=== PATIENT | male | born 1960 | race American Indian/Alaskan Native ===

== ENCOUNTER 2018-09-11 01:12 | Inpatient (IN) | payer MEDICARE, OTHER ==
[2018-09-11] MEDS ORDERED: Albuterol-Ipratrop 3 mg / 0.5 (3 ml) UD IH STA (02:31)
--- NOTE | 2018-09-11 02:41 | ED PDOC ---
Arrival/HPI - General Chief Complaint: Lower Extremity Problem/Injury Time Seen by Provider: 09/11/18 02:18 Historian: Patient - Critical Care Critical Care Minutes: 30 minutes, 45 minutes - History of Present Illness Narrative History of Present Illness (Text): 09/11/18 02:38 58 year old male, whose medical history includes morbid obesity and leg cellulitis, and denies any other past medical history, presents to the emergency department with shortness of breath. Patient also informs of dry skin changes to his right lower leg. Patient informs he has not been to a PMD in quite some time. Patient denies any chest pain, fever, chills, nausea, diarrhea, or any other complaints. Time/Duration: Prior to Arrival Symptom Onset: Gradual Symptom Course: Unchanged Activities at Onset: Light Context: Home Past Medical History - Provider Review Nursing Documentation Reviewed: Yes - Cardiac Hx Cardiac Disorders: Yes Hx Hypertension: Yes - Pulmonary Hx Respiratory Disorders: No - Neurological Hx Neurological Disorder: No - HEENT Hx HEENT Disorder: No - Renal Hx Renal Disorder: No - Endocrine/Metabolic Hx Endocrine Disorders: No - Hematological/Oncological Hx Blood Transfusions: Yes Hx Blood Transfusion Reaction: No - Integumentary Hx Dermatological Disorder: No Other/Comment: BILATERAL LYMPEDEMA WITH 2 LARGE OPENING ONE IS TO RIGHT LOWER LATERAL SIDE OF RIGHT LEG AND 2ND TO BACKSIDE OF THIGH.DRAINING COPIOUS SEROUSANGUINEOUS DRAINAGE, - Musculoskeletal/Rheumatological Hx Musculoskeletal Disorders: Yes - Gastrointestinal Hx Gastrointestinal Disorders: No - Genitourinary/Gynecological Hx Genitourinary Disorders: No - Psychiatric Hx Psychophysiologic Disorder: No Hx Substance Use: No - Surgical History Hx Orthopedic Surgery: Yes (right ankle) - Anesthesia Hx Anesthesia Reactions: No Hx Malignant Hyperthermia: No Family/Social History - Physician Review Nursing Documentation Reviewed: Yes Family/Social History: No Known Family HX Smoking Status: Never Smoked Hx Alcohol Use: No Hx Substance Use: No Allergies/Home Meds Allergies/Adverse Reactions: Allergies No Known Allergies Allergy (Verified 10/23/15 19:49) Review of Systems - Physician Review All systems were reviewed & negative as marked: Yes - Review of Systems Constitutional: absent: Fevers, Night Sweats Respiratory: SOB Cardiovascular: absent: Chest Pain Gastrointestinal: absent: Diarrhea, Nausea, Vomiting Physical Exam Vital Signs Reviewed: Yes Vital Signs Temp Pulse Resp BP Pulse Ox 09/11/18 01:48 97.5 F L 114 H 18 144/78 92 L Temperature: Afebrile Blood Pressure: Normal Pulse: Tachycardic Respiratory Rate: Normal Appearance: Positive for: Well-Appearing, Non-Toxic, Comfortable Pain Distress: None Mental Status: Positive for: Alert and Oriented X 3 - Systems Exam Head: Present: Atraumatic, Normocephalic Pupils: Present: PERRL Extroacular Muscles: Present: EOMI Conjunctiva: Present: Normal Mouth: Present: Moist Mucous Membranes Neck: Present: Normal Range of Motion Respiratory/Chest: Present: Clear to Auscultation, Good Air Exchange, Rhonchi (Scattered). No: Respiratory Distress, Accessory Muscle Use Cardiovascular: Present: Normal S1, S2, Irregular Rhythm. No: Murmurs Abdomen: Present: Normal Bowel Sounds. No: Tenderness, Distention, Peritoneal Signs Back: Present: Normal Inspection Upper Extremity: Present: Normal Inspection. No: Cyanosis, Edema Lower Extremity: Present: Neurovascularly Intact. No: Normal Inspection (Lymphedema bilaterally, with chronic venous stasis changes; dry skin), Shima's Sign Neurological: Present: GCS=15, CN II-XII Intact, Speech Normal, Motor Func Grossly Intact, Normal Sensory Function Skin: Present: Warm, Dry, Normal Color. No: Rashes Psychiatric: Present: Alert, Oriented x 3, Normal Insight, Normal Concentration Medical Decision Making ED Course and Treatment: 09/11/18 02:49 Impression: 58 year old male presents with shortness of breath, skin changes to legs Plan: -- EKG -- CMP, BNP, Cardiac iso -- CBC, Platelets -- Chest X-ray -- Duoneb -- US Lower EXT -- Reassess and disposition Prior Visits: Notes and results from previous visits were reviewed Progress Notes: 09/11/18 05:08 US reviewed, shows: Negative DVT, but limited study. 09/11/18 05:15 EKG Reviewed by me, shows: A-fib @ 110bpm Inferior and anterior infarct 09/11/18 05:15 Chest X-ray Reviewed by me, shows: CHF 09/11/18 05:38 Case discussed with outside medical sales representative and Dr Berger, who accept admission.Patient will need to go to the ICU.Case was discussed with who accepted to his service and agrees with ICU/CCU admission. - RAD Interpretation Radiology Orders: 09/11/18 02:29 CHEST PORTABLE [RAD] Stat DUPLEX LOWER EXTRM VEIN BILAT [US] Stat - Medication Orders Current Medication Orders: Albuterol/Ipratropium (Duoneb 3 Mg/0.5 Mg (3 Ml) Ud) 3 ml IH ONCE STA Stop: 09/11/18 02:32 - Scribe Statement The provider has reviewed the documentation as recorded by the Alejandrinaibpetra Soliman Provider Scribe Attestation: All medical record entries made by the Scribe were at my direction and personally dictated by me. I have reviewed the chart and agree that the record accurately reflects my personal performance of the history, physical exam, medical decision making, and the department course for this patient. I have also personally directed, reviewed, and agree with the discharge instructions and disposition. Disposition/Present on Arrival - Present on Arrival Any Indicators Present on Arrival: No History of DVT/PE: No History of Uncontrolled Diabetes: No Urinary Catheter: No History of Decub. Ulcer: No History Surgical Site Infection Following: None - Disposition Have Diagnosis and Disposition been Completed?: Yes Diagnosis: CHF (congestive heart failure), Anemia, Lymphedema, Atrial fibrillation Disposition: HOSPITALIZED Disposition Time: 05:42 Patient Problems: Current Active Problems Problem Status Onset Anemia Acute Atrial fibrillation Acute CHF (congestive heart failure) Acute Lymphedema Acute Condition: GUARDED
[2018-09-11] MEDS: diltiaZEM IVPB 100mg in NS 100 ML IV PRN ×2 (03:25→22:26)
[2018-09-11 03:33] LABS: HEMOGLOBIN 8.4 g/dL (14.0-18.0); MEAN CELL VOLUME 72.7 fl (80.0-105.0); MEAN CORPUSCULAR HEMOGLOBIN 19.1 pg (25.0-35.0); MEAN CORPUSCULAR HGB CONC 26.3 g/dl (31.0-37.0); MEAN PLATELET VOLUME 9.8 fl (7.0-11.0); RBC 4.4 10^6/uL (3.5-6.1); RED CELL DISTRIBUTION WIDTH 20.2 % (11.5-14.5); WHITE BLOOD COUNT 9.2 10^3/uL (4.5-11.0)
[2018-09-11 03:37] LABS: INR 1.67; PROTHROMBIN TIME 18.5 SECONDS (9.4-12.5)
[2018-09-11 03:39] LABS: ALB/GLOB RATIO 0.8 (1.1-1.8); ALBUMIN 3.7 g/dL (3.0-4.8); ALT/SGPT 18 U/L (7-56); AST/SGOT 62 U/L (17-59); BLOOD UREA NITROGEN 30 mg/dL (7-21); CALCIUM 8.1 mg/dL (8.4-10.5); GFR NON-AFRICAN AMERICAN > 60
[2018-09-11 03:51] LABS: B-TYPE NATRIURETIC PEPTIDE 2910 pg/mL (0-450); TROPONIN I 0.02 ng/mL
[2018-09-11 05:55] LABS: ARTERIAL BLOOD GAS HCO3 30.3 mmol/L (21-28); ARTERIAL BLOOD GAS HEMOGLOBIN 8.4 g/dL (11.7-17.4); ARTERIAL BLOOD GAS O2 CAPACITY 11.9 mL/dl (16-24); ARTERIAL BLOOD GAS O2 CONTENT 11.8 ML/dl (15-23); ARTERIAL BLOOD GAS O2 SAT 99.4 % (95-98); ARTERIAL BLOOD GAS PCO2 83 mm/Hg (35-45); ARTERIAL BLOOD GAS PH 7.17 (7.35-7.45); ARTERIAL BLOOD GAS TCO2 32.8 mmol.L (22-28)
[2018-09-11] MEDS ORDERED: Enoxaparin 120 mg Syringe SC SCH (06:30)
--- NOTE | 2018-09-11 06:37 | CP.PCM.HP ---
Past Patient History - Past Social History Smoking Status: Never Smoked - CARDIAC Hx Cardiac Disorders: Yes Hx Hypertension: Yes - PULMONARY Hx Respiratory Disorders: No - NEUROLOGICAL Hx Neurological Disorder: No - HEENT Hx HEENT Problems: No - RENAL Hx Chronic Kidney Disease: No - ENDOCRINE/METABOLIC Hx Endocrine Disorders: No - HEMATOLOGICAL/ONCOLOGICAL Hx Blood Transfusions: Yes Hx Blood Transfusion Reaction: No - INTEGUMENTARY Hx Dermatological Problems: No Other/Comment: BILATERAL LYMPEDEMA WITH 2 LARGE OPENING ONE IS TO RIGHT LOWER LATERAL SIDE OF RIGHT LEG AND 2ND TO BACKSIDE OF THIGH.DRAINING COPIOUS SEROUSANGUINEOUS DRAINAGE, - MUSCULOSKELETAL/RHEUMATOLOGICAL Hx Musculoskeletal Disorders: Yes - GASTROINTESTINAL Hx Gastrointestinal Disorders: No - GENITOURINARY/GYNECOLOGICAL Hx Genitourinary Disorders: No - PSYCHIATRIC Hx Psychophysiologic Disorder: No Hx Substance Use: No - SURGICAL HISTORY Hx Orthopedic Surgery: Yes (right ankle) - ANESTHESIA Hx Anesthesia Reactions: No Hx Malignant Hyperthermia: No Meds Allergies/Adverse Reactions: Allergies Allergy/AdvReac Type Severity Reaction Status Date / Time No Known Allergies Allergy Verified 10/23/15 19:49 Results - Vital Signs Recent Vital Signs: Last Vital Signs Temp 98.9 F 09/11/18 06:20 Pulse 89 09/11/18 06:20 Resp 27 H 09/11/18 06:20 BP 156/73 H 09/11/18 06:20 Pulse Ox 100 09/11/18 06:20 - Labs Result Diagrams: 09/11/18 03:10 09/11/18 03:10 Labs: Laboratory Results - last 24 hr 09/11/18 09/11/18 09/11/18 03:10 03:10 03:10 WBC 9.2 RBC 4.40 Hgb 8.4 L Hct 32.0 L MCV 72.7 L MCH 19.1 L MCHC 26.3 L RDW 20.2 H Plt Count 308 MPV 9.8 PT 18.5 H INR 1.67 APTT 30.0 pCO2 pO2 HCO3 ABG pH ABG Total CO2 ABG O2 Saturation ABG O2 Content ABG Base Excess ABG Hemoglobin ABG Carboxyhemoglobin POC ABG HHb (Measured) ABG Methemoglobin ABG O2 Capacity Hgb O2 Saturation FiO2 Blood Gas Comments Crit Value Called To Crit Value Called By Blood Gas Notified Time Sodium 134 Potassium 4.8 Chloride 96 L Carbon Dioxide 32 Anion Gap 10 BUN 30 H Creatinine 1.0 Est GFR ( Amer) > 60 Est GFR (Non-Af Amer) > 60 Random Glucose 117 H Calcium 8.1 L Total Bilirubin 0.9 AST 62 H ALT 18 Alkaline Phosphatase 40 Lactate Dehydrogenase 598 Total Creatine Kinase 91 Troponin I 0.02 D NT-Pro-B Natriuret Pep 2910 H Total Protein 8.1 Albumin 3.7 Globulin 4.5 Albumin/Globulin Ratio 0.8 L 09/11/18 05:35 WBC RBC Hgb Hct MCV MCH MCHC RDW Plt Count MPV PT INR APTT pCO2 83 H* pO2 162.0 H HCO3 30.3 H ABG pH 7.17 L* ABG Total CO2 32.8 H ABG O2 Saturation 99.4 H ABG O2 Content 11.8 L ABG Base Excess 0.9 ABG Hemoglobin 8.4 L ABG Carboxyhemoglobin 2.5 H POC ABG HHb (Measured) 0.6 ABG Methemoglobin 0.4 ABG O2 Capacity 11.9 L Hgb O2 Saturation 96.4 FiO2 100.0 Blood Gas Comments Ms enrique mac(manufacturing advisor) will bring abg results to ed Crit Value Called To [facility] brito rn ed Crit Value Called By [facility] Blood Gas Notified Time 554 Sodium Potassium Chloride Carbon Dioxide Anion Gap BUN Creatinine Est GFR ( Amer) Est GFR (Non-Af Amer) Random Glucose Calcium Total Bilirubin AST ALT Alkaline Phosphatase Lactate Dehydrogenase Total Creatine Kinase Troponin I NT-Pro-B Natriuret Pep Total Protein Albumin Globulin Albumin/Globulin Ratio
[2018-09-11] MEDS ORDERED: Vancomycin 1gm in NS 250ml 1 GM/250 ML BAG IVPB SCH (06:45)
[2018-09-11] MEDS ORDERED: MEROPENEM 500 MG in NS 500 MG/50 ML BAG IVPB SCH (07:00)
--- NOTE | 2018-09-11 07:07 | CP.PCM.CON ---
<Guru Lamas - Last Filed: 09/11/18 07:08> History of Present Illness - History of Present Illness History of Present Illness: Consult Note for ICU, Dr. Celine Lamas, DO PGY-1 This is a 58 y o male with PMHx morbid obesity, leg cellulitis, and chronic lymphedema, who presents to the ED c/o shortness of breath worsening for the past 7 days. Reason for ICU consult was for worsening respiratory distress, possible new-onset arrhythmia. Pt denies any inciting factors prior to onset of symptoms but notes that he has been becoming more short of breath with exertion at home and more recently at rest. Of note pt reports recent travel to [place] via airplane at the end of August. Denies hx sick contacts or recent URI. Reports last time he had dyspnea like this he was admitted to [facility] in [place], but denies being treated with BiPap or ever being intubated in the past. Denies fever, chills, chest pain, n/v/d/c, abd pain, urinary complaints, or other symptoms. PMhx: morbid obesity, leg cellulitis, and chronic lymphedema PSurgHx: surgery for R ankle fracture in 2006, I+D of RLE for cellulitis in 2016 Allergies: NKDA Home meds: none Fam hx: noncontributory Soc hx: denies smoking, EtOH or illicit drug use PMD: none Review of Systems - Constitutional Constitutional: Fatigue. absent: Chills, Fever, Headache, Night Sweats, Sleep Apnea - Cardiovascular Cardiovascular: Dyspnea, Dyspnea on Exertion, Leg Edema. absent: Chest Pain, Palpitations - Respiratory Respiratory: Dyspnea, Dyspnea on Exertion. absent: Cough, Wheezing, Chest Congestion, Excessive Mucous Production - Gastrointestinal Gastrointestinal: absent: Abdominal Pain, Constipation, Diarrhea, Nausea, Vomiting - Genitourinary Genitourinary: absent: Dysuria, Urinary Frequency, Urinary Urgency - Neurological Neurological: absent: Dizziness, Numbness, Headaches, Tingling Past Patient History - Past Social History Smoking Status: Never Smoked - CARDIAC Hx Cardiac Disorders: Yes Hx Hypertension: Yes - PULMONARY Hx Respiratory Disorders: No - NEUROLOGICAL Hx Neurological Disorder: No - HEENT Hx HEENT Problems: No - RENAL Hx Chronic Kidney Disease: No - ENDOCRINE/METABOLIC Hx Endocrine Disorders: No - HEMATOLOGICAL/ONCOLOGICAL Hx Blood Transfusions: Yes Hx Blood Transfusion Reaction: No - INTEGUMENTARY Hx Dermatological Problems: No Other/Comment: BILATERAL LYMPEDEMA WITH 2 LARGE OPENING ONE IS TO RIGHT LOWER LATERAL SIDE OF RIGHT LEG AND 2ND TO BACKSIDE OF THIGH.DRAINING COPIOUS SEROUSANGUINEOUS DRAINAGE, - MUSCULOSKELETAL/RHEUMATOLOGICAL Hx Musculoskeletal Disorders: Yes - GASTROINTESTINAL Hx Gastrointestinal Disorders: No - GENITOURINARY/GYNECOLOGICAL Hx Genitourinary Disorders: No - PSYCHIATRIC Hx Psychophysiologic Disorder: No Hx Substance Use: No - SURGICAL HISTORY Hx Orthopedic Surgery: Yes (right ankle) - ANESTHESIA Hx Anesthesia Reactions: No Hx Malignant Hyperthermia: No Meds Allergies/Adverse Reactions: Allergies Allergy/AdvReac Type Severity Reaction Status Date / Time No Known Allergies Allergy Verified 10/23/15 19:49 - Medications Medications: Current Medications Acetaminophen (Tylenol 325mg Tab) 650 mg PO Q6 PRN PRN Reason: TEMP>=99.5F Acetaminophen (Tylenol 650 Mg Supp) 650 mg RC Q6H PRN PRN Reason: TEMP>=99.5F Atorvastatin Calcium (Lipitor) 40 mg PO DIN [facility] Docusate Sodium (Colace) 100 mg PO TID [facility] Enoxaparin Sodium (Lovenox) 240 mg SC Q12H [facility]; Protocol Furosemide (Lasix) 40 mg IVP Q8H [facility] diltiaZEM IVPB 100mg in NS (Cardizem 100mg In Ns) 100 mls @ 5 mls/hr IV .Q20H PRN; Protocol PRN Reason: TITRATE PER MD ORDER Last Admin: 09/11/18 03:25 Dose: 5 mls/hr Vancomycin HCl (Vancomycin 1gm) 1 gm in 250 mls @ 167 mls/hr IVPB Q12H [facility]; P rotocol Meropenem/Sodium Chloride (Merrem Iv 500 Mg/Ns 50 Ml) 500 mg in 50 mls @ 100 mls/hr IVPB Q8 [facility]; Protocol Stop: 09/11/18 14:29 Ondansetron HCl (Zofran Inj) 4 mg IVP Q4H PRN PRN Reason: Nausea/Vomiting Pantoprazole Sodium (Protonix Ec Tab) 40 mg PO 0600 [facility] Physical Exam - Constitutional Appears: Non-toxic, No Acute Distress - Head Exam Head Exam: ATRAUMATIC, NORMOCEPHALIC - Eye Exam Eye Exam: EOMI, Normal appearance, PERRL - ENT Exam ENT Exam: Mucous Membranes Moist - Respiratory Exam Respiratory Exam: Wheezes, Respiratory Distress. absent: Rales, Rhonchi - Cardiovascular Exam Cardiovascular Exam: Tachycardia, Irregular Rhythm, +S1, +S2. absent: Gallop, Rubs, Systolic Murmur - GI/Abdominal Exam GI & Abdominal Exam: Normal Bowel Sounds, Soft. absent: Distended, Guarding, O rganomegaly, Rebound, Rigid, Tenderness - Extremities Exam Extremities exam: Positive for: joint swelling, normal capillary refill, pedal pulses present Additional comments: Marked lymphedema noted in extremities b/l, - Skin Additional comments: Ulcer noted on R lower lateral side of R leg and 2nd location to backside of thigh, draining copious serosanguinous drainage Results - Vital Signs Recent Vital Signs: Last Vital Signs Temp 98.9 F 09/11/18 06:20 Pulse 89 09/11/18 06:20 Resp 27 H 09/11/18 06:20 BP 156/73 H 09/11/18 06:20 Pulse Ox 100 09/11/18 06:20 - Labs Result Diagrams: 09/11/18 03:10 09/11/18 03:10 Labs: Laboratory Results - last 24 hr 09/11/18 09/11/18 09/11/18 03:10 03:10 03:10 WBC 9.2 RBC 4.40 Hgb 8.4 L Hct 32.0 L MCV 72.7 L MCH 19.1 L MCHC 26.3 L RDW 20.2 H Plt Count 308 MPV 9.8 PT 18.5 H INR 1.67 APTT 30.0 pCO2 pO2 HCO3 ABG pH ABG Total CO2 ABG O2 Saturation ABG O2 Content ABG Base Excess ABG Hemoglobin ABG Carboxyhemoglobin POC ABG HHb (Measured) ABG Methemoglobin ABG O2 Capacity Hgb O2 Saturation FiO2 Blood Gas Comments Crit Value Called To Crit Value Called By Blood Gas Notified Time Sodium 134 Potassium 4.8 Chloride 96 L Carbon Dioxide 32 Anion Gap 10 BUN 30 H Creatinine 1.0 Est GFR ( Amer) > 60 Est GFR (Non-Af Amer) > 60 Random Glucose 117 H Calcium 8.1 L Total Bilirubin 0.9 AST 62 H ALT 18 Alkaline Phosphatase 40 Lactate Dehydrogenase 598 Total Creatine Kinase 91 Troponin I 0.02 D NT-Pro-B Natriuret Pep 2910 H Total Protein 8.1 Albumin 3.7 Globulin 4.5 Albumin/Globulin Ratio 0.8 L 09/11/18 05:35 WBC RBC Hgb Hct MCV MCH MCHC RDW Plt Count MPV PT INR APTT pCO2 83 H* pO2 162.0 H HCO3 30.3 H ABG pH 7.17 L* ABG Total CO2 32.8 H ABG O2 Saturation 99.4 H ABG O2 Content 11.8 L ABG Base Excess 0.9 ABG Hemoglobin 8.4 L ABG Carboxyhemoglobin 2.5 H POC ABG HHb (Measured) 0.6 ABG Methemoglobin 0.4 ABG O2 Capacity 11.9 L Hgb O2 Saturation 96.4 FiO2 100.0 Blood Gas Comments Ms enrique mac(front desk attendant) will bring abg results to ed Crit Value Called To Stanford brito rn ed Crit Value Called By Dereck Blood Gas Notified Time 554 Sodium Potassium Chloride Carbon Dioxide Anion Gap BUN Creatinine Est GFR ( Amer) Est GFR (Non-Af Amer) Random Glucose Calcium Total Bilirubin AST ALT Alkaline Phosphatase Lactate Dehydrogenase Total Creatine Kinase Troponin I NT-Pro-B Natriuret Pep Total Protein Albumin Globulin Albumin/Globulin Ratio Assessment & Plan - Assessment and Plan (Free Text) Assessment: This is a 58 y o male with PMHx morbid obesity, leg cellulitis, and chronic lymphedema, who presents to the ED c/o shortness of breath worsening for the past 7 days. Reason for ICU consult was for worsening respiratory distress, possible new-onset arrhythmia. Plan: Neuro: AAOx3 currently. No changes in mental status. Cont to monitor. CV: BP 156/73, HR 89, irregular rhythm noted on monitor. Per RN pt was in HR up to 150s on presentation to ED. Was given Cardizem with improvement in rate control. Currently on Cardizem drip. R/o atrial fibrillation. Cardiology consulted, recs appreciated BNP elevated at 2910 on admission. R/o CHF exacerbation. Lasix 40 IVP q8h. Maintain MAP>65. Hemodynamically stable currently Cont to monitor. Pulm: Chronic resp acidosis compensated with metabolic acidosis, f/u repeat ABG R/o PE as etiology based on pt history, obesity hypoventilation syndrome. V/Q scan ordered due to pt being unable to fit into CT scan machine for CT angio chest. Duplex U/s LE b/l prelim read neg for DVT. On BiPap at rate of 18/6. Maintain O2 sat>90% Continue with HOB elevation> 35 degrees, aspiration precautions. Continue with protected lung ventilation strategies GI: NPO. Continue with Protonix. /Renal BUN/Cr 30/1.0. Replace lytes as needed, maintain euvolemia. Continue to monitor. ID: Afebrile, no leukocytosis. Treat for cellulitis Vanco/Merrem ID consulted, recs appreciated Blood, wound cxs pending Endo: A1c pending Random glucose 117 on admission. Heme: Hgb 8.4/32. Plts 308. Stable. Cont to monitor. Psych: Normal mood. DVT ppx - Lovenox bid GI ppx - Protonix bid Pt seen, examined with, and plan discussed with Dr. Berger, attending physicia kirstin Lamas DO PGY-1, Final Armature Tester Pager #[phone] <Ana Berger - Last Filed: 09/11/18 21:25> Meds - Medications Medications: Current Medications Acetaminophen (Tylenol 325mg Tab) 650 mg PO Q6 PRN PRN Reason: TEMP>=99.5F Acetaminophen (Tylenol 650 Mg Supp) 650 mg RC Q6H PRN PRN Reason: TEMP>=99.5F Albuterol/Ipratropium (Duoneb 3 Mg/0.5 Mg (3 Ml) Ud) 3 ml IH Q4H [facility] Atorvastatin Calcium (Lipitor) 40 mg PO DIN [facility] Last Admin: 09/11/18 17:46 Dose: Not Given Docusate Sodium (Colace) 100 mg PO TID [facility] Last Admin: 09/11/18 17:46 Dose: Not Given Furosemide (Lasix) 40 mg IVP Q8H [facility] Last Admin: 09/11/18 14:32 Dose: 40 mg diltiaZEM IVPB 100mg in NS (Cardizem 100mg In Ns) 100 mls @ 5 mls/hr IV .Q20H PRN; Protocol PRN Reason: TITRATE PER MD ORDER Last Admin: 09/11/18 03:25 Dose: 5 mls/hr Linezolid (Zyvox 600mg/300ml D5w) 600 mg in 300 mls @ 200 mls/hr IVPB Q12 [facility]; Protocol Stop: 09/18/18 22:01 Doxycycline Hyclate 100 mg/ (Sodium Chloride) 100 mls @ 100 mls/hr IVPB Q12 [facility]; Protocol Last Admin: 09/11/18 14:30 Dose: 100 mls/hr Heparin Sodium/Sodium Chloride (Heparin 65090 Units/250ml 1/2 Normal Saline) 25,000 units in 250 mls @ 20.02 mls/hr IV .[id number] PRN; Protocol PRN Reason: ADJUST RATE PER PROTOCOL Last Admin: 09/11/18 14:33 Dose: 8.25 units/kg/hr, 20.02 mls/hr Methylprednisolone (Solu-Medrol) 20 mg IVP Q8H [facility] Last Admin: 09/11/18 14:32 Dose: 20 mg Ondansetron HCl (Zofran Inj) 4 mg IVP Q4H PRN PRN Reason: Nausea/Vomiting Pantoprazole Sodium (Protonix Ec Tab) 40 mg PO 0600 [facility] Results - Vital Signs Recent Vital Signs: Last Vital Signs Temp 97.9 F 09/11/18 16:00 Pulse 79 09/11/18 21:18 Resp 24 09/11/18 19:00 BP 131/60 09/11/18 19:00 Pulse Ox 92 L 09/11/18 19:00 - Labs Result Diagrams: 09/11/18 17:30 09/11/18 03:10 Labs: Laboratory Results - last 24 hr 09/11/18 09/11/18 09/11/18 03:10 03:10 03:10 WBC 9.2 RBC 4.40 Hgb 8.4 L Hct 32.0 L MCV 72.7 L MCH 19.1 L MCHC 26.3 L RDW 20.2 H Plt Count 308 MPV 9.8 PT 18.5 H INR 1.67 APTT 30.0 pCO2 pO2 HCO3 ABG pH ABG Total CO2 ABG O2 Saturation ABG O2 Content ABG Base Excess ABG Hemoglobin ABG Carboxyhemoglobin POC ABG HHb (Measured) ABG Methemoglobin ABG O2 Capacity ABG Potassium Hgb O2 Saturation Glucose Lactate FiO2 Inspiratory BiPAP Blood Gas Comments Crit Value Called To Crit Value Called By Blood Gas Notified Time Sodium 134 Potassium 4.8 Chloride 96 L Carbon Dioxide 32 Anion Gap 10 BUN 30 H Creatinine 1.0 Est GFR ( Amer) > 60 Est GFR (Non-Af Amer) > 60 Random Glucose 117 H Hemoglobin A1c Lactic Acid Calcium 8.1 L Iron TIBC % Saturation Ferritin Total Bilirubin 0.9 AST 62 H ALT 18 Alkaline Phosphatase 40 Lactate Dehydrogenase 598 Total Creatine Kinase 91 Troponin I 0.02 D NT-Pro-B Natriuret Pep 2910 H Total Protein 8.1 Albumin 3.7 Globulin 4.5 Albumin/Globulin Ratio 0.8 L Triglycerides Cholesterol LDL Cholesterol Direct HDL Cholesterol Vitamin B12 25-OH Vitamin D Total Folate Free T4 Thyroxine (T4) TSH 3rd Generation Arterial Blood Potassium Blood Type Antibody Screen Crossmatch BBK History Checked 09/11/18 09/11/18 09/11/18 05:35 06:00 06:00 WBC RBC Hgb Hct MCV MCH MCHC RDW Plt Count MPV PT INR APTT pCO2 83 H* pO2 162.0 H HCO3 30.3 H ABG pH 7.17 L* ABG Total CO2 32.8 H ABG O2 Saturation 99.4 H ABG O2 Content 11.8 L ABG Base Excess 0.9 ABG Hemoglobin 8.4 L ABG Carboxyhemoglobin 2.5 H POC ABG HHb (Measured) 0.6 ABG Methemoglobin 0.4 ABG O2 Capacity 11.9 L ABG Potassium Hgb O2 Saturation 96.4 Glucose Lactate FiO2 100.0 Inspiratory BiPAP Blood Gas Comments Ms enrique mac(front desk attendant) will bring abg results to ed Crit Value Called To Stanford brito rn ed Crit Value Called By [facility] Blood Gas Notified Time 554 Sodium Potassium Chloride Carbon Dioxide Anion Gap BUN Creatinine Est GFR ( Amer) Est GFR (Non-Af Amer) Random Glucose Hemoglobin A1c Lactic Acid Calcium Iron TIBC % Saturation Ferritin 20.2 Total Bilirubin AST ALT Alkaline Phosphatase Lactate Dehydrogenase Total Creatine Kinase 84 Troponin I 0.02 NT-Pro-B Natriuret Pep Total Protein Albumin Globulin Albumin/Globulin Ratio Triglycerides 103 Cholesterol 103 L LDL Cholesterol Direct 67 HDL Cholesterol 12 L Vitamin B12 797 25-OH Vitamin D Total Folate 7.7 Free T4 Thyroxine (T4) TSH 3rd Generation Arterial Blood Potassium Blood Type A POSITIVE Antibody Screen Negative Crossmatch See Detail BBK History Checked Patient has bt 02/05/19 02/05/19 02/05/19 06:00 06:45 10:10 WBC RBC Hgb Hct MCV MCH MCHC RDW Plt Count MPV PT INR APTT pCO2 pO2 HCO3 ABG pH ABG Total CO2 ABG O2 Saturation ABG O2 Content ABG Base Excess ABG Hemoglobin ABG Carboxyhemoglobin POC ABG HHb (Measured) ABG Methemoglobin ABG O2 Capacity ABG Potassium Hgb O2 Saturation Glucose Lactate FiO2 Inspiratory BiPAP Blood Gas Comments Crit Value Called To Crit Value Called By Blood Gas Notified Time Sodium Potassium Chloride Carbon Dioxide Anion Gap BUN Creatinine Est GFR ( Amer) Est GFR (Non-Af Amer) Random Glucose Hemoglobin A1c 6.2 Lactic Acid 0.8 Calcium Iron 27 L TIBC 322 % Saturation 8 L Ferritin Total Bilirubin AST ALT Alkaline Phosphatase Lactate Dehydrogenase Total Creatine Kinase Troponin I NT-Pro-B Natriuret Pep Total Protein Albumin Globulin Albumin/Globulin Ratio Triglycerides Cholesterol LDL Cholesterol Direct HDL Cholesterol Vitamin B12 25-OH Vitamin D Total Folate Free T4 Thyroxine (T4) TSH 3rd Generation Arterial Blood Potassium Blood Type Antibody Screen Crossmatch BBK History Checked 09/11/18 09/11/18 09/11/18 10:10 10:10 10:10 WBC RBC Hgb Hct MCV MCH MCHC RDW Plt Count MPV PT INR APTT pCO2 pO2 HCO3 ABG pH ABG Total CO2 ABG O2 Saturation ABG O2 Content ABG Base Excess ABG Hemoglobin ABG Carboxyhemoglobin POC ABG HHb (Measured) ABG Methemoglobin ABG O2 Capacity ABG Potassium Hgb O2 Saturation Glucose Lactate FiO2 Inspiratory BiPAP Blood Gas Comments Crit Value Called To Crit Value Called By Blood Gas Notified Time Sodium Potassium Chloride Carbon Dioxide Anion Gap BUN Creatinine Est GFR ( Amer) Est GFR (Non-Af Amer) Random Glucose Hemoglobin A1c Lactic Acid Calcium Iron TIBC % Saturation Ferritin Total Bilirubin AST ALT Alkaline Phosphatase Lactate Dehydrogenase Total Creatine Kinase 75 Troponin I 0.02 NT-Pro-B Natriuret Pep Total Protein Albumin Globulin Albumin/Globulin Ratio Triglycerides Cholesterol LDL Cholesterol Direct HDL Cholesterol Vitamin B12 25-OH Vitamin D Total < 12.8 L Folate Free T4 1.08 Thyroxine (T4) 3.9 L TSH 3rd Generation 2.60 Arterial Blood Potassium Blood Type Antibody Screen Crossmatch BBK History Checked 09/11/18 09/11/18 09/11/18 11:25 15:10 17:30 WBC RBC Hgb Hct MCV MCH MCHC RDW Plt Count MPV PT INR APTT pCO2 95 H* 76 H* pO2 213.0 H 107.0 H HCO3 34.7 H 32.6 H ABG pH 7.17 L* 7.24 L ABG Total CO2 37.6 H 34.9 H ABG O2 Saturation 99.0 H 98.5 H ABG O2 Content 12.0 L ABG Base Excess 4.7 H 2.8 ABG Hemoglobin 8.5 L ABG Carboxyhemoglobin 2.0 H POC ABG HHb (Measured) 1.0 ABG Methemoglobin 0.6 ABG O2 Capacity 12.1 L ABG Potassium 4.2 Hgb O2 Saturation 96.3 Glucose 90 Lactate 0.6 L FiO2 90.0 40.0 Inspiratory BiPAP 22 Blood Gas Comments Crit Value Called To dannie Ontiveros Dr., m. Crit Value Called By iman Rousseau louis Blood Gas Notified Time 1138 1314 Sodium 137.0 Potassium Chloride 103.0 Carbon Dioxide Anion Gap BUN Creatinine Est GFR ( Amer) Est GFR (Non-Af Amer) Random Glucose Hemoglobin A1c Lactic Acid Calcium Iron TIBC % Saturation Ferritin Total Bilirubin AST ALT Alkaline Phosphatase Lactate Dehydrogenase Total Creatine Kinase 67 Troponin I 0.02 NT-Pro-B Natriuret Pep Total Protein Albumin Globulin Albumin/Globulin Ratio Triglycerides Cholesterol LDL Cholesterol Direct HDL Cholesterol Vitamin B12 25-OH Vitamin D Total Folate Free T4 Thyroxine (T4) TSH 3rd Generation Arterial Blood Potassium 4.2 Blood Type Antibody Screen Crossmatch BBK History Checked 09/11/18 09/11/18 17:30 20:20 WBC 11.0 RBC 4.56 Hgb 8.9 L Hct 34.5 L MCV 75.7 L D MCH 19.5 L MCHC 25.8 L RDW 20.2 H Plt Count 241 MPV 9.1 PT INR APTT 55.1 H pCO2 pO2 HCO3 ABG pH ABG Total CO2 ABG O2 Saturation ABG O2 Content ABG Base Excess ABG Hemoglobin ABG Carboxyhemoglobin POC ABG HHb (Measured) ABG Methemoglobin ABG O2 Capacity ABG Potassium Hgb O2 Saturation Glucose Lactate FiO2 Inspiratory BiPAP Blood Gas Comments Crit Value Called To Crit Value Called By Blood Gas Notified Time Sodium Potassium Chloride Carbon Dioxide Anion Gap BUN Creatinine Est GFR ( Amer) Est GFR (Non-Af Amer) Random Glucose Hemoglobin A1c Lactic Acid Calcium Iron TIBC % Saturation Ferritin Total Bilirubin AST ALT Alkaline Phosphatase Lactate Dehydrogenase Total Creatine Kinase Troponin I NT-Pro-B Natriuret Pep Total Protein Albumin Globulin Albumin/Globulin Ratio Triglycerides Cholesterol LDL Cholesterol Direct HDL Cholesterol Vitamin B12 25-OH Vitamin D Total Folate Free T4 Thyroxine (T4) TSH 3rd Generation Arterial Blood Potassium Blood Type Antibody Screen Crossmatch BBK History Checked Attending/Attestation - Attestation I have personally seen and examined this patient.: Yes I have fully participated in the care of the patient.: Yes I have reviewed all pertinent clinical information: Yes
[2018-09-11 07:29] LABS: TROPONIN I 0.02 ng/mL
--- NOTE | 2018-09-11 08:36 | RAD ---
Date of service: 09/11/2018 HISTORY: fever COMPARISON: 10/23/2015 FINDINGS: LUNGS: No active pulmonary disease. PLEURA: No significant pleural effusion identified, no pneumothorax apparent. CARDIOVASCULAR: No aortic atherosclerotic calcification present. Normal cardiac size. No pulmonary vascular congestion. OSSEOUS STRUCTURES: No significant abnormalities. VISUALIZED UPPER ABDOMEN: Normal. OTHER FINDINGS: None. IMPRESSION: No active disease.
[2018-09-11] MEDS ORDERED: Enoxaparin 40 mg Syringe SC SCH (10:00)
[2018-09-11 11:01] LABS: TOTAL IRON BINDING CAPACITY 322 ug/dL (261-462)
[2018-09-11 11:02] LABS: % IRON SATURATION 8 % (20-55); IRON 27 ug/dL (45-180)
[2018-09-11 11:05] LABS: TROPONIN I 0.02 ng/mL
[2018-09-11 11:08] LABS: FREE T4 1.08 ng/dL (0.78-2.19); T4 3.9 ug/dL (5.5-11.0)
[2018-09-11 11:39] LABS: ARTERIAL BLOOD GAS HCO3 34.7 mmol/L (21-28); ARTERIAL BLOOD GAS HEMOGLOBIN 8.5 g/dL (11.7-17.4); ARTERIAL BLOOD GAS O2 CAPACITY 12.1 mL/dl (16-24); ARTERIAL BLOOD GAS PCO2 95 mm/Hg (35-45); ARTERIAL BLOOD GAS PH 7.17 (7.35-7.45); ARTERIAL BLOOD GAS TCO2 37.6 mmol.L (22-28)
--- NOTE | 2018-09-11 12:16 | CARD ---
APPROVED REPORT Date of service: 09/11/2018 EKG Measurement Heart [id number] <Conclusion> Atrial fibrillation with rapid ventricular response with premature ventricular or aberrantly conducted complexes Possible Inferior infarct, age undetermined Poor R wave progression in Precordial leads Abnormal ECG
[2018-09-11] MEDS ORDERED: Heparin25000 units/250ml 1/2NS 25,000 UNITS/250 ML BAG IV PRN (12:52)
[2018-09-11 13:01] LABS: FERRITIN 20.2 ng/mL
[2018-09-11 13:31] LABS: FOLATE 7.7 ng/mL
--- NOTE | 2018-09-11 14:18 | CP.PCM.HP ---
History of Present Illness - History of Present Illness History of Present Illness: Patient is a 58 y o male with PMHx morbid obesity, leg cellulitis, and chronic lymphedema, who presented to the ED with complaints of shortness of breath worsening for the past 7 days. History was provided by patient's significant other who states patient was recently back from a trip to [place]. Patient landed in [place] then took the train to [place]. Overnight patient patient was noted to be in respiratory distress and was therefore transferred to the ICU where he was found to have a new onset arrtyhthmia. Patient denies history of sick contacts or recent URI, fever, chills, chest pain, n/v/d/c, abd pain, urinary complaints, or other symptoms. PMhx: morbid obesity, leg cellulitis, and chronic lymphedema PSurgHx: surgery for R ankle fracture in 2005, I+D of RLE for cellulitis in 2016 Allergies: NKDA Home meds: none Fam hx: noncontributory Soc hx: denies smoking, EtOH or illicit drug use Review of Systems - Constitutional Constitutional: Fatigue. absent: Chills, Fever, Headache, Night Sweats, Sleep Apnea - Cardiovascular Cardiovascular: Dyspnea, Dyspnea on Exertion, Leg Edema. absent: Chest Pain, Palpitations - Respiratory Respiratory: Dyspnea, Dyspnea on Exertion. absent: Cough, Wheezing, Chest Congestion, Excessive Mucous Production - Gastrointestinal Gastrointestinal: absent: Abdominal Pain, Constipation, Diarrhea, Nausea, Vomiting - Genitourinary Genitourinary: absent: Dysuria, Urinary Frequency, Urinary Urgency - Neurological Neurological: absent: Dizziness, Numbness, Headaches, Tingling Physical Exam - Constitutional Appears: Non-toxic, No Acute Distress - Head Exam Head Exam: ATRAUMATIC, NORMOCEPHALIC - Eye Exam Eye Exam: EOMI, Normal appearance, PERRL - ENT Exam ENT Exam: Mucous Membranes Moist - Respiratory Exam Respiratory Exam: Wheezes, Respiratory Distress. absent: Rales, Rhonchi - Cardiovascular Exam Cardiovascular Exam: Tachycardia, Irregular Rhythm, +S1, +S2. absent: Gallop, Rubs, Systolic Murmur - GI/Abdominal Exam GI & Abdominal Exam: Normal Bowel Sounds, Soft. absent: Distended, Guarding, Organomegaly, Rebound, Rigid, Tenderness - Extremities Exam Extremities exam: Positive for: joint swelling, normal capillary refill, pedal pulses present Additional comments: Marked lymphedema noted in bilateral lower extremities - Skin Additional comments: Ulcer noted on R lower lateral side of R leg and 2nd location to backside of thigh, draining copious serosanguinous drainage Present on Admission - Present on Admission Any Indicators Present on Admission: No Past Patient History - Past Social History Smoking Status: Never Smoked - CARDIAC Hx Cardiac Disorders: Yes Hx Hypertension: Yes - PULMONARY Hx Respiratory Disorders: No - NEUROLOGICAL Hx Neurological Disorder: No - HEENT Hx HEENT Problems: No - RENAL Hx Chronic Kidney Disease: No - ENDOCRINE/METABOLIC Hx Endocrine Disorders: No - HEMATOLOGICAL/ONCOLOGICAL Hx Blood Transfusions: Yes Hx Blood Transfusion Reaction: No - INTEGUMENTARY Hx Dermatological Problems: No Other/Comment: BILATERAL LYMPEDEMA WITH 2 LARGE OPENING ONE IS TO RIGHT LOWER LATERAL SIDE OF RIGHT LEG AND 2ND TO BACKSIDE OF THIGH.DRAINING COPIOUS SEROUSANGUINEOUS DRAINAGE, - MUSCULOSKELETAL/RHEUMATOLOGICAL Hx Musculoskeletal Disorders: Yes - GASTROINTESTINAL Hx Gastrointestinal Disorders: No - GENITOURINARY/GYNECOLOGICAL Hx Genitourinary Disorders: No - PSYCHIATRIC Hx Psychophysiologic Disorder: No Hx Substance Use: No - SURGICAL HISTORY Hx Orthopedic Surgery: Yes (right ankle) - ANESTHESIA Hx Anesthesia Reactions: No Hx Malignant Hyperthermia: No Meds Allergies/Adverse Reactions: Allergies Allergy/AdvReac Type Severity Reaction Status Date / Time No Known Allergies Allergy Verified 10/23/15 19:49 Results - Vital Signs Recent Vital Signs: Last Vital Signs Temp 98.1 F 09/11/18 11:33 Pulse 79 09/11/18 11:53 Resp 23 09/11/18 11:33 BP 136/76 09/11/18 11:33 Pulse Ox 99 09/11/18 10:00 - Labs Result Diagrams: 09/12/18 06:00 09/12/18 06:00 Labs: Laboratory Results - last 24 hr 09/11/18 09/11/18 09/11/18 03:10 03:10 03:10 WBC 9.2 RBC 4.40 Hgb 8.4 L Hct 32.0 L MCV 72.7 L MCH 19.1 L MCHC 26.3 L RDW 20.2 H Plt Count 308 MPV 9.8 PT 18.5 H INR 1.67 APTT 30.0 pCO2 pO2 HCO3 ABG pH ABG Total CO2 ABG O2 Saturation ABG O2 Content ABG Base Excess ABG Hemoglobin ABG Carboxyhemoglobin POC ABG HHb (Measured) ABG Methemoglobin ABG O2 Capacity Hgb O2 Saturation FiO2 Blood Gas Comments Crit Value Called To Crit Value Called By Blood Gas Notified Time Sodium 134 Potassium 4.8 Chloride 96 L Carbon Dioxide 32 Anion Gap 10 BUN 30 H Creatinine 1.0 Est GFR ( Amer) > 60 Est GFR (Non-Af Amer) > 60 Random Glucose 117 H Hemoglobin A1c Lactic Acid Calcium 8.1 L Iron TIBC % Saturation Ferritin Total Bilirubin 0.9 AST 62 H ALT 18 Alkaline Phosphatase 40 Lactate Dehydrogenase 598 Total Creatine Kinase 91 Troponin I 0.02 D NT-Pro-B Natriuret Pep 2910 H Total Protein 8.1 Albumin 3.7 Globulin 4.5 Albumin/Globulin Ratio 0.8 L Triglycerides Cholesterol LDL Cholesterol Direct HDL Cholesterol Vitamin B12 Folate Free T4 Thyroxine (T4) TSH 3rd Generation Blood Type Antibody Screen Crossmatch BBK History Checked 09/11/18 09/11/18 09/11/18 05:35 06:00 06:00 WBC RBC Hgb Hct MCV MCH MCHC RDW Plt Count MPV PT INR APTT pCO2 83 H* pO2 162.0 H HCO3 30.3 H ABG pH 7.17 L* ABG Total CO2 32.8 H ABG O2 Saturation 99.4 H ABG O2 Content 11.8 L ABG Base Excess 0.9 ABG Hemoglobin 8.4 L ABG Carboxyhemoglobin 2.5 H POC ABG HHb (Measured) 0.6 ABG Methemoglobin 0.4 ABG O2 Capacity 11.9 L Hgb O2 Saturation 96.4 FiO2 100.0 Blood Gas Comments Ms enrique mac(senior dot net developer) will bring abg results to ed Crit Value Called To Stanford brito rn ed Crit Value Called By Jsm Blood Gas Notified Time 554 Sodium Potassium Chloride Carbon Dioxide Anion Gap BUN Creatinine Est GFR ( Amer) Est GFR (Non-Af Amer) Random Glucose Hemoglobin A1c Lactic Acid Calcium Iron TIBC % Saturation Ferritin 20.2 Total Bilirubin AST ALT Alkaline Phosphatase Lactate Dehydrogenase Total Creatine Kinase 84 Troponin I 0.02 NT-Pro-B Natriuret Pep Total Protein Albumin Globulin Albumin/Globulin Ratio Triglycerides 103 Cholesterol 103 L LDL Cholesterol Direct 67 HDL Cholesterol 12 L Vitamin B12 797 Folate 7.7 Free T4 Thyroxine (T4) TSH 3rd Generation Blood Type A POSITIVE Antibody Screen Negative Crossmatch See Detail BBK History Checked Patient has bt 09/11/18 09/11/18 09/11/18 06:00 06:45 10:10 WBC RBC Hgb Hct MCV MCH MCHC RDW Plt Count MPV PT INR APTT pCO2 pO2 HCO3 ABG pH ABG Total CO2 ABG O2 Saturation ABG O2 Content ABG Base Excess ABG Hemoglobin ABG Carboxyhemoglobin POC ABG HHb (Measured) ABG Methemoglobin ABG O2 Capacity Hgb O2 Saturation FiO2 Blood Gas Comments Crit Value Called To Crit Value Called By Blood Gas Notified Time Sodium Potassium Chloride Carbon Dioxide Anion Gap BUN Creatinine Est GFR ( Amer) Est GFR (Non-Af Amer) Random Glucose Hemoglobin A1c 6.2 Lactic Acid 0.8 Calcium Iron 27 L TIBC 322 % Saturation 8 L Ferritin Total Bilirubin AST ALT Alkaline Phosphatase Lactate Dehydrogenase Total Creatine Kinase Troponin I NT-Pro-B Natriuret Pep Total Protein Albumin Globulin Albumin/Globulin Ratio Triglycerides Cholesterol LDL Cholesterol Direct HDL Cholesterol Vitamin B12 Folate Free T4 Thyroxine (T4) TSH 3rd Generation Blood Type Antibody Screen Crossmatch BBK History Checked 09/11/18 09/11/18 09/11/18 10:10 10:10 11:25 WBC RBC Hgb Hct MCV MCH MCHC RDW Plt Count MPV PT INR APTT pCO2 95 H* pO2 213.0 H HCO3 34.7 H ABG pH 7.17 L* ABG Total CO2 37.6 H ABG O2 Saturation 99.0 H ABG O2 Content 12.0 L ABG Base Excess 4.7 H ABG Hemoglobin 8.5 L ABG Carboxyhemoglobin 2.0 H POC ABG HHb (Measured) 1.0 ABG Methemoglobin 0.6 ABG O2 Capacity 12.1 L Hgb O2 Saturation 96.3 FiO2 90.0 Blood Gas Comments Crit Value Called To dannie Ontiveros Crit Value Called By iman Rousseau Blood Gas Notified Time 1138 Sodium Potassium Chloride Carbon Dioxide Anion Gap BUN Creatinine Est GFR ( Amer) Est GFR (Non-Af Amer) Random Glucose Hemoglobin A1c Lactic Acid Calcium Iron TIBC % Saturation Ferritin Total Bilirubin AST ALT Alkaline Phosphatase Lactate Dehydrogenase Total Creatine Kinase 75 Troponin I 0.02 NT-Pro-B Natriuret Pep Total Protein Albumin Globulin Albumin/Globulin Ratio Triglycerides Cholesterol LDL Cholesterol Direct HDL Cholesterol Vitamin B12 Folate Free T4 1.08 Thyroxine (T4) 3.9 L TSH 3rd Generation 2.60 Blood Type Antibody Screen Crossmatch BBK History Checked Assessment & Plan - Assessment and Plan (Free Text) Assessment: This is a 58 y o male with PMHx morbid obesity, leg cellulitis, and chronic lym phedema, who presents to the ED c/o shortness of breath worsening for the past 7 days. Reason for ICU consult was for worsening respiratory distress, possible new-onset arrhythmia. Plan: Neuro: AAOx3 currently. No changes in mental status. Cont to monitor. CV: BP 156/73, HR 89, irregular rhythm noted on monitor. Per RN pt was in HR up to 150s on presentation to ED. Was given Cardizem with improvement in rate control. Currently on Cardizem drip. R/o atrial fibrillation. Cardiology consulted, recs appreciated BNP elevated at 2910 on admission. R/o CHF exacerbation. Lasix 40 IVP q8h. Maintain MAP>65. Hemodynamically stable currently Cont to monitor. Pulm: Chronic resp acidosis compensated with metabolic acidosis, f/u repeat ABG R/o PE as etiology based on pt history, obesity hypoventilation syndrome. V/Q scan ordered due to pt being unable to fit into CT scan machine for CT angio chest. Duplex U/s LE b/l prelim read neg for DVT. On BiPap at rate of 18/6. Maintain O2 sat>90% Continue with HOB elevation> 35 degrees, aspiration precautions. Continue with protected lung ventilation strategies GI: NPO. Continue with Protonix. /Renal BUN/Cr 30/1.0. Replace electrolytes as needed, maintain euvolemia. Continue to monitor. ID: [id number], no leukocytosis. Treat for cellulitis Vanco/Merrem ID consulted, recs appreciated Blood, wound cxs pending Endo: A1c pending Maintain euglycemia, normothermia Heme: Hgb 8.4/32. Plts 308. Stable. Cont to monitor. Psych: Normal mood. DVT ppx - Lovenox bid GI ppx - Protonix bid
[2018-09-11] MEDS: MethylPREDNISolone 40 mg Vial IVP SCH ×2 (14:32→21:54)
[2018-09-11] MEDS: Heparin25000 units/250ml 1/2NS 25,000 UNITS/250 ML BAG IV PRN (14:33)
--- NOTE | 2018-09-11 14:51 | CP.PCM.CON ---
<Vincent Taveras - Last Filed: 09/11/18 14:47> History of Present Illness - History of Present Illness History of Present Illness: ID Consult Note 58 year old male with past medical history of chronic lymphedema, cellulitis, and morbid obesity presents to the hospital for worsening shortness of breath x 7 days. Patient is obtunded in ICU, history obtained from prior medical records and fiance at bedside. Patient has had symptoms like this in the past in which he was admitted to [facility]. Medica hx: morbid obesity, leg cellulitis, and chronic lymphedema Surgical Hx: surgery for R ankle fracture in 2005, I+D of RLE for cellulitis in 2016 Allergies: NKDA Medications: Reviewed, as per MAR Family hx: Unknown Social hx: Denies smoking, EtOH or illicit drug use Review of Systems - Review of Systems Systems not reviewed;Unavailable: Respiratory Distress Past Patient History - Past Social History Smoking Status: Never Smoked - CARDIAC Hx Cardiac Disorders: Yes Hx Hypertension: Yes - PULMONARY Hx Respiratory Disorders: No - NEUROLOGICAL Hx Neurological Disorder: No - HEENT Hx HEENT Problems: No - RENAL Hx Chronic Kidney Disease: No - ENDOCRINE/METABOLIC Hx Endocrine Disorders: No - HEMATOLOGICAL/ONCOLOGICAL Hx Blood Transfusions: Yes Hx Blood Transfusion Reaction: No - INTEGUMENTARY Hx Dermatological Problems: No Other/Comment: BILATERAL LYMPEDEMA WITH 2 LARGE OPENING ONE IS TO RIGHT LOWER LATERAL SIDE OF RIGHT LEG AND 2ND TO BACKSIDE OF THIGH.DRAINING COPIOUS SEROUSANGUINEOUS DRAINAGE, - MUSCULOSKELETAL/RHEUMATOLOGICAL Hx Musculoskeletal Disorders: Yes - GASTROINTESTINAL Hx Gastrointestinal Disorders: No - GENITOURINARY/GYNECOLOGICAL Hx Genitourinary Disorders: No - PSYCHIATRIC Hx Psychophysiologic Disorder: No Hx Substance Use: No - SURGICAL HISTORY Hx Orthopedic Surgery: Yes (right ankle) - ANESTHESIA Hx Anesthesia Reactions: No Hx Malignant Hyperthermia: No Meds Allergies/Adverse Reactions: Allergies Allergy/AdvReac Type Severity Reaction Status Date / Time No Known Allergies Allergy Verified 10/23/15 19:49 - Medications Medications: Current Medications Acetaminophen (Tylenol 325mg Tab) 650 mg PO Q6 PRN PRN Reason: TEMP>=99.5F Acetaminophen (Tylenol 650 Mg Supp) 650 mg RC Q6H PRN PRN Reason: TEMP>=99.5F Albuterol/Ipratropium (Duoneb 3 Mg/0.5 Mg (3 Ml) Ud) 3 ml IH Q4H [facility] Atorvastatin Calcium (Lipitor) 40 mg PO DIN [facility] Docusate Sodium (Colace) 100 mg PO TID [facility] Last Admin: 09/11/18 09:11 Dose: Not Given Furosemide (Lasix) 40 mg IVP Q8H [facility] Last Admin: 09/11/18 08:25 Dose: 40 mg diltiaZEM IVPB 100mg in NS (Cardizem 100mg In Ns) 100 mls @ 5 mls/hr IV .Q20H PRN; Protocol PRN Reason: TITRATE PER MD ORDER Last Admin: 09/11/18 03:25 Dose: 5 mls/hr Linezolid (Zyvox 600mg/300ml D5w) 600 mg in 300 mls @ 200 mls/hr IVPB Q12 [facility]; Protocol Stop: 09/18/18 22:01 Doxycycline Hyclate 100 mg/ (Sodium Chloride) 100 mls @ 100 mls/hr IVPB Q12 [facility]; Protocol Heparin Sodium/Sodium Chloride (Heparin 27876 Units/250ml 1/2 Normal Saline) 25,000 units in 250 mls @ 20.02 mls/hr IV .[id number] PRN; Protocol PRN Reason: ADJUST RATE PER PROTOCOL Methylprednisolone (Solu-Medrol) 20 mg IVP Q8H [facility] Ondansetron HCl (Zofran Inj) 4 mg IVP Q4H PRN PRN Reason: Nausea/Vomiting Pantoprazole Sodium (Protonix Ec Tab) 40 mg PO 0600 [facility] Physical Exam - Constitutional Appears: Toxic, In Acute Distress Additional comments: Morbidly obese - Head Exam Head Exam: ATRAUMATIC, NORMAL INSPECTION, NORMOCEPHALIC - ENT Exam ENT Exam: Mucous Membranes Dry - Respiratory Exam Respiratory Exam: Decreased Breath Sounds. absent: Rhonchi Additional comments: On BIPAP - Cardiovascular Exam Cardiovascular Exam: RRR, +S1, +S2 - GI/Abdominal Exam GI & Abdominal Exam: Normal Bowel Sounds, Soft. absent: Tenderness - Extremities Exam Extremities exam: Positive for: pedal edema (+2 b/l edema ) - Neurological Exam Neurological exam: Alert - Psychiatric Exam Psychiatric exam: Normal Affect, Normal Mood - Skin Additional comments: Chronic lymphedema skin changes in b/l lower extremities Results - Vital Signs Recent Vital Signs: Last Vital Signs Temp 98.1 F 09/11/18 12:30 Pulse 84 09/11/18 12:30 Resp 26 H 09/11/18 12:30 BP 136/91 H 09/11/18 12:30 Pulse Ox 99 09/11/18 10:00 - Labs Result Diagrams: 09/11/18 03:10 09/11/18 03:10 Labs: Laboratory Results - last 24 hr 09/11/18 09/11/18 09/11/18 03:10 03:10 03:10 WBC 9.2 RBC 4.40 Hgb 8.4 L Hct 32.0 L MCV 72.7 L MCH 19.1 L MCHC 26.3 L RDW 20.2 H Plt Count 308 MPV 9.8 PT 18.5 H INR 1.67 APTT 30.0 pCO2 pO2 HCO3 ABG pH ABG Total CO2 ABG O2 Saturation ABG O2 Content ABG Base Excess ABG Hemoglobin ABG Carboxyhemoglobin POC ABG HHb (Measured) ABG Methemoglobin ABG O2 Capacity Hgb O2 Saturation FiO2 Blood Gas Comments Crit Value Called To Crit Value Called By Blood Gas Notified Time Sodium 134 Potassium 4.8 Chloride 96 L Carbon Dioxide 32 Anion Gap 10 BUN 30 H Creatinine 1.0 Est GFR ( Amer) > 60 Est GFR (Non-Af Amer) > 60 Random Glucose 117 H Hemoglobin A1c Lactic Acid Calcium 8.1 L Iron TIBC % Saturation Ferritin Total Bilirubin 0.9 AST 62 H ALT 18 Alkaline Phosphatase 40 Lactate Dehydrogenase 598 Total Creatine Kinase 91 Troponin I 0.02 D NT-Pro-B Natriuret Pep 2910 H Total Protein 8.1 Albumin 3.7 Globulin 4.5 Albumin/Globulin Ratio 0.8 L Triglycerides Cholesterol LDL Cholesterol Direct HDL Cholesterol Vitamin B12 Folate Free T4 Thyroxine (T4) TSH 3rd Generation Blood Type Antibody Screen Crossmatch BBK History Checked 09/11/18 09/11/18 09/11/18 05:35 06:00 06:00 WBC RBC Hgb Hct MCV MCH MCHC RDW Plt Count MPV PT INR APTT pCO2 83 H* pO2 162.0 H HCO3 30.3 H ABG pH 7.17 L* ABG Total CO2 32.8 H ABG O2 Saturation 99.4 H ABG O2 Content 11.8 L ABG Base Excess 0.9 ABG Hemoglobin 8.4 L ABG Carboxyhemoglobin 2.5 H POC ABG HHb (Measured) 0.6 ABG Methemoglobin 0.4 ABG O2 Capacity 11.9 L Hgb O2 Saturation 96.4 FiO2 100.0 Blood Gas Comments Ms enrique mac(sales marketing director) will bring abg results to ed Crit Value Called To Stanford brito rn ed Crit Value Called By Jsm Blood Gas Notified Time 554 Sodium Potassium Chloride Carbon Dioxide Anion Gap BUN Creatinine Est GFR ( Amer) Est GFR (Non-Af Amer) Random Glucose Hemoglobin A1c Lactic Acid Calcium Iron TIBC % Saturation Ferritin 20.2 Total Bilirubin AST ALT Alkaline Phosphatase Lactate Dehydrogenase Total Creatine Kinase 84 Troponin I 0.02 NT-Pro-B Natriuret Pep Total Protein Albumin Globulin Albumin/Globulin Ratio Triglycerides 103 Cholesterol 103 L LDL Cholesterol Direct 67 HDL Cholesterol 12 L Vitamin B12 797 Folate 7.7 Free T4 Thyroxine (T4) TSH 3rd Generation Blood Type A POSITIVE Antibody Screen Negative Crossmatch See Detail BBK History Checked Patient has bt 09/11/18 09/11/18 09/11/18 06:00 06:45 10:10 WBC RBC Hgb Hct MCV MCH MCHC RDW Plt Count MPV PT INR APTT pCO2 pO2 HCO3 ABG pH ABG Total CO2 ABG O2 Saturation ABG O2 Content ABG Base Excess ABG Hemoglobin ABG Carboxyhemoglobin POC ABG HHb (Measured) ABG Methemoglobin ABG O2 Capacity Hgb O2 Saturation FiO2 Blood Gas Comments Crit Value Called To Crit Value Called By Blood Gas Notified Time Sodium Potassium Chloride Carbon Dioxide Anion Gap BUN Creatinine Est GFR ( Amer) Est GFR (Non-Af Amer) Random Glucose Hemoglobin A1c 6.2 Lactic Acid 0.8 Calcium Iron 27 L TIBC 322 % Saturation 8 L Ferritin Total Bilirubin AST ALT Alkaline Phosphatase Lactate Dehydrogenase Total Creatine Kinase Troponin I NT-Pro-B Natriuret Pep Total Protein Albumin Globulin Albumin/Globulin Ratio Triglycerides Cholesterol LDL Cholesterol Direct HDL Cholesterol Vitamin B12 Folate Free T4 Thyroxine (T4) TSH 3rd Generation Blood Type Antibody Screen Crossmatch BBK History Checked 09/11/18 09/11/18 09/11/18 10:10 10:10 11:25 WBC RBC Hgb Hct MCV MCH MCHC RDW Plt Count MPV PT INR APTT pCO2 95 H* pO2 213.0 H HCO3 34.7 H ABG pH 7.17 L* ABG Total CO2 37.6 H ABG O2 Saturation 99.0 H ABG O2 Content 12.0 L ABG Base Excess 4.7 H ABG Hemoglobin 8.5 L ABG Carboxyhemoglobin 2.0 H POC ABG HHb (Measured) 1.0 ABG Methemoglobin 0.6 ABG O2 Capacity 12.1 L Hgb O2 Saturation 96.3 FiO2 90.0 Blood Gas Comments Crit Value Called To dannie Ontiveros Crit Value Called By iman Rousseau Blood Gas Notified Time 1138 Sodium Potassium Chloride Carbon Dioxide Anion Gap BUN Creatinine Est GFR ( Amer) Est GFR (Non-Af Amer) Random Glucose Hemoglobin A1c Lactic Acid Calcium Iron TIBC % Saturation Ferritin Total Bilirubin AST ALT Alkaline Phosphatase Lactate Dehydrogenase Total Creatine Kinase 75 Troponin I 0.02 NT-Pro-B Natriuret Pep Total Protein Albumin Globulin Albumin/Globulin Ratio Triglycerides Cholesterol LDL Cholesterol Direct HDL Cholesterol Vitamin B12 Folate Free T4 1.08 Thyroxine (T4) 3.9 L TSH 3rd Generation 2.60 Blood Type Antibody Screen Crossmatch BBK History Checked Assessment & Plan - Assessment and Plan (Free Text) Plan: Questionable cellulitis Questionable CHF vs COPD exacerbation Hx of chronic lympedema Hx of HTN Hx of morbid obesity Hx of lower extremity cellulitis with Actinobacter baumanii Plan Chest x-ray reviewed Will stop Merrem Will change Vancomycin to Zyvox Will add Doxycycline Follow up cultures Continue to monitor closely Darcy, PGY-3 <Braden Mendoza S - Last Filed: 09/11/18 15:26> Meds - Medications Medications: Current Medications Acetaminophen (Tylenol 325mg Tab) 650 mg PO Q6 PRN PRN Reason: TEMP>=99.5F Acetaminophen (Tylenol 650 Mg Supp) 650 mg RC Q6H PRN PRN Reason: TEMP>=99.5F Albuterol/Ipratropium (Duoneb 3 Mg/0.5 Mg (3 Ml) Ud) 3 ml IH Q4H [facility] Atorvastatin Calcium (Lipitor) 40 mg PO DIN [facility] Docusate Sodium (Colace) 100 mg PO TID [facility] Last Admin: 09/11/18 14:29 Dose: Not Given Furosemide (Lasix) 40 mg IVP Q8H [facility] Last Admin: 09/11/18 14:32 Dose: 40 mg diltiaZEM IVPB 100mg in NS (Cardizem 100mg In Ns) 100 mls @ 5 mls/hr IV .Q20H PRN; Protocol PRN Reason: TITRATE PER MD ORDER Last Admin: 09/11/18 03:25 Dose: 5 mls/hr Linezolid (Zyvox 600mg/300ml D5w) 600 mg in 300 mls @ 200 mls/hr IVPB Q12 [facility]; Protocol Stop: 09/18/18 22:01 Doxycycline Hyclate 100 mg/ (Sodium Chloride) 100 mls @ 100 mls/hr IVPB Q12 [facility]; Protocol Last Admin: 09/11/18 14:30 Dose: 100 mls/hr Heparin Sodium/Sodium Chloride (Heparin 78999 Units/250ml 1/2 Normal Saline) 25,000 units in 250 mls @ 20.02 mls/hr IV .[id number] PRN; Protocol PRN Reason: ADJUST RATE PER PROTOCOL Last Admin: 09/11/18 14:33 Dose: 8.25 units/kg/hr, 20.02 mls/hr Methylprednisolone (Solu-Medrol) 20 mg IVP Q8H [facility] Last Admin: 09/11/18 14:32 Dose: 20 mg Ondansetron HCl (Zofran Inj) 4 mg IVP Q4H PRN PRN Reason: Nausea/Vomiting Pantoprazole Sodium (Protonix Ec Tab) 40 mg PO 0600 [facility] Results - Vital Signs Recent Vital Signs: Last Vital Signs Temp 97.5 F L 09/11/18 14:25 Pulse 73 09/11/18 14:25 Resp 28 H 09/11/18 14:25 BP 146/74 09/11/18 14:32 Pulse Ox 99 09/11/18 10:00 - Labs Result Diagrams: 09/11/18 03:10 09/11/18 03:10 Labs: Laboratory Results - last 24 hr 09/11/18 09/11/18 09/11/18 03:10 03:10 03:10 WBC 9.2 RBC 4.40 Hgb 8.4 L Hct 32.0 L MCV 72.7 L MCH 19.1 L MCHC 26.3 L RDW 20.2 H Plt Count 308 MPV 9.8 PT 18.5 H INR 1.67 APTT 30.0 pCO2 pO2 HCO3 ABG pH ABG Total CO2 ABG O2 Saturation ABG O2 Content ABG Base Excess ABG Hemoglobin ABG Carboxyhemoglobin POC ABG HHb (Measured) ABG Methemoglobin ABG O2 Capacity ABG Potassium Hgb O2 Saturation Glucose Lactate FiO2 Inspiratory BiPAP Blood Gas Comments Crit Value Called To Crit Value Called By Blood Gas Notified Time Sodium 134 Potassium 4.8 Chloride 96 L Carbon Dioxide 32 Anion Gap 10 BUN 30 H Creatinine 1.0 Est GFR ( Amer) > 60 Est GFR (Non-Af Amer) > 60 Random Glucose 117 H Hemoglobin A1c Lactic Acid Calcium 8.1 L Iron TIBC % Saturation Ferritin Total Bilirubin 0.9 AST 62 H ALT 18 Alkaline Phosphatase 40 Lactate Dehydrogenase 598 Total Creatine Kinase 91 Troponin I 0.02 D NT-Pro-B Natriuret Pep 2910 H Total Protein 8.1 Albumin 3.7 Globulin 4.5 Albumin/Globulin Ratio 0.8 L Triglycerides Cholesterol LDL Cholesterol Direct HDL Cholesterol Vitamin B12 Folate Free T4 Thyroxine (T4) TSH 3rd Generation Arterial Blood Potassium Blood Type Antibody Screen Crossmatch BBK History Checked 09/11/18 09/11/18 09/11/18 05:35 06:00 06:00 WBC RBC Hgb Hct MCV MCH MCHC RDW Plt Count MPV PT INR APTT pCO2 83 H* pO2 162.0 H HCO3 30.3 H ABG pH 7.17 L* ABG Total CO2 32.8 H ABG O2 Saturation 99.4 H ABG O2 Content 11.8 L ABG Base Excess 0.9 ABG Hemoglobin 8.4 L ABG Carboxyhemoglobin 2.5 H POC ABG HHb (Measured) 0.6 ABG Methemoglobin 0.4 ABG O2 Capacity 11.9 L ABG Potassium Hgb O2 Saturation 96.4 Glucose Lactate FiO2 100.0 Inspiratory BiPAP Blood Gas Comments Ms enrique mac(sales marketing director) will bring abg results to ed Crit Value Called To Stanford brito rn ed Crit Value Called By Dereck Blood Gas Notified Time 554 Sodium Potassium Chloride Carbon Dioxide Anion Gap BUN Creatinine Est GFR ( Amer) Est GFR (Non-Af Amer) Random Glucose Hemoglobin A1c Lactic Acid Calcium Iron TIBC % Saturation Ferritin 20.2 Total Bilirubin AST ALT Alkaline Phosphatase Lactate Dehydrogenase Total Creatine Kinase 84 Troponin I 0.02 NT-Pro-B Natriuret Pep Total Protein Albumin Globulin Albumin/Globulin Ratio Triglycerides 103 Cholesterol 103 L LDL Cholesterol Direct 67 HDL Cholesterol 12 L Vitamin B12 797 Folate 7.7 Free T4 Thyroxine (T4) TSH 3rd Generation Arterial Blood Potassium Blood Type A POSITIVE Antibody Screen Negative Crossmatch See Detail BBK History Checked Patient has bt 09/11/18 09/11/18 09/11/18 06:00 06:45 10:10 WBC RBC Hgb Hct MCV MCH MCHC RDW Plt Count MPV PT INR APTT pCO2 pO2 HCO3 ABG pH ABG Total CO2 ABG O2 Saturation ABG O2 Content ABG Base Excess ABG Hemoglobin ABG Carboxyhemoglobin POC ABG HHb (Measured) ABG Methemoglobin ABG O2 Capacity ABG Potassium Hgb O2 Saturation Glucose Lactate FiO2 Inspiratory BiPAP Blood Gas Comments Crit Value Called To Crit Value Called By Blood Gas Notified Time Sodium Potassium Chloride Carbon Dioxide Anion Gap BUN Creatinine Est GFR ( Amer) Est GFR (Non-Af Amer) Random Glucose Hemoglobin A1c 6.2 Lactic Acid 0.8 Calcium Iron 27 L TIBC 322 % Saturation 8 L Ferritin Total Bilirubin AST ALT Alkaline Phosphatase Lactate Dehydrogenase Total Creatine Kinase Troponin I NT-Pro-B Natriuret Pep Total Protein Albumin Globulin Albumin/Globulin Ratio Triglycerides Cholesterol LDL Cholesterol Direct HDL Cholesterol Vitamin B12 Folate Free T4 Thyroxine (T4) TSH 3rd Generation Arterial Blood Potassium Blood Type Antibody Screen Crossmatch BBK History Checked 09/11/18 09/11/18 09/11/18 10:10 10:10 11:25 WBC RBC Hgb Hct MCV MCH MCHC RDW Plt Count MPV PT INR APTT pCO2 95 H* pO2 213.0 H HCO3 34.7 H ABG pH 7.17 L* ABG Total CO2 37.6 H ABG O2 Saturation 99.0 H ABG O2 Content 12.0 L ABG Base Excess 4.7 H ABG Hemoglobin 8.5 L ABG Carboxyhemoglobin 2.0 H POC ABG HHb (Measured) 1.0 ABG Methemoglobin 0.6 ABG O2 Capacity 12.1 L ABG Potassium Hgb O2 Saturation 96.3 Glucose Lactate FiO2 90.0 Inspiratory BiPAP Blood Gas Comments Crit Value Called To dannie Ontiveros Crit Value Called By iman Rousseau Blood Gas Notified Time 1138 Sodium Potassium Chloride Carbon Dioxide Anion Gap BUN Creatinine Est GFR ( Amer) Est GFR (Non-Af Amer) Random Glucose Hemoglobin A1c Lactic Acid Calcium Iron TIBC % Saturation Ferritin Total Bilirubin AST ALT Alkaline Phosphatase Lactate Dehydrogenase Total Creatine Kinase 75 Troponin I 0.02 NT-Pro-B Natriuret Pep Total Protein Albumin Globulin Albumin/Globulin Ratio Triglycerides Cholesterol LDL Cholesterol Direct HDL Cholesterol Vitamin B12 Folate Free T4 1.08 Thyroxine (T4) 3.9 L TSH 3rd Generation 2.60 Arterial Blood Potassium Blood Type Antibody Screen Crossmatch BBK History Checked 09/11/18 15:10 WBC RBC Hgb Hct MCV MCH MCHC RDW Plt Count MPV PT INR APTT pCO2 76 H* pO2 107.0 H HCO3 32.6 H ABG pH 7.24 L ABG Total CO2 34.9 H ABG O2 Saturation 98.5 H ABG O2 Content ABG Base Excess 2.8 ABG Hemoglobin ABG Carboxyhemoglobin POC ABG HHb (Measured) ABG Methemoglobin ABG O2 Capacity ABG Potassium 4.2 Hgb O2 Saturation Glucose 90 Lactate 0.6 L FiO2 40.0 Inspiratory BiPAP 22 Blood Gas Comments Crit Value Called To orlando Ontiveros Crit Value Called By iman Rousseau Blood Gas Notified Time 1314 Sodium 137.0 Potassium Chloride 103.0 Carbon Dioxide Anion Gap BUN Creatinine Est GFR ( Amer) Est GFR (Non-Af Amer) Random Glucose Hemoglobin A1c Lactic Acid Calcium Iron TIBC % Saturation Ferritin Total Bilirubin AST ALT Alkaline Phosphatase Lactate Dehydrogenase Total Creatine Kinase Troponin I NT-Pro-B Natriuret Pep Total Protein Albumin Globulin Albumin/Globulin Ratio Triglycerides Cholesterol LDL Cholesterol Direct HDL Cholesterol Vitamin B12 Folate Free T4 Thyroxine (T4) TSH 3rd Generation Arterial Blood Potassium 4.2 Blood Type Antibody Screen Crossmatch BBK History Checked Assessment & Plan - Assessment and Plan (Free Text) Plan: Infectious diseases Attending Physician Attestation Patient seen and examined, discussed with medical assisting instructor. I have reviewed the patient's history of present illness, past medical, social, personal and family histories, pertinent physical exam findings, course so far in this hospital admission, pertinent laboratory and imaging results. I agree with the above findings, assessment and plan. In addition, will start Zyvox for patient with possible bilateral leg cellulitis. Doxycycline started by ICU team for COPD exacerbation. Will monitor clinically.
[2018-09-11 15:15] LABS: ARTERIAL BLOOD GAS HCO3 32.6 mmol/L (21-28); ARTERIAL BLOOD GAS O2 SAT 98.5 % (95-98); ARTERIAL BLOOD GAS PCO2 76 mm/Hg (35-45); ARTERIAL BLOOD GAS PH 7.24 (7.35-7.45); ARTERIAL BLOOD GAS TCO2 34.9 mmol.L (22-28)
--- NOTE | 2018-09-11 15:22 | NM ---
Date of service: 09/11/2018 COMPARISON: Not available TECHNIQUE: 39.0 mCi technetium 99-m DTPA aerosol. 6.0 mCI technetium 99-m MAA administered intravenously. FINDINGS: Please note that the examination is limited in that only anterior and posterior images could be obtained due to patient body habitus VENTILATION COMPONENT: No significant ventilation defect. PERFUSION COMPONENT: No perfusion defect. IMPRESSION: Lowprobability ventilation perfusion scan for pulmonary embolism.
--- NOTE | 2018-09-11 15:24 | CP.PCM.CON ---
<Little Barboza - Last Filed: 09/11/18 15:18> History of Present Illness - History of Present Illness History of Present Illness: Podiatry consult note for Dr. Gonzalez 58 y/o male with PMHx morbid obesity, leg cellulitis, and chronic lymphedema, seen and evalauted in the ICU due to right lateral leg wound. Reason for ICU consult was for worsening respiratory distress, possible new-onset arrhythmia. Patient unable to converse at this time due to increased shortness of breath. Denies fever, chills, chest pain, n/v/d/c, abd pain, urinary complaints, or other symptoms. PMhx: morbid obesity, leg cellulitis, and chronic lymphedema PSurgHx: surgery for R ankle fracture in 2005, I+D of RLE for cellulitis in 2016 Allergies: NKDA Home meds: none Fam hx: noncontributory Soc hx: denies smoking, EtOH or illicit drug use PMD: none Review of Systems - Review of Systems All systems: reviewed and no additional remarkable complaints except Review of Systems: As per HPI Past Patient History - Past Social History Smoking Status: Never Smoked - CARDIAC Hx Cardiac Disorders: Yes Hx Hypertension: Yes - PULMONARY Hx Respiratory Disorders: No - NEUROLOGICAL Hx Neurological Disorder: No - HEENT Hx HEENT Problems: No - RENAL Hx Chronic Kidney Disease: No - ENDOCRINE/METABOLIC Hx Endocrine Disorders: No - HEMATOLOGICAL/ONCOLOGICAL Hx Blood Transfusions: Yes Hx Blood Transfusion Reaction: No - INTEGUMENTARY Hx Dermatological Problems: No Other/Comment: BILATERAL LYMPEDEMA WITH 2 LARGE OPENING ONE IS TO RIGHT LOWER LATERAL SIDE OF RIGHT LEG AND 2ND TO BACKSIDE OF THIGH.DRAINING COPIOUS SEROUSANGUINEOUS DRAINAGE, - MUSCULOSKELETAL/RHEUMATOLOGICAL Hx Musculoskeletal Disorders: Yes - GASTROINTESTINAL Hx Gastrointestinal Disorders: No - GENITOURINARY/GYNECOLOGICAL Hx Genitourinary Disorders: No - PSYCHIATRIC Hx Psychophysiologic Disorder: No Hx Substance Use: No - SURGICAL HISTORY Hx Orthopedic Surgery: Yes (right ankle) - ANESTHESIA Hx Anesthesia Reactions: No Hx Malignant Hyperthermia: No Meds Allergies/Adverse Reactions: Allergies Allergy/AdvReac Type Severity Reaction Status Date / Time No Known Allergies Allergy Verified 10/23/15 19:49 - Medications Medications: Current Medications Acetaminophen (Tylenol 325mg Tab) 650 mg PO Q6 PRN PRN Reason: TEMP>=99.5F Acetaminophen (Tylenol 650 Mg Supp) 650 mg RC Q6H PRN PRN Reason: TEMP>=99.5F Albuterol/Ipratropium (Duoneb 3 Mg/0.5 Mg (3 Ml) Ud) 3 ml IH Q4H SIXTO Atorvastatin Calcium (Lipitor) 40 mg PO DIN [facility] Docusate Sodium (Colace) 100 mg PO TID [facility] Last Admin: 09/11/18 14:29 Dose: Not Given Furosemide (Lasix) 40 mg IVP Q8H [facility] Last Admin: 09/11/18 14:32 Dose: 40 mg diltiaZEM IVPB 100mg in NS (Cardizem 100mg In Ns) 100 mls @ 5 mls/hr IV .Q20H PRN; Protocol PRN Reason: TITRATE PER MD ORDER Last Admin: 09/11/18 03:25 Dose: 5 mls/hr Linezolid (Zyvox 600mg/300ml D5w) 600 mg in 300 mls @ 200 mls/hr IVPB Q12 SIXTO; Protocol Stop: 09/18/18 22:01 Doxycycline Hyclate 100 mg/ (Sodium Chloride) 100 mls @ 100 mls/hr IVPB Q12 SIXTO; Protocol Last Admin: 09/11/18 14:30 Dose: 100 mls/hr Heparin Sodium/Sodium Chloride (Heparin 51382 Units/250ml 1/2 Normal Saline) 25,000 units in 250 mls @ 20.02 mls/hr IV .[id number] PRN; Protocol PRN Reason: ADJUST RATE PER PROTOCOL Last Admin: 09/11/18 14:33 Dose: 8.25 units/kg/hr, 20.02 mls/hr Methylprednisolone (Solu-Medrol) 20 mg IVP Q8H [facility] Last Admin: 09/11/18 14:32 Dose: 20 mg Ondansetron HCl (Zofran Inj) 4 mg IVP Q4H PRN PRN Reason: Nausea/Vomiting Pantoprazole Sodium (Protonix Ec Tab) 40 mg PO 0600 [facility] Physical Exam - Constitutional Appears: Well, Non-toxic, In Acute Distress - Head Exam Head Exam: ATRAUMATIC, NORMOCEPHALIC - Extremities Exam Additional comments: Bilateral Lower Extremity Exam VASC: DP and PT non-palpable secondary to significant lymphedema, TG within normal limits DERM RIGHT: superficial wounds noted to the lateral aspect of the right leg and to the posterior thigh, 100% granular base, no probe to bone, no malodor, minimal drainage, no signs of infection noted LEFT: small superficial wound noted to the medial aspect of the left leg, fibro- granular base, no probe to bone, no malodor, minimal drainage, no signs of infection noted, significant lymphedema noted bilaterally, NEURO: unable to assess, patient responding to pain stimuli ORTHO: pain with movement and range of motion, pain on palpation to wounds - Neurological Exam Neurological exam: Alert - Psychiatric Exam Psychiatric exam: Normal Affect, Normal Mood Results - Vital Signs Recent Vital Signs: Last Vital Signs Temp 97.5 F L 09/11/18 14:25 Pulse 73 09/11/18 14:25 Resp 28 H 09/11/18 14:25 BP 146/74 09/11/18 14:32 Pulse Ox 99 09/11/18 10:00 - Labs Result Diagrams: 09/11/18 03:10 09/11/18 03:10 Labs: Laboratory Results - last 24 hr 09/11/18 09/11/18 09/11/18 03:10 03:10 03:10 WBC 9.2 RBC 4.40 Hgb 8.4 L Hct 32.0 L MCV 72.7 L MCH 19.1 L MCHC 26.3 L RDW 20.2 H Plt Count 308 MPV 9.8 PT 18.5 H INR 1.67 APTT 30.0 pCO2 pO2 HCO3 ABG pH ABG Total CO2 ABG O2 Saturation ABG O2 Content ABG Base Excess ABG Hemoglobin ABG Carboxyhemoglobin POC ABG HHb (Measured) ABG Methemoglobin ABG O2 Capacity ABG Potassium Hgb O2 Saturation Glucose Lactate FiO2 Inspiratory BiPAP Blood Gas Comments Crit Value Called To Crit Value Called By Blood Gas Notified Time Sodium 134 Potassium 4.8 Chloride 96 L Carbon Dioxide 32 Anion Gap 10 BUN 30 H Creatinine 1.0 Est GFR ( Amer) > 60 Est GFR (Non-Af Amer) > 60 Random Glucose 117 H Hemoglobin A1c Lactic Acid Calcium 8.1 L Iron TIBC % Saturation Ferritin Total Bilirubin 0.9 AST 62 H ALT 18 Alkaline Phosphatase 40 Lactate Dehydrogenase 598 Total Creatine Kinase 91 Troponin I 0.02 D NT-Pro-B Natriuret Pep 2910 H Total Protein 8.1 Albumin 3.7 Globulin 4.5 Albumin/Globulin Ratio 0.8 L Triglycerides Cholesterol LDL Cholesterol Direct HDL Cholesterol Vitamin B12 Folate Free T4 Thyroxine (T4) TSH 3rd Generation Arterial Blood Potassium Blood Type Antibody Screen Crossmatch BBK History Checked 09/11/18 09/11/18 09/11/18 05:35 06:00 06:00 WBC RBC Hgb Hct MCV MCH MCHC RDW Plt Count MPV PT INR APTT pCO2 83 H* pO2 162.0 H HCO3 30.3 H ABG pH 7.17 L* ABG Total CO2 32.8 H ABG O2 Saturation 99.4 H ABG O2 Content 11.8 L ABG Base Excess 0.9 ABG Hemoglobin 8.4 L ABG Carboxyhemoglobin 2.5 H POC ABG HHb (Measured) 0.6 ABG Methemoglobin 0.4 ABG O2 Capacity 11.9 L ABG Potassium Hgb O2 Saturation 96.4 Glucose Lactate FiO2 100.0 Inspiratory BiPAP Blood Gas Comments Ms enrique mac(applications consultant) will bring abg results to ed Crit Value Called To [place] brito rn ed Crit Value Called By Jsm Blood Gas Notified Time 554 Sodium Potassium Chloride Carbon Dioxide Anion Gap BUN Creatinine Est GFR ( Amer) Est GFR (Non-Af Amer) Random Glucose Hemoglobin A1c Lactic Acid Calcium Iron TIBC % Saturation Ferritin 20.2 Total Bilirubin AST ALT Alkaline Phosphatase Lactate Dehydrogenase Total Creatine Kinase 84 Troponin I 0.02 NT-Pro-B Natriuret Pep Total Protein Albumin Globulin Albumin/Globulin Ratio Triglycerides 103 Cholesterol 103 L LDL Cholesterol Direct 67 HDL Cholesterol 12 L Vitamin B12 797 Folate 7.7 Free T4 Thyroxine (T4) TSH 3rd Generation Arterial Blood Potassium Blood Type A POSITIVE Antibody Screen Negative Crossmatch See Detail BBK History Checked Patient has bt 09/11/18 09/11/18 09/11/18 06:00 06:45 10:10 WBC RBC Hgb Hct MCV MCH MCHC RDW Plt Count MPV PT INR APTT pCO2 pO2 HCO3 ABG pH ABG Total CO2 ABG O2 Saturation ABG O2 Content ABG Base Excess ABG Hemoglobin ABG Carboxyhemoglobin POC ABG HHb (Measured) ABG Methemoglobin ABG O2 Capacity ABG Potassium Hgb O2 Saturation Glucose Lactate FiO2 Inspiratory BiPAP Blood Gas Comments Crit Value Called To Crit Value Called By Blood Gas Notified Time Sodium Potassium Chloride Carbon Dioxide Anion Gap BUN Creatinine Est GFR ( Amer) Est GFR (Non-Af Amer) Random Glucose Hemoglobin A1c 6.2 Lactic Acid 0.8 Calcium Iron 27 L TIBC 322 % Saturation 8 L Ferritin Total Bilirubin AST ALT Alkaline Phosphatase Lactate Dehydrogenase Total Creatine Kinase Troponin I NT-Pro-B Natriuret Pep Total Protein Albumin Globulin Albumin/Globulin Ratio Triglycerides Cholesterol LDL Cholesterol Direct HDL Cholesterol Vitamin B12 Folate Free T4 Thyroxine (T4) TSH 3rd Generation Arterial Blood Potassium Blood Type Antibody Screen Crossmatch BBK History Checked 09/11/18 09/11/18 09/11/18 10:10 10:10 11:25 WBC RBC Hgb Hct MCV MCH MCHC RDW Plt Count MPV PT INR APTT pCO2 95 H* pO2 213.0 H HCO3 34.7 H ABG pH 7.17 L* ABG Total CO2 37.6 H ABG O2 Saturation 99.0 H ABG O2 Content 12.0 L ABG Base Excess 4.7 H ABG Hemoglobin 8.5 L ABG Carboxyhemoglobin 2.0 H POC ABG HHb (Measured) 1.0 ABG Methemoglobin 0.6 ABG O2 Capacity 12.1 L ABG Potassium Hgb O2 Saturation 96.3 Glucose Lactate FiO2 90.0 Inspiratory BiPAP Blood Gas Comments Crit Value Called To dannie Ontiveros Crit Value Called By iman Rousseau Blood Gas Notified Time 1138 Sodium Potassium Chloride Carbon Dioxide Anion Gap BUN Creatinine Est GFR ( Amer) Est GFR (Non-Af Amer) Random Glucose Hemoglobin A1c Lactic Acid Calcium Iron TIBC % Saturation Ferritin Total Bilirubin AST ALT Alkaline Phosphatase Lactate Dehydrogenase Total Creatine Kinase 75 Troponin I 0.02 NT-Pro-B Natriuret Pep Total Protein Albumin Globulin Albumin/Globulin Ratio Triglycerides Cholesterol LDL Cholesterol Direct HDL Cholesterol Vitamin B12 Folate Free T4 1.08 Thyroxine (T4) 3.9 L TSH 3rd Generation 2.60 Arterial Blood Potassium Blood Type Antibody Screen Crossmatch BBK History Checked 09/11/18 15:10 WBC RBC Hgb Hct MCV MCH MCHC RDW Plt Count MPV PT INR APTT pCO2 76 H* pO2 107.0 H HCO3 32.6 H ABG pH 7.24 L ABG Total CO2 34.9 H ABG O2 Saturation 98.5 H ABG O2 Content ABG Base Excess 2.8 ABG Hemoglobin ABG Carboxyhemoglobin POC ABG HHb (Measured) ABG Methemoglobin ABG O2 Capacity ABG Potassium 4.2 Hgb O2 Saturation Glucose 90 Lactate 0.6 L FiO2 40.0 Inspiratory BiPAP 22 Blood Gas Comments Crit Value Called To orlando Ontiveros Crit Value Called By iman Rousseau Blood Gas Notified Time 1314 Sodium 137.0 Potassium Chloride 103.0 Carbon Dioxide Anion Gap BUN Creatinine Est GFR ( Amer) Est GFR (Non-Af Amer) Random Glucose Hemoglobin A1c Lactic Acid Calcium Iron TIBC % Saturation Ferritin Total Bilirubin AST ALT Alkaline Phosphatase Lactate Dehydrogenase Total Creatine Kinase Troponin I NT-Pro-B Natriuret Pep Total Protein Albumin Globulin Albumin/Globulin Ratio Triglycerides Cholesterol LDL Cholesterol Direct HDL Cholesterol Vitamin B12 Folate Free T4 Thyroxine (T4) TSH 3rd Generation Arterial Blood Potassium 4.2 Blood Type Antibody Screen Crossmatch BBK History Checked Assessment & Plan - Assessment and Plan (Free Text) Assessment: 58 y/o male patient seen with superficial wounds to bilateral lower extremity, non-infected Plan: Patient seen and evaluated with Dr. Gonzalez Plan discussed with attending Chart, labs and vitals were reviewed, afebrile, absent leukocytosis Wound cleansed with saline and dressed with maxorb, optifoam, and RACHEL Patient stable from podiatry standpoint, no intervention required Podiatry will continue to follow - Date & Time Date: 09/11/18 Time: 15:27 <Ariel Gonzalez - Last Filed: 09/11/18 16:19> Meds - Medications Medications: Current Medications Acetaminophen (Tylenol 325mg Tab) 650 mg PO Q6 PRN PRN Reason: TEMP>=99.5F Acetaminophen (Tylenol 650 Mg Supp) 650 mg RC Q6H PRN PRN Reason: TEMP>=99.5F Albuterol/Ipratropium (Duoneb 3 Mg/0.5 Mg (3 Ml) Ud) 3 ml IH Q4H [facility] Atorvastatin Calcium (Lipitor) 40 mg PO DIN [facility] Docusate Sodium (Colace) 100 mg PO TID [facility] Last Admin: 09/11/18 14:29 Dose: Not Given Furosemide (Lasix) 40 mg IVP Q8H [facility] Last Admin: 09/11/18 14:32 Dose: 40 mg diltiaZEM IVPB 100mg in NS (Cardizem 100mg In Ns) 100 mls @ 5 mls/hr IV .Q20H PRN; Protocol PRN Reason: TITRATE PER MD ORDER Last Admin: 09/11/18 03:25 Dose: 5 mls/hr Linezolid (Zyvox 600mg/300ml D5w) 600 mg in 300 mls @ 200 mls/hr IVPB Q12 SIXTO; Protocol Stop: 09/18/18 22:01 Doxycycline Hyclate 100 mg/ (Sodium Chloride) 100 mls @ 100 mls/hr IVPB Q12 S[facility]TO; Protocol Last Admin: 09/11/18 14:30 Dose: 100 mls/hr Heparin Sodium/Sodium Chloride (Heparin 01470 Units/250ml 1/2 Normal Saline) 25,000 units in 250 mls @ 20.02 mls/hr IV .[id number] PRN; Protocol PRN Reason: ADJUST RATE PER PROTOCOL Last Admin: 09/11/18 14:33 Dose: 8.25 units/kg/hr, 20.02 mls/hr Methylprednisolone (Solu-Medrol) 20 mg IVP Q8H [facility] Last Admin: 09/11/18 14:32 Dose: 20 mg Ondansetron HCl (Zofran Inj) 4 mg IVP Q4H PRN PRN Reason: Nausea/Vomiting Pantoprazole Sodium (Protonix Ec Tab) 40 mg PO 0600 [facility] Results - Vital Signs Recent Vital Signs: Last Vital Signs Temp 97.9 F 09/11/18 16:00 Pulse 73 09/11/18 14:25 Resp 28 H 09/11/18 14:25 BP 146/74 09/11/18 14:32 Pulse Ox 99 09/11/18 10:00 - Labs Result Diagrams: 09/11/18 03:10 09/11/18 03:10 Labs: Laboratory Results - last 24 hr 09/11/18 09/11/18 09/11/18 03:10 03:10 03:10 WBC 9.2 RBC 4.40 Hgb 8.4 L Hct 32.0 L MCV 72.7 L MCH 19.1 L MCHC 26.3 L RDW 20.2 H Plt Count 308 MPV 9.8 PT 18.5 H INR 1.67 APTT 30.0 pCO2 pO2 HCO3 ABG pH ABG Total CO2 ABG O2 Saturation ABG O2 Content ABG Base Excess ABG Hemoglobin ABG Carboxyhemoglobin POC ABG HHb (Measured) ABG Methemoglobin ABG O2 Capacity ABG Potassium Hgb O2 Saturation Glucose Lactate FiO2 Inspiratory BiPAP Blood Gas Comments Crit Value Called To Crit Value Called By Blood Gas Notified Time Sodium 134 Potassium 4.8 Chloride 96 L Carbon Dioxide 32 Anion Gap 10 BUN 30 H Creatinine 1.0 Est GFR ( Amer) > 60 Est GFR (Non-Af Amer) > 60 Random Glucose 117 H Hemoglobin A1c Lactic Acid Calcium 8.1 L Iron TIBC % Saturation Ferritin Total Bilirubin 0.9 AST 62 H ALT 18 Alkaline Phosphatase 40 Lactate Dehydrogenase 598 Total Creatine Kinase 91 Troponin I 0.02 D NT-Pro-B Natriuret Pep 2910 H Total Protein 8.1 Albumin 3.7 Globulin 4.5 Albumin/Globulin Ratio 0.8 L Triglycerides Cholesterol LDL Cholesterol Direct HDL Cholesterol Vitamin B12 Folate Free T4 Thyroxine (T4) TSH 3rd Generation Arterial Blood Potassium Blood Type Antibody Screen Crossmatch BBK History Checked 09/11/18 09/11/18 09/11/18 05:35 06:00 06:00 WBC RBC Hgb Hct MCV MCH MCHC RDW Plt Count MPV PT INR APTT pCO2 83 H* pO2 162.0 H HCO3 30.3 H ABG pH 7.17 L* ABG Total CO2 32.8 H ABG O2 Saturation 99.4 H ABG O2 Content 11.8 L ABG Base Excess 0.9 ABG Hemoglobin 8.4 L ABG Carboxyhemoglobin 2.5 H POC ABG HHb (Measured) 0.6 ABG Methemoglobin 0.4 ABG O2 Capacity 11.9 L ABG Potassium Hgb O2 Saturation 96.4 Glucose Lactate FiO2 100.0 Inspiratory BiPAP Blood Gas Comments Ms enrique mac(applications consultant) will bring abg results to ed Crit Value Called To [place] brito rn ed Crit Value Called By Jsm Blood Gas Notified Time 554 Sodium Potassium Chloride Carbon Dioxide Anion Gap BUN Creatinine Est GFR ( Amer) Est GFR (Non-Af Amer) Random Glucose Hemoglobin A1c Lactic Acid Calcium Iron TIBC % Saturation Ferritin 20.2 Total Bilirubin AST ALT Alkaline Phosphatase Lactate Dehydrogenase Total Creatine Kinase 84 Troponin I 0.02 NT-Pro-B Natriuret Pep Total Protein Albumin Globulin Albumin/Globulin Ratio Triglycerides 103 Cholesterol 103 L LDL Cholesterol Direct 67 HDL Cholesterol 12 L Vitamin B12 797 Folate 7.7 Free T4 Thyroxine (T4) TSH 3rd Generation Arterial Blood Potassium Blood Type A POSITIVE Antibody Screen Negative Crossmatch See Detail BBK History Checked Patient has bt 09/11/18 09/11/18 09/11/18 06:00 06:45 10:10 WBC RBC Hgb Hct MCV MCH MCHC RDW Plt Count MPV PT INR APTT pCO2 pO2 HCO3 ABG pH ABG Total CO2 ABG O2 Saturation ABG O2 Content ABG Base Excess ABG Hemoglobin ABG Carboxyhemoglobin POC ABG HHb (Measured) ABG Methemoglobin ABG O2 Capacity ABG Potassium Hgb O2 Saturation Glucose Lactate FiO2 Inspiratory BiPAP Blood Gas Comments Crit Value Called To Crit Value Called By Blood Gas Notified Time Sodium Potassium Chloride Carbon Dioxide Anion Gap BUN Creatinine Est GFR ( Amer) Est GFR (Non-Af Amer) Random Glucose Hemoglobin A1c 6.2 Lactic Acid 0.8 Calcium Iron 27 L TIBC 322 % Saturation 8 L Ferritin Total Bilirubin AST ALT Alkaline Phosphatase Lactate Dehydrogenase Total Creatine Kinase Troponin I NT-Pro-B Natriuret Pep Total Protein Albumin Globulin Albumin/Globulin Ratio Triglycerides Cholesterol LDL Cholesterol Direct HDL Cholesterol Vitamin B12 Folate Free T4 Thyroxine (T4) TSH 3rd Generation Arterial Blood Potassium Blood Type Antibody Screen Crossmatch BBK History Checked 09/11/18 09/11/18 09/11/18 10:10 10:10 11:25 WBC RBC Hgb Hct MCV MCH MCHC RDW Plt Count MPV PT INR APTT pCO2 95 H* pO2 213.0 H HCO3 34.7 H ABG pH 7.17 L* ABG Total CO2 37.6 H ABG O2 Saturation 99.0 H ABG O2 Content 12.0 L ABG Base Excess 4.7 H ABG Hemoglobin 8.5 L ABG Carboxyhemoglobin 2.0 H POC ABG HHb (Measured) 1.0 ABG Methemoglobin 0.6 ABG O2 Capacity 12.1 L ABG Potassium Hgb O2 Saturation 96.3 Glucose Lactate FiO2 90.0 Inspiratory BiPAP Blood Gas Comments Crit Value Called To dannie Ontiveros Crit Value Called By iman Rousseau Blood Gas Notified Time 1138 Sodium Potassium Chloride Carbon Dioxide Anion Gap BUN Creatinine Est GFR ( Amer) Est GFR (Non-Af Amer) Random Glucose Hemoglobin A1c Lactic Acid Calcium Iron TIBC % Saturation Ferritin Total Bilirubin AST ALT Alkaline Phosphatase Lactate Dehydrogenase Total Creatine Kinase 75 Troponin I 0.02 NT-Pro-B Natriuret Pep Total Protein Albumin Globulin Albumin/Globulin Ratio Triglycerides Cholesterol LDL Cholesterol Direct HDL Cholesterol Vitamin B12 Folate Free T4 1.08 Thyroxine (T4) 3.9 L TSH 3rd Generation 2.60 Arterial Blood Potassium Blood Type Antibody Screen Crossmatch BBK History Checked 09/11/18 15:10 WBC RBC Hgb Hct MCV MCH MCHC RDW Plt Count MPV PT INR APTT pCO2 76 H* pO2 107.0 H HCO3 32.6 H ABG pH 7.24 L ABG Total CO2 34.9 H ABG O2 Saturation 98.5 H ABG O2 Content ABG Base Excess 2.8 ABG Hemoglobin ABG Carboxyhemoglobin POC ABG HHb (Measured) ABG Methemoglobin ABG O2 Capacity ABG Potassium 4.2 Hgb O2 Saturation Glucose 90 Lactate 0.6 L FiO2 40.0 Inspiratory BiPAP 22 Blood Gas Comments Crit Value Called To orlando Ontiveros Crit Value Called By iman Rousseau Blood Gas Notified Time 1314 Sodium 137.0 Potassium Chloride 103.0 Carbon Dioxide Anion Gap BUN Creatinine Est GFR ( Amer) Est GFR (Non-Af Amer) Random Glucose Hemoglobin A1c Lactic Acid Calcium Iron TIBC % Saturation Ferritin Total Bilirubin AST ALT Alkaline Phosphatase Lactate Dehydrogenase Total Creatine Kinase Troponin I NT-Pro-B Natriuret Pep Total Protein Albumin Globulin Albumin/Globulin Ratio Triglycerides Cholesterol LDL Cholesterol Direct HDL Cholesterol Vitamin B12 Folate Free T4 Thyroxine (T4) TSH 3rd Generation Arterial Blood Potassium 4.2 Blood Type Antibody Screen Crossmatch BBK History Checked Attending/Attestation - Attestation I have personally seen and examined this patient.: Yes I have fully participated in the care of the patient.: Yes I have reviewed all pertinent clinical information: Yes
[2018-09-11 16:35] VITALS: BMI 72.5
[2018-09-11 17:42] LABS: HEMOGLOBIN 8.9 g/dL (14.0-18.0); MEAN CELL VOLUME 75.7 fl (80.0-105.0); MEAN CORPUSCULAR HEMOGLOBIN 19.5 pg (25.0-35.0); MEAN CORPUSCULAR HGB CONC 25.8 g/dl (31.0-37.0); MEAN PLATELET VOLUME 9.1 fl (7.0-11.0); RBC 4.56 10^6/uL (3.5-6.1); RED CELL DISTRIBUTION WIDTH 20.2 % (11.5-14.5)
--- NOTE | 2018-09-11 18:05 | HP ---
DATE OF EXAM: 09/11/2018 HISTORY OF PRESENT ILLNESS: The patient is a 58-year-old male who has been under my care since 2016, came to the emergency room with bilateral increasing leg swelling. The patient states that he has not seen any doctor since his last discharge from the rehab in 2016. The patient is mostly homebound and bedridden according to the patient's significant other. The patient was brought to the emergency room as a walk-in patient. The patient presented with increasing leg swelling and shortness of breath. CODE STATUS: Full code. LIVING WILL ADVANCE DIRECTIVE: None. ALLERGIES: NONE. Height is 6 feet. BMI is 72. Weight is 535 pounds. HOME MEDICATIONS: Are incorrect, these are the medications from the discharge of 2016. The patient is not taking any medications. OCCUPATIONAL HISTORY: Disabled. SOCIAL HISTORY: Negative for smoking, alcohol, or drug use. Negative for communicable transmissible disease. PAST MEDICAL, SURGICAL, SOCIAL HISTORY: The patient has a history of right lower extremity MRSA, corynebacterium, acinetobacter baumannii cellulitis, right leg, right calf abscess and ulceration, history of bilateral lower extremity lymphedema, history of super massive obesity, history of incision and drainage of the right leg abscess, history of hypertension, history of anemia with packed red blood cell transfusion, history of hypoxemia, history of hypovitaminosis D, history of possible alpha thalassemia, history of iron-deficiency anemia, history of hypogonadism with decreased testosterone level and morbid obesity, history of hypertensive heart disease, history of mild aortic regurgitation, history of dilated left ventricle, history of concentric left ventricular hypertrophy, history of left ventricular ejection fraction 69%, history of systemic inflammatory response syndrome, history of hypoalbuminemia, history of gait dysfunction, history of super morbid obesity, history of noncompliance, history of right ankle fracture, history of lymphedema, history of right ankle surgery, history of cardiomegaly, history of sepsis with right leg cellulitis, history of methicillin-resistant Staphylococcus aureus, corynebacterium, acinetobacter baumannii, bilateral lower extremity cellulitis and abscess, history of severe gait dysfunction. The patient was seen in the emergency room, then in the ICU. PHYSICAL EXAMINATION: GENERAL: The patient is seen lying in the bed. The patient is massively obese. VITAL SIGNS: T-max is 98.9. Telemetry initially shows an AFib with rapid ventricular response of 114 down to 99 down to 89. Blood pressure 144/78, 153/73, 153/79; respirations 18, 28, 36, 27; O2 sat on 100% nonrebreather 92-98%. The patient is seen lying in the bed. The patient is presently on CPAP. HEENT AND NECK: Head: Normocephalic, atraumatic. HEENT examination shows pinkish pale conjunctivae. Dry oral mucosa. No neck rigidity. CHEST: Symmetrical. LUNGS: Show decreased breath sounds at the bases. Positive creps, crackles, rhonchi noted upper lung field. CARDIOVASCULAR: Shows S1, S2 with irregular rhythm. Positive systolic murmur left sternal border, right second intercostal space, left second intercostal space. ABDOMEN: Morbidly obese. Unable to appreciate any hepatosplenomegaly . GENITALIA: Could not be examined, EXTREMITIES: Lower extremity shows chronic and severe lymphedema with chronic skin changes and overgrown toenails and poor foot hygiene. MUSCULOSKELETAL: Shows a body mass index of 72.6. Weight is greater than 535 pounds. Gait examination not tested. PSYCHIATRIC: Not applicable. DIAGNOSTICS: Show hemoglobin/hematocrit 8.4 and 32. PT/PTT 18.5 and 30.0. ABG shows a pH of 7.17, pCO2 of 83 pO2 of 162, bicarb 31, saturation of 99.1. Sodium 134, potassium 4.8, chloride 96, CO2 32, anion gap 10, BUN 30, creatinine 1.0, GFR greater than 60, glucose 117, lactic acid 0.8, calcium 8.1. AST 62, troponin 0.02. BNP 2910. Cholesterol 103, triglycerides 103, LDL 67, HDL 12. The patient had a chest x-ray done, which shows cardiomegaly. Venous Doppler of the lower extremities was done in the emergency room, which was limited study, but negative for DVT. The patient was seen in the emergency room by the ER physician. EKG shows new onset atrial fibrillation, heart rate in low 100s and 110 beats per minute. IMPRESSION AND PLAN 1. New-onset atrial fibrillation with rapid to well-controlled ventricular response. 2. Possible acute systolic congestive heart failure. 3. Massive lymphedema of the lower extremity. 4. Anemia. 5. Hypertension. 6. Tachypnea. 7. Hypoxemia. 8. Microcytic anemia. 9. Respiratory acidosis with hypercarbia and CO2 narcosis. 10. Prerenal kidney injury. 11. Hyperglycemia. 12. Cardiomegaly. 13. Anemia. 14. Neurosis. 15. Chronic venous stasis ulceration of the bilateral lower extremity. 16. Hypertension. 17. Gait dysfunction. 18. Super morbid obesity with gait dysfunction and possible functional quadriplegia. PLAN: At this time, the patient is admitted to Intensive Care Unit. The patient's B12, iron studies, hemoglobin A1c, lipid panel have been ordered. Iron studies, thyroid panel, vitamin D, serial cardiac enzymes, serial labs ordered. Erythropoietin, vitamin D 25-hydroxy. Repeat ABG ordered. Current consultation, Infectious Disease, Cardiology and Podiatry. The patient will be ordered 1 unit of PRBC today. The patient is presently on Cardizem drip 5 mg an hour, Colace 100 three times a day, Lasix was given 100 mg in the ER. The patient is on Lasix 40 IV every 8 hours, Lipitor 40 mg daily, Lovenox 240 mg subcutaneously every 12 hours. The patient is started on meropenem 500 mg IV every 8 hours, Protonix 40 mg daily for GI prophylaxis, Tylenol p.r.n., p.o. suppository. The patient is also ordered vancomycin 1 g IV every 12 hours, Zofran 4 IV every 4 hours. VQ scan has been ordered. The patient has been ordered BiPAP, 18/6 FIO2 90%, rate of 15 by the medical ICU resident. The patient has been ordered echo with Doppler. The patient has been ordered out of the bed at 30 degrees. At present, the patient was seen and examined in the ICU with the patient's significant other at bedside. The patient has been explained about the details of his medical condition, need for further diagnostic therapeutic intervention, need for further treatment, need for evaluation by other consultants, and need for further diagnostic therapeutic intervention. All details discussed and explained to the patient and the patient's significant other, and all questions concerned answered The patient's overall prognosis is guarded to poor. Time spent in the critical care management including review of the data, examining the patient, discussion with the family and entire management is more than 1 hour 55 minutes. Dictated and electronically signed, not read. Markel Michel MD [facility] # [id number]
[2018-09-11 18:08] LABS: TROPONIN I 0.02 ng/mL
--- NOTE | 2018-09-11 18:51 | CON ---
DATE: 09/11/2018 HISTORY OF PRESENT ILLNESS: The patient is 58-year-old gentleman with history of morbid obesity, OHS with chronic CO2 retention, who presented to [facility] ER last night with shortness of breath. He reports that his symptoms started a few days earlier and was getting progressively worse. There were no alleviating or aggravating factors. Not associated with chest pain. He also reports that he had new skin changes in his right lower leg, but he denies fever, chills, sweats, nausea, vomiting, diarrhea, or constipation.. He reports that these episodes of shortness of breath started shortly after his lone air travel as well.. Upon evaluation at [facility] ER, he was found to have new-onset atrial fibrillation as well as significant respiratory acidosis. The patient denies sick contacts or recent URI. PAST MEDICAL HISTORY: Morbid obesity, leg cellulitis, chronic lymphedema. PAST SURGICAL HISTORY: The patient had surgery for right ankle fracture in 2005, I and D of right lower extremity cellulitis in 2016. ALLERGIES: NKDA. HOME MEDICATIONS: None. SOCIAL HISTORY: No alcohol or illicit drug abuse. No tobacco smoking. REVIEW OF SYSTEM: Review of 12-organ system other than mentioned in history of present illness is negative. PHYSICAL EXAMINATION: VITAL SIGNS: Blood pressure 136/76, temperature 98.1, heart rate 79, oxygen saturation 99% on 40% FIO2. ENT: Head and neck atraumatic. Very obese. LUNGS: Few wheezes bilaterally. HEART: Irregular rate and rhythm. S1, S2 distant. ABDOMEN: Soft, nontender, nondistended. MUSCULOSKELETAL: Very obese. NEUROLOGIC: The patient moves all extremities spontaneously. SKIN: Moist. PSYCHIATRIC: The patient lethargic, however, responding to commands. LABORATORY DATA: WBC 9.2, hemoglobin 8.4, platelet count 308. Sodium 134, potassium 4.8, chloride 96, carbon dioxide 32, BUN 30, creatinine 1, glucose 117. ProBNP 2910. AST 62, ALT 18, total bilirubin 0.9. CPK 74. Troponin 0.02. INR 1.67. ABG 7.17/83/162 on 100% FIO2. However, ABG 6 hours later showed 7.17/95/213 on 40% FIO2. Chest x-ray appears to show bilateral vascular congestion. However, it may be overlapping adipose tissue. The official read; no active pulmonary disease. EKG showed atrial fibrillation. VQ scan was ordered by nighttime team and the patient is currently at VQ scan. CURRENT MEDICATION: DuoNeb every 4 hours, Lipitor, Cardizem drip, Colace, doxycycline, Lasix 40 mg IV every 8 hours, heparin drip, Solu-Medrol 20 mg IV every 8 hours, Zofran p.r.n., Protonix, linezolid. ASSESSMENT AND PLAN: This is a 58-year-old gentleman with hypercapnic respiratory failure, most likely due to combination of factors including OHS with some component of chronic obstructive pulmonary disease. Besides reduced FRC due to severe obesity increases airway resistance adding to pathogenesis of chronic hypercapnic respiratory failure. The patient does have history of significant diastolic dysfunction and it is likely that it also plays some role in worsening of the patient's ventilatory status, via increased airway's edema and thus bronchial resistance . We will order follow up echo to better qualitate/quantitate LV diastolic function. We will proceed with antibiotics, steroid taper, bronchodilators. Acute cellulitis is a possibility and ID service is following the patient as well. The patient is on linezolid and doxycycline to cover for potential soft tissue as well as lung source of infection. We will continue to target euvolemia, euglycemia, normothermia and saturation more than 90%. We will continue with maintaining mean arterial pressure more than 65 avoiding hyperchloremia and nephrotoxins but not at expense of treating underlying disease. We will maintain blood glucose within 140-180 range according to NICE-SUGAR trial. We will get blood culture, urine culture, procalcitonin. We will have low threshold for intubation. BiPAP was increased from 18 to 22.. If subsequent ABG will not improve, we will proceed with endotracheal intubation. I spoke with anesthesiology service for the backup as the patient is morbidly obese. We will start the patient on therapeutic anticoagulation to prevent stroke in the setting of atrial fibrillation as well. Cardiology consult, echocardiogram. Addendum: repeated ABG showed improved ventilation with ph 7.24 (from 7.17) and pc02 down to 70s from 90s. Will continue with BPAP, serial ABGs, low threshold for intubation (in which case anesthesia service should be present at bedside)-->that was signed out to nighttime hospitalist. ccm time 40 min Luis Pineda MD [facility] # [id number] PARTHA
--- NOTE | 2018-09-11 19:34 | CARD ---
APPROVED REPORT Date of service: 09/11/2018 EXAM: Two-dimensional and M-mode echocardiogram with Doppler and color Doppler. INDICATION Congestive Heart Failure 2D DIMENSIONS Left Atrium (2D)4.8 (1.6-4.0cm)IVSd1.7 (0.7-1.1cm) LVDd5.4 (3.9-5.9cm)PWd1.6 (0.7-1.1cm) LVDs3.8 (2.5-4.0cm)FS (%) 29.8 % LVEF (%)56.5 (>50%) M-Mode DIMENSIONS Aortic Root4.60 (2.2-3.7cm)Aortic Cusp Exc.2.70 (1.5-2.0cm) Aortic Valve AoV Peak Qmdtvbbs264.0cm/sAoV VTI37.6cmAO Peak GR.13mmHg LVOT Peak Bsqthpvj861.0cm/sLVOT VTI25.80cmAO Mean GR.8mmHg AI P 1/2 Loyr162gt Mitral Valve MV E Rmwumwlo542.0cm/sMV A Ufajycqs21.3cm/sE/A ratio1.2 TDI Lateral E' Peak V14.60cm/sMedial E' Peak V10.80cm/sE/Lateral E'8.2 E/Medial E'11.0 Pulmonary Valve PV Peak Nxrftnqn54.2cm/sPV Peak Grad.2mmHg Tricuspid Valve TR Peak Cbtncsfk844eh/sRAP DVSEJPMU99jkNtUV Peak Gr.26mmHg QHRP50ufMa LEFT VENTRICLE The left ventricle is normal size. There is moderate concentric left ventricular hypertrophy. The left ventricular function is normal. The left ventricular ejection fraction is within the normal range. There is normal LV segmental wall motion. No left ventricle thrombus noted on this study. RIGHT VENTRICLE The right ventricle is normal size. There is normal right ventricular wall thickness. Systolic function is borderline reduced. ATRIA The left atrium is moderately dilated. The right atrium is mildly dilated. AORTIC VALVE The aortic valve is mildly thickened. There is moderate to severe aortic regurgitation. There is no aortic valvular stenosis. MITRAL VALVE The mitral valve is normal in structure. Mitral regurgitation is mild. There is no mitral valve stenosis. TRICUSPID VALVE There is mild tricuspid regurgitation. There is mild pulmonary hypertension. PULMONIC VALVE There is mild pulmonic valvular regurgitation. GREAT VESSELS The aortic root is moderately enlarged. The IVC is normal in size and collapses >50% with inspiration. <Conclusion> There is moderate concentric left ventricular hypertrophy. The left ventricular function is normal. The left ventricular ejection fraction is within the normal range. There is normal LV segmental wall motion. There is moderate to severe aortic regurgitation. Mitral regurgitation is mild. There is mild tricuspid regurgitation. There is mild pulmonary hypertension. The aortic root is moderately enlarged. The left atrium is moderately dilated.
--- NOTE | 2018-09-11 20:52 | US ---
HISTORY: Leg pain and swelling. Evaluate for DVT PHYSICIAN(S): Jean Claude Brownlee MD. TECHNIQUE: Duplex sonography and color-flow Doppler with graded compression were used to evaluate the deep venous systems of both lower extremities. FINDINGS: The exam is extremely limited by body habitus. The lower femoral veins, popliteal veins, and tibial veins are not adequately seen. IMPRESSION: No sonographic evidence for deep venous thrombosis in the visualized segments of both lower extremities. Extremely limited study
[2018-09-11] MEDS: Albuterol-Ipratrop 3 mg / 0.5 (3 ml) UD IH SCH (21:00)
[2018-09-11] MEDS: Linezolid 600 mg in D5W 300 ml 600 MG/300 ML BAG IVPB SCH (21:53)
[2018-09-11 23:30] LABS: ARTERIAL BLOOD GAS HCO3 31.9 mmol/L (21-28); ARTERIAL BLOOD GAS HEMOGLOBIN 8.9 g/dL (11.7-17.4); ARTERIAL BLOOD GAS O2 CAPACITY 12.4 mL/dl (16-24); ARTERIAL BLOOD GAS O2 CONTENT 12.1 ML/dl (15-23); ARTERIAL BLOOD GAS O2 SAT 97.9 % (95-98); ARTERIAL BLOOD GAS PCO2 78 mm/Hg (35-45); ARTERIAL BLOOD GAS PH 7.22 (7.35-7.45); ARTERIAL BLOOD GAS TCO2 34.3 mmol.L (22-28)
[2018-09-12 03:34] LABS: ARTERIAL BLOOD GAS HCO3 36.1 mmol/L (21-28); ARTERIAL BLOOD GAS HEMOGLOBIN 8.8 g/dL (11.7-17.4); ARTERIAL BLOOD GAS O2 CONTENT 12.9 ML/dl (15-23); ARTERIAL BLOOD GAS O2 SAT 99.1 % (95-98); ARTERIAL BLOOD GAS PCO2 99 mm/Hg (35-45); ARTERIAL BLOOD GAS PH 7.17 (7.35-7.45); ARTERIAL BLOOD GAS TCO2 39.1 mmol.L (22-28)
[2018-09-12] MEDS: Heparin25000 units/250ml 1/2NS 25,000 UNITS/250 ML BAG IV PRN ×2 (03:55→15:57)
[2018-09-12] MEDS: Pantoprazole 40 mg EC Tab PO SCH (05:28)
[2018-09-12] MEDS: MethylPREDNISolone 40 mg Vial IVP SCH ×3 (05:29→21:38)
[2018-09-12 06:54] LABS: ALB/GLOB RATIO 0.8 (1.1-1.8); ALBUMIN 3.4 g/dL (3.0-4.8); ALT/SGPT 21 U/L (7-56); AST/SGOT 57 U/L (17-59); BILIRUBIN,DIRECT 0.7 mg/dL (0.0-0.4); BLOOD UREA NITROGEN 26 mg/dL (7-21); CALCIUM 7.8 mg/dL (8.4-10.5); GFR NON-AFRICAN AMERICAN > 60
[2018-09-12 07:23] LABS: BASO # 0.01 K/mm3 (0.0-2.0); BASO % 0.1 % (0.0-3.0); EOS % 0.1 % (1.5-5.0); HEMOGLOBIN 8.5 g/dL (14.0-18.0); LYMPH # 0.7 (1.2-3.4); LYMPH % 7.8 % (22.0-35.0); MEAN CELL VOLUME 76.4 fl (80.0-105.0); MEAN CORPUSCULAR HEMOGLOBIN 19.6 pg (25.0-35.0); MEAN CORPUSCULAR HGB CONC 25.7 g/dl (31.0-37.0); MEAN PLATELET VOLUME 9.7 fl (7.0-11.0); MONO # 0.2 (0.1-0.6); MONO % 2.5 % (1.0-6.0); RBC 4.33 10^6/uL (3.5-6.1); RED CELL DISTRIBUTION WIDTH 20.1 % (11.5-14.5); WHITE BLOOD COUNT 8.7 10^3/uL (4.5-11.0)
[2018-09-12] MEDS: Albuterol-Ipratrop 3 mg / 0.5 (3 ml) UD IH SCH ×3 (08:23→19:40)
--- NOTE | 2018-09-12 08:32 | CON ---
DATE OF CONSULTATION: 09/12/2018 HISTORY: The patient is a 58-year-old male who presents with dyspnea. The patient is morbidly obese and presents with chronic pedal edema. His history is poor and unable to give a coherent history. However, he denies chest pain. He denies previous cardiac history. He was found to be in atrial fibrillation. Echocardiogram reveals good LV function with mild pulmonary hypertension. Review of systems is noncontributory. PHYSICAL EXAMINATION: GENERAL: The patient is morbidly obese, in no acute distress. VITAL SIGNS: Blood pressure is 112/55, heart rate is in the 70s, atrial fibrillation. NECK: Negative JVD. LUNGS: Decreased breath sounds. HEART: S1, S2. EXTREMITIES: Marked edema in the lower extremities. DIAGNOSTIC DATA: EKG shows atrial fibrillation with nonspecific ST-T changes. LABORATORY DATA: BUN and creatinine are unremarkable. Troponins are negative x1. ProBNP is 2910. The hemoglobin is 8.5. IMPRESSION: 1. Morbid obesity. 2. Chronic pedal edema. 3. Mild pulmonary hypertension. 4. Dyspnea. 5. Anemia. 6. New-onset atrial fibrillation. PLAN: Given these findings, I agree with IV Lasix at this time. His heart rate is well controlled. Will need to consider long-term anticoagulation once the source of his anemia is discovered. Need to rule out any bleed. Jean Claude Lacy MD
[2018-09-12 08:47] LABS: ARTERIAL BLOOD GAS HCO3 34.8 mmol/L (21-28); ARTERIAL BLOOD GAS HEMOGLOBIN 8.6 g/dL (11.7-17.4); ARTERIAL BLOOD GAS O2 CONTENT 11.8 ML/dl (15-23); ARTERIAL BLOOD GAS O2 SAT 98.5 % (95-98); ARTERIAL BLOOD GAS PCO2 85 mm/Hg (35-45); ARTERIAL BLOOD GAS PH 7.22 (7.35-7.45); ARTERIAL BLOOD GAS TCO2 37.4 mmol.L (22-28)
--- NOTE | 2018-09-12 08:52 | CP.PCM.PN ---
<Little Barboza - Last Filed: 09/12/18 08:49> Subjective - Date & Time of Evaluation Date of Evaluation: 09/12/18 Time of Evaluation: 08:49 - Subjective Subjective: Podiatry consult note for Dr. Gonzalez 58 y/o male seen and evaluated in the ICU due to right lateral leg wound. Patient unable to converse at this time due to increased shortness of breath. As per nursing, no overnight events Objective - Vital Signs/Intake and Output Vital Signs (last 24 hours): Temp Pulse Resp BP Pulse Ox 98 F 88 30 H 118/59 L 98 09/12/18 04:00 09/12/18 08:00 09/12/18 08:00 09/12/18 07:30 09/12/18 08:00 Intake and Output: 09/12/18 09/12/18 06:59 18:59 Intake Total 950 Output Total 1100 Balance -150 - Medications Medications: Current Medications Acetaminophen (Tylenol 325mg Tab) 650 mg PO Q6 PRN PRN Reason: TEMP>=99.5F Last Admin: 09/12/18 02:33 Dose: 650 mg Acetaminophen (Tylenol 650 Mg Supp) 650 mg RC Q6H PRN PRN Reason: TEMP>=99.5F Albuterol/Ipratropium (Duoneb 3 Mg/0.5 Mg (3 Ml) Ud) 3 ml IH Q4H [facility] Last Admin: 09/12/18 08:23 Dose: 3 ml Atorvastatin Calcium (Lipitor) 40 mg PO DIN [facility] Last Admin: 09/11/18 17:46 Dose: Not Given Docusate Sodium (Colace) 100 mg PO TID [facility] Last Admin: 09/11/18 17:46 Dose: Not Given Furosemide (Lasix) 40 mg IVP Q8H [facility] Last Admin: 09/12/18 05:29 Dose: 40 mg diltiaZEM IVPB 100mg in NS (Cardizem 100mg In Ns) 100 mls @ 5 mls/hr IV .Q20H PRN; Protocol PRN Reason: TITRATE PER MD ORDER Last Admin: 09/11/18 22:26 Dose: 5 mg/hr, 5 mls/hr Linezolid (Zyvox 600mg/300ml D5w) 600 mg in 300 mls @ 200 mls/hr IVPB Q12 [facility]; Protocol Stop: 09/18/18 22:01 Last Admin: 09/11/18 21:53 Dose: 200 mls/hr Doxycycline Hyclate 100 mg/ (Sodium Chloride) 100 mls @ 100 mls/hr IVPB Q12 [facility]IXTO; Protocol Last Admin: 09/11/18 21:54 Dose: 100 mls/hr Heparin Sodium/Sodium Chloride (Heparin 85772 Units/250ml 1/2 Normal Saline) 25,000 units in 250 mls @ 20.02 mls/hr IV .[id number] PRN; Protocol PRN Reason: ADJUST RATE PER PROTOCOL Last Admin: 09/12/18 03:55 Dose: 8.25 units/kg/hr, 20.02 mls/hr Methylprednisolone (Solu-Medrol) 20 mg IVP Q8H [facility] Last Admin: 09/12/18 05:29 Dose: 20 mg Ondansetron HCl (Zofran Inj) 4 mg IVP Q4H PRN PRN Reason: Nausea/Vomiting Pantoprazole Sodium (Protonix Ec Tab) 40 mg PO 0600 [facility] Last Admin: 09/12/18 05:28 Dose: 40 mg - Labs Labs: 09/12/18 06:00 09/12/18 06:00 PT 18.5 SECONDS (9.4-12.5) H 09/11/18 03:10 INR 1.67 09/11/18 03:10 APTT 76.8 Seconds (26.9-38.3) H 09/12/18 02:40 - Constitutional Appears: Well, Non-toxic, In Acute Distress - Head Exam Head Exam: ATRAUMATIC, NORMOCEPHALIC - Extremities Exam Additional comments: Bilateral Lower Extremity Exam VASC: DP and PT non-palpable secondary to significant lymphedema, TG within normal limits DERM RIGHT: superficial wounds noted to the lateral aspect of the right leg and to the posterior thigh, 100% granular base, no probe to bone, no malodor, minimal drainage, no signs of infection noted LEFT: small superficial wound noted to the medial aspect of the left leg, fibro- granular base, no probe to bone, no malodor, minimal drainage, no signs of infection noted, significant lymphedema noted bilaterally, NEURO: unable to assess, patient responding to pain stimuli ORTHO: pain with movement and range of motion, pain on palpation to wounds - Neurological Exam Neurological Exam: Alert, Awake - Psychiatric Exam Psychiatric exam: Normal Affect, Normal Mood Assessment and Plan - Assessment and Plan (Free Text) Assessment: 58 y/o male patient seen with superficial wounds to bilateral lower extremity, non-infected Plan: Patient seen and evaluated with Dr. Gonzalez Plan discussed with attending Chart, labs and vitals were reviewed, afebrile, absent leukocytosis Wound cleansed with saline and dressed with maxorb, optifoam, and RACHEL Ordered bactroban for wounds Patient stable from podiatry standpoint, no intervention required Podiatry will continue to follow <Ariel Gonzalez - Last Filed: 09/12/18 09:51> Objective - Vital Signs/Intake and Output Vital Signs (last 24 hours): Temp Pulse Resp BP Pulse Ox 98 F 88 30 H 118/59 L 98 09/12/18 04:00 09/12/18 08:00 09/12/18 08:00 09/12/18 07:30 09/12/18 08:00 Intake and Output: 09/12/18 09/12/18 06:59 18:59 Intake Total 950 Output Total 1100 Balance -150 - Medications Medications: Current Medications Acetaminophen (Tylenol 325mg Tab) 650 mg PO Q6 PRN PRN Reason: TEMP>=99.5F Last Admin: 09/12/18 02:33 Dose: 650 mg Acetaminophen (Tylenol 650 Mg Supp) 650 mg RC Q6H PRN PRN Reason: TEMP>=99.5F Albuterol/Ipratropium (Duoneb 3 Mg/0.5 Mg (3 Ml) Ud) 3 ml IH Q4H [facility] Last Admin: 09/12/18 08:23 Dose: 3 ml Atorvastatin Calcium (Lipitor) 40 mg PO DIN [facility] Last Admin: 09/11/18 17:46 Dose: Not Given Docusate Sodium (Colace) 100 mg PO TID [facility] Last Admin: 09/11/18 17:46 Dose: Not Given Furosemide (Lasix) 40 mg IVP Q8H [facility] Last Admin: 09/12/18 05:29 Dose: 40 mg diltiaZEM IVPB 100mg in NS (Cardizem 100mg In Ns) 100 mls @ 5 mls/hr IV .Q20H PRN; Protocol PRN Reason: TITRATE PER MD ORDER Last Admin: 09/11/18 22:26 Dose: 5 mg/hr, 5 mls/hr Linezolid (Zyvox 600mg/300ml D5w) 600 mg in 300 mls @ 200 mls/hr IVPB Q12 SIXTO; Protocol Stop: 09/18/18 22:01 Last Admin: 09/11/18 21:53 Dose: 200 mls/hr Doxycycline Hyclate 100 mg/ (Sodium Chloride) 100 mls @ 100 mls/hr IVPB Q12 SIXTO; Protocol Last Admin: 09/11/18 21:54 Dose: 100 mls/hr Heparin Sodium/Sodium Chloride (Heparin 63190 Units/250ml 1/2 Normal Saline) 25 ,000 units in 250 mls @ 20.02 mls/hr IV .[id number] PRN; Protocol PRN Reason: ADJUST RATE PER PROTOCOL Last Admin: 09/12/18 03:55 Dose: 8.25 units/kg/hr, 20.02 mls/hr Methylprednisolone (Solu-Medrol) 20 mg IVP Q8H [facility] Last Admin: 09/12/18 05:29 Dose: 20 mg Mupirocin (Bactroban Ointment) 0 gm TOP BID [facility] Ondansetron HCl (Zofran Inj) 4 mg IVP Q4H PRN PRN Reason: Nausea/Vomiting Pantoprazole Sodium (Protonix Ec Tab) 40 mg PO 0600 [facility] Last Admin: 09/12/18 05:28 Dose: 40 mg - Labs Labs: 09/12/18 06:00 09/12/18 06:00 PT 18.5 SECONDS (9.4-12.5) H 09/11/18 03:10 INR 1.67 09/11/18 03:10 APTT 76.8 Seconds (26.9-38.3) H 09/12/18 02:40 Attending/Attestation - Attestation I have personally seen and examined this patient.: Yes I have fully participated in the care of the patient.: Yes I have reviewed all pertinent clinical information, including history, physical exam and plan: Yes
--- NOTE | 2018-09-12 09:11 | CON ---
DATE OF CONSULTATION: 09/12/2018 REQUESTING PHYSICIAN: Markel Michel MD REASON FOR CONSULTATION: I have been asked to see this morbidly obese 58-year-old male with a BMI of 72.6 with a history of hypoventilation syndrome with chronic CO2 retention, chronic lymphedema of the legs with associated cellulitis, chronic anemia, who comes to the hospital with increasing shortness of breath. He denied any chest pain, cough, fevers or chills. He has a history of MRSA infection of his right leg. In the emergency room, he was found to have new-onset atrial fibrillation and significant CO2 retention with associated respiratory acidosis. He denies any rectal bleeding, melena, nausea, vomiting. PAST MEDICAL HISTORY: Notable for morbid obesity, chronic CO2 retention, chronic lymphedema of the legs and cellulitis. PAST SURGICAL HISTORY: Notable for I and D of the right leg cellulitis and right ankle fracture. FAMILY HISTORY: Noncontributory. SOCIAL HISTORY: Denies cigarette smoking or alcohol use. REVIEW OF SYSTEMS: A 14-point review of systems is notable for increasing shortness of breath. PHYSICAL EXAMINATION: GENERAL: Morbidly obese male weighing over 500 pounds, BMI is 72.6, in no distress. He has a BiPAP mask on. VITAL SIGNS: He is afebrile. Blood pressure 118/59, heart rate of 88. HEENT: Reveal sclerae to be white. Conjunctivae pale. NECK: Supple. CHEST: Distant breath sounds. HEART: Regular rate and rhythm. ABDOMEN: Obese, soft, nontender. EXTREMITIES: Chronic stasis changes with lymphedema of the legs. His right lower leg is covered with a dressing. LABORATORY DATA: White blood cell count 8.7, hemoglobin 8.5. Chemistries reveal BUN 26, creatinine 0.9, bicarb of 35, potassium 5.1. IMPRESSION: A 58-year-old male, morbidly obese, with CO2 retention, admitted with shortness of breath with new-onset atrial fibrillation with anemia. This is a chronic anemia. The patient's hemoglobin back in 2016 was 9.5. His current hemoglobin is close to his baseline. There is no evidence of any overt GI bleeding. I suspect again that this anemia is secondary to chronic disease. RECOMMENDATIONS: 1. Continue PPI. 2. Start anticoagulation as needed for atrial fibrillation. 3. No plans for endoscopy at this time given high cardiopulmonary risk given his morbid obesity and CO2 retention. Shashi Bridges MD
[2018-09-12] MEDS: Linezolid 600 mg in D5W 300 ml 600 MG/300 ML BAG IVPB SCH (09:52)
[2018-09-12] MEDS ORDERED: Mupirocin 2% Ointment 15 GM TUBE TOP SCH (10:00)
--- NOTE | 2018-09-12 11:45 | CP.CCUPN ---
<Nam Palacios - Last Filed: 09/12/18 11:49> CCU Subjective - Physician Review Subjective (Free Text): 09/12/18 11:42 Nam Palacios PGY1 Critical Care Progress Note Patient seen and examined at bedside this morning. Patient was agitated last night and removed bipap for approximately 2 hours. ABG this morning showed worsening acidosis and BIPAP was resumed. Patient denies CP, SOB, nausea, vomiting, abdominal pain and urinary complaints. CCU Objective - Vital Signs / Intake & Output Vital Signs (Last 4 hours): Vital Signs Pulse Resp Pulse Ox 09/12/18 08:25 88 09/12/18 08:00 88 30 H 98 Intake and Output (Last 8hrs): Intake & Output 09/11/18 09/12/18 09/12/18 22:59 06:59 14:59 Intake Total 540 950 Output Total 650 1100 Balance -110 -150 Intake: IV 540 950 antibiotics 400 700 cardizem 60 heparin 80 Output: Urine 650 1100 Urine, Voided 650 1100 Other: # Voids Urine, Voided 1 # Bowel Movements 0 - Physical Exam Head: Positive for: Atraumatic, Normocephalic Pupils: Positive for: PERRL Extroacular Muscles: Positive for: EOMI Conjunctiva: Positive for: Normal Mouth: Positive for: Moist Mucous Membranes Neck: Positive for: Normal Range of Motion Respiratory/Chest: Positive for: Clear to Auscultation, Good Air Exchange. Negative for: Respiratory Distress, Accessory Muscle Use Cardiovascular: Positive for: Normal S1, S2, Irregular Rhythm. Negative for: Murmurs Abdomen: Positive for: Normal Bowel Sounds, Other (globular ). Negative for: Tenderness, Distention, Peritoneal Signs Back: Positive for: Normal Inspection Upper Extremity: Positive for: Normal Inspection. Negative for: Cyanosis, Edema Lower Extremity: Positive for: Neurovascularly Intact. Negative for: Normal Inspection (Lymphedema bilaterally, with chronic venous stasis changes; dry skin), Shima's Sign Neurological: Positive for: GCS=15, CN II-XII Intact, Speech Normal, Motor Func Grossly Intact, Normal Sensory Function Skin: Positive for: Warm, Dry, Normal Color. Negative for: Rashes Psychiatric: Positive for: Alert, Oriented x 3, Normal Insight, Normal Concentration - Medications Active Medications: Active Medications Generic Name Dose Route Start Last Admin Trade Name Freq PRN Reason Stop Dose Admin Acetaminophen 650 mg 09/11/18 06:19 09/12/18 02:33 Tylenol 325mg Tab PO 650 mg Q6 PRN Administration TEMP>=99.5F Acetaminophen 650 mg 09/11/18 06:19 Tylenol 650 Mg Supp RC Q6H PRN TEMP>=99.5F Albuterol/Ipratropium 3 ml 09/12/18 11:31 Duoneb 3 Mg/0.5 Mg (3 Ml) Ud IH [id number] SIXTO Atorvastatin Calcium 40 mg 09/11/18 17:00 09/11/18 17:46 Lipitor PO Not Given DIN SIXTO Docusate Sodium 100 mg 09/11/18 10:00 09/12/18 09:51 Colace PO 100 mg TID SIXTO Administration Furosemide 40 mg 09/11/18 06:30 09/12/18 05:29 Lasix IVP 40 mg Q8H SIXTO Administration diltiaZEM IVPB 100mg in NS 100 mls @ 5 mls/hr 09/11/18 02:55 09/11/18 22:26 Cardizem 100mg In Ns IV 5 mg/hr .Q20H PRN 5 mls/hr TITRATE PER MD ORDER Administration Protocol 5 MG/HR Linezolid 600 mg in 300 mls @ 200 mls/hr 09/11/18 22:00 09/12/18 09:52 Zyvox 600mg/300ml D5w IVPB 09/18/18 22:01 200 mls/hr Q12 SIXTO Administration Protocol Doxycycline Hyclate 100 mg/ 100 mls @ 100 mls/hr 09/11/18 13:00 09/12/18 09:52 Sodium Chloride IVPB 100 mls/hr Q12 SIXTO Administration Protocol Heparin Sodium/Sodium Chloride 25,000 units in 250 mls @ 20.02 mls/hr 09/11/18 13:13 09/12/18 03:55 Heparin 61026 Units/250ml 1/2 Normal Saline IV 8.25 units/kg/hr .[id number] PRN 20.02 mls/hr ADJUST RATE PER PROTOCOL Administration Protocol 8.25 UNITS/KG/HR Methylprednisolone 20 mg 09/11/18 13:00 09/12/18 05:29 Solu-Medrol IVP 20 mg Q8H SIXTO Administration Mupirocin 0 gm 09/12/18 10:00 Bactroban Ointment TOP BID SIXTO Ondansetron HCl 4 mg 09/11/18 06:19 Zofran Inj IVP Q4H PRN Nausea/Vomiting Pantoprazole Sodium 40 mg 09/12/18 06:00 09/12/18 05:28 Protonix Ec Tab PO 40 mg 0600 SIXTO Administration - Patient Studies Lab Studies: Lab Studies 09/12/18 09/12/18 09/12/18 Range/Units 08:30 06:00 06:00 WBC 8.7 D (4.5-11.0) 10^3/uL RBC 4.33 (3.5-6.1) 10^6/uL Hgb 8.5 L (14.0-18.0) g/dL Hct 33.1 L (42.0-52.0) % MCV 76.4 L (80.0-105.0) fl MCH 19.6 L (25.0-35.0) pg MCHC 25.7 L (31.0-37.0) g/dl RDW 20.1 H (11.5-14.5) % Plt Count 241 (120.0-450.0) 10^3/uL MPV 9.7 (7.0-11.0) fl Neut % (Auto) 89.5 H (50.0-68.0) % Lymph % (Auto) 7.8 L (22.0-35.0) % [place] % (Auto) 2.5 (1.0-6.0) % Eos % (Auto) 0.1 L (1.5-5.0) % Baso % (Auto) 0.1 (0.0-3.0) % Lymph # (Auto) 0.7 L (1.2-3.4) [place] # (Auto) 0.2 (0.1-0.6) Eos # (Auto) 0.0 (0.0-0.7) Baso # (Auto) 0.01 (0.0-2.0) K/mm3 Absolute Neuts (auto) 7.77 H (1.4-6.5) APTT (26.9-38.3) Seconds pCO2 85 H* (35-45) mm/Hg pO2 118.0 H (80-100) mm/Hg HCO3 34.8 H (21-28) mmol/L ABG pH 7.22 L (7.35-7.45) ABG Total CO2 37.4 H (22-28) mmol.L ABG O2 Saturation 98.5 H (95-98) % ABG O2 Content 11.8 L (15-23) ML/dl ABG Base Excess 5.6 H (-2.0-3.0) mmol/L ABG Hemoglobin 8.6 L (11.7-17.4) g/dL ABG Carboxyhemoglobin 2.0 H (0.5-1.5) % POC ABG HHb (Measured) 1.5 (0-5) % ABG Methemoglobin 1.1 (0.0-3.0) % ABG O2 Capacity 12.0 L (16-24) mL/dl ABG Potassium (3.6-5.2) mmol/L Hgb O2 Saturation 95.4 (95.0-98.0) % Sodium 138 (132-148) mmol/L Chloride 97 L (98-107) mmol/L Glucose (75-110) mg/dl Lactate (0.7-2.1) mmol/L FiO2 50.0 % Inspiratory BiPAP Crit Value Called To j.dr Koffi Crit Value Called By iman Rousseau Blood Gas Notified Time 843 Potassium 5.1 H (3.6-5.0) mmol/L Carbon Dioxide 35 H (21-33) mmol/L Anion Gap 11 (10-20) BUN 26 H (7-21) mg/dL Creatinine 0.9 (0.8-1.5) mg/dl Est GFR ( Amer) > 60 Est GFR (Non-Af Amer) > 60 Random Glucose 110 (70-110) mg/dL Hemoglobin A1c (4.2-6.5) % Calcium 7.8 L (8.4-10.5) mg/dL Phosphorus 5.8 H (2.5-4.5) mg/dL Magnesium 1.8 (1.7-2.2) mg/dL Ferritin ng/mL Total Bilirubin 1.0 (0.2-1.3) mg/dL Direct Bilirubin 0.7 H (0.0-0.4) mg/dL AST 57 (17-59) U/L ALT 21 (7-56) U/L Alkaline Phosphatase 35 L (38-126) U/L Total Creatine Kinase (35-230) U/L Troponin I ng/mL Total Protein 7.7 (5.8-8.3) g/dL Albumin 3.4 (3.0-4.8) g/dL Globulin 4.3 gm/dL Albumin/Globulin Ratio 0.8 L (1.1-1.8) Vitamin B12 (239-931) pg/mL 25-OH Vitamin D Total (30.0-100.0) NG/ML Folate ng/mL Arterial Blood Potassium (3.6-5.2) mmol/L Crossmatch 09/12/18 09/12/18 09/11/18 Range/Units 03:18 02:40 23:00 WBC (4.5-11.0) 10^3/uL RBC (3.5-6.1) 10^6/uL Hgb (14.0-18.0) g/dL Hct (42.0-52.0) % MCV (80.0-105.0) fl MCH (25.0-35.0) pg MCHC (31.0-37.0) g/dl RDW (11.5-14.5) % Plt Count (120.0-450.0) 10^3/uL MPV (7.0-11.0) fl Neut % (Auto) (50.0-68.0) % Lymph % (Auto) (22.0-35.0) % [place] % (Auto) (1.0-6.0) % Eos % (Auto) (1.5-5.0) % Baso % (Auto) (0.0-3.0) % Lymph # (Auto) (1.2-3.4) [place] # (Auto) (0.1-0.6) Eos # (Auto) (0.0-0.7) Baso # (Auto) (0.0-2.0) K/mm3 Absolute Neuts (auto) (1.4-6.5) APTT 76.8 H (26.9-38.3) Seconds pCO2 99 H* 78 H* (35-45) mm/Hg pO2 339.0 H 105.0 H (80-100) mm/Hg HCO3 36.1 H 31.9 H (21-28) mmol/L ABG pH 7.17 L* 7.22 L (7.35-7.45) ABG Total CO2 39.1 H 34.3 H (22-28) mmol.L ABG O2 Saturation 99.1 H 97.9 (95-98) % ABG O2 Content 12.9 L 12.1 L (15-23) ML/dl ABG Base Excess 5.8 H 3.0 (-2.0-3.0) mmol/L ABG Hemoglobin 8.8 L 8.9 L (11.7-17.4) g/dL ABG Carboxyhemoglobin 1.9 H 2.0 H (0.5-1.5) % POC ABG HHb (Measured) 0.9 2.0 (0-5) % ABG Methemoglobin 0.4 0.7 (0.0-3.0) % ABG O2 Capacity 13.0 L 12.4 L (16-24) mL/dl ABG Potassium (3.6-5.2) mmol/L Hgb O2 Saturation 96.8 95.4 (95.0-98.0) % Sodium (132-148) mmol/L Chloride (98-107) mmol/L Glucose (75-110) mg/dl Lactate (0.7-2.1) mmol/L FiO2 100.0 100.0 % Inspiratory BiPAP Crit Value Called To gayle nichole Dr. Crit Value Called By Stepan marcos [address] Blood Gas Notified Time 335 2330 Potassium (3.6-5.0) mmol/L Carbon Dioxide (21-33) mmol/L Anion Gap (10-20) BUN (7-21) mg/dL Creatinine (0.8-1.5) mg/dl Est GFR ( Amer) Est GFR (Non-Af Amer) Random Glucose (70-110) mg/dL Hemoglobin A1c (4.2-6.5) % Calcium (8.4-10.5) mg/dL Phosphorus (2.5-4.5) mg/dL Magnesium (1.7-2.2) mg/dL Ferritin ng/mL Total Bilirubin (0.2-1.3) mg/dL Direct Bilirubin (0.0-0.4) mg/dL AST (17-59) U/L ALT (7-56) U/L Alkaline Phosphatase (38-126) U/L Total Creatine Kinase (35-230) U/L Troponin I ng/mL Total Protein (5.8-8.3) g/dL Albumin (3.0-4.8) g/dL Globulin gm/dL Albumin/Globulin Ratio (1.1-1.8) Vitamin B12 (239-931) pg/mL 25-OH Vitamin D Total (30.0-100.0) NG/ML Folate ng/mL Arterial Blood Potassium (3.6-5.2) mmol/L Crossmatch 09/11/18 09/11/18 09/11/18 Range/Units 20:20 17:30 17:30 WBC 11.0 (4.5-11.0) 10^3/uL RBC 4.56 (3.5-6.1) 10^6/uL Hgb 8.9 L (14.0-18.0) g/dL Hct 34.5 L (42.0-52.0) % MCV 75.7 L D (80.0-105.0) fl MCH 19.5 L (25.0-35.0) pg MCHC 25.8 L (31.0-37.0) g/dl RDW 20.2 H (11.5-14.5) % Plt Count 241 (120.0-450.0) 10^3/uL MPV 9.1 (7.0-11.0) fl Neut % (Auto) (50.0-68.0) % Lymph % (Auto) (22.0-35.0) % [place] % (Auto) (1.0-6.0) % Eos % (Auto) (1.5-5.0) % Baso % (Auto) (0.0-3.0) % Lymph # (Auto) (1.2-3.4) [place] # (Auto) (0.1-0.6) Eos # (Auto) (0.0-0.7) Baso # (Auto) (0.0-2.0) K/mm3 Absolute Neuts (auto) (1.4-6.5) APTT 55.1 H (26.9-38.3) Seconds pCO2 (35-45) mm/Hg pO2 (80-100) mm/Hg HCO3 (21-28) mmol/L ABG pH (7.35-7.45) ABG Total CO2 (22-28) mmol.L ABG O2 Saturation (95-98) % ABG O2 Content (15-23) ML/dl ABG Base Excess (-2.0-3.0) mmol/L ABG Hemoglobin (11.7-17.4) g/dL ABG Carboxyhemoglobin (0.5-1.5) % POC ABG HHb (Measured) (0-5) % ABG Methemoglobin (0.0-3.0) % ABG O2 Capacity (16-24) mL/dl ABG Potassium (3.6-5.2) mmol/L Hgb O2 Saturation (95.0-98.0) % Sodium (132-148) mmol/L Chloride (98-107) mmol/L Glucose (75-110) mg/dl Lactate (0.7-2.1) mmol/L FiO2 % Inspiratory BiPAP Crit Value Called To Crit Value Called By Blood Gas Notified Time Potassium (3.6-5.0) mmol/L Carbon Dioxide (21-33) mmol/L Anion Gap (10-20) BUN (7-21) mg/dL Creatinine (0.8-1.5) mg/dl Est GFR ( Amer) Est GFR (Non-Af Amer) Random Glucose (70-110) mg/dL Hemoglobin A1c (4.2-6.5) % Calcium (8.4-10.5) mg/dL Phosphorus (2.5-4.5) mg/dL Magnesium (1.7-2.2) mg/dL Ferritin ng/mL Total Bilirubin (0.2-1.3) mg/dL Direct Bilirubin (0.0-0.4) mg/dL AST (17-59) U/L ALT (7-56) U/L Alkaline Phosphatase (38-126) U/L Total Creatine Kinase 67 (35-230) U/L Troponin I 0.02 ng/mL Total Protein (5.8-8.3) g/dL Albumin (3.0-4.8) g/dL Globulin gm/dL Albumin/Globulin Ratio (1.1-1.8) Vitamin B12 (239-931) pg/mL 25-OH Vitamin D Total (30.0-100.0) NG/ML Folate ng/mL Arterial Blood Potassium (3.6-5.2) mmol/L Crossmatch 09/11/18 09/11/18 09/11/18 Range/Units 15:10 11:00 10:10 WBC (4.5-11.0) 10^3/uL RBC (3.5-6.1) 10^6/uL Hgb (14.0-18.0) g/dL Hct (42.0-52.0) % MCV (80.0-105.0) fl MCH (25.0-35.0) pg MCHC (31.0-37.0) g/dl RDW (11.5-14.5) % Plt Count (120.0-450.0) 10^3/uL MPV (7.0-11.0) fl Neut % (Auto) (50.0-68.0) % Lymph % (Auto) (22.0-35.0) % [place] % (Auto) (1.0-6.0) % Eos % (Auto) (1.5-5.0) % Baso % (Auto) (0.0-3.0) % Lymph # (Auto) (1.2-3.4) [place] # (Auto) (0.1-0.6) Eos # (Auto) (0.0-0.7) Baso # (Auto) (0.0-2.0) K/mm3 Absolute Neuts (auto) (1.4-6.5) APTT (26.9-38.3) Seconds pCO2 76 H* (35-45) mm/Hg pO2 107.0 H (80-100) mm/Hg HCO3 32.6 H (21-28) mmol/L ABG pH 7.24 L (7.35-7.45) ABG Total CO2 34.9 H (22-28) mmol.L ABG O2 Saturation 98.5 H (95-98) % ABG O2 Content (15-23) ML/dl ABG Base Excess 2.8 (-2.0-3.0) mmol/L ABG Hemoglobin (11.7-17.4) g/dL ABG Carboxyhemoglobin (0.5-1.5) % POC ABG HHb (Measured) (0-5) % ABG Methemoglobin (0.0-3.0) % ABG O2 Capacity (16-24) mL/dl ABG Potassium 4.2 (3.6-5.2) mmol/L Hgb O2 Saturation (95.0-98.0) % Sodium 137.0 (132-148) mmol/L Chloride 103.0 (98-107) mmol/L Glucose 90 (75-110) mg/dl Lactate 0.6 L (0.7-2.1) mmol/L FiO2 40.0 % Inspiratory BiPAP 22 Crit Value Called To orlando Ontiveros Crit Value Called By iman Rousseau Blood Gas Notified Time 1314 Potassium (3.6-5.0) mmol/L Carbon Dioxide (21-33) mmol/L Anion Gap (10-20) BUN (7-21) mg/dL Creatinine (0.8-1.5) mg/dl Est GFR ( Amer) Est GFR (Non-Af Amer) Random Glucose (70-110) mg/dL Hemoglobin A1c (4.2-6.5) % Calcium (8.4-10.5) mg/dL Phosphorus (2.5-4.5) mg/dL Magnesium (1.7-2.2) mg/dL Ferritin ng/mL Total Bilirubin (0.2-1.3) mg/dL Direct Bilirubin (0.0-0.4) mg/dL AST (17-59) U/L ALT (7-56) U/L Alkaline Phosphatase (38-126) U/L Total Creatine Kinase (35-230) U/L Troponin I ng/mL Total Protein (5.8-8.3) g/dL Albumin (3.0-4.8) g/dL Globulin gm/dL Albumin/Globulin Ratio (1.1-1.8) Vitamin B12 (239-931) pg/mL 25-OH Vitamin D Total 5 L < 12.8 L (30.0-100.0) NG/ML Folate ng/mL Arterial Blood Potassium 4.2 (3.6-5.2) mmol/L Crossmatch 09/11/18 09/11/18 09/11/18 Range/Units 06:00 06:00 06:00 WBC (4.5-11.0) 10^3/uL RBC (3.5-6.1) 10^6/uL Hgb (14.0-18.0) g/dL Hct (42.0-52.0) % MCV (80.0-105.0) fl MCH (25.0-35.0) pg MCHC (31.0-37.0) g/dl RDW (11.5-14.5) % Plt Count (120.0-450.0) 10^3/uL MPV (7.0-11.0) fl Neut % (Auto) (50.0-68.0) % Lymph % (Auto) (22.0-35.0) % [place] % (Auto) (1.0-6.0) % Eos % (Auto) (1.5-5.0) % Baso % (Auto) (0.0-3.0) % Lymph # (Auto) (1.2-3.4) [place] # (Auto) (0.1-0.6) Eos # (Auto) (0.0-0.7) Baso # (Auto) (0.0-2.0) K/mm3 Absolute Neuts (auto) (1.4-6.5) APTT (26.9-38.3) Seconds pCO2 (35-45) mm/Hg pO2 (80-100) mm/Hg HCO3 (21-28) mmol/L ABG pH (7.35-7.45) ABG Total CO2 (22-28) mmol.L ABG O2 Saturation (95-98) % ABG O2 Content (15-23) ML/dl ABG Base Excess (-2.0-3.0) mmol/L ABG Hemoglobin (11.7-17.4) g/dL ABG Carboxyhemoglobin (0.5-1.5) % POC ABG HHb (Measured) (0-5) % ABG Methemoglobin (0.0-3.0) % ABG O2 Capacity (16-24) mL/dl ABG Potassium (3.6-5.2) mmol/L Hgb O2 Saturation (95.0-98.0) % Sodium (132-148) mmol/L Chloride (98-107) mmol/L Glucose (75-110) mg/dl Lactate (0.7-2.1) mmol/L FiO2 % Inspiratory BiPAP Crit Value Called To Crit Value Called By Blood Gas Notified Time Potassium (3.6-5.0) mmol/L Carbon Dioxide (21-33) mmol/L Anion Gap (10-20) BUN (7-21) mg/dL Creatinine (0.8-1.5) mg/dl Est GFR ( Amer) Est GFR (Non-Af Amer) Random Glucose (70-110) mg/dL Hemoglobin A1c 6.2 (4.2-6.5) % Calcium (8.4-10.5) mg/dL Phosphorus (2.5-4.5) mg/dL Magnesium (1.7-2.2) mg/dL Ferritin 20.2 ng/mL Total Bilirubin (0.2-1.3) mg/dL Direct Bilirubin (0.0-0.4) mg/dL AST (17-59) U/L ALT (7-56) U/L Alkaline Phosphatase (38-126) U/L Total Creatine Kinase (35-230) U/L Troponin I ng/mL Total Protein (5.8-8.3) g/dL Albumin (3.0-4.8) g/dL Globulin gm/dL Albumin/Globulin Ratio (1.1-1.8) Vitamin B12 797 (239-931) pg/mL 25-OH Vitamin D Total (30.0-100.0) NG/ML Folate 7.7 ng/mL Arterial Blood Potassium (3.6-5.2) mmol/L Crossmatch See Detail Laboratory Results - last 24 hr 09/11/18 09/11/18 09/11/18 06:00 06:00 06:00 WBC RBC Hgb Hct MCV MCH MCHC RDW Plt Count MPV Neut % (Auto) Lymph % (Auto) [place] % (Auto) Eos % (Auto) Baso % (Auto) Lymph # (Auto) [place] # (Auto) Eos # (Auto) Baso # (Auto) Absolute Neuts (auto) APTT pCO2 pO2 HCO3 ABG pH ABG Total CO2 ABG O2 Saturation ABG O2 Content ABG Base Excess ABG Hemoglobin ABG Carboxyhemoglobin POC ABG HHb (Measured) ABG Methemoglobin ABG O2 Capacity ABG Potassium Hgb O2 Saturation Sodium Chloride Glucose Lactate FiO2 Inspiratory BiPAP Crit Value Called To Crit Value Called By Blood Gas Notified Time Potassium Carbon Dioxide Anion Gap BUN Creatinine Est GFR ( Amer) Est GFR (Non-Af Amer) Random Glucose Hemoglobin A1c 6.2 Calcium Phosphorus Magnesium Ferritin 20.2 Total Bilirubin Direct Bilirubin AST ALT Alkaline Phosphatase Total Creatine Kinase Troponin I Total Protein Albumin Globulin Albumin/Globulin Ratio Vitamin B12 797 25-OH Vitamin D Total Folate 7.7 Arterial Blood Potassium Crossmatch See Detail 09/11/18 09/11/18 09/11/18 10:10 11:00 15:10 WBC RBC Hgb Hct MCV MCH MCHC RDW Plt Count MPV Neut % (Auto) Lymph % (Auto) [place] % (Auto) Eos % (Auto) Baso % (Auto) Lymph # (Auto) [place] # (Auto) Eos # (Auto) Baso # (Auto) Absolute Neuts (auto) APTT pCO2 76 H* pO2 107.0 H HCO3 32.6 H ABG pH 7.24 L ABG Total CO2 34.9 H ABG O2 Saturation 98.5 H ABG O2 Content ABG Base Excess 2.8 ABG Hemoglobin ABG Carboxyhemoglobin POC ABG HHb (Measured) ABG Methemoglobin ABG O2 Capacity ABG Potassium 4.2 Hgb O2 Saturation Sodium 137.0 Chloride 103.0 Glucose 90 Lactate 0.6 L FiO2 40.0 Inspiratory BiPAP 22 Crit Value Called To orlando Ontiveros Crit Value Called By iman Rousseau Blood Gas Notified Time 1314 Potassium Carbon Dioxide Anion Gap BUN Creatinine Est GFR ( Amer) Est GFR (Non-Af Amer) Random Glucose Hemoglobin A1c Calcium Phosphorus Magnesium Ferritin Total Bilirubin Direct Bilirubin AST ALT Alkaline Phosphatase Total Creatine Kinase Troponin I Total Protein Albumin Globulin Albumin/Globulin Ratio Vitamin B12 25-OH Vitamin D Total < 12.8 L 5 L Folate Arterial Blood Potassium 4.2 Crossmatch 09/11/18 09/11/18 09/11/18 17:30 17:30 20:20 WBC 11.0 RBC 4.56 Hgb 8.9 L Hct 34.5 L MCV 75.7 L D MCH 19.5 L MCHC 25.8 L RDW 20.2 H Plt Count 241 MPV 9.1 Neut % (Auto) Lymph % (Auto) [place] % (Auto) Eos % (Auto) Baso % (Auto) Lymph # (Auto) [place] # (Auto) Eos # (Auto) Baso # (Auto) Absolute Neuts (auto) APTT 55.1 H pCO2 pO2 HCO3 ABG pH ABG Total CO2 ABG O2 Saturation ABG O2 Content ABG Base Excess ABG Hemoglobin ABG Carboxyhemoglobin POC ABG HHb (Measured) ABG Methemoglobin ABG O2 Capacity ABG Potassium Hgb O2 Saturation Sodium Chloride Glucose Lactate FiO2 Inspiratory BiPAP Crit Value Called To Crit Value Called By Blood Gas Notified Time Potassium Carbon Dioxide Anion Gap BUN Creatinine Est GFR ( Amer) Est GFR (Non-Af Amer) Random Glucose Hemoglobin A1c Calcium Phosphorus Magnesium Ferritin Total Bilirubin Direct Bilirubin AST ALT Alkaline Phosphatase Total Creatine Kinase 67 Troponin I 0.02 Total Protein Albumin Globulin Albumin/Globulin Ratio Vitamin B12 25-OH Vitamin D Total Folate Arterial Blood Potassium Crossmatch 09/11/18 09/12/18 09/12/18 23:00 02:40 03:18 WBC RBC Hgb Hct MCV MCH MCHC RDW Plt Count MPV Neut % (Auto) Lymph % (Auto) [place] % (Auto) Eos % (Auto) Baso % (Auto) Lymph # (Auto) [place] # (Auto) Eos # (Auto) Baso # (Auto) Absolute Neuts (auto) APTT 76.8 H pCO2 78 H* 99 H* pO2 105.0 H 339.0 H HCO3 31.9 H 36.1 H ABG pH 7.22 L 7.17 L* ABG Total CO2 34.3 H 39.1 H ABG O2 Saturation 97.9 99.1 H ABG O2 Content 12.1 L 12.9 L ABG Base Excess 3.0 5.8 H ABG Hemoglobin 8.9 L 8.8 L ABG Carboxyhemoglobin 2.0 H 1.9 H POC ABG HHb (Measured) 2.0 0.9 ABG Methemoglobin 0.7 0.4 ABG O2 Capacity 12.4 L 13.0 L ABG Potassium Hgb O2 Saturation 95.4 96.8 Sodium Chloride Glucose Lactate FiO2 100.0 100.0 Inspiratory BiPAP Crit Value Called To gayle Feliz dr. Crit Value Called By Solo marcos Blood Gas Notified Time 2330 335 Potassium Carbon Dioxide Anion Gap BUN Creatinine Est GFR ( Amer) Est GFR (Non-Af Amer) Random Glucose Hemoglobin A1c Calcium Phosphorus Magnesium Ferritin Total Bilirubin Direct Bilirubin AST ALT Alkaline Phosphatase Total Creatine Kinase Troponin I Total Protein Albumin Globulin Albumin/Globulin Ratio Vitamin B12 25-OH Vitamin D Total Folate Arterial Blood Potassium Crossmatch 09/12/18 09/12/18 09/12/18 06:00 06:00 08:30 WBC 8.7 D RBC 4.33 Hgb 8.5 L Hct 33.1 L MCV 76.4 L MCH 19.6 L MCHC 25.7 L RDW 20.1 H Plt Count 241 MPV 9.7 Neut % (Auto) 89.5 H Lymph % (Auto) 7.8 L [place] % (Auto) 2.5 Eos % (Auto) 0.1 L Baso % (Auto) 0.1 Lymph # (Auto) 0.7 L [place] # (Auto) 0.2 Eos # (Auto) 0.0 Baso # (Auto) 0.01 Absolute Neuts (auto) 7.77 H APTT pCO2 85 H* pO2 118.0 H HCO3 34.8 H ABG pH 7.22 L ABG Total CO2 37.4 H ABG O2 Saturation 98.5 H ABG O2 Content 11.8 L ABG Base Excess 5.6 H ABG Hemoglobin 8.6 L ABG Carboxyhemoglobin 2.0 H POC ABG HHb (Measured) 1.5 ABG Methemoglobin 1.1 ABG O2 Capacity 12.0 L ABG Potassium Hgb O2 Saturation 95.4 Sodium 138 Chloride 97 L Glucose Lactate FiO2 50.0 Inspiratory BiPAP Crit Value Called To j.dr Koffi Crit Value Called By iman Rousseau Blood Gas Notified Time 843 Potassium 5.1 H Carbon Dioxide 35 H Anion Gap 11 BUN 26 H Creatinine 0.9 Est GFR ( Amer) > 60 Est GFR (Non-Af Amer) > 60 Random Glucose 110 Hemoglobin A1c Calcium 7.8 L Phosphorus 5.8 H Magnesium 1.8 Ferritin Total Bilirubin 1.0 Direct Bilirubin 0.7 H AST 57 ALT 21 Alkaline Phosphatase 35 L Total Creatine Kinase Troponin I Total Protein 7.7 Albumin 3.4 Globulin 4.3 Albumin/Globulin Ratio 0.8 L Vitamin B12 25-OH Vitamin D Total Folate Arterial Blood Potassium Crossmatch Radiology Impressions: Radiology Impressions Extremity Ultrasound 09/11/18 02:29 IMPRESSION: No sonographic evidence for deep venous thrombosis in the visualized segments of both lower extremities. Extremely limited study Lung Scan Nuclear Medicine 09/11/18 15:00 IMPRESSION: Lowprobability ventilation perfusion scan for pulmonary embolism. Critical Care Progress Note - Nutrition Nutrition: Nutrition Category Date Time Status NPO Diet [DIET] Diets 09/11/18 Breakfast Ordered Assessment/Plan - Assessment and Plan (Free Text) Assessment: This is a 58 year old male with PMH of morbid obesity, B/L chronic leg lymphedema and obesity hypoventilation syndrome presenting to the ICU for hypercapnic respiratory failure 2/2 ELIAN vs COPD currently on BIPAP. Plan: Hypercapnic respiratory failure 2/2 ELIAN vs COPD -currently on BIPAP IPAP/EPAP with FiO2 of 30%, will titrate down as to lerated -ABG this morning pH/CO2/O2/bicarb ///339/35 -solumedrol 20mg q8 IVP -low threshold for intubation -AOx3, protecting airway -anesthesiology following patient -V/Q scan shows low probability for PE -LE dopplers shows no DVT -CXR 09/11/18 shows no active disease New onset Afib - rate controlled -currently on cardizem drip at 5mcg/hr -currently on heparin drip -echo 09/11/18 shows EF 56%, moderate to severe AR, left atrium dilated, RVS 36 -Cardiology on consult, Dr. Lacy B/L Chronic leg lymphedema -concern for leg cellulitis -currently on doxyxycline, zyvox -WBC is downtrending, afebrile -blood culture pending -lasix 40mg IV q8 -ID on consult, Dr. Fuchs Microcytic anemia -Hg is 8.5 from 8.9. s/p 1 unit PRBC -desirae monitor -GI on consult, no intervention at this time -Heme on consult, Dr. Truong PPX with protonix and heparin drip Patient seen and case discussed with attending, Dr. Grimm <Bladimir Grimm - Last Filed: 09/12/18 12:18> CCU Objective - Vital Signs / Intake & Output Vital Signs (Last 4 hours): Vital Signs Pulse 09/12/18 08:25 88 Intake and Output (Last 8hrs): Intake & Output 09/11/18 09/12/18 09/12/18 22:59 06:59 14:59 Intake Total 540 950 Output Total 650 1100 Balance -110 -150 Intake: IV 540 950 antibiotics 400 700 cardizem 60 heparin 80 Output: Urine 650 1100 Urine, Voided 650 1100 Other: # Voids Urine, Voided 1 # Bowel Movements 0 - Medications Active Medications: Active Medications Generic Name Dose Route Start Last Admin Trade Name Freq PRN Reason Stop Dose Admin Acetaminophen 650 mg 09/11/18 06:19 09/12/18 02:33 Tylenol 325mg Tab PO 650 mg Q6 PRN Administration TEMP>=99.5F Acetaminophen 650 mg 09/11/18 06:19 Tylenol 650 Mg Supp RC Q6H PRN TEMP>=99.5F Albuterol/Ipratropium 3 ml 09/12/18 11:31 Duoneb 3 Mg/0.5 Mg (3 Ml) Ud IH [id number] SIXTO Atorvastatin Calcium 40 mg 09/11/18 17:00 09/11/18 17:46 Lipitor PO Not Given DIN SIXTO Docusate Sodium 100 mg 09/11/18 10:00 09/12/18 09:51 Colace PO 100 mg TID SIXTO Administration Furosemide 40 mg 09/11/18 06:30 09/12/18 05:29 Lasix IVP 40 mg Q8H SIXTO Administration diltiaZEM IVPB 100mg in NS 100 mls @ 5 mls/hr 09/11/18 02:55 09/11/18 22:26 Cardizem 100mg In Ns IV 5 mg/hr .Q20H PRN 5 mls/hr TITRATE PER MD ORDER Administration Protocol 5 MG/HR Linezolid 600 mg in 300 mls @ 200 mls/hr 09/11/18 22:00 09/12/18 09:52 Zyvox 600mg/300ml D5w IVPB 09/18/18 22:01 200 mls/hr Q12 SIXTO Administration Protocol Doxycycline Hyclate 100 mg/ 100 mls @ 100 mls/hr 09/11/18 13:00 09/12/18 09:52 Sodium Chloride IVPB 100 mls/hr Q12 SIXTO Administration Protocol Heparin Sodium/Sodium Chloride 25,000 units in 250 mls @ 20.02 mls/hr 09/11/18 13:13 09/12/18 03:55 Heparin 71086 Units/250ml 1/2 Normal Saline IV 8.25 units/kg/hr .[id number] PRN 20.02 mls/hr ADJUST RATE PER PROTOCOL Administration Protocol 8.25 UNITS/KG/HR Methylprednisolone 20 mg 09/11/18 13:00 09/12/18 05:29 Solu-Medrol IVP 20 mg Q8H SIXTO Administration Mupirocin 0 gm 09/12/18 10:00 Bactroban Ointment TOP BID SIXTO Ondansetron HCl 4 mg 09/11/18 06:19 Zofran Inj IVP Q4H PRN Nausea/Vomiting Pantoprazole Sodium 40 mg 09/12/18 06:00 09/12/18 05:28 Protonix Ec Tab PO 40 mg 0600 SIXTO Administration - Patient Studies Lab Studies: Microbiology Studies 09/11/18 11:10 MRSA Culture (Admit) - Final Naris MRSA NOT DETECTED Lab Studies 09/12/18 09/12/18 09/12/18 Range/Units 08:30 06:00 06:00 WBC 8.7 D (4.5-11.0) 10^3/uL RBC 4.33 (3.5-6.1) 10^6/uL Hgb 8.5 L (14.0-18.0) g/dL Hct 33.1 L (42.0-52.0) % MCV 76.4 L (80.0-105.0) fl MCH 19.6 L (25.0-35.0) pg MCHC 25.7 L (31.0-37.0) g/dl RDW 20.1 H (11.5-14.5) % Plt Count 241 (120.0-450.0) 10^3/uL MPV 9.7 (7.0-11.0) fl Neut % (Auto) 89.5 H (50.0-68.0) % Lymph % (Auto) 7.8 L (22.0-35.0) % [place] % (Auto) 2.5 (1.0-6.0) % Eos % (Auto) 0.1 L (1.5-5.0) % Baso % (Auto) 0.1 (0.0-3.0) % Lymph # (Auto) 0.7 L (1.2-3.4) [place] # (Auto) 0.2 (0.1-0.6) Eos # (Auto) 0.0 (0.0-0.7) Baso # (Auto) 0.01 (0.0-2.0) K/mm3 Absolute Neuts (auto) 7.77 H (1.4-6.5) APTT (26.9-38.3) Seconds pCO2 85 H* (35-45) mm/Hg pO2 118.0 H (80-100) mm/Hg HCO3 34.8 H (21-28) mmol/L ABG pH 7.22 L (7.35-7.45) ABG Total CO2 37.4 H (22-28) mmol.L ABG O2 Saturation 98.5 H (95-98) % ABG O2 Content 11.8 L (15-23) ML/dl ABG Base Excess 5.6 H (-2.0-3.0) mmol/L ABG Hemoglobin 8.6 L (11.7-17.4) g/dL ABG Carboxyhemoglobin 2.0 H (0.5-1.5) % POC ABG HHb (Measured) 1.5 (0-5) % ABG Methemoglobin 1.1 (0.0-3.0) % ABG O2 Capacity 12.0 L (16-24) mL/dl ABG Potassium (3.6-5.2) mmol/L Hgb O2 Saturation 95.4 (95.0-98.0) % Sodium 138 (132-148) mmol/L Chloride 97 L (98-107) mmol/L Glucose (75-110) mg/dl Lactate (0.7-2.1) mmol/L FiO2 50.0 % Inspiratory BiPAP Crit Value Called To j.dr Koffi Crit Value Called By iman Rousseau Blood Gas Notified Time 843 Potassium 5.1 H (3.6-5.0) mmol/L Carbon Dioxide 35 H (21-33) mmol/L Anion Gap 11 (10-20) BUN 26 H (7-21) mg/dL Creatinine 0.9 (0.8-1.5) mg/dl Est GFR ( Amer) > 60 Est GFR (Non-Af Amer) > 60 Random Glucose 110 (70-110) mg/dL Hemoglobin A1c (4.2-6.5) % Calcium 7.8 L (8.4-10.5) mg/dL Phosphorus 5.8 H (2.5-4.5) mg/dL Magnesium 1.8 (1.7-2.2) mg/dL Ferritin ng/mL Total Bilirubin 1.0 (0.2-1.3) mg/dL Direct Bilirubin 0.7 H (0.0-0.4) mg/dL AST 57 (17-59) U/L ALT 21 (7-56) U/L Alkaline Phosphatase 35 L (38-126) U/L Total Creatine Kinase (35-230) U/L Troponin I ng/mL Total Protein 7.7 (5.8-8.3) g/dL Albumin 3.4 (3.0-4.8) g/dL Globulin 4.3 gm/dL Albumin/Globulin Ratio 0.8 L (1.1-1.8) Vitamin B12 (239-931) pg/mL 25-OH Vitamin D Total (30.0-100.0) NG/ML Folate ng/mL Arterial Blood Potassium (3.6-5.2) mmol/L Crossmatch 09/12/18 09/12/18 09/11/18 Range/Units 03:18 02:40 23:00 WBC (4.5-11.0) 10^3/uL RBC (3.5-6.1) 10^6/uL Hgb (14.0-18.0) g/dL Hct (42.0-52.0) % MCV (80.0-105.0) fl MCH (25.0-35.0) pg MCHC (31.0-37.0) g/dl RDW (11.5-14.5) % Plt Count (120.0-450.0) 10^3/uL MPV (7.0-11.0) fl Neut % (Auto) (50.0-68.0) % Lymph % (Auto) (22.0-35.0) % [place] % (Auto) (1.0-6.0) % Eos % (Auto) (1.5-5.0) % Baso % (Auto) (0.0-3.0) % Lymph # (Auto) (1.2-3.4) [place] # (Auto) (0.1-0.6) Eos # (Auto) (0.0-0.7) Baso # (Auto) (0.0-2.0) K/mm3 Absolute Neuts (auto) (1.4-6.5) APTT 76.8 H (26.9-38.3) Seconds pCO2 99 H* 78 H* (35-45) mm/Hg pO2 339.0 H 105.0 H (80-100) mm/Hg HCO3 36.1 H 31.9 H (21-28) mmol/L ABG pH 7.17 L* 7.22 L (7.35-7.45) ABG Total CO2 39.1 H 34.3 H (22-28) mmol.L ABG O2 Saturation 99.1 H 97.9 (95-98) % ABG O2 Content 12.9 L 12.1 L (15-23) ML/dl ABG Base Excess 5.8 H 3.0 (-2.0-3.0) mmol/L ABG Hemoglobin 8.8 L 8.9 L (11.7-17.4) g/dL ABG Carboxyhemoglobin 1.9 H 2.0 H (0.5-1.5) % POC ABG HHb (Measured) 0.9 2.0 (0-5) % ABG Methemoglobin 0.4 0.7 (0.0-3.0) % ABG O2 Capacity 13.0 L 12.4 L (16-24) mL/dl ABG Potassium (3.6-5.2) mmol/L Hgb O2 Saturation 96.8 95.4 (95.0-98.0) % Sodium (132-148) mmol/L Chloride (98-107) mmol/L Glucose (75-110) mg/dl Lactate (0.7-2.1) mmol/L FiO2 100.0 100.0 % Inspiratory BiPAP Crit Value Called To gayle nichole Dr. Crit Value Called By Stepan marcos Th0mas marcos Blood Gas Notified Time 335 2330 Potassium (3.6-5.0) mmol/L Carbon Dioxide (21-33) mmol/L Anion Gap (10-20) BUN (7-21) mg/dL Creatinine (0.8-1.5) mg/dl Est GFR ( Amer) Est GFR (Non-Af Amer) Random Glucose (70-110) mg/dL Hemoglobin A1c (4.2-6.5) % Calcium (8.4-10.5) mg/dL Phosphorus (2.5-4.5) mg/dL Magnesium (1.7-2.2) mg/dL Ferritin ng/mL Total Bilirubin (0.2-1.3) mg/dL Direct Bilirubin (0.0-0.4) mg/dL AST (17-59) U/L ALT (7-56) U/L Alkaline Phosphatase (38-126) U/L Total Creatine Kinase (35-230) U/L Troponin I ng/mL Total Protein (5.8-8.3) g/dL Albumin (3.0-4.8) g/dL Globulin gm/dL Albumin/Globulin Ratio (1.1-1.8) Vitamin B12 (239-931) pg/mL 25-OH Vitamin D Total (30.0-100.0) NG/ML Folate ng/mL Arterial Blood Potassium (3.6-5.2) mmol/L Crossmatch 09/11/18 09/11/18 09/11/18 Range/Units 20:20 17:30 17:30 WBC 11.0 (4.5-11.0) 10^3/uL RBC 4.56 (3.5-6.1) 10^6/uL Hgb 8.9 L (14.0-18.0) g/dL Hct 34.5 L (42.0-52.0) % MCV 75.7 L D (80.0-105.0) fl MCH 19.5 L (25.0-35.0) pg MCHC 25.8 L (31.0-37.0) g/dl RDW 20.2 H (11.5-14.5) % Plt Count 241 (120.0-450.0) 10^3/uL MPV 9.1 (7.0-11.0) fl Neut % (Auto) (50.0-68.0) % Lymph % (Auto) (22.0-35.0) % [place] % (Auto) (1.0-6.0) % Eos % (Auto) (1.5-5.0) % Baso % (Auto) (0.0-3.0) % Lymph # (Auto) (1.2-3.4) [place] # (Auto) (0.1-0.6) Eos # (Auto) (0.0-0.7) Baso # (Auto) (0.0-2.0) K/mm3 Absolute Neuts (auto) (1.4-6.5) APTT 55.1 H (26.9-38.3) Seconds pCO2 (35-45) mm/Hg pO2 (80-100) mm/Hg HCO3 (21-28) mmol/L ABG pH (7.35-7.45) ABG Total CO2 (22-28) mmol.L ABG O2 Saturation (95-98) % ABG O2 Content (15-23) ML/dl ABG Base Excess (-2.0-3.0) mmol/L ABG Hemoglobin (11.7-17.4) g/dL ABG Carboxyhemoglobin (0.5-1.5) % POC ABG HHb (Measured) (0-5) % ABG Methemoglobin (0.0-3.0) % ABG O2 Capacity (16-24) mL/dl ABG Potassium (3.6-5.2) mmol/L Hgb O2 Saturation (95.0-98.0) % Sodium (132-148) mmol/L Chloride (98-107) mmol/L Glucose (75-110) mg/dl Lactate (0.7-2.1) mmol/L FiO2 % Inspiratory BiPAP Crit Value Called To Crit Value Called By Blood Gas Notified Time Potassium (3.6-5.0) mmol/L Carbon Dioxide (21-33) mmol/L Anion Gap (10-20) BUN (7-21) mg/dL Creatinine (0.8-1.5) mg/dl Est GFR ( Amer) Est GFR (Non-Af Amer) Random Glucose (70-110) mg/dL Hemoglobin A1c (4.2-6.5) % Calcium (8.4-10.5) mg/dL Phosphorus (2.5-4.5) mg/dL Magnesium (1.7-2.2) mg/dL Ferritin ng/mL Total Bilirubin (0.2-1.3) mg/dL Direct Bilirubin (0.0-0.4) mg/dL AST (17-59) U/L ALT (7-56) U/L Alkaline Phosphatase (38-126) U/L Total Creatine Kinase 67 (35-230) U/L Troponin I 0.02 ng/mL Total Protein (5.8-8.3) g/dL Albumin (3.0-4.8) g/dL Globulin gm/dL Albumin/Globulin Ratio (1.1-1.8) Vitamin B12 (239-931) pg/mL 25-OH Vitamin D Total (30.0-100.0) NG/ML Folate ng/mL Arterial Blood Potassium (3.6-5.2) mmol/L Crossmatch 09/11/18 09/11/18 09/11/18 Range/Units 15:10 11:00 10:10 WBC (4.5-11.0) 10^3/uL RBC (3.5-6.1) 10^6/uL Hgb (14.0-18.0) g/dL Hct (42.0-52.0) % MCV (80.0-105.0) fl MCH (25.0-35.0) pg MCHC (31.0-37.0) g/dl RDW (11.5-14.5) % Plt Count (120.0-450.0) 10^3/uL MPV (7.0-11.0) fl Neut % (Auto) (50.0-68.0) % Lymph % (Auto) (22.0-35.0) % [place] % (Auto) (1.0-6.0) % Eos % (Auto) (1.5-5.0) % Baso % (Auto) (0.0-3.0) % Lymph # (Auto) (1.2-3.4) [place] # (Auto) (0.1-0.6) Eos # (Auto) (0.0-0.7) Baso # (Auto) (0.0-2.0) K/mm3 Absolute Neuts (auto) (1.4-6.5) APTT (26.9-38.3) Seconds pCO2 76 H* (35-45) mm/Hg pO2 107.0 H (80-100) mm/Hg HCO3 32.6 H (21-28) mmol/L ABG pH 7.24 L (7.35-7.45) ABG Total CO2 34.9 H (22-28) mmol.L ABG O2 Saturation 98.5 H (95-98) % ABG O2 Content (15-23) ML/dl ABG Base Excess 2.8 (-2.0-3.0) mmol/L ABG Hemoglobin (11.7-17.4) g/dL ABG Carboxyhemoglobin (0.5-1.5) % POC ABG HHb (Measured) (0-5) % ABG Methemoglobin (0.0-3.0) % ABG O2 Capacity (16-24) mL/dl ABG Potassium 4.2 (3.6-5.2) mmol/L Hgb O2 Saturation (95.0-98.0) % Sodium 137.0 (132-148) mmol/L Chloride 103.0 (98-107) mmol/L Glucose 90 (75-110) mg/dl Lactate 0.6 L (0.7-2.1) mmol/L FiO2 40.0 % Inspiratory BiPAP 22 Crit Value Called To orlando Ontiveros Crit Value Called By iman Rousseau Blood Gas Notified Time 1314 Potassium (3.6-5.0) mmol/L Carbon Dioxide (21-33) mmol/L Anion Gap (10-20) BUN (7-21) mg/dL Creatinine (0.8-1.5) mg/dl Est GFR ( Amer) Est GFR (Non-Af Amer) Random Glucose (70-110) mg/dL Hemoglobin A1c (4.2-6.5) % Calcium (8.4-10.5) mg/dL Phosphorus (2.5-4.5) mg/dL Magnesium (1.7-2.2) mg/dL Ferritin ng/mL Total Bilirubin (0.2-1.3) mg/dL Direct Bilirubin (0.0-0.4) mg/dL AST (17-59) U/L ALT (7-56) U/L Alkaline Phosphatase (38-126) U/L Total Creatine Kinase (35-230) U/L Troponin I ng/mL Total Protein (5.8-8.3) g/dL Albumin (3.0-4.8) g/dL Globulin gm/dL Albumin/Globulin Ratio (1.1-1.8) Vitamin B12 (239-931) pg/mL 25-OH Vitamin D Total 5 L < 12.8 L (30.0-100.0) NG/ML Folate ng/mL Arterial Blood Potassium 4.2 (3.6-5.2) mmol/L Crossmatch 09/11/18 09/11/18 09/11/18 Range/Units 06:00 06:00 06:00 WBC (4.5-11.0) 10^3/uL RBC (3.5-6.1) 10^6/uL Hgb (14.0-18.0) g/dL Hct (42.0-52.0) % MCV (80.0-105.0) fl MCH (25.0-35.0) pg MCHC (31.0-37.0) g/dl RDW (11.5-14.5) % Plt Count (120.0-450.0) 10^3/uL MPV (7.0-11.0) fl Neut % (Auto) (50.0-68.0) % Lymph % (Auto) (22.0-35.0) % [place] % (Auto) (1.0-6.0) % Eos % (Auto) (1.5-5.0) % Baso % (Auto) (0.0-3.0) % Lymph # (Auto) (1.2-3.4) [place] # (Auto) (0.1-0.6) Eos # (Auto) (0.0-0.7) Baso # (Auto) (0.0-2.0) K/mm3 Absolute Neuts (auto) (1.4-6.5) APTT (26.9-38.3) Seconds pCO2 (35-45) mm/Hg pO2 (80-100) mm/Hg HCO3 (21-28) mmol/L ABG pH (7.35-7.45) ABG Total CO2 (22-28) mmol.L ABG O2 Saturation (95-98) % ABG O2 Content (15-23) ML/dl ABG Base Excess (-2.0-3.0) mmol/L ABG Hemoglobin (11.7-17.4) g/dL ABG Carboxyhemoglobin (0.5-1.5) % POC ABG HHb (Measured) (0-5) % ABG Methemoglobin (0.0-3.0) % ABG O2 Capacity (16-24) mL/dl ABG Potassium (3.6-5.2) mmol/L Hgb O2 Saturation (95.0-98.0) % Sodium (132-148) mmol/L Chloride (98-107) mmol/L Glucose (75-110) mg/dl Lactate (0.7-2.1) mmol/L FiO2 % Inspiratory BiPAP Crit Value Called To Crit Value Called By Blood Gas Notified Time Potassium (3.6-5.0) mmol/L Carbon Dioxide (21-33) mmol/L Anion Gap (10-20) BUN (7-21) mg/dL Creatinine (0.8-1.5) mg/dl Est GFR ( Amer) Est GFR (Non-Af Amer) Random Glucose (70-110) mg/dL Hemoglobin A1c 6.2 (4.2-6.5) % Calcium (8.4-10.5) mg/dL Phosphorus (2.5-4.5) mg/dL Magnesium (1.7-2.2) mg/dL Ferritin 20.2 ng/mL Total Bilirubin (0.2-1.3) mg/dL Direct Bilirubin (0.0-0.4) mg/dL AST (17-59) U/L ALT (7-56) U/L Alkaline Phosphatase (38-126) U/L Total Creatine Kinase (35-230) U/L Troponin I ng/mL Total Protein (5.8-8.3) g/dL Albumin (3.0-4.8) g/dL Globulin gm/dL Albumin/Globulin Ratio (1.1-1.8) Vitamin B12 797 (239-931) pg/mL 25-OH Vitamin D Total (30.0-100.0) NG/ML Folate 7.7 ng/mL Arterial Blood Potassium (3.6-5.2) mmol/L Crossmatch See Detail Laboratory Results - last 24 hr 09/11/18 09/11/18 09/11/18 06:00 06:00 06:00 WBC RBC Hgb Hct MCV MCH MCHC RDW Plt Count MPV Neut % (Auto) Lymph % (Auto) [place] % (Auto) Eos % (Auto) Baso % (Auto) Lymph # (Auto) [place] # (Auto) Eos # (Auto) Baso # (Auto) Absolute Neuts (auto) APTT pCO2 pO2 HCO3 ABG pH ABG Total CO2 ABG O2 Saturation ABG O2 Content ABG Base Excess ABG Hemoglobin ABG Carboxyhemoglobin POC ABG HHb (Measured) ABG Methemoglobin ABG O2 Capacity ABG Potassium Hgb O2 Saturation Sodium Chloride Glucose Lactate FiO2 Inspiratory BiPAP Crit Value Called To Crit Value Called By Blood Gas Notified Time Potassium Carbon Dioxide Anion Gap BUN Creatinine Est GFR ( Amer) Est GFR (Non-Af Amer) Random Glucose Hemoglobin A1c 6.2 Calcium Phosphorus Magnesium Ferritin 20.2 Total Bilirubin Direct Bilirubin AST ALT Alkaline Phosphatase Total Creatine Kinase Troponin I Total Protein Albumin Globulin Albumin/Globulin Ratio Vitamin B12 797 25-OH Vitamin D Total Folate 7.7 Arterial Blood Potassium Crossmatch See Detail 09/11/18 09/11/18 09/11/18 10:10 11:00 15:10 WBC RBC Hgb Hct MCV MCH MCHC RDW Plt Count MPV Neut % (Auto) Lymph % (Auto) [place] % (Auto) Eos % (Auto) Baso % (Auto) Lymph # (Auto) [place] # (Auto) Eos # (Auto) Baso # (Auto) Absolute Neuts (auto) APTT pCO2 76 H* pO2 107.0 H HCO3 32.6 H ABG pH 7.24 L ABG Total CO2 34.9 H ABG O2 Saturation 98.5 H ABG O2 Content ABG Base Excess 2.8 ABG Hemoglobin ABG Carboxyhemoglobin POC ABG HHb (Measured) ABG Methemoglobin ABG O2 Capacity ABG Potassium 4.2 Hgb O2 Saturation Sodium 137.0 Chloride 103.0 Glucose 90 Lactate 0.6 L FiO2 40.0 Inspiratory BiPAP 22 Crit Value Called To dannie Ontiveros. Crit Value Called By iman Rousseau Blood Gas Notified Time 1314 Potassium Carbon Dioxide Anion Gap BUN Creatinine Est GFR ( Amer) Est GFR (Non-Af Amer) Random Glucose Hemoglobin A1c Calcium Phosphorus Magnesium Ferritin Total Bilirubin Direct Bilirubin AST ALT Alkaline Phosphatase Total Creatine Kinase Troponin I Total Protein Albumin Globulin Albumin/Globulin Ratio Vitamin B12 25-OH Vitamin D Total < 12.8 L 5 L Folate Arterial Blood Potassium 4.2 Crossmatch 09/11/18 09/11/18 09/11/18 17:30 17:30 20:20 WBC 11.0 RBC 4.56 Hgb 8.9 L Hct 34.5 L MCV 75.7 L D MCH 19.5 L MCHC 25.8 L RDW 20.2 H Plt Count 241 MPV 9.1 Neut % (Auto) Lymph % (Auto) [place] % (Auto) Eos % (Auto) Baso % (Auto) Lymph # (Auto) [place] # (Auto) Eos # (Auto) Baso # (Auto) Absolute Neuts (auto) APTT 55.1 H pCO2 pO2 HCO3 ABG pH ABG Total CO2 ABG O2 Saturation ABG O2 Content ABG Base Excess ABG Hemoglobin ABG Carboxyhemoglobin POC ABG HHb (Measured) ABG Methemoglobin ABG O2 Capacity ABG Potassium Hgb O2 Saturation Sodium Chloride Glucose Lactate FiO2 Inspiratory BiPAP Crit Value Called To Crit Value Called By Blood Gas Notified Time Potassium Carbon Dioxide Anion Gap BUN Creatinine Est GFR ( Amer) Est GFR (Non-Af Amer) Random Glucose Hemoglobin A1c Calcium Phosphorus Magnesium Ferritin Total Bilirubin Direct Bilirubin AST ALT Alkaline Phosphatase Total Creatine Kinase 67 Troponin I 0.02 Total Protein Albumin Globulin Albumin/Globulin Ratio Vitamin B12 25-OH Vitamin D Total Folate Arterial Blood Potassium Crossmatch 09/11/18 09/12/18 09/12/18 23:00 02:40 03:18 WBC RBC Hgb Hct MCV MCH MCHC RDW Plt Count MPV Neut % (Auto) Lymph % (Auto) [place] % (Auto) Eos % (Auto) Baso % (Auto) Lymph # (Auto) [place] # (Auto) Eos # (Auto) Baso # (Auto) Absolute Neuts (auto) APTT 76.8 H pCO2 78 H* 99 H* pO2 105.0 H 339.0 H HCO3 31.9 H 36.1 H ABG pH 7.22 L 7.17 L* ABG Total CO2 34.3 H 39.1 H ABG O2 Saturation 97.9 99.1 H ABG O2 Content 12.1 L 12.9 L ABG Base Excess 3.0 5.8 H ABG Hemoglobin 8.9 L 8.8 L ABG Carboxyhemoglobin 2.0 H 1.9 H POC ABG HHb (Measured) 2.0 0.9 ABG Methemoglobin 0.7 0.4 ABG O2 Capacity 12.4 L 13.0 L ABG Potassium Hgb O2 Saturation 95.4 96.8 Sodium Chloride Glucose Lactate FiO2 100.0 100.0 Inspiratory BiPAP Crit Value Called To gayle Feliz dr. Crit Value Called By Solo marcos Blood Gas Notified Time [id number] Potassium Carbon Dioxide Anion Gap BUN Creatinine Est GFR ( Amer) Est GFR (Non-Af Amer) Random Glucose Hemoglobin A1c Calcium Phosphorus Magnesium Ferritin Total Bilirubin Direct Bilirubin AST ALT Alkaline Phosphatase Total Creatine Kinase Troponin I Total Protein Albumin Globulin Albumin/Globulin Ratio Vitamin B12 25-OH Vitamin D Total Folate Arterial Blood Potassium Crossmatch 09/12/18 09/12/18 09/12/18 06:00 06:00 08:30 WBC 8.7 D RBC 4.33 Hgb 8.5 L Hct 33.1 L MCV 76.4 L MCH 19.6 L MCHC 25.7 L RDW 20.1 H Plt Count 241 MPV 9.7 Neut % (Auto) 89.5 H Lymph % (Auto) 7.8 L [place] % (Auto) 2.5 Eos % (Auto) 0.1 L Baso % (Auto) 0.1 Lymph # (Auto) 0.7 L [place] # (Auto) 0.2 Eos # (Auto) 0.0 Baso # (Auto) 0.01 Absolute Neuts (auto) 7.77 H APTT pCO2 85 H* pO2 118.0 H HCO3 34.8 H ABG pH 7.22 L ABG Total CO2 37.4 H ABG O2 Saturation 98.5 H ABG O2 Content 11.8 L ABG Base Excess 5.6 H ABG Hemoglobin 8.6 L ABG Carboxyhemoglobin 2.0 H POC ABG HHb (Measured) 1.5 ABG Methemoglobin 1.1 ABG O2 Capacity 12.0 L ABG Potassium Hgb O2 Saturation 95.4 Sodium 138 Chloride 97 L Glucose Lactate FiO2 50.0 Inspiratory BiPAP Crit Value Called To j.dr Koffi Crit Value Called By iman Rousseau Blood Gas Notified Time 843 Potassium 5.1 H Carbon Dioxide 35 H Anion Gap 11 BUN 26 H Creatinine 0.9 Est GFR ( Amer) > 60 Est GFR (Non-Af Amer) > 60 Random Glucose 110 Hemoglobin A1c Calcium 7.8 L Phosphorus 5.8 H Magnesium 1.8 Ferritin Total Bilirubin 1.0 Direct Bilirubin 0.7 H AST 57 ALT 21 Alkaline Phosphatase 35 L Total Creatine Kinase Troponin I Total Protein 7.7 Albumin 3.4 Globulin 4.3 Albumin/Globulin Ratio 0.8 L Vitamin B12 25-OH Vitamin D Total Folate Arterial Blood Potassium Crossmatch Radiology Impressions: Radiology Impressions Extremity Ultrasound 09/11/18 02:29 IMPRESSION: No sonographic evidence for deep venous thrombosis in the visualized segments of both lower extremities. Extremely limited study Lung Scan Nuclear Medicine 09/11/18 15:00 IMPRESSION: Lowprobability ventilation perfusion scan for pulmonary embolism. Critical Care Progress Note - Nutrition Nutrition: Nutrition Category Date Time Status Liquid Diet [DIET] Diets 09/12/18 Lunch Ordered Attending/Attestation - Attestation I have personally seen and examined this patient.: Yes I have fully participated in the care of the patient.: Yes I have reviewed all pertinent clinical information: Yes Notes (Text): 09/12/18 12:14 The patient was seen and examined at the bedside. Patient care was discussed with resident Medical records, lab studies were reviewed and management issues were discussed and formulated. Agree with above treatment plans as outlined in 's note with addition of the following: Acute Respiratory Insufficiency \ Hypoxemia \ Hypercapnea \ ELIAN - OHS \ Afib with RVR \ Cellulitis \ CHF \ ro COPD -hemodynamic monitoring to maintain MAP>65 -cardizem drip for rate control as per cardiology team -o2 supplementation and Bipap PRN and HS to maintain Spo2 88-92 Pao2>60 -deescalate to NC this morning; tolerating well -monitor airway closely; pt awake and alert in AM, able to protect airway -nebs PRN -consider pulmonary eval as pt will need sleep study and pulmonary f\u outpt once improves -continue Abx as per ID team and f\u cultures -f\u Bun\Cr and U\o; continue diuresis with lasix; monitor and replace e-lites -PO diet and aspiration precautions -ISS and BGM monitoring -anticoagulation with heparin; monitor PTT and for bleeding -DVT \ PUD prophylaxis CCM time 34min
--- NOTE | 2018-09-12 13:13 | PN ---
DATE: 09/12/2018 SUBJECTIVE: The patient is still in ICU, bed 7. The patient is seen lying in the bed. The patient is requiring CPAP for respiratory support. Overnight nurse's notes were reviewed. PHYSICAL EXAMINATION: VITAL SIGNS: Overnight the last 12 hours vital signs, T-max 97.9. Telemetry shows atrial fibrillation, heart rate 78, 84; blood pressure 112/55; respirations 27-31; O2 sat 91%. HEENT: Head, normocephalic, atraumatic. Examination shows pinkish pale conjunctivae. Anicteric sclerae. NECK: Short and supple. CHEST: Examination is morbidly obese. Decreased breath sounds bilaterally. Occasional rhonchi upper lung field, anteriorly noted. CARDIOVASCULAR: S1, S2, irregular rhythm. Questionable systolic murmur left sternal border, right second intercostal space, left second intercostal space. Positive systolic murmur, left second intercostal space, right second intercostal space, left sternal border. ABDOMEN: Super morbidly obese. Unable to palpate any hepatosplenomegaly. GENITALIA: Male. RECTAL: Examination is deferred. EXTREMITIES: Lower extremity shows positive lymphedema of the lower extremity with chronic area of chronic venous stasis of the lower extremity lymphedema. MUSCULOSKELETAL: Examination shows an elevated body mass index of greater than 70. Body weight is more than 500 pounds. NEUROLOGIC: The patient is alert, awake, responsive. Gait examination could not be tested. LABORATORY DATA: On 09/12/2018, WBC 8.7, hemoglobin/hematocrit 8.5/33.1, platelet 241. ABG; pH of 7.17, pCO2 of 99, pO2 of 339, bicarb 36, saturation 99%. Sodium 138, potassium 5.1, chloride 97, CO2 of 35, BUN 26, creatinine 0.9, glucose 110, calcium 7.8, phosphorus 5.8, magnesium 1.8. DIAGNOSTIC DATA: Echocardiogram shows ejection fraction 55%; left atrial enlargement; moderate aortic regurgitation; mild tricuspid, pulmonic and mitral regurgitation; and dilated aortic root. IMPRESSION: 1. New-onset atrial fibrillation with transient rapid ventricular response. 2. Severe respiratory acidosis with hypercarbia. 3. Mild metabolic alkalosis. 4. Possible [id number] hypercarbic-hypercapnic respiratory failure. 5. Mild hyperkalemia. 6. Hyperphosphatemia. 7. Left atrial enlargement. 8. Moderate aortic regurgitation. 9. Mild mitral, pulmonic, tricuspid regurgitation. 10. Dilated aortic root. 11. Anemia. 12. Status post packed red blood cell transfusion. 13. Refractory anemia. 14. Possible iron-deficiency anemia. 15. Hypoxemia. 16. Tachypnea. 17. Super morbid obesity. 18. Bilateral lower extremity lymphedema and bilateral lower extremity venous stasis ulceration versus chronic bilateral lower extremity venous stasis dermatitis. 19. Severe gait dysfunction and deconditioning and bedridden status and functional quadriplegia. 20. Possible systolic congestive heart failure and with elevated pro b-type natriuretic peptide. PLAN: At this time, the patient has been started on IV heparin, the patient has been started on IV Cardizem drip. The patient has been ordered PRBC transfusion to keep hemoglobin around 10. The patient is on BiPAP support.. The patient has been ordered Kayexalate 30 g p.o. one dose ordered. Current consultation Cardiology, Podiatry, Infectious Disease and gastroenterology and hematology evaluation has been requested. At present, the patient will be continued on the medications as per the MAR of today. Once the patient is subjectively, objectively stabilized with improved pulmonary and cardiac status, the patient will be considered to be transferred out of the ICU after clearance by Cardiology and other subspecialty. Time spent 35 minutes. Prognosis guarded. Condition critical. Markel Michel MD
--- NOTE | 2018-09-12 13:44 | CP.PCM.PN ---
<Vincent Taveras - Last Filed: 09/12/18 13:40> Subjective - Date & Time of Evaluation Date of Evaluation: 09/12/18 Time of Evaluation: 07:00 - Subjective Subjective: ID Progress Note Patient seen and examined. Patient more alert today. No fevers overnight. Objective - Vital Signs/Intake and Output Vital Signs (last 24 hours): Temp Pulse Resp BP Pulse Ox 98 F 88 30 H 118/59 L 98 09/12/18 04:00 09/12/18 08:25 09/12/18 08:00 09/12/18 07:30 09/12/18 08:00 Intake and Output: 09/12/18 09/12/18 06:59 18:59 Intake Total 950 Output Total 1100 Balance -150 - Medications Medications: Current Medications Acetaminophen (Tylenol 325mg Tab) 650 mg PO Q6 PRN PRN Reason: TEMP>=99.5F Last Admin: 09/12/18 02:33 Dose: 650 mg Acetaminophen (Tylenol 650 Mg Supp) 650 mg RC Q6H PRN PRN Reason: TEMP>=99.5F Albuterol/Ipratropium (Duoneb 3 Mg/0.5 Mg (3 Ml) Ud) 3 ml IH [id number] [facility] Atorvastatin Calcium (Lipitor) 40 mg PO DIN [facility] Last Admin: 09/11/18 17:46 Dose: Not Given Docusate Sodium (Colace) 100 mg PO TID [facility] Last Admin: 09/12/18 09:51 Dose: 100 mg Furosemide (Lasix) 40 mg IVP Q8H [facility] Last Admin: 09/12/18 05:29 Dose: 40 mg diltiaZEM IVPB 100mg in NS (Cardizem 100mg In Ns) 100 mls @ 5 mls/hr IV .Q20H PRN; Protocol PRN Reason: TITRATE PER MD ORDER Last Admin: 09/11/18 22:26 Dose: 5 mg/hr, 5 mls/hr Linezolid (Zyvox 600mg/300ml D5w) 600 mg in 300 mls @ 200 mls/hr IVPB Q12 SIXTO; Protocol Stop: 09/18/18 22:01 Last Admin: 09/12/18 09:52 Dose: 200 mls/hr Doxycycline Hyclate 100 mg/ (Sodium Chloride) 100 mls @ 100 mls/hr IVPB Q12 S CH; Protocol Last Admin: 09/12/18 09:52 Dose: 100 mls/hr Heparin Sodium/Sodium Chloride (Heparin 93258 Units/250ml 1/2 Normal Saline) 25,000 units in 250 mls @ 20.02 mls/hr IV .[id number] PRN; Protocol PRN Reason: ADJUST RATE PER PROTOCOL Last Admin: 09/12/18 03:55 Dose: 8.25 units/kg/hr, 20.02 mls/hr Methylprednisolone (Solu-Medrol) 20 mg IVP Q8H [facility] Last Admin: 09/12/18 05:29 Dose: 20 mg Mupirocin (Bactroban Ointment) 0 gm TOP BID [facility] Ondansetron HCl (Zofran Inj) 4 mg IVP Q4H PRN PRN Reason: Nausea/Vomiting Pantoprazole Sodium (Protonix Ec Tab) 40 mg PO 0600 [facility] Last Admin: 09/12/18 05:28 Dose: 40 mg - Labs Labs: 09/12/18 06:00 09/12/18 06:00 PT 18.5 SECONDS (9.4-12.5) H 09/11/18 03:10 INR 1.67 09/11/18 03:10 APTT 76.8 Seconds (26.9-38.3) H 09/12/18 02:40 - Constitutional Appears: Toxic, Unkempt - Head Exam Head Exam: ATRAUMATIC, NORMAL INSPECTION, NORMOCEPHALIC - Respiratory Exam Respiratory Exam: Decreased Breath Sounds Additional comments: BIPAP - Cardiovascular Exam Cardiovascular Exam: RRR, +S1, +S2 - GI/Abdominal Exam GI & Abdominal Exam: Soft, Normal Bowel Sounds. absent: Tenderness - Extremities Exam Additional comments: Chronic lymphadema skin changes in both legs. B/l leg swelling +2 swelling - Neurological Exam Neurological Exam: Alert, Oriented x3 - Psychiatric Exam Psychiatric exam: Normal Affect, Normal Mood - Skin Skin Exam: Dry, Intact, Warm Assessment and Plan - Assessment and Plan (Free Text) Plan: CHF vs COPD exacerbation Hx of chronic lympedema Hx of HTN Hx of morbid obesity Hx of lower extremity cellulitis with Actinobacter baumanii Plan No indication of lower leg cellulitis, will stop Zyvox Continue Doxycycline for potential bronchitis/pneumonia V/Q scan low probability for PE Continue to monitor closely Darcy, PGY-3 <Braden Mendoza S - Last Filed: 09/12/18 15:16> Objective - Vital Signs/Intake and Output Vital Signs (last 24 hours): Temp Pulse Resp BP Pulse Ox 98 F 88 30 H 103/85 98 09/12/18 04:00 09/12/18 08:25 09/12/18 08:00 09/12/18 14:28 09/12/18 08:00 Intake and Output: 09/12/18 09/12/18 06:59 18:59 Intake Total 950 Output Total 1100 Balance -150 - Medications Medications: Current Medications Acetaminophen (Tylenol 325mg Tab) 650 mg PO Q6 PRN PRN Reason: TEMP>=99.5F Last Admin: 09/12/18 02:33 Dose: 650 mg Acetaminophen (Tylenol 650 Mg Supp) 650 mg RC Q6H PRN PRN Reason: TEMP>=99.5F Albuterol/Ipratropium (Duoneb 3 Mg/0.5 Mg (3 Ml) Ud) 3 ml IH [id number] [facility] Last Admin: 09/12/18 15:07 Dose: 3 ml Atorvastatin Calcium (Lipitor) 40 mg PO DIN [facility] Last Admin: 09/11/18 17:46 Dose: Not Given Docusate Sodium (Colace) 100 mg PO TID [facility] Last Admin: 09/12/18 14:30 Dose: 100 mg Furosemide (Lasix) 40 mg IVP Q8H [facility] Last Admin: 09/12/18 14:28 Dose: 40 mg diltiaZEM IVPB 100mg in NS (Cardizem 100mg In Ns) 100 mls @ 5 mls/hr IV .Q20H PRN; Protocol PRN Reason: TITRATE PER MD ORDER Last Admin: 09/11/18 22:26 Dose: 5 mg/hr, 5 mls/hr Doxycycline Hyclate 100 mg/ (Sodium Chloride) 100 mls @ 100 mls/hr IVPB Q12 SIXTO; Protocol Last Admin: 09/12/18 09:52 Dose: 100 mls/hr Heparin Sodium/Sodium Chloride (Heparin 81337 Units/250ml 1/2 Normal Saline) 25,000 units in 250 mls @ 20.02 mls/hr IV .[id number] PRN; Protocol PRN Reason: ADJUST RATE PER PROTOCOL Last Admin: 09/12/18 03:55 Dose: 8.25 units/kg/hr, 20.02 mls/hr Methylprednisolone (Solu-Medrol) 20 mg IVP Q8H [facility] Last Admin: 09/12/18 14:28 Dose: 20 mg Mupirocin (Bactroban Ointment) 0 gm TOP BID [facility] Ondansetron HCl (Zofran Inj) 4 mg IVP Q4H PRN PRN Reason: Nausea/Vomiting Pantoprazole Sodium (Protonix Ec Tab) 40 mg PO 0600 [facility] Last Admin: 09/12/18 05:28 Dose: 40 mg - Labs Labs: 09/12/18 06:00 09/12/18 06:00 PT 18.5 SECONDS (9.4-12.5) H 09/11/18 03:10 INR 1.67 09/11/18 03:10 APTT 76.8 Seconds (26.9-38.3) H 09/12/18 02:40 Assessment and Plan - Assessment and Plan (Free Text) Plan: Infectious diseases Attending Physician Attestation Patient seen and examined, discussed with medical equipment repair technician. I have reviewed the patient's history of present illness, past medical, social, personal and family histories, pertinent physical exam findings, course so far in this hospital admission, pertinent laboratory and imaging results. I agree with the above findings, assessment and plan. In addition, patient with leg wounds without obvious evidence of infection - will d/c Zyvox and observe and follow up further recommendations of Podiatry. Continue PO Doxycycline for acute bronchitis.
--- NOTE | 2018-09-12 16:30 | CP.PCM.PCO ---
Physician Communication Note - Physician Communication Note Physician Communication Note: pt.morbid obese,w.ELIAN admit w.chf,afib.on card drip, desated 88%, on bipap
[2018-09-13] MEDS: Albuterol-Ipratrop 3 mg / 0.5 (3 ml) UD IH SCH ×6 (00:32→20:39)
[2018-09-13 05:24] LABS: ARTERIAL BLOOD GAS HCO3 36.7 mmol/L (21-28); ARTERIAL BLOOD GAS HEMOGLOBIN 8.1 g/dL (11.7-17.4); ARTERIAL BLOOD GAS O2 CAPACITY 11.1 mL/dl (16-24); ARTERIAL BLOOD GAS O2 CONTENT 10.7 ML/dl (15-23); ARTERIAL BLOOD GAS O2 SAT 96.4 % (95-98); ARTERIAL BLOOD GAS PCO2 68 mm/Hg (35-45); ARTERIAL BLOOD GAS PH 7.34 (7.35-7.45); ARTERIAL BLOOD GAS TCO2 38.8 mmol.L (22-28)
[2018-09-13] MEDS: MethylPREDNISolone 40 mg Vial IVP SCH ×3 (06:41→21:35)
[2018-09-13] MEDS: Pantoprazole 40 mg EC Tab PO SCH (06:41)
[2018-09-13] MEDS: Heparin25000 units/250ml 1/2NS 25,000 UNITS/250 ML BAG IV PRN ×3 (06:54→21:23)
[2018-09-13 06:55] LABS: HEMOGLOBIN 8.3 g/dL (14.0-18.0); LYMPH # 0.6 (1.2-3.4); LYMPH % 9.4 % (22.0-35.0); MEAN CELL VOLUME 75.3 fl (80.0-105.0); MEAN CORPUSCULAR HEMOGLOBIN 19.2 pg (25.0-35.0); MEAN CORPUSCULAR HGB CONC 25.5 g/dl (31.0-37.0); MEAN PLATELET VOLUME 9.3 fl (7.0-11.0); MONO # 0.2 (0.1-0.6); MONO % 2.9 % (1.0-6.0); RBC 4.33 10^6/uL (3.5-6.1); RED CELL DISTRIBUTION WIDTH 20.5 % (11.5-14.5); WHITE BLOOD COUNT 6.5 10^3/uL (4.5-11.0)
[2018-09-13 07:10] LABS: ALB/GLOB RATIO 0.8 (1.1-1.8); ALBUMIN 3.4 g/dL (3.0-4.8); ALT/SGPT 12 U/L (7-56); AST/SGOT 48 U/L (17-59); BILIRUBIN,DIRECT 0.3 mg/dL (0.0-0.4); BLOOD UREA NITROGEN 27 mg/dL (7-21); CALCIUM 8.2 mg/dL (8.4-10.5); GFR NON-AFRICAN AMERICAN > 60
[2018-09-13] MEDS ORDERED: Ergocalciferol 50,000 Intl Units Cap PO SCH (08:15)
--- NOTE | 2018-09-13 08:25 | CP.CCUPN ---
<SuzanneNam - Last Filed: 09/13/18 10:10> CCU Subjective - Physician Review Subjective (Free Text): Nam Palacios PGY1 Critical Care Progress Note Patient seen and examined at bedside this morning. No acute events overnight. Patient states he slept more comfortably during the night compared to previous nights. Used bipap for a total of two hours overnight. ABG improved this morning. Patient offers no complaints at this time and denies CP, SOB, nausea, vomiting, headaches and abdominal pain. CCU Objective - Vital Signs / Intake & Output Vital Signs (Last 4 hours): Vital Signs Resp BP Pulse Ox 09/13/18 07:15 18 92 L 09/13/18 06:40 122/67 Intake and Output (Last 8hrs): Intake & Output 09/12/18 09/13/18 09/13/18 22:59 06:59 14:59 Intake Total 1290 250 Output Total 2000 Balance -710 250 Intake: IV 790 250 antibiotics 250 cardizem 50 heparin 240 Oral 500 Output: Urine 2000 Urethral (Doshi) 1500 Urine, Voided 500 Other: # Voids Urine, Voided 2 - Physical Exam Head: Positive for: Atraumatic, Normocephalic Pupils: Positive for: PERRL Extroacular Muscles: Positive for: EOMI Conjunctiva: Positive for: Normal Mouth: Positive for: Moist Mucous Membranes Neck: Positive for: Normal Range of Motion Respiratory/Chest: Positive for: Clear to Auscultation, Good Air Exchange. Negative for: Respiratory Distress, Accessory Muscle Use Cardiovascular: Positive for: Normal S1, S2, Irregular Rhythm. Negative for: Murmurs Abdomen: Positive for: Normal Bowel Sounds. Negative for: Tenderness, Distention, Peritoneal Signs Back: Positive for: Normal Inspection Upper Extremity: Positive for: Normal Inspection. Negative for: Cyanosis, Edema Lower Extremity: Positive for: Neurovascularly Intact. Negative for: Normal Inspection (Lymphedema bilaterally, with chronic venous stasis changes; dry skin), Shima's Sign Neurological: Positive for: GCS=15, CN II-XII Intact, Speech Normal, Motor Func Grossly Intact, Normal Sensory Function Skin: Positive for: Warm, Dry, Normal Color. Negative for: Rashes Psychiatric: Positive for: Alert, Oriented x 3, Normal Insight, Normal Concen tration - Medications Active Medications: Active Medications Generic Name Dose Route Start Last Admin Trade Name Freq PRN Reason Stop Dose Admin Acetaminophen 650 mg 09/11/18 06:19 09/12/18 02:33 Tylenol 325mg Tab PO 650 mg Q6 PRN Administration TEMP>=99.5F Acetaminophen 650 mg 09/11/18 06:19 Tylenol 650 Mg Supp RC Q6H PRN TEMP>=99.5F Albuterol/Ipratropium 3 ml 09/12/18 11:31 09/13/18 07:11 Duoneb 3 Mg/0.5 Mg (3 Ml) Ud IH 3 ml [id number] YARELI Administration Atorvastatin Calcium 40 mg 09/11/18 17:00 09/12/18 17:37 Lipitor PO 40 mg DIN YARELI Administration Docusate Sodium 100 mg 09/11/18 10:00 09/12/18 19:50 Colace PO Not Given TID YARELI Furosemide 40 mg 09/11/18 06:30 09/13/18 06:40 Lasix IVP 40 mg Q8H YARELI Administration Doxycycline Hyclate 100 mg/ 100 mls @ 100 mls/hr 09/11/18 13:00 09/12/18 21:37 Sodium Chloride IVPB 100 mls/hr Q12 YARELI Administration Protocol Heparin Sodium/Sodium Chloride 25,000 units in 250 mls @ 20.02 mls/hr 09/11/18 13:13 09/13/18 06:54 Heparin 55889 Units/250ml 1/2 Normal Saline IV 8.25 units/kg/hr .[id number] PRN 20.02 mls/hr ADJUST RATE PER PROTOCOL Administration Protocol 8.25 UNITS/KG/HR Methylprednisolone 20 mg 09/11/18 13:00 09/13/18 06:41 Solu-Medrol IVP 20 mg Q8H YARELI Administration Metoprolol Tartrate 25 mg 09/12/18 18:00 09/12/18 17:40 Lopressor PO 25 mg BID [facility] Administration Mupirocin 0 gm 09/12/18 10:00 Bactroban Ointment TOP BID [facility] Ondansetron HCl 4 mg 09/11/18 06:19 Zofran Inj IVP Q4H PRN Nausea/Vomiting Pantoprazole Sodium 40 mg 09/12/18 06:00 09/13/18 06:41 Protonix Ec Tab PO 40 mg 0600 YARELI Administration - Patient Studies Lab Studies: Microbiology Studies 09/11/18 11:10 MRSA Culture (Admit) - Final Naris MRSA NOT DETECTED Lab Studies 09/13/18 09/13/18 09/13/18 Range/Units 06:10 06:10 06:10 WBC 6.5 D (4.5-11.0) 10^3/uL RBC 4.33 (3.5-6.1) 10^6/uL Hgb 8.3 L (14.0-18.0) g/dL Hct 32.6 L (42.0-52.0) % MCV 75.3 L (80.0-105.0) fl MCH 19.2 L (25.0-35.0) pg MCHC 25.5 L (31.0-37.0) g/dl RDW 20.5 H (11.5-14.5) % Plt Count 236 (120.0-450.0) 10^3/uL MPV 9.3 (7.0-11.0) fl Neut % (Auto) 87.7 H (50.0-68.0) % Lymph % (Auto) 9.4 L (22.0-35.0) % Mchenry % (Auto) 2.9 (1.0-6.0) % Eos % (Auto) 0.0 L (1.5-5.0) % Baso % (Auto) 0.0 (0.0-3.0) % Lymph # (Auto) 0.6 L (1.2-3.4) Mchenry # (Auto) 0.2 (0.1-0.6) Eos # (Auto) 0.0 (0.0-0.7) Baso # (Auto) 0.00 (0.0-2.0) K/mm3 Absolute Neuts (auto) 5.72 (1.4-6.5) APTT 41.0 H (26.9-38.3) Seconds pCO2 (35-45) mm/Hg pO2 (80-100) mm/Hg HCO3 (21-28) mmol/L ABG pH (7.35-7.45) ABG Total CO2 (22-28) mmol.L ABG O2 Saturation (95-98) % ABG O2 Content (15-23) ML/dl ABG Base Excess (-2.0-3.0) mmol/L ABG Hemoglobin (11.7-17.4) g/dL ABG Carboxyhemoglobin (0.5-1.5) % POC ABG HHb (Measured) (0-5) % ABG Methemoglobin (0.0-3.0) % ABG O2 Capacity (16-24) mL/dl Hgb O2 Saturation (95.0-98.0) % FiO2 % Crit Value Called To Crit Value Called By Blood Gas Notified Time Sodium 139 (132-148) mmol/L Potassium 4.9 (3.6-5.0) mmol/L Chloride 98 (98-107) mmol/L Carbon Dioxide 37 H (21-33) mmol/L Anion Gap 8 L (10-20) BUN 27 H (7-21) mg/dL Creatinine 1.0 (0.8-1.5) mg/dl Est GFR ( Amer) > 60 Est GFR (Non-Af Amer) > 60 Random Glucose 133 H (70-110) mg/dL Calcium 8.2 L (8.4-10.5) mg/dL Phosphorus 3.6 (2.5-4.5) mg/dL Magnesium 1.9 (1.7-2.2) mg/dL Erythropoietin (2.6-18.5) mIU/mL Total Bilirubin 0.7 (0.2-1.3) mg/dL Direct Bilirubin 0.3 (0.0-0.4) mg/dL AST 48 (17-59) U/L ALT 12 (7-56) U/L Alkaline Phosphatase 35 L (38-126) U/L Total Protein 7.6 (5.8-8.3) g/dL Albumin 3.4 (3.0-4.8) g/dL Globulin 4.1 gm/dL Albumin/Globulin Ratio 0.8 L (1.1-1.8) 09/13/18 09/12/18 09/11/18 Range/Units 05:00 08:30 10:10 WBC (4.5-11.0) 10^3/uL RBC (3.5-6.1) 10^6/uL Hgb (14.0-18.0) g/dL Hct (42.0-52.0) % MCV (80.0-105.0) fl MCH (25.0-35.0) pg MCHC (31.0-37.0) g/dl RDW (11.5-14.5) % Plt Count (120.0-450.0) 10^3/uL MPV (7.0-11.0) fl Neut % (Auto) (50.0-68.0) % Lymph % (Auto) (22.0-35.0) % Mchenry % (Auto) (1.0-6.0) % Eos % (Auto) (1.5-5.0) % Baso % (Auto) (0.0-3.0) % Lymph # (Auto) (1.2-3.4) Mchenry # (Auto) (0.1-0.6) Eos # (Auto) (0.0-0.7) Baso # (Auto) (0.0-2.0) K/mm3 Absolute Neuts (auto) (1.4-6.5) APTT (26.9-38.3) Seconds pCO2 68 H 85 H* (35-45) mm/Hg pO2 72.0 L 118.0 H (80-100) mm/Hg HCO3 36.7 H 34.8 H (21-28) mmol/L ABG pH 7.34 L 7.22 L (7.35-7.45) ABG Total CO2 38.8 H 37.4 H (22-28) mmol.L ABG O2 Saturation 96.4 98.5 H (95-98) % ABG O2 Content 10.7 L 11.8 L (15-23) ML/dl ABG Base Excess 9.5 H 5.6 H (-2.0-3.0) mmol/L ABG Hemoglobin 8.1 L 8.6 L (11.7-17.4) g/dL ABG Carboxyhemoglobin 2.3 H 2.0 H (0.5-1.5) % POC ABG HHb (Measured) 3.5 1.5 (0-5) % ABG Methemoglobin 1.1 1.1 (0.0-3.0) % ABG O2 Capacity 11.1 L 12.0 L (16-24) mL/dl Hgb O2 Saturation 93.1 L 95.4 (95.0-98.0) % FiO2 36.0 50.0 % Crit Value Called To j.dr Rajeev Crit Value Called By iman Mosqueda Blood Gas Notified Time 524 [id number] Sodium (132-148) mmol/L Potassium (3.6-5.0) mmol/L Chloride (98-107) mmol/L Carbon Dioxide (21-33) mmol/L Anion Gap (10-20) BUN (7-21) mg/dL Creatinine (0.8-1.5) mg/dl Est GFR ( Amer) Est GFR (Non-Af Amer) Random Glucose (70-110) mg/dL Calcium (8.4-10.5) mg/dL Phosphorus (2.5-4.5) mg/dL Magnesium (1.7-2.2) mg/dL Erythropoietin 303.6 H (2.6-18.5) mIU/mL Total Bilirubin (0.2-1.3) mg/dL Direct Bilirubin (0.0-0.4) mg/dL AST (17-59) U/L ALT (7-56) U/L Alkaline Phosphatase (38-126) U/L Total Protein (5.8-8.3) g/dL Albumin (3.0-4.8) g/dL Globulin gm/dL Albumin/Globulin Ratio (1.1-1.8) Laboratory Results - last 24 hr 09/11/18 09/12/18 09/13/18 10:10 08:30 05:00 WBC RBC Hgb Hct MCV MCH MCHC RDW Plt Count MPV Neut % (Auto) Lymph % (Auto) Mchenry % (Auto) Eos % (Auto) Baso % (Auto) Lymph # (Auto) Mchenry # (Auto) Eos # (Auto) Baso # (Auto) Absolute Neuts (auto) APTT pCO2 85 H* 68 H pO2 118.0 H 72.0 L HCO3 34.8 H 36.7 H ABG pH 7.22 L 7.34 L ABG Total CO2 37.4 H 38.8 H ABG O2 Saturation 98.5 H 96.4 ABG O2 Content 11.8 L 10.7 L ABG Base Excess 5.6 H 9.5 H ABG Hemoglobin 8.6 L 8.1 L ABG Carboxyhemoglobin 2.0 H 2.3 H POC ABG HHb (Measured) 1.5 3.5 ABG Methemoglobin 1.1 1.1 ABG O2 Capacity 12.0 L 11.1 L Hgb O2 Saturation 95.4 93.1 L FiO2 50.0 36.0 Crit Value Called To j.dr Dr jordana Rain Crit Value Called By iman Rousseau Blood Gas Notified Time 843 524 Sodium Potassium Chloride Carbon Dioxide Anion Gap BUN Creatinine Est GFR ( Amer) Est GFR (Non-Af Amer) Random Glucose Calcium Phosphorus Magnesium Erythropoietin 303.6 H Total Bilirubin Direct Bilirubin AST ALT Alkaline Phosphatase Total Protein Albumin Globulin Albumin/Globulin Ratio 09/13/18 09/13/18 09/13/18 06:10 06:10 06:10 WBC 6.5 D RBC 4.33 Hgb 8.3 L Hct 32.6 L MCV 75.3 L MCH 19.2 L MCHC 25.5 L RDW 20.5 H Plt Count 236 MPV 9.3 Neut % (Auto) 87.7 H Lymph % (Auto) 9.4 L Mchenry % (Auto) 2.9 Eos % (Auto) 0.0 L Baso % (Auto) 0.0 Lymph # (Auto) 0.6 L Mchenry # (Auto) 0.2 Eos # (Auto) 0.0 Baso # (Auto) 0.00 Absolute Neuts (auto) 5.72 APTT 41.0 H pCO2 pO2 HCO3 ABG pH ABG Total CO2 ABG O2 Saturation ABG O2 Content ABG Base Excess ABG Hemoglobin ABG Carboxyhemoglobin POC ABG HHb (Measured) ABG Methemoglobin ABG O2 Capacity Hgb O2 Saturation FiO2 Crit Value Called To Crit Value Called By Blood Gas Notified Time Sodium 139 Potassium 4.9 Chloride 98 Carbon Dioxide 37 H Anion Gap 8 L BUN 27 H Creatinine 1.0 Est GFR ( Amer) > 60 Est GFR (Non-Af Amer) > 60 Random Glucose 133 H Calcium 8.2 L Phosphorus 3.6 Magnesium 1.9 Erythropoietin Total Bilirubin 0.7 Direct Bilirubin 0.3 AST 48 ALT 12 Alkaline Phosphatase 35 L Total Protein 7.6 Albumin 3.4 Globulin 4.1 Albumin/Globulin Ratio 0.8 L Critical Care Progress Note - Nutrition Nutrition: Nutrition Category Date Time Status Heart Healthy Diet [DIET] Diets 09/12/18 Dinner Active Assessment/Plan - Assessment and Plan (Free Text) Assessment: This is a 58 year old male with PMH of morbid obesity, B/L chronic leg lymphedema and obesity hypoventilation syndrome presenting to the ICU for hypercapnic respiratory failure 2/2 ELIAN vs COPD. ABG improved this morning. Currently on NC 4L. Plan: Hypercapnic respiratory failure 2/2 ELIAN vs COPD -currently on 4L NC with oxygen saturation of 90%. Goal of O2 sat 88-92% -ABG this morning pH/CO2/O2/bicarb 7.34/68/72/37 -solumedrol 20mg q8 IVP -duonebs q4 yareli -low threshold for intubation -AOx3, protecting airway -anesthesiology following patient -V/Q scan shows low probability for PE -LE dopplers shows no DVT -CXR 09/11/18 shows no active disease New onset Afib - rate controlled -continue lopressor 25mg BID -currently on heparin drip -echo 09/11/18 shows EF 56%, moderate to severe AR, left atrium dilated, RVS 36 -Cardiology on consult, Dr. Lacy B/L Chronic leg lymphedema -concern for leg cellulitis -currently on doxyxycline for bronchitis, zyvox stopped -WBC is WNL, afebrile -lasix 40mg IV q8 -ID on consult, Dr. Fuchs Microcytic anemia -Hg is 8.3 from 8.5 -desirae monitor -GI on consult, no intervention at this time -Heme on consult, Dr. Truong PPX with protonix and heparin drip Patient seen and case discussed with attending, Dr. Grimm <Bladimir Grimm - Last Filed: 09/13/18 10:14> CCU Objective - Vital Signs / Intake & Output Vital Signs (Last 4 hours): Vital Signs Pulse Resp BP Pulse Ox 09/13/18 09:51 102 H 151/77 H 09/13/18 08:01 90 148/81 91 L 09/13/18 08:00 88 81 L 09/13/18 07:15 18 92 L 09/13/18 07:00 88 154/67 H 84 L 09/13/18 06:40 122/67 Intake and Output (Last 8hrs): Intake & Output 09/12/18 09/13/18 09/13/18 22:59 06:59 14:59 Intake Total 1290 790 260 Output Total 1999 1500 Balance -710 -710 260 Intake: IV 790 790 260 antibiotics 250 250 cardizem 50 50 heparin 240 240 Oral 500 Output: Urine 2000 1500 Urethral (Doshi) 1500 1500 Urine, Voided 500 Other: # Voids Urine, Voided 2 # Bowel Movements 0 - Medications Active Medications: Active Medications Generic Name Dose Route Start Last Admin Trade Name Freq PRN Reason Stop Dose Admin Acetaminophen 650 mg 09/11/18 06:19 09/12/18 02:33 Tylenol 325mg Tab PO 650 mg Q6 PRN Administration TEMP>=99.5F Acetaminophen 650 mg 09/11/18 06:19 Tylenol 650 Mg Supp RC Q6H PRN TEMP>=99.5F Albuterol/Ipratropium 3 ml 09/12/18 11:31 09/13/18 07:11 Duoneb 3 Mg/0.5 Mg (3 Ml) Ud IH 3 ml [id number] YARELI Administration Atorvastatin Calcium 40 mg 09/11/18 17:00 09/12/18 17:37 Lipitor PO 40 mg DIN YARELI Administration Docusate Sodium 100 mg 09/11/18 10:00 09/13/18 09:50 Colace PO 100 mg TID YARELI Administration Ergocalciferol 1 cap 09/13/18 08:15 09/13/18 09:51 Drisdol 50,000 Intl Units Cap PO 1 cap Q7D YARELI Administration Furosemide 40 mg 09/11/18 06:30 09/13/18 06:40 Lasix IVP 40 mg Q8H YARELI Administration Doxycycline Hyclate 100 mg/ 100 mls @ 100 mls/hr 09/11/18 13:00 09/13/18 09:52 Sodium Chloride IVPB 100 mls/hr Q12 YARELI Administration Protocol Heparin Sodium/Sodium Chloride 25,000 units in 250 mls @ 20.02 mls/hr 09/11/18 13:13 09/13/18 09:46 Heparin 43349 Units/250ml 1/2 Normal Saline IV 10.25 units/kg/hr .[id number] PRN 24.874 mls/hr ADJUST RATE PER PROTOCOL Titration Protocol 8.25 UNITS/KG/HR Iron Sucrose 200 mg/ Sodium 110 mls @ 110 mls/hr 09/13/18 10:00 Chloride IVPB 09/17/18 10:59 DAILY YARELI Methylprednisolone 20 mg 09/11/18 13:00 09/13/18 06:41 Solu-Medrol IVP 20 mg Q8H YARELI Administration Metoprolol Tartrate 25 mg 09/12/18 18:00 09/13/18 09:51 Lopressor PO 25 mg BID YARELI Administration Mupirocin 0 gm 09/12/18 10:00 Bactroban Ointment TOP BID YARELI Ondansetron HCl 4 mg 09/11/18 06:19 Zofran Inj IVP Q4H PRN Nausea/Vomiting Pantoprazole Sodium 40 mg 09/12/18 06:00 09/13/18 06:41 Protonix Ec Tab PO 40 mg 0600 YARELI Administration - Patient Studies Lab Studies: Microbiology Studies 09/11/18 11:10 MRSA Culture (Admit) - Final Naris MRSA NOT DETECTED Lab Studies 09/13/18 09/13/18 09/13/18 Range/Units 06:10 06:10 06:10 WBC 6.5 D (4.5-11.0) 10^3/uL RBC 4.33 (3.5-6.1) 10^6/uL Hgb 8.3 L (14.0-18.0) g/dL Hct 32.6 L (42.0-52.0) % MCV 75.3 L (80.0-105.0) fl MCH 19.2 L (25.0-35.0) pg MCHC 25.5 L (31.0-37.0) g/dl RDW 20.5 H (11.5-14.5) % Plt Count 236 (120.0-450.0) 10^3/uL MPV 9.3 (7.0-11.0) fl Neut % (Auto) 87.7 H (50.0-68.0) % Lymph % (Auto) 9.4 L (22.0-35.0) % Mchenry % (Auto) 2.9 (1.0-6.0) % Eos % (Auto) 0.0 L (1.5-5.0) % Baso % (Auto) 0.0 (0.0-3.0) % Lymph # (Auto) 0.6 L (1.2-3.4) Mchenry # (Auto) 0.2 (0.1-0.6) Eos # (Auto) 0.0 (0.0-0.7) Baso # (Auto) 0.00 (0.0-2.0) K/mm3 Absolute Neuts (auto) 5.72 (1.4-6.5) APTT 41.0 H (26.9-38.3) Seconds pCO2 (35-45) mm/Hg pO2 (80-100) mm/Hg HCO3 (21-28) mmol/L ABG pH (7.35-7.45) ABG Total CO2 (22-28) mmol.L ABG O2 Saturation (95-98) % ABG O2 Content (15-23) ML/dl ABG Base Excess (-2.0-3.0) mmol/L ABG Hemoglobin (11.7-17.4) g/dL ABG Carboxyhemoglobin (0.5-1.5) % POC ABG HHb (Measured) (0-5) % ABG Methemoglobin (0.0-3.0) % ABG O2 Capacity (16-24) mL/dl Hgb O2 Saturation (95.0-98.0) % FiO2 % Crit Value Called To Crit Value Called By Blood Gas Notified Time Sodium 139 (132-148) mmol/L Potassium 4.9 (3.6-5.0) mmol/L Chloride 98 (98-107) mmol/L Carbon Dioxide 37 H (21-33) mmol/L Anion Gap 8 L (10-20) BUN 27 H (7-21) mg/dL Creatinine 1.0 (0.8-1.5) mg/dl Est GFR ( Amer) > 60 Est GFR (Non-Af Amer) > 60 Random Glucose 133 H (70-110) mg/dL Calcium 8.2 L (8.4-10.5) mg/dL Phosphorus 3.6 (2.5-4.5) mg/dL Magnesium 1.9 (1.7-2.2) mg/dL Erythropoietin (2.6-18.5) mIU/mL Total Bilirubin 0.7 (0.2-1.3) mg/dL Direct Bilirubin 0.3 (0.0-0.4) mg/dL AST 48 (17-59) U/L ALT 12 (7-56) U/L Alkaline Phosphatase 35 L (38-126) U/L Total Protein 7.6 (5.8-8.3) g/dL Albumin 3.4 (3.0-4.8) g/dL Globulin 4.1 gm/dL Albumin/Globulin Ratio 0.8 L (1.1-1.8) 09/13/18 09/11/18 Range/Units 05:00 10:10 WBC (4.5-11.0) 10^3/uL RBC (3.5-6.1) 10^6/uL Hgb (14.0-18.0) g/dL Hct (42.0-52.0) % MCV (80.0-105.0) fl MCH (25.0-35.0) pg MCHC (31.0-37.0) g/dl RDW (11.5-14.5) % Plt Count (120.0-450.0) 10^3/uL MPV (7.0-11.0) fl Neut % (Auto) (50.0-68.0) % Lymph % (Auto) (22.0-35.0) % Mchenry % (Auto) (1.0-6.0) % Eos % (Auto) (1.5-5.0) % Baso % (Auto) (0.0-3.0) % Lymph # (Auto) (1.2-3.4) Mchenry # (Auto) (0.1-0.6) Eos # (Auto) (0.0-0.7) Baso # (Auto) (0.0-2.0) K/mm3 Absolute Neuts (auto) (1.4-6.5) APTT (26.9-38.3) Seconds pCO2 68 H (35-45) mm/Hg pO2 72.0 L (80-100) mm/Hg HCO3 36.7 H (21-28) mmol/L ABG pH 7.34 L (7.35-7.45) ABG Total CO2 38.8 H (22-28) mmol.L ABG O2 Saturation 96.4 (95-98) % ABG O2 Content 10.7 L (15-23) ML/dl ABG Base Excess 9.5 H (-2.0-3.0) mmol/L ABG Hemoglobin 8.1 L (11.7-17.4) g/dL ABG Carboxyhemoglobin 2.3 H (0.5-1.5) % POC ABG HHb (Measured) 3.5 (0-5) % ABG Methemoglobin 1.1 (0.0-3.0) % ABG O2 Capacity 11.1 L (16-24) mL/dl Hgb O2 Saturation 93.1 L (95.0-98.0) % FiO2 36.0 % Crit Value Called To Dr jordana baxter Crit Value Called By Gene marcos Blood Gas Notified Time 524 Sodium (132-148) mmol/L Potassium (3.6-5.0) mmol/L Chloride (98-107) mmol/L Carbon Dioxide (21-33) mmol/L Anion Gap (10-20) BUN (7-21) mg/dL Creatinine (0.8-1.5) mg/dl Est GFR ( Amer) Est GFR (Non-Af Amer) Random Glucose (70-110) mg/dL Calcium (8.4-10.5) mg/dL Phosphorus (2.5-4.5) mg/dL Magnesium (1.7-2.2) mg/dL Erythropoietin 303.6 H (2.6-18.5) mIU/mL Total Bilirubin (0.2-1.3) mg/dL Direct Bilirubin (0.0-0.4) mg/dL AST (17-59) U/L ALT (7-56) U/L Alkaline Phosphatase (38-126) U/L Total Protein (5.8-8.3) g/dL Albumin (3.0-4.8) g/dL Globulin gm/dL Albumin/Globulin Ratio (1.1-1.8) Laboratory Results - last 24 hr 09/11/18 09/13/18 09/13/18 10:10 05:00 06:10 WBC 6.5 D RBC 4.33 Hgb 8.3 L Hct 32.6 L MCV 75.3 L MCH 19.2 L MCHC 25.5 L RDW 20.5 H Plt Count 236 MPV 9.3 Neut % (Auto) 87.7 H Lymph % (Auto) 9.4 L Mchenry % (Auto) 2.9 Eos % (Auto) 0.0 L Baso % (Auto) 0.0 Lymph # (Auto) 0.6 L Mchenry # (Auto) 0.2 Eos # (Auto) 0.0 Baso # (Auto) 0.00 Absolute Neuts (auto) 5.72 APTT pCO2 68 H pO2 72.0 L HCO3 36.7 H ABG pH 7.34 L ABG Total CO2 38.8 H ABG O2 Saturation 96.4 ABG O2 Content 10.7 L ABG Base Excess 9.5 H ABG Hemoglobin 8.1 L ABG Carboxyhemoglobin 2.3 H POC ABG HHb (Measured) 3.5 ABG Methemoglobin 1.1 ABG O2 Capacity 11.1 L Hgb O2 Saturation 93.1 L FiO2 36.0 Crit Value Called To Dr jordana baxter Crit Value Called By Gene marcos Blood Gas Notified Time 524 Sodium Potassium Chloride Carbon Dioxide Anion Gap BUN Creatinine Est GFR ( Amer) Est GFR (Non-Af Amer) Random Glucose Calcium Phosphorus Magnesium Erythropoietin 303.6 H Total Bilirubin Direct Bilirubin AST ALT Alkaline Phosphatase Total Protein Albumin Globulin Albumin/Globulin Ratio 09/13/18 09/13/18 06:10 06:10 WBC RBC Hgb Hct MCV MCH MCHC RDW Plt Count MPV Neut % (Auto) Lymph % (Auto) Mchenry % (Auto) Eos % (Auto) Baso % (Auto) Lymph # (Auto) Mchenry # (Auto) Eos # (Auto) Baso # (Auto) Absolute Neuts (auto) APTT 41.0 H pCO2 pO2 HCO3 ABG pH ABG Total CO2 ABG O2 Saturation ABG O2 Content ABG Base Excess ABG Hemoglobin ABG Carboxyhemoglobin POC ABG HHb (Measured) ABG Methemoglobin ABG O2 Capacity Hgb O2 Saturation FiO2 Crit Value Called To Crit Value Called By Blood Gas Notified Time Sodium 139 Potassium 4.9 Chloride 98 Carbon Dioxide 37 H Anion Gap 8 L BUN 27 H Creatinine 1.0 Est GFR ( Amer) > 60 Est GFR (Non-Af Amer) > 60 Random Glucose 133 H Calcium 8.2 L Phosphorus 3.6 Magnesium 1.9 Erythropoietin Total Bilirubin 0.7 Direct Bilirubin 0.3 AST 48 ALT 12 Alkaline Phosphatase 35 L Total Protein 7.6 Albumin 3.4 Globulin 4.1 Albumin/Globulin Ratio 0.8 L Critical Care Progress Note - Nutrition Nutrition: Nutrition Category Date Time Status Heart Healthy Diet [DIET] Diets 09/12/18 Dinner Active Attending/Attestation - Attestation I have personally seen and examined this patient.: Yes I have fully participated in the care of the patient.: Yes I have reviewed all pertinent clinical information: Yes Notes (Text): 09/13/18 10:12 The patient was seen and examined at the bedside. Patient care was discussed with resident Medical records, lab studies were reviewed and management issues were discussed and formulated. Agree with above treatment plans as outlined in 's note with addition of the following: Acute Respiratory Insufficiency \ Hypercapnea \ ELIAN - OHS \ Afib with RVR \ Cellulitis \ CHF \ ro COPD -hemodynamic monitoring to maintain MAP>65 -metoprolol for rate control as per cardiology team -o2 supplementation and Bipap HS to maintain Spo2 88-92 Pao2>60 -on NC this morning; tolerating well -nebs PRN -ABG improved and near compensated respiratory acidosis noted -consider pulmonary eval as pt will need sleep study and pulmonary f\u outpt once improves -continue Abx as per ID team and f\u cultures -f\u Bun\Cr and U\o; continue diuresis with lasix; monitor and replace e-lites -PO diet and aspiration precautions -ISS and BGM monitoring -anticoagulation with heparin; monitor PTT and for bleeding -PT\OT eval -DVT \ PUD prophylaxis CCM time 31min
--- NOTE | 2018-09-13 08:32 | CP.PCM.PN ---
<Kayla Barbozabrenda - Last Filed: 09/13/18 08:29> Subjective - Date & Time of Evaluation Date of Evaluation: 09/13/18 Time of Evaluation: 08:29 - Subjective Subjective: Podiatry consult note for Dr. Gonzalez 58 y/o male seen and evaluated in the ICU for bilateral leg wounds. Patient alert, awake, and in much better spirits today. As per nursing, no acute overnight events. Patient reports he was scheduled for an appointment with the wound care center [facility] Dr. Pride for the wounds. Objective - Vital Signs/Intake and Output Vital Signs (last 24 hours): Temp Pulse Resp BP Pulse Ox 98.8 F 90 18 148/81 91 L 09/13/18 04:00 09/13/18 08:01 09/13/18 07:15 09/13/18 08:01 09/13/18 08:01 Intake and Output: 09/13/18 09/13/18 06:59 18:59 Intake Total 790 250 Output Total 1500 Balance -710 250 - Medications Medications: Current Medications Acetaminophen (Tylenol 325mg Tab) 650 mg PO Q6 PRN PRN Reason: TEMP>=99.5F Last Admin: 09/12/18 02:33 Dose: 650 mg Acetaminophen (Tylenol 650 Mg Supp) 650 mg RC Q6H PRN PRN Reason: TEMP>=99.5F Albuterol/Ipratropium (Duoneb 3 Mg/0.5 Mg (3 Ml) Ud) 3 ml IH [id number] [facility] Last Admin: 09/13/18 07:11 Dose: 3 ml Atorvastatin Calcium (Lipitor) 40 mg PO DIN [facility] Last Admin: 09/12/18 17:37 Dose: 40 mg Docusate Sodium (Colace) 100 mg PO TID [facility] Last Admin: 09/12/18 19:50 Dose: Not Given Ergocalciferol (Drisdol 50,000 Intl Units Cap) 1 cap PO Q7D [facility] Furosemide (Lasix) 40 mg IVP Q8H [facility] Last Admin: 09/13/18 06:40 Dose: 40 mg Doxycycline Hyclate 100 mg/ (Sodium Chloride) 100 mls @ 100 mls/hr IVPB Q12 [facility] ; Protocol Last Admin: 09/12/18 21:37 Dose: 100 mls/hr Heparin Sodium/Sodium Chloride (Heparin 93688 Units/250ml 1/2 Normal Saline) 25,000 units in 250 mls @ 20.02 mls/hr IV .[id number] PRN; Protocol PRN Reason: ADJUST RATE PER PROTOCOL Last Admin: 09/13/18 08:16 Dose: 8.25 units/kg/hr, 20.02 mls/hr Methylprednisolone (Solu-Medrol) 20 mg IVP Q8H [facility] Last Admin: 09/13/18 06:41 Dose: 20 mg Metoprolol Tartrate (Lopressor) 25 mg PO BID [facility] Last Admin: 09/12/18 17:40 Dose: 25 mg Mupirocin (Bactroban Ointment) 0 gm TOP BID [facility] Ondansetron HCl (Zofran Inj) 4 mg IVP Q4H PRN PRN Reason: Nausea/Vomiting Pantoprazole Sodium (Protonix Ec Tab) 40 mg PO 0600 [facility] Last Admin: 09/13/18 06:41 Dose: 40 mg - Labs Labs: 09/13/18 06:10 09/13/18 06:10 PT 18.5 SECONDS (9.4-12.5) H 09/11/18 03:10 INR 1.67 09/11/18 03:10 APTT 41.0 Seconds (26.9-38.3) H 09/13/18 06:10 - Constitutional Appears: Well, Non-toxic, No Acute Distress - Head Exam Head Exam: ATRAUMATIC, NORMOCEPHALIC - Extremities Exam Additional comments: Bilateral Lower Extremity Exam VASC: DP and PT non-palpable secondary to significant lymphedema, TG within normal limits DERM RIGHT: superficial wounds noted to the lateral aspect of the right leg and to the posterior thigh, 100% granular base, no probe to bone, no malodor, minimal drainage, no signs of infection noted LEFT: small superficial wound noted to the medial aspect of the left leg, fibro- granular base, no probe to bone, no malodor, minimal drainage, no signs of infection noted, significant lymphedema noted bilaterally, NEURO: unable to assess, patient responding to pain stimuli ORTHO: pain with movement and range of motion, pain on palpation to wounds - Neurological Exam Neurological Exam: Alert, Awake, Oriented x3 - Psychiatric Exam Psychiatric exam: Normal Affect, Normal Mood Assessment and Plan - Assessment and Plan (Free Text) Assessment: 58 y/o male patient seen with superficial wounds to bilateral lower extremity, non-infected Plan: Patient seen and evaluated with Dr. Gonzalez Plan discussed with attending Chart, labs and vitals were reviewed, afebrile, absent leukocytosis Wound cleansed with saline and dressed with bactroban, maxorb, optifoam, and RACHEL Patient stable from podiatry standpoint, no intervention required Podiatry will continue to follow <Ariel Gonzalez - Last Filed: 09/14/18 14:40> Objective - Vital Signs/Intake and Output Vital Signs (last 24 hours): Temp Pulse Resp BP Pulse Ox 97 F L 90 20 157/72 H 94 L 09/14/18 08:00 09/14/18 10:00 09/14/18 08:00 09/14/18 09:42 09/14/18 08:00 Intake and Output: 09/14/18 09/14/18 06:59 18:59 Intake Total 240 250 Balance 240 250 - Medications Medications: Current Medications Acetaminophen (Tylenol 325mg Tab) 650 mg PO Q6 PRN PRN Reason: TEMP>=99.5F Last Admin: 09/12/18 02:33 Dose: 650 mg Acetaminophen (Tylenol 650 Mg Supp) 650 mg RC Q6H PRN PRN Reason: TEMP>=99.5F Albuterol/Ipratropium (Duoneb 3 Mg/0.5 Mg (3 Ml) Ud) 3 ml IH [id number] [facility] Last Admin: 09/14/18 13:16 Dose: 3 ml Atorvastatin Calcium (Lipitor) 40 mg PO DIN [facility] Last Admin: 09/13/18 17:09 Dose: 40 mg Docusate Sodium (Colace) 100 mg PO TID [facility] Last Admin: 09/14/18 14:39 Dose: Not Given Ergocalciferol (Drisdol 50,000 Intl Units Cap) 1 cap PO Q7D [facility] Last Admin: 09/13/18 09:51 Dose: 1 cap Furosemide (Lasix) 40 mg IVP Q8H [facility] Last Admin: 09/14/18 05:31 Dose: 40 mg Doxycycline Hyclate 100 mg/ (Sodium Chloride) 100 mls @ 100 mls/hr IVPB Q12 [facility]; Protocol Last Admin: 09/14/18 11:00 Dose: 100 mls/hr Heparin Sodium/Sodium Chloride (Heparin 68591 Units/250ml 1/2 Normal Saline) 25,000 units in 250 mls @ 20.02 mls/hr IV .[id number] PRN; Protocol PRN Reason: ADJUST RATE PER PROTOCOL Last Admin: 09/14/18 14:05 Dose: 7.25 units/kg/hr, 17.594 mls/hr Iron Sucrose 200 mg/ Sodium (Chloride) 110 mls @ 110 mls/hr IVPB DAILY [facility] Stop: 09/17/18 10:59 Last Admin: 09/14/18 11:00 Dose: 110 mls/hr Methylprednisolone (Solu-Medrol) 20 mg IVP Q8H [facility] Last Admin: 09/14/18 05:30 Dose: 20 mg Metoprolol Tartrate (Lopressor) 25 mg PO BID [facility] Last Admin: 09/14/18 09:42 Dose: 25 mg Mupirocin (Bactroban Ointment) 0 gm TOP DAILY [facility] Last Admin: 09/14/18 09:41 Dose: 1 applic Ondansetron HCl (Zofran Inj) 4 mg IVP Q4H PRN PRN Reason: Nausea/Vomiting Pantoprazole Sodium (Protonix Ec Tab) 40 mg PO 0600 [facility] Last Admin: 09/14/18 05:31 Dose: 40 mg Silver Sulfadiazine (Silvadene 1% 25 Gm) 0 gm TP BID [facility] Last Admin: 09/14/18 09:41 Dose: 25 gm - Labs Labs: 09/14/18 05:50 09/14/18 05:50 PT 18.5 SECONDS (9.4-12.5) H 09/11/18 03:10 INR 1.67 09/11/18 03:10 APTT 63.5 Seconds (26.9-38.3) H 09/14/18 12:15 Attending/Attestation - Attestation I have personally seen and examined this patient.: Yes I have fully participated in the care of the patient.: Yes I have reviewed all pertinent clinical information, including history, physical exam and plan: Yes
--- NOTE | 2018-09-13 09:16 | PN ---
DATE: 09/13/2018 SUBJECTIVE: The patient is seen lying in the bed in ICU, bed 7. The patient is presently reading the newspaper and watching video on his phone. The patient is completely alert, awake, responsive. The patient does not appear to be in respiratory distress according to the patient. The patient is feeling significantly better since the day of admission. Overnight nurse's notes were reviewed. OBJECTIVE: Vital signs: T-max 98.7. Telemetry shows a heart rate atrial fibrillation in 90s and 88. Telemetry shows atrial fibrillation. Blood pressure 122/67 and 111/84. Respiration 18, O2 sat is 92%, 93%, 94%, 95%. Intake and output, output was 2000 yesterday. HEENT: Head examination normocephalic, atraumatic. HEENT examination shows pinkish pale conjunctivae. Anicteric sclerae. No oropharyngeal lesion. GENERAL: Morbidly obese male lying in the bed, comfortable and in no distress. CARDIOVASCULAR: Shows S1, S2, irregular rhythm. Positive systolic murmur in left sternal border, right second intercostal space, left second intercostal space. ABDOMEN: Super morbidly obese. GENITALIA: Male. RECTAL: Examination is deferred. EXTREMITIES: Shows chronic lymphedema. Positive New wrap of the lower legs. MUSCULOSKELETAL: Shows a body mass index of 73 and a body weight of 535 pounds. NEUROLOGIC: The patient is alert, awake, responsive. Oriented to person, place and time. DIAGNOSTICS: From 09/13/2018, WBC 6.5, hemoglobin/hematocrit 8.3/32.6, platelet 236, granulocyte 88% segs. PTT is 41. ABG done today on 36% FIO2, pH of 7.34, which has improved from the pH since admission of 7.17. On today's ABG, pH is 7.34, pCO2 is down to 68 from 95, pO2 is 72, bicarb 37, saturation of 96%. Sodium is 139, potassium 4.9, chloride 98, CO2 of 37, anion gap 8, BUN 27, creatinine 1.0, GFR greater than 60, glucose 133, calcium 8.2, phosphorus 3.6, magnesium 1.9. LFTs are normal. IMPRESSION AND PLAN: 1. New onset atrial fibrillation. 2. Acute versus [id number] hypercarbic hypercapnic respiratory failure with severe respiratory acidosis. 3. Atrial fibrillation. 4. History of hypertension. 5. Severe lymphedema of the bilateral lower extremity. 6 Super morbid obesity with elevated body mass index of 73. 7. Microcytic anemia with granulocytosis. 8. Severe respiratory acidosis with hypercapnic respiratory failure. 9. Hyperkalemia. 10. Prerenal kidney injury. 11. Hypovitaminosis vitamin D. 12. Iron deficiency anemia. 13. Probably acute systolic congestive heart failure with elevated ProBNP. 14. Hyperphosphatemia. 15. Status post packed red blood cells transfusion x1. 16. Questionable sleep apnea. 17. Hypoxemia. 18. Severe gait dysfunction and deconditioning and functional quadriplegia with chronic bedridden status. 19. Concentric left ventricular hypertrophy. 20. Reduced right ventricular systolic function, moderately. 21. Moderately dilated left atrium. 22. Czpgxycx-[id number] aortic regurgitation and mildly thickened aortic valve. 23. Mild mitral regurgitation. 24. Mild pulmonary hypertension with right ventricular systolic pressure of 36 mmHg. 25. Chronic bilateral lymphedema of the lower extremity. 26. Gait dysfunction. 27. Deconditioning. 28. Acute versus acute on chronic hypercapnic respiratory failure. 29. Probable severe obstructive sleep apnea. 30. Bilateral lower extremity noninfected superficial wounds. 31. Hyperlipidemia. PLAN: At this time, the patient has been updated about his condition, diagnosis, overall guarded to poor prognosis, need for further diagnostic therapeutic intervention, need for packed red blood cell transfusion has been discussed with the patient at length. I have also spoken to the patient's next of kin yesterday and updated about the patient's condition, overall guarded prognosis. I have advised the patient's next of kin to have the patient's family visit him, including his former and his children, which the patient's next of kin is going to contact and inform them. At present, the patient and the patient's next of kin has been updated about the patient's overall guarded to poor prognosis and all the diagnostic details and diagnosis and recommendation by all the physician involved in the care has been explained to the patient and the patient's next of kin. At present, the patient will be followed up. The patient will be continued on repeat labs. Consultation with Gastroenterology, Hematology/Oncology, Infectious Disease, Cardiology, Podiatry. MEDICATIONS: Current medications are Colace 100 three times a day, doxycycline 100 every 12 hours, Drisdol 50,000 weekly, DuoNeb nebulizer every 4 hours, heparin drip, Lasix 40 IV every 8 hours, Lipitor 40 mg daily, Lopressor 25 twice a day, Protonix 40 daily, Solu-Medrol decreased to 20 IV every 8 hours, Tylenol 650 mg every 6 hours, Zofran 4 mg IV every 4 hours p.r.n. BIPAP, the patient is on BIPAP 18/6, 90% FIO2, rate of 15. Heart healthy diet, ELIUD stockings, SCDs. The patient has been ordered transfusion of one more unit of PRBC today. Cardiology recommends long-term anticoagulation. GI does not recommend any GI workup, awaiting further recommendation from Hematology/Oncology, Infectious Disease, Podiatry. Dictated and electronically signed, not read. Markel Michel MD
--- NOTE | 2018-09-13 09:29 | CP.PCM.PN ---
<Vincent Taveras - Last Filed: 09/13/18 12:29> Subjective - Date & Time of Evaluation Date of Evaluation: 09/13/18 Time of Evaluation: 07:00 - Subjective Subjective: ID Progress Note Patient seen and examined. Patient alert with minimal respiratory distress. No fevers. Objective - Vital Signs/Intake and Output Vital Signs (last 24 hours): Temp Pulse Resp BP Pulse Ox 98.8 F 90 18 148/81 91 L 09/13/18 04:00 09/13/18 08:01 09/13/18 07:15 09/13/18 08:01 09/13/18 08:01 Intake and Output: 09/13/18 09/13/18 06:59 18:59 Intake Total 790 250 Output Total 1500 Balance -710 250 - Medications Medications: Current Medications Acetaminophen (Tylenol 325mg Tab) 650 mg PO Q6 PRN PRN Reason: TEMP>=99.5F Last Admin: 09/12/18 02:33 Dose: 650 mg Acetaminophen (Tylenol 650 Mg Supp) 650 mg RC Q6H PRN PRN Reason: TEMP>=99.5F Albuterol/Ipratropium (Duoneb 3 Mg/0.5 Mg (3 Ml) Ud) 3 ml IH [id number] [facility] Last Admin: 09/13/18 07:11 Dose: 3 ml Atorvastatin Calcium (Lipitor) 40 mg PO DIN [facility] Last Admin: 09/12/18 17:37 Dose: 40 mg Docusate Sodium (Colace) 100 mg PO TID [facility] Last Admin: 09/12/18 19:50 Dose: Not Given Ergocalciferol (Drisdol 50,000 Intl Units Cap) 1 cap PO Q7D [facility] Furosemide (Lasix) 40 mg IVP Q8H [facility] Last Admin: 09/13/18 06:40 Dose: 40 mg Doxycycline Hyclate 100 mg/ (Sodium Chloride) 100 mls @ 100 mls/hr IVPB Q12 [facility]; Protocol Last Admin: 09/12/18 21:37 Dose: 100 mls/hr Heparin Sodium/Sodium Chloride (Heparin 44030 Units/250ml 1/2 Normal Saline) 25,000 units in 250 mls @ 20.02 mls/hr IV .[id number] PRN; Protocol PRN Reason: ADJUST RATE PER PROTOCOL Last Admin: 09/13/18 08:16 Dose: 8.25 units/kg/hr, 20.02 mls/hr Iron Sucrose 200 mg/ Sodium (Chloride) 110 mls @ 110 mls/hr IVPB DAILY [facility] Stop: 09/17/18 10:59 Methylprednisolone (Solu-Medrol) 20 mg IVP Q8H [facility] Last Admin: 09/13/18 06:41 Dose: 20 mg Metoprolol Tartrate (Lopressor) 25 mg PO BID [facility] Last Admin: 09/12/18 17:40 Dose: 25 mg Mupirocin (Bactroban Ointment) 0 gm TOP BID [facility] Ondansetron HCl (Zofran Inj) 4 mg IVP Q4H PRN PRN Reason: Nausea/Vomiting Pantoprazole Sodium (Protonix Ec Tab) 40 mg PO 0600 [facility] Last Admin: 09/13/18 06:41 Dose: 40 mg - Labs Labs: 09/13/18 06:10 09/13/18 06:10 PT 18.5 SECONDS (9.4-12.5) H 09/11/18 03:10 INR 1.67 09/11/18 03:10 APTT 41.0 Seconds (26.9-38.3) H 09/13/18 06:10 - Constitutional Appears: Non-toxic, No Acute Distress - Head Exam Head Exam: ATRAUMATIC, NORMAL INSPECTION, NORMOCEPHALIC - ENT Exam ENT Exam: Mucous Membranes Moist - Respiratory Exam Respiratory Exam: Decreased Breath Sounds, NORMAL BREATHING PATTERN. absent: Rales, Rhonchi, Wheezes - Cardiovascular Exam Cardiovascular Exam: RRR, +S1, +S2 - GI/Abdominal Exam GI & Abdominal Exam: Soft, Normal Bowel Sounds. absent: Tenderness - Extremities Exam Additional comments: Bandaged b/l lower legs +1 edema - Neurological Exam Neurological Exam: Alert, Awake, Oriented x3 - Psychiatric Exam Psychiatric exam: Normal Affect, Normal Mood - Skin Skin Exam: Intact, Normal Color, Warm Assessment and Plan - Assessment and Plan (Free Text) Plan: Acute Bronchitis New onset A-fib Hx of chronic lympedema Hx of HTN Hx of morbid obesity Hx of lower extremity cellulitis with Actinobacter baumanii Plan No cellulitis of lower extremities Continue Doxycycline for bronchitis Blood cultures negative Continue to monitor closely Darcy, PGY-3 <Braden Mendoza S - Last Filed: 09/13/18 17:49> Objective - Vital Signs/Intake and Output Vital Signs (last 24 hours): Temp Pulse Resp BP Pulse Ox 98.8 F 93 H 24 157/94 H 94 L 09/13/18 04:00 09/13/18 17:09 09/13/18 13:35 09/13/18 17:09 09/13/18 13:35 Intake and Output: 09/13/18 09/13/18 06:59 18:59 Intake Total 790 260 Output Total 1500 Balance -710 260 - Medications Medications: Current Medications Acetaminophen (Tylenol 325mg Tab) 650 mg PO Q6 PRN PRN Reason: TEMP>=99.5F Last Admin: 09/12/18 02:33 Dose: 650 mg Acetaminophen (Tylenol 650 Mg Supp) 650 mg RC Q6H PRN PRN Reason: TEMP>=99.5F Albuterol/Ipratropium (Duoneb 3 Mg/0.5 Mg (3 Ml) Ud) 3 ml IH [id number] [facility] Last Admin: 09/13/18 13:32 Dose: 3 ml Atorvastatin Calcium (Lipitor) 40 mg PO DIN [facility] Last Admin: 09/13/18 17:09 Dose: 40 mg Docusate Sodium (Colace) 100 mg PO TID [facility] Last Admin: 09/13/18 17:08 Dose: Not Given Ergocalciferol (Drisdol 50,000 Intl Units Cap) 1 cap PO Q7D [facility] Last Admin: 09/13/18 09:51 Dose: 1 cap Furosemide (Lasix) 40 mg IVP Q8H [facility] Last Admin: 09/13/18 13:54 Dose: 40 mg Doxycycline Hyclate 100 mg/ (Sodium Chloride) 100 mls @ 100 mls/hr IVPB Q12 [facility]; Protocol Last Admin: 09/13/18 09:52 Dose: 100 mls/hr Heparin Sodium/Sodium Chloride (Heparin 24036 Units/250ml 1/2 Normal Saline) 25,000 units in 250 mls @ 20.02 mls/hr IV .[id number] PRN; Protocol PRN Reason: ADJUST RATE PER PROTOCOL Last Titration: 09/13/18 09:46 Dose: 10.25 units/kg/hr, 24.874 mls/hr Iron Sucrose 200 mg/ Sodium (Chloride) 110 mls @ 110 mls/hr IVPB DAILY [facility] Stop: 09/17/18 10:59 Last Admin: 09/13/18 13:59 Dose: 110 mls/hr Methylprednisolone (Solu-Medrol) 20 mg IVP Q8H [facility] Last Admin: 09/13/18 14:00 Dose: 20 mg Metoprolol Tartrate (Lopressor) 25 mg PO BID [facility] Last Admin: 09/13/18 17:09 Dose: 25 mg Mupirocin (Bactroban Ointment) 0 gm TOP BID [facility] Ondansetron HCl (Zofran Inj) 4 mg IVP Q4H PRN PRN Reason: Nausea/Vomiting Pantoprazole Sodium (Protonix Ec Tab) 40 mg PO 0600 [facility] Last Admin: 09/13/18 06:41 Dose: 40 mg Silver Sulfadiazine (Silvadene 1% 25 Gm) 0 gm TP BID [facility] Last Admin: 09/13/18 17:12 Dose: 25 gm - Labs Labs: 09/13/18 06:10 09/13/18 06:10 PT 18.5 SECONDS (9.4-12.5) H 09/11/18 03:10 INR 1.67 09/11/18 03:10 APTT 41.0 Seconds (26.9-38.3) H 09/13/18 06:10 Assessment and Plan - Assessment and Plan (Free Text) Plan: Infectious diseases Attending Physician Attestation Patient seen and examined, discussed with medical associate. I have reviewed the patient's history of present illness, past medical, social, personal and family histories, pertinent physical exam findings, course so far in this hospital admission, pertinent laboratory and imaging results. I agree with the above findings, assessment and plan. In addition, patient with leg wounds without obvious evidence of infection - continue to observe and follow up further mika mmendations of Podiatry. Continue PO Doxycycline for acute bronchitis.
--- NOTE | 2018-09-13 12:33 | CP.PCM.CON ---
History of Present Illness - History of Present Illness History of Present Illness: 58 year old male patient with Hx morbid obesity, leg cellulitis, and chronic lymphedema, who was admitted for persistnet shorntess of breath COPD exacerbation. He was found to have new onset atrial fibrillation and was admitted to the ICU. Hematology consulted for micricytic anemia. At this time patient denies any blood in the stool, urine, hemoptysis, nose bleeds, bruising. He states he has never had a colonoscopy or an endoscopy. He was told in the past that he was anemic but was never worked up further. Patient denies any family history of blood disorders or malignancy. He has no fevers, chills, night sweats, appetite changes or weight loss. At this time he is being moved from the ICU to a regular floor. PMhx: morbid obesity, leg cellulitis, and chronic lymphedema PSurgHx: surgery for R ankle fracture in 2005, I+D of RLE for cellulitis in 2016 Allergies: NKDA Home meds: none Fam hx: noncontributory Soc hx: denies smoking, EtOH or illicit drug use Review of Systems - Review of Systems All systems: reviewed and no additional remarkable complaints except - Constitutional Constitutional: Sleep Apnea. absent: Chills, Fatigue, Fever, Frequent Falls, Headache - EENT Eyes: absent: Blind Spots, Diplopia, Irritation, Sees Flashes Nose/Mouth/Throat: absent: Epistaxis, Nasal Congestion, Nasal Discharge, Sinus Pain, Sore Throat - Cardiovascular Cardiovascular: Dyspnea, Irregular Heart Rhythm. absent: Chest Pain, Chest Pain at Rest - Respiratory Respiratory: Dyspnea on Exertion. absent: Cough, Dyspnea, Hemoptysis, Wheezing - Gastrointestinal Gastrointestinal: absent: Abdominal Pain, Bloating, Change in Bowel Habits, Change in Stool Character, Early Satiety, Excessive Flatus - Genitourinary Genitourinary: absent: Change in Urinary Stream, Difficulty Urinating, Pyuria, Nocturia, Urinary Incontinence, Voiding Freq/Small Amts - Musculoskeletal Musculoskeletal: Back Pain, Muscle Weakness - Integumentary Integumentary: Wounds - Neurological Neurological: As Per HPI. absent: Abnormal Gait - Endocrine Endocrine: As Per HPI Past Patient History - Past Social History Smoking Status: Never Smoked - CARDIAC Hx Cardiac Disorders: Yes Hx Hypertension: Yes - PULMONARY Hx Respiratory Disorders: No - NEUROLOGICAL Hx Neurological Disorder: No - HEENT Hx HEENT Problems: No - RENAL Hx Chronic Kidney Disease: No - ENDOCRINE/METABOLIC Hx Endocrine Disorders: No - HEMATOLOGICAL/ONCOLOGICAL Hx Blood Transfusions: Yes Hx Blood Transfusion Reaction: No - INTEGUMENTARY Hx Dermatological Problems: No Other/Comment: BILATERAL LYMPEDEMA WITH 2 LARGE OPENING ONE IS TO RIGHT LOWER LATERAL SIDE OF RIGHT LEG AND 2ND TO BACKSIDE OF THIGH.DRAINING COPIOUS SEROUSANGUINEOUS DRAINAGE, - MUSCULOSKELETAL/RHEUMATOLOGICAL Hx Musculoskeletal Disorders: Yes - GASTROINTESTINAL Hx Gastrointestinal Disorders: No - GENITOURINARY/GYNECOLOGICAL Hx Genitourinary Disorders: No - PSYCHIATRIC Hx Psychophysiologic Disorder: No Hx Substance Use: No - SURGICAL HISTORY Hx Orthopedic Surgery: Yes (right ankle) - ANESTHESIA Hx Anesthesia Reactions: No Hx Malignant Hyperthermia: No Meds Allergies/Adverse Reactions: Allergies Allergy/AdvReac Type Severity Reaction Status Date / Time No Known Allergies Allergy Verified 10/23/15 19:49 - Medications Medications: Current Medications Acetaminophen (Tylenol 325mg Tab) 650 mg PO Q6 PRN PRN Reason: TEMP>=99.5F Last Admin: 09/12/18 02:33 Dose: 650 mg Acetaminophen (Tylenol 650 Mg Supp) 650 mg RC Q6H PRN PRN Reason: TEMP>=99.5F Albuterol/Ipratropium (Duoneb 3 Mg/0.5 Mg (3 Ml) Ud) 3 ml IH [id number] Last Admin: 09/13/18 07:11 Dose: 3 ml Atorvastatin Calcium (Lipitor) 40 mg PO DIN [facility] Last Admin: 09/12/18 17:37 Dose: 40 mg Docusate Sodium (Colace) 100 mg PO TID [facility] Last Admin: 09/13/18 09:50 Dose: 100 mg Ergocalciferol (Drisdol 50,000 Intl Units Cap) 1 cap PO Q7D [facility] Last Admin: 09/13/18 09:51 Dose: 1 cap Furosemide (Lasix) 40 mg IVP Q8H [facility] Last Admin: 09/13/18 06:40 Dose: 40 mg Doxycycline Hyclate 100 mg/ (Sodium Chloride) 100 mls @ 100 mls/hr IVPB Q12 [facility]; Protocol Last Admin: 09/13/18 09:52 Dose: 100 mls/hr Heparin Sodium/Sodium Chloride (Heparin 17606 Units/250ml 1/2 Normal Saline) 25,000 units in 250 mls @ 20.02 mls/hr IV .[id number] PRN; Protocol PRN Reason: ADJUST RATE PER PROTOCOL Last Titration: 09/13/18 09:46 Dose: 10.25 units/kg/hr, 24.874 mls/hr Iron Sucrose 200 mg/ Sodium (Chloride) 110 mls @ 110 mls/hr IVPB DAILY [facility] Stop: 09/17/18 10:59 Methylprednisolone (Solu-Medrol) 20 mg IVP Q8H [facility] Last Admin: 09/13/18 06:41 Dose: 20 mg Metoprolol Tartrate (Lopressor) 25 mg PO BID [facility] Last Admin: 09/13/18 09:51 Dose: 25 mg Mupirocin (Bactroban Ointment) 0 gm TOP BID [facility] Ondansetron HCl (Zofran Inj) 4 mg IVP Q4H PRN PRN Reason: Nausea/Vomiting Pantoprazole Sodium (Protonix Ec Tab) 40 mg PO 0600 [facility] Last Admin: 09/13/18 06:41 Dose: 40 mg Silver Sulfadiazine (Silvadene 1% 25 Gm) 0 gm TP BID [facility] Physical Exam - Constitutional Appears: Well, No Acute Distress - Head Exam Head Exam: ATRAUMATIC, NORMAL INSPECTION, NORMOCEPHALIC - Eye Exam Eye Exam: EOMI, Normal appearance, PERRL Pupil Exam: NORMAL ACCOMODATION - ENT Exam ENT Exam: Mucous Membranes Moist, Normal Exam - Neck Exam Neck exam: Positive for: Full Rom, Normal Inspection. Negative for: Lymphadenopathy - Respiratory Exam Respiratory Exam: Clear to Auscultation Bilateral, NORMAL BREATHING PATTERN - Cardiovascular Exam Cardiovascular Exam: +S1, +S2 - GI/Abdominal Exam GI & Abdominal Exam: Normal Bowel Sounds, Soft - Rectal Exam Rectal Exam: Deferred - Neurological Exam Neurological exam: Alert, CN II-XII Intact, Oriented x3 - Psychiatric Exam Psychiatric exam: Normal Affect - Additional Findings Additional findings: patient has bilateral leg wounds which are wrapped in RACHEL bandage. Results - Vital Signs Recent Vital Signs: Last Vital Signs Temp 98.8 F 09/13/18 04:00 Pulse 102 H 09/13/18 09:51 Resp 18 09/13/18 07:15 BP 151/77 H 09/13/18 09:51 Pulse Ox 91 L 09/13/18 08:01 - Labs Result Diagrams: 09/13/18 06:10 09/13/18 06:10 Labs: Laboratory Results - last 24 hr 09/11/18 09/13/18 09/13/18 10:10 05:00 06:10 WBC 6.5 D RBC 4.33 Hgb 8.3 L Hct 32.6 L MCV 75.3 L MCH 19.2 L MCHC 25.5 L RDW 20.5 H Plt Count 236 MPV 9.3 Neut % (Auto) 87.7 H Lymph % (Auto) 9.4 L [place] % (Auto) 2.9 Eos % (Auto) 0.0 L Baso % (Auto) 0.0 Lymph # (Auto) 0.6 L [place] # (Auto) 0.2 Eos # (Auto) 0.0 Baso # (Auto) 0.00 Absolute Neuts (auto) 5.72 APTT pCO2 68 H pO2 72.0 L HCO3 36.7 H ABG pH 7.34 L ABG Total CO2 38.8 H ABG O2 Saturation 96.4 ABG O2 Content 10.7 L ABG Base Excess 9.5 H ABG Hemoglobin 8.1 L ABG Carboxyhemoglobin 2.3 H POC ABG HHb (Measured) 3.5 ABG Methemoglobin 1.1 ABG O2 Capacity 11.1 L Hgb O2 Saturation 93.1 L FiO2 36.0 Crit Value Called To Dr jordana baxter Crit Value Called By Gene marcos Blood Gas Notified Time 524 Sodium Potassium Chloride Carbon Dioxide Anion Gap BUN Creatinine Est GFR ( Amer) Est GFR (Non-Af Amer) Random Glucose Calcium Phosphorus Magnesium Erythropoietin 303.6 H Total Bilirubin Direct Bilirubin AST ALT Alkaline Phosphatase Total Protein Albumin Globulin Albumin/Globulin Ratio 09/13/18 09/13/18 06:10 06:10 WBC RBC Hgb Hct MCV MCH MCHC RDW Plt Count MPV Neut % (Auto) Lymph % (Auto) [place] % (Auto) Eos % (Auto) Baso % (Auto) Lymph # (Auto) [place] # (Auto) Eos # (Auto) Baso # (Auto) Absolute Neuts (auto) APTT 41.0 H pCO2 pO2 HCO3 ABG pH ABG Total CO2 ABG O2 Saturation ABG O2 Content ABG Base Excess ABG Hemoglobin ABG Carboxyhemoglobin POC ABG HHb (Measured) ABG Methemoglobin ABG O2 Capacity Hgb O2 Saturation FiO2 Crit Value Called To Crit Value Called By Blood Gas Notified Time Sodium 139 Potassium 4.9 Chloride 98 Carbon Dioxide 37 H Anion Gap 8 L BUN 27 H Creatinine 1.0 Est GFR ( Amer) > 60 Est GFR (Non-Af Amer) > 60 Random Glucose 133 H Calcium 8.2 L Phosphorus 3.6 Magnesium 1.9 Erythropoietin Total Bilirubin 0.7 Direct Bilirubin 0.3 AST 48 ALT 12 Alkaline Phosphatase 35 L Total Protein 7.6 Albumin 3.4 Globulin 4.1 Albumin/Globulin Ratio 0.8 L Assessment & Plan - Assessment and Plan (Free Text) Assessment: 58 year old male patient with history of chronic leg ulcers and morbid obesity admitted for shortness of breath into the ICU noted to have hypochromic microcytic anemia. The etiology of his anemia at this time is unclear but likely related to his acute on chronic blood loss most likely via gastrointestinal tract. Plan Iron, B12, Folate, Retic, Ferritin, TIBC Will give 2 doses of venofer in the next three days GI evaluation, will need to have upper and lower endoscopic evaluation in order to rule out source of blood loss UA Would transfuse if Hb drops below 8 Will continue to follow Thank you for allowing me to partake in your patient care. Sincerely, Sidney Huerta
[2018-09-13] MEDS: Silver Sulfadiazine 1% Cream (25 gm) TP SCH ×2 (13:52→17:12)
[2018-09-13 14:43] LABS: IRON 19 ug/dL (45-180)
--- NOTE | 2018-09-13 14:47 | CP.PCM.CON ---
History of Present Illness - History of Present Illness History of Present Illness: Resident Consult Note for Surgery: Dr. Pride Patient is a 58 year old male with past medical history of morbid obesity, leg cellulitis, chronic lymphedema who presented with shortness of breath and was admitted to ICU for hypercapnic respiratory failure. Surgery was consulted for evaluation of recurrent thigh wound. Pain is described as sharp in nature, rated severity +5/10. Patient was scheduled to follow up at wound care clinic today, however due to the severity of pain in addition to shortness of breath came to the ED. Denies fevers, chills, chest pain, abdominal pain. PMH: morbid obesity, leg cellulitis, chronic lymphedema PSH: right ankle surgery, I&D of RLE SHx: denies alcohol, tobacco, illicit drug use Allergies: NKDA FHx: denies PMD: none Review of Systems - Review of Systems All systems: reviewed and no additional remarkable complaints except (as stated in HPI) Past Patient History - Past Social History Smoking Status: Never Smoked - CARDIAC Hx Cardiac Disorders: Yes Hx Hypertension: Yes - PULMONARY Hx Respiratory Disorders: No - NEUROLOGICAL Hx Neurological Disorder: No - HEENT Hx HEENT Problems: No - RENAL Hx Chronic Kidney Disease: No - ENDOCRINE/METABOLIC Hx Endocrine Disorders: No - HEMATOLOGICAL/ONCOLOGICAL Hx Blood Transfusions: Yes Hx Blood Transfusion Reaction: No - INTEGUMENTARY Hx Dermatological Problems: No Other/Comment: BILATERAL LYMPEDEMA WITH 2 LARGE OPENING ONE IS TO RIGHT LOWER LATERAL SIDE OF RIGHT LEG AND 2ND TO BACKSIDE OF THIGH.DRAINING COPIOUS SEROUSANGUINEOUS DRAINAGE, - MUSCULOSKELETAL/RHEUMATOLOGICAL Hx Musculoskeletal Disorders: Yes - GASTROINTESTINAL Hx Gastrointestinal Disorders: No - GENITOURINARY/GYNECOLOGICAL Hx Genitourinary Disorders: No - PSYCHIATRIC Hx Psychophysiologic Disorder: No Hx Substance Use: No - SURGICAL HISTORY Hx Orthopedic Surgery: Yes (right ankle) - ANESTHESIA Hx Anesthesia Reactions: No Hx Malignant Hyperthermia: No Meds Allergies/Adverse Reactions: Allergies Allergy/AdvReac Type Severity Reaction Status Date / Time No Known Allergies Allergy Verified 10/23/15 19:49 - Medications Medications: Current Medications Acetaminophen (Tylenol 325mg Tab) 650 mg PO Q6 PRN PRN Reason: TEMP>=99.5F Last Admin: 09/12/18 02:33 Dose: 650 mg Acetaminophen (Tylenol 650 Mg Supp) 650 mg RC Q6H PRN PRN Reason: TEMP>=99.5F Albuterol/Ipratropium (Duoneb 3 Mg/0.5 Mg (3 Ml) Ud) 3 ml IH [id number] [facility] Last Admin: 09/13/18 13:32 Dose: 3 ml Atorvastatin Calcium (Lipitor) 40 mg PO DIN [facility] Last Admin: 09/12/18 17:37 Dose: 40 mg Docusate Sodium (Colace) 100 mg PO TID [facility] Last Admin: 09/13/18 09:50 Dose: 100 mg Ergocalciferol (Drisdol 50,000 Intl Units Cap) 1 cap PO Q7D [facility] Last Admin: 09/13/18 09:51 Dose: 1 cap Furosemide (Lasix) 40 mg IVP Q8H [facility] Last Admin: 09/13/18 13:54 Dose: 40 mg Doxycycline Hyclate 100 mg/ (Sodium Chloride) 100 mls @ 100 mls/hr IVPB Q12 [facility]; Protocol Last Admin: 09/13/18 09:52 Dose: 100 mls/hr Heparin Sodium/Sodium Chloride (Heparin 40428 Units/250ml 1/2 Normal Saline) 25,000 units in 250 mls @ 20.02 mls/hr IV .[id number] PRN; Protocol PRN Reason: ADJUST RATE PER PROTOCOL Last Titration: 09/13/18 09:46 Dose: 10.25 units/kg/hr, 24.874 mls/hr Iron Sucrose 200 mg/ Sodium (Chloride) 110 mls @ 110 mls/hr IVPB DAILY [facility] Stop: 09/17/18 10:59 Last Admin: 09/13/18 13:59 Dose: 110 mls/hr Methylprednisolone (Solu-Medrol) 20 mg IVP Q8H [facility] Last Admin: 09/13/18 06:41 Dose: 20 mg Metoprolol Tartrate (Lopressor) 25 mg PO BID [facility] Last Admin: 09/13/18 09:51 Dose: 25 mg Mupirocin (Bactroban Ointment) 0 gm TOP BID [facility] Ondansetron HCl (Zofran Inj) 4 mg IVP Q4H PRN PRN Reason: Nausea/Vomiting Pantoprazole Sodium (Protonix Ec Tab) 40 mg PO 0600 [facility] Last Admin: 09/13/18 06:41 Dose: 40 mg Silver Sulfadiazine (Silvadene 1% 25 Gm) 0 gm TP BID [facility] Last Admin: 09/13/18 13:52 Dose: 25 gm Physical Exam - Constitutional Appears: Non-toxic, No Acute Distress - Head Exam Head Exam: ATRAUMATIC, NORMOCEPHALIC - Eye Exam Eye Exam: EOMI, Normal appearance, PERRL - ENT Exam ENT Exam: Mucous Membranes Moist - Respiratory Exam Respiratory Exam: Clear to Auscultation Bilateral, NORMAL BREATHING PATTERN. absent: Accessory Muscle Use, Respiratory Distress - Cardiovascular Exam Cardiovascular Exam: Tachycardia, Irregular Rhythm, +S1, +S2 - GI/Abdominal Exam GI & Abdominal Exam: Soft. absent: Rebound, Rigid, Tenderness - Extremities Exam Additional comments: lymphedema with chronic venous stasis changes wound on left and right thigh with no drainage - Neurological Exam Neurological exam: Alert, CN II-XII Intact, Oriented x3 - Skin Skin Exam: Dry, Warm Results - Vital Signs Recent Vital Signs: Last Vital Signs Temp 98.8 F 09/13/18 04:00 Pulse 102 H 09/13/18 09:51 Resp 24 09/13/18 13:35 BP 135/60 09/13/18 13:54 Pulse Ox 94 L 09/13/18 13:35 - Labs Result Diagrams: 09/13/18 06:10 09/13/18 06:10 Labs: Laboratory Results - last 24 hr 09/13/18 09/13/18 09/13/18 05:00 06:10 06:10 WBC 6.5 D RBC 4.33 Hgb 8.3 L Hct 32.6 L MCV 75.3 L MCH 19.2 L MCHC 25.5 L RDW 20.5 H Plt Count 236 MPV 9.3 Neut % (Auto) 87.7 H Lymph % (Auto) 9.4 L [place] % (Auto) 2.9 Eos % (Auto) 0.0 L Baso % (Auto) 0.0 Lymph # (Auto) 0.6 L [place] # (Auto) 0.2 Eos # (Auto) 0.0 Baso # (Auto) 0.00 Absolute Neuts (auto) 5.72 APTT pCO2 68 H pO2 72.0 L HCO3 36.7 H ABG pH 7.34 L ABG Total CO2 38.8 H ABG O2 Saturation 96.4 ABG O2 Content 10.7 L ABG Base Excess 9.5 H ABG Hemoglobin 8.1 L ABG Carboxyhemoglobin 2.3 H POC ABG HHb (Measured) 3.5 ABG Methemoglobin 1.1 ABG O2 Capacity 11.1 L Hgb O2 Saturation 93.1 L FiO2 36.0 Crit Value Called To Dr jordana baxter Crit Value Called By Gene marcos Blood Gas Notified Time 524 Sodium 139 Potassium 4.9 Chloride 98 Carbon Dioxide 37 H Anion Gap 8 L BUN 27 H Creatinine 1.0 Est GFR ( Amer) > 60 Est GFR (Non-Af Amer) > 60 Random Glucose 133 H Calcium 8.2 L Phosphorus 3.6 Magnesium 1.9 Total Bilirubin 0.7 Direct Bilirubin 0.3 AST 48 ALT 12 Alkaline Phosphatase 35 L Total Protein 7.6 Albumin 3.4 Globulin 4.1 Albumin/Globulin Ratio 0.8 L 09/13/18 06:10 WBC RBC Hgb Hct MCV MCH MCHC RDW Plt Count MPV Neut % (Auto) Lymph % (Auto) [place] % (Auto) Eos % (Auto) Baso % (Auto) Lymph # (Auto) [place] # (Auto) Eos # (Auto) Baso # (Auto) Absolute Neuts (auto) APTT 41.0 H pCO2 pO2 HCO3 ABG pH ABG Total CO2 ABG O2 Saturation ABG O2 Content ABG Base Excess ABG Hemoglobin ABG Carboxyhemoglobin POC ABG HHb (Measured) ABG Methemoglobin ABG O2 Capacity Hgb O2 Saturation FiO2 Crit Value Called To Crit Value Called By Blood Gas Notified Time Sodium Potassium Chloride Carbon Dioxide Anion Gap BUN Creatinine Est GFR ( Amer) Est GFR (Non-Af Amer) Random Glucose Calcium Phosphorus Magnesium Total Bilirubin Direct Bilirubin AST ALT Alkaline Phosphatase Total Protein Albumin Globulin Albumin/Globulin Ratio Assessment & Plan - Assessment and Plan (Free Text) Assessment: 58 year old male with past medical history of morbid obesity, leg cellulitis, and chronic lymphedema, who presents to the ED with shortness of breath, now admitted to ICU for management of hypercapnic respiratory failure, also found to have bilateral lower extremity wounds. Plan: - no surgical intervention indicated at this time - silvadene topical BID, optifoam - air mattress - Tylenol for pain - PT - further management per ICU team - further recommendations per Dr. Bigg Rodriguez PGY-1 - Date & Time Date: 09/13/18 Time: 11:30
[2018-09-13 14:52] LABS: % IRON SATURATION 6 % (20-55); TOTAL IRON BINDING CAPACITY 296 ug/dL (261-462)
--- NOTE | 2018-09-13 17:28 | PN ---
DATE: 09/13/[address] Jean Claude Lacy. SUBJECTIVE: The patient denies any chest pain. His breathing is comfortable on nasal O2. He is experiencing productive cough. PHYSICAL EXAMINATION VITAL SIGNS: Blood pressure 151/77, heart rate 102, and respirations 18. The patient is afebrile. HEENT: Pale conjunctivae. CHEST: Absent breath sounds over the bases. HEART: S1 and S2, regular. ABDOMEN: Soft. EXTREMITIES: 2+ pitting edema. LABORATORY DATA: Today's hemoglobin and hematocrit 8.3 and 32.6, white count and platelet count are within normal limits. SMA-7: Sodium 139, potassium 4.9, chloride 98, CO2 of 37, glucose 133, BUN 27, creatinine 1.0. Today's PTT is 41.0. Admitting EKG revealed atrial fibrillation with rapid ventricular response at least 110 with poor R-wave progression, PVCs versus . Echocardiographic study revealed moderate concentric LVH with normal ejection fraction, moderate to severe aortic insufficiency with moderate dilated aortic root. Venous Doppler lower extremity, no evidence of DVT. Ventilation-perfusion scan, low probability for pulmonary embolism. Chest x-rays revealed cardiomegaly with moderate CHF. ASSESSMENT 1. New onset atrial fibrillation. 2. Moderate to severe aortic insufficiency. 3. Morbid obesity and sleep apnea. 4. Anemia. 5. Mild pulmonary hypertension. PLAN: Continue intravenous heparin and a therapeutic regimen for atrial fibrillation. Continue IV doxycycline 100 mg every 12 hours. Continue iron sucrose infusion. Continue intravenous Lasix at 20 mg , Lipitor 20 mg once a day, Lopressor 25 mg twice a day, Solu-Medrol 20 mg every 8 hours. Following the patient's recovery, cardiac catheterization will be considered with the patient for aortic valve procedure or replacement in a concomitant coronary artery disease. Duane Tsai MD
[2018-09-13 20:34] LABS: FERRITIN 21.9 ng/mL
[2018-09-13 21:04] LABS: FOLATE 6.2 ng/mL
[2018-09-14] MEDS: Albuterol-Ipratrop 3 mg / 0.5 (3 ml) UD IH SCH ×4 (02:42→20:50)
[2018-09-14] MEDS: MethylPREDNISolone 40 mg Vial IVP SCH ×3 (05:30→21:45)
[2018-09-14] MEDS: Pantoprazole 40 mg EC Tab PO SCH (05:31)
[2018-09-14 07:17] LABS: HEMOGLOBIN 8.9 g/dL (14.0-18.0); LYMPH % 14.7 % (22.0-35.0); MEAN CELL VOLUME 75.5 fl (80.0-105.0); MEAN CORPUSCULAR HEMOGLOBIN 19.3 pg (25.0-35.0); MEAN CORPUSCULAR HGB CONC 25.5 g/dl (31.0-37.0); MEAN PLATELET VOLUME 9.4 fl (7.0-11.0); MONO # 0.6 (0.1-0.6); MONO % 8.7 % (1.0-6.0); RBC 4.62 10^6/uL (3.5-6.1); RED CELL DISTRIBUTION WIDTH 20.5 % (11.5-14.5); WHITE BLOOD COUNT 6.7 10^3/uL (4.5-11.0)
[2018-09-14 07:34] LABS: ALB/GLOB RATIO 0.8 (1.1-1.8); ALBUMIN 3.6 g/dL (3.0-4.8); ALT/SGPT 10 U/L (7-56); AST/SGOT 39 U/L (17-59); BILIRUBIN,DIRECT 0.3 mg/dL (0.0-0.4); BLOOD UREA NITROGEN 24 mg/dL (7-21); CALCIUM 8.3 mg/dL (8.4-10.5); GFR NON-AFRICAN AMERICAN > 60
[2018-09-14] MEDS: Mupirocin 2% Ointment 15 GM TUBE TOP SCH (09:41)
[2018-09-14] MEDS: Silver Sulfadiazine 1% Cream (25 gm) TP SCH ×2 (09:41→18:03)
--- NOTE | 2018-09-14 11:06 | CP.PCM.PN ---
<Vincent Taveras - Last Filed: 09/14/18 13:17> Subjective - Date & Time of Evaluation Date of Evaluation: 09/14/18 Time of Evaluation: 07:00 - Subjective Subjective: ID Progress Note Patient seen and examined. Patient admits to improvement in breathing, with minimal cough. No fevers. Objective - Vital Signs/Intake and Output Vital Signs (last 24 hours): Temp Pulse Resp BP Pulse Ox 97 F L 72 20 157/72 H 94 L 09/14/18 08:00 09/14/18 09:42 09/14/18 08:00 09/14/18 09:42 09/14/18 08:00 Intake and Output: 09/14/18 09/14/18 06:59 18:59 Intake Total 240 Balance 240 - Medications Medications: Current Medications Acetaminophen (Tylenol 325mg Tab) 650 mg PO Q6 PRN PRN Reason: TEMP>=99.5F Last Admin: 09/12/18 02:33 Dose: 650 mg Acetaminophen (Tylenol 650 Mg Supp) 650 mg RC Q6H PRN PRN Reason: TEMP>=99.5F Albuterol/Ipratropium (Duoneb 3 Mg/0.5 Mg (3 Ml) Ud) 3 ml IH [id number] [facility] Last Admin: 09/14/18 07:24 Dose: 3 ml Atorvastatin Calcium (Lipitor) 40 mg PO DIN [facility] Last Admin: 09/13/18 17:09 Dose: 40 mg Docusate Sodium (Colace) 100 mg PO TID [facility] Last Admin: 09/14/18 09:41 Dose: 100 mg Ergocalciferol (Drisdol 50,000 Intl Units Cap) 1 cap PO Q7D [facility] Last Admin: 09/13/18 09:51 Dose: 1 cap Furosemide (Lasix) 40 mg IVP Q8H [facility] Last Admin: 09/14/18 05:31 Dose: 40 mg Doxycycline Hyclate 100 mg/ (Sodium Chloride) 100 mls @ 100 mls/hr IVPB Q12 [facility]; Protocol Last Admin: 09/13/18 21:33 Dose: 100 mls/hr Heparin Sodium/Sodium Chloride (Heparin 94453 Units/250ml 1/2 Normal Saline) 25,000 units in 250 mls @ 20.02 mls/hr IV .[id number] PRN; Protocol PRN Reason: ADJUST RATE PER PROTOCOL Last Admin: 09/13/18 21:23 Dose: 7.25 units/kg/hr, 17.594 mls/hr Iron Sucrose 200 mg/ Sodium (Chloride) 110 mls @ 110 mls/hr IVPB DAILY [facility] Stop: 09/17/18 10:59 Last Admin: 09/13/18 13:59 Dose: 110 mls/hr Methylprednisolone (Solu-Medrol) 20 mg IVP Q8H [facility] Last Admin: 09/14/18 05:30 Dose: 20 mg Metoprolol Tartrate (Lopressor) 25 mg PO BID [facility] Last Admin: 09/14/18 09:42 Dose: 25 mg Mupirocin (Bactroban Ointment) 0 gm TOP DAILY [facility] Last Admin: 09/14/18 09:41 Dose: 1 applic Ondansetron HCl (Zofran Inj) 4 mg IVP Q4H PRN PRN Reason: Nausea/Vomiting Pantoprazole Sodium (Protonix Ec Tab) 40 mg PO 0600 [facility] Last Admin: 09/14/18 05:31 Dose: 40 mg Silver Sulfadiazine (Silvadene 1% 25 Gm) 0 gm TP BID [facility] Last Admin: 09/14/18 09:41 Dose: 25 gm - Labs Labs: 09/14/18 05:50 09/14/18 05:50 PT 18.5 SECONDS (9.4-12.5) H 09/11/18 03:10 INR 1.67 09/11/18 03:10 APTT 61.9 Seconds (26.9-38.3) H 09/14/18 05:50 - Constitutional Appears: Non-toxic, No Acute Distress - Head Exam Head Exam: ATRAUMATIC, NORMAL INSPECTION, NORMOCEPHALIC - ENT Exam ENT Exam: Mucous Membranes Dry - Respiratory Exam Respiratory Exam: Decreased Breath Sounds, NORMAL BREATHING PATTERN - Cardiovascular Exam Cardiovascular Exam: RRR, +S1, +S2 - GI/Abdominal Exam GI & Abdominal Exam: Soft, Normal Bowel Sounds. absent: Tenderness - Extremities Exam Additional comments: B/l lower legs bandaged. No erythema. Edema +1 b/l - Neurological Exam Neurological Exam: Alert, Awake, Oriented x3 - Psychiatric Exam Psychiatric exam: Normal Affect, Normal Mood - Skin Skin Exam: Intact, Warm Additional comments: Chronic lymphadema skin changes of lower extremities Assessment and Plan - Assessment and Plan (Free Text) Plan: Acute Bronchitis A-fib Hx of chronic lympedema Hx of HTN Hx of morbid obesity Hx of lower extremity cellulitis with Actinobacter baumanii Plan No evidence of lower extremity infection Continue Doxycycline for acute bronchitis Blood cultures negative Continue to monitor closely Darcy, PGY-3 <Braden Mendoza S - Last Filed: 09/14/18 14:15> Objective - Vital Signs/Intake and Output Vital Signs (last 24 hours): Temp Pulse Resp BP Pulse Ox 97 F L 90 20 157/72 H 94 L 09/14/18 08:00 09/14/18 10:00 09/14/18 08:00 09/14/18 09:42 09/14/18 08:00 Intake and Output: 09/14/18 09/14/18 06:59 18:59 Intake Total 240 250 Balance 240 250 - Medications Medications: Current Medications Acetaminophen (Tylenol 325mg Tab) 650 mg PO Q6 PRN PRN Reason: TEMP>=99.5F Last Admin: 09/12/18 02:33 Dose: 650 mg Acetaminophen (Tylenol 650 Mg Supp) 650 mg RC Q6H PRN PRN Reason: TEMP>=99.5F Albuterol/Ipratropium (Duoneb 3 Mg/0.5 Mg (3 Ml) Ud) 3 ml IH [id number] [facility] Last Admin: 09/14/18 13:16 Dose: 3 ml Atorvastatin Calcium (Lipitor) 40 mg PO DIN [facility] Last Admin: 09/13/18 17:09 Dose: 40 mg Docusate Sodium (Colace) 100 mg PO TID [facility] Last Admin: 09/14/18 09:41 Dose: 100 mg Ergocalciferol (Drisdol 50,000 Intl Units Cap) 1 cap PO Q7D [facility] Last Admin: 09/13/18 09:51 Dose: 1 cap Furosemide (Lasix) 40 mg IVP Q8H [facility] Last Admin: 09/14/18 05:31 Dose: 40 mg Doxycycline Hyclate 100 mg/ (Sodium Chloride) 100 mls @ 100 mls/hr IVPB Q12 [facility]; Protocol Last Admin: 09/14/18 11:00 Dose: 100 mls/hr Heparin Sodium/Sodium Chloride (Heparin 61635 Units/250ml 1/2 Normal Saline) 25,000 units in 250 mls @ 20.02 mls/hr IV .[id number] PRN; Protocol PRN Reason: ADJUST RATE PER PROTOCOL Last Admin: 09/14/18 14:05 Dose: 7.25 units/kg/hr, 17.594 mls/hr Iron Sucrose 200 mg/ Sodium (Chloride) 110 mls @ 110 mls/hr IVPB DAILY [facility] Stop: 09/17/18 10:59 Last Admin: 09/14/18 11:00 Dose: 110 mls/hr Methylprednisolone (Solu-Medrol) 20 mg IVP Q8H [facility] Last Admin: 09/14/18 05:30 Dose: 20 mg Metoprolol Tartrate (Lopressor) 25 mg PO BID [facility] Last Admin: 09/14/18 09:42 Dose: 25 mg Mupirocin (Bactroban Ointment) 0 gm TOP DAILY [facility] Last Admin: 09/14/18 09:41 Dose: 1 applic Ondansetron HCl (Zofran Inj) 4 mg IVP Q4H PRN PRN Reason: Nausea/Vomiting Pantoprazole Sodium (Protonix Ec Tab) 40 mg PO 0600 [facility] Last Admin: 09/14/18 05:31 Dose: 40 mg Silver Sulfadiazine (Silvadene 1% 25 Gm) 0 gm TP BID [facility] Last Admin: 09/14/18 09:41 Dose: 25 gm - Labs Labs: 09/14/18 05:50 09/14/18 05:50 PT 18.5 SECONDS (9.4-12.5) H 09/11/18 03:10 INR 1.67 09/11/18 03:10 APTT 63.5 Seconds (26.9-38.3) H 09/14/18 12:15 Assessment and Plan - Assessment and Plan (Free Text) Plan: Infectious diseases Attending Physician Attestation Patient seen and examined, discussed with medical coordinator pesticide use. I have reviewed the patient's history of present illness, past medical, social, personal and family histories, pertinent physical exam findings, course so far in this hospital admission, pertinent laboratory and imaging results. I agree with the above findings, assessment and plan. In addition, continue PO Doxycycline for acute bronchitis to complete 3-5 days.
--- NOTE | 2018-09-14 12:34 | PN ---
DATE: 09/14/2018 I am seeing the patient for Dr. Michel today. LOCATION: The patient is in the [facility] in [place], in the Intensive Care Unit. The patient is in room 128, bed 7. SUBJECTIVE: THE PATIENT HAS NO KNOWN ALLERGIES, but he was admitted through the emergency room. The patient had presented with some respiratory distress and superficial abrasions of the skin. The patient has past history of hypertension, chronic lung disease. The patient has history of gastritis; also the patient has history of severe anemia in the past. The patient is seen this morning. He is able to converse and he wants to know what his condition is. The patient is advised that the patient is waiting for further acute care and then the patient needs subacute care in a facility. PHYSICAL EXAMINATION: GENERAL: This morning; his weight at this time goes to more than 500 pounds. His height is 6 feet 5 inches. He is a gentleman, who has morbid obesity. The patient has history of severe sleep apnea in addition. VITAL SIGNS: His vital signs as mentioned his pulse is 87, blood pressure 168/80, he has normal respiration, but he does have the BiPAP to help with his breathing. LUNGS: Breath sounds are diminished diffusely. HEART: Normal sinus rhythm. S1 and S2 present. ABDOMEN: Soft. Obesity present. CENTRAL NERVOUS SYSTEM: The patient is conscious, rational, and oriented. No focal deficits are evident. LABORATORY DATA: Blood work, his hemoglobin is 8.9 that represents the iron deficiency anemia and his platelet count 243,000. MEDICATIONS: The patient's medication list consists of mupirocin for the ulcerations. The patient gets Colace. The patient is on doxycycline 100 mg twice a day. The patient is on vitamin D 50,000 units once a week. The patient is on heparin drip for prophylaxis. The patient is on iron treatment that is Venofer. The patient gets Lasix 40 mg every 8 hours. The patient also gets Lipitor 40 mg daily, metoprolol 25 mg b.i.d. The patient gets pantoprazole 40 mg daily, Silvadene cream for skin erosions. The patient is on Solu-Medrol 20 mg IV every 8 hours at this point; the patient was on a high dose. ASSESSMENT AND PLAN: His overall condition is unstable at this time. The patient is improved and the patient is acutely treated. The patient is in the ICU. We will followup. Shira Lake MD MTDSidney
--- NOTE | 2018-09-14 13:37 | CP.PCM.PN ---
<Little Barbzoa - Last Filed: 09/14/18 13:36> Subjective - Date & Time of Evaluation Date of Evaluation: 09/14/18 Time of Evaluation: 13:36 - Subjective Subjective: Podiatry consult note for Dr. Gonzalez 58 y/o male seen and evaluated in the ICU for bilateral leg wounds. Patient alert, awake, and in much better spirits today. As per nursing, no acute overnight events. Objective - Vital Signs/Intake and Output Vital Signs (last 24 hours): Temp Pulse Resp BP Pulse Ox 97 F L 90 20 157/72 H 94 L 09/14/18 08:00 09/14/18 10:00 09/14/18 08:00 09/14/18 09:42 09/14/18 08:00 Intake and Output: 09/14/18 09/14/18 06:59 18:59 Intake Total 240 Balance 240 - Medications Medications: Current Medications Acetaminophen (Tylenol 325mg Tab) 650 mg PO Q6 PRN PRN Reason: TEMP>=99.5F Last Admin: 09/12/18 02:33 Dose: 650 mg Acetaminophen (Tylenol 650 Mg Supp) 650 mg RC Q6H PRN PRN Reason: TEMP>=99.5F Albuterol/Ipratropium (Duoneb 3 Mg/0.5 Mg (3 Ml) Ud) 3 ml IH [id number] [facility] Last Admin: 09/14/18 13:16 Dose: 3 ml Atorvastatin Calcium (Lipitor) 40 mg PO DIN [facility] Last Admin: 09/13/18 17:09 Dose: 40 mg Docusate Sodium (Colace) 100 mg PO TID [facility] Last Admin: 09/14/18 09:41 Dose: 100 mg Ergocalciferol (Drisdol 50,000 Intl Units Cap) 1 cap PO Q7D [facility] Last Admin: 09/13/18 09:51 Dose: 1 cap Furosemide (Lasix) 40 mg IVP Q8H [facility] Last Admin: 09/14/18 05:31 Dose: 40 mg Doxycycline Hyclate 100 mg/ (Sodium Chloride) 100 mls @ 100 mls/hr IVPB Q12 [facility]; Protocol Last Admin: 09/14/18 11:00 Dose: 100 mls/hr Heparin Sodium/Sodium Chloride (Heparin 12376 Units/250ml 1/2 Normal Saline) 25,000 units in 250 mls @ 20.02 mls/hr IV .[id number] PRN; Protocol PRN Reason: ADJUST RATE PER PROTOCOL Last Admin: 09/13/18 21:23 Dose: 7.25 units/kg/hr, 17.594 mls/hr Iron Sucrose 200 mg/ Sodium (Chloride) 110 mls @ 110 mls/hr IVPB DAILY [facility] Stop: 09/17/18 10:59 Last Admin: 09/14/18 11:00 Dose: 110 mls/hr Methylprednisolone (Solu-Medrol) 20 mg IVP Q8H [facility] Last Admin: 09/14/18 05:30 Dose: 20 mg Metoprolol Tartrate (Lopressor) 25 mg PO BID [facility] Last Admin: 09/14/18 09:42 Dose: 25 mg Mupirocin (Bactroban Ointment) 0 gm TOP DAILY [facility] Last Admin: 09/14/18 09:41 Dose: 1 applic Ondansetron HCl (Zofran Inj) 4 mg IVP Q4H PRN PRN Reason: Nausea/Vomiting Pantoprazole Sodium (Protonix Ec Tab) 40 mg PO 0600 [facility] Last Admin: 09/14/18 05:31 Dose: 40 mg Silver Sulfadiazine (Silvadene 1% 25 Gm) 0 gm TP BID [facility] Last Admin: 09/14/18 09:41 Dose: 25 gm - Labs Labs: 09/14/18 05:50 09/14/18 05:50 PT 18.5 SECONDS (9.4-12.5) H 09/11/18 03:10 INR 1.67 09/11/18 03:10 APTT 63.5 Seconds (26.9-38.3) H 09/14/18 12:15 - Constitutional Appears: Well, Non-toxic, No Acute Distress - Head Exam Head Exam: ATRAUMATIC, NORMOCEPHALIC - Extremities Exam Additional comments: Bilateral Lower Extremity Exam VASC: DP and PT non-palpable secondary to significant lymphedema, TG within normal limits DERM RIGHT: superficial wounds noted to the lateral aspect of the right leg and to the posterior thigh, 100% granular base, no probe to bone, no malodor, minimal drainage, no signs of infection noted LEFT: small superficial wound noted to the medial aspect of the left leg, fibro- granular base, no probe to bone, no malodor, minimal drainage, no signs of infection noted, significant lymphedema noted bilaterally, NEURO: unable to assess, patient responding to pain stimuli ORTHO: pain with movement and range of motion, pain on palpation to wounds - Neurological Exam Neurological Exam: Alert, Awake, Oriented x3 - Psychiatric Exam Psychiatric exam: Normal Affect, Normal Mood Assessment and Plan - Assessment and Plan (Free Text) Assessment: 58 y/o male patient seen with superficial wounds to bilateral lower extremity, non-infected Plan: Patient seen and evaluated with Dr. Gonzalez Plan discussed with attending Chart, labs and vitals were reviewed, afebrile, absent leukocytosis Wound cleansed with saline and dressed with bactroban, maxorb, optifoam, and RACHEL Patient stable from podiatry standpoint, no intervention required Podiatry will continue to follow <Ariel Gonzalez - Last Filed: 09/14/18 14:36> Objective - Vital Signs/Intake and Output Vital Signs (last 24 hours): Temp Pulse Resp BP Pulse Ox 97 F L 90 20 157/72 H 94 L 09/14/18 08:00 09/14/18 10:00 09/14/18 08:00 09/14/18 09:42 09/14/18 08:00 Intake and Output: 09/14/18 09/14/18 06:59 18:59 Intake Total 240 250 Balance 240 250 - Medications Medications: Current Medications Acetaminophen (Tylenol 325mg Tab) 650 mg PO Q6 PRN PRN Reason: TEMP>=99.5F Last Admin: 09/12/18 02:33 Dose: 650 mg Acetaminophen (Tylenol 650 Mg Supp) 650 mg RC Q6H PRN PRN Reason: TEMP>=99.5F Albuterol/Ipratropium (Duoneb 3 Mg/0.5 Mg (3 Ml) Ud) 3 ml IH [id number] [facility] Last Admin: 09/14/18 13:16 Dose: 3 ml Atorvastatin Calcium (Lipitor) 40 mg PO DIN [facility] Last Admin: 09/13/18 17:09 Dose: 40 mg Docusate Sodium (Colace) 100 mg PO TID [facility] Last Admin: 09/14/18 09:41 Dose: 100 mg Ergocalciferol (Drisdol 50,000 Intl Units Cap) 1 cap PO Q7D [facility] Last Admin: 09/13/18 09:51 Dose: 1 cap Furosemide (Lasix) 40 mg IVP Q8H [facility] Last Admin: 09/14/18 05:31 Dose: 40 mg Doxycycline Hyclate 100 mg/ (Sodium Chloride) 100 mls @ 100 mls/hr IVPB Q12 [facility]; Protocol Last Admin: 09/14/18 11:00 Dose: 100 mls/hr Heparin Sodium/Sodium Chloride (Heparin 47413 Units/250ml 1/2 Normal Saline) 25,000 units in 250 mls @ 20.02 mls/hr IV .[id number] PRN; Protocol PRN Reason: ADJUST RATE PER PROTOCOL Last Admin: 09/14/18 14:05 Dose: 7.25 units/kg/hr, 17.594 mls/hr Iron Sucrose 200 mg/ Sodium (Chloride) 110 mls @ 110 mls/hr IVPB DAILY [facility] Stop: 09/17/18 10:59 Last Admin: 09/14/18 11:00 Dose: 110 mls/hr Methylprednisolone (Solu-Medrol) 20 mg IVP Q8H [facility] Last Admin: 09/14/18 05:30 Dose: 20 mg Metoprolol Tartrate (Lopressor) 25 mg PO BID [facility] Last Admin: 09/14/18 09:42 Dose: 25 mg Mupirocin (Bactroban Ointment) 0 gm TOP DAILY [facility] Last Admin: 09/14/18 09:41 Dose: 1 applic Ondansetron HCl (Zofran Inj) 4 mg IVP Q4H PRN PRN Reason: Nausea/Vomiting Pantoprazole Sodium (Protonix Ec Tab) 40 mg PO 0600 [facility] Last Admin: 09/14/18 05:31 Dose: 40 mg Silver Sulfadiazine (Silvadene 1% 25 Gm) 0 gm TP BID [facility] Last Admin: 09/14/18 09:41 Dose: 25 gm - Labs Labs: 09/14/18 05:50 09/14/18 05:50 PT 18.5 SECONDS (9.4-12.5) H 09/11/18 03:10 INR 1.67 09/11/18 03:10 APTT 63.5 Seconds (26.9-38.3) H 09/14/18 12:15 Attending/Attestation - Attestation I have personally seen and examined this patient.: Yes I have fully participated in the care of the patient.: Yes I have reviewed all pertinent clinical information, including history, physical exam and plan: Yes
[2018-09-14] MEDS: Heparin25000 units/250ml 1/2NS 25,000 UNITS/250 ML BAG IV PRN (14:05)
--- NOTE | 2018-09-14 15:57 | CP.PCM.PCO ---
Physician Communication Note - Physician Communication Note Physician Communication Note: Card drip stopped,on heparin IV drip,solumed 20 iv q12,wound cx legs pendin
--- NOTE | 2018-09-14 18:06 | PN ---
DATE: 09/14/2018 SUBJECTIVE: The patient is still experiencing productive cough. He is mildly short of breath, but comfortable on nasal O2. PHYSICAL EXAMINATION: VITAL SIGNS: Blood pressure 157/72, heart rate 72, temperature 97 and respirations 20. HEENT: Mild facial edema. CHEST: Absent breath sounds over the bases. HEART: S1 and S2, regular. ABDOMEN: Soft. EXTREMITIES: Significant edema. LABORATORY DATA: Hemoglobin and hematocrit 8.9 and 34.5, white count and platelet count are within normal limits. Today's SMA-7: Sodium 139, potassium 4.8, chloride 94, CO2 of 38, glucose 111, BUN 24, creatinine 1. Today's INR 63.5. ASSESSMENT: 1. New onset atrial fibrillation. 2. Moderate to severe aortic stenosis. 3. Morbid obesity and sleep apnea. 4. Mild pulmonary hypertension. 5. Anemia. RECOMMENDATIONS: Continue intravenous doxycycline 100 mg every 12 hours, albuterol inhaler every 6 hours. Intravenous heparin and therapeutic regimen, Continue Lasix 40 mg intravenously every 8 hours, Lopressor 25 mg twice a day and start Coumadin therapy if there is no contraindication. Duane Tsai MD
[2018-09-14 19:14] LABS: ALBUMIN (PEP) 2.9 g/dL (3.8-4.8); ALPHA-1-GLOBULIN (PEP) 0.4 g/dL (0.2-0.3)
[2018-09-15] MEDS: Albuterol-Ipratrop 3 mg / 0.5 (3 ml) UD IH SCH ×4 (02:00→19:41)
[2018-09-15] MEDS: Heparin25000 units/250ml 1/2NS 25,000 UNITS/250 ML BAG IV PRN ×2 (02:57→18:01)
[2018-09-15] MEDS: MethylPREDNISolone 40 mg Vial IVP SCH ×3 (05:31→21:03)
[2018-09-15] MEDS: Pantoprazole 40 mg EC Tab PO SCH (05:31)
[2018-09-15 06:05] LABS: HEMOGLOBIN 8.7 g/dL (14.0-18.0); LYMPH # 1.2 (1.2-3.4); LYMPH % 16.3 % (22.0-35.0); MEAN CELL VOLUME 74.5 fl (80.0-105.0); MEAN CORPUSCULAR HEMOGLOBIN 19.1 pg (25.0-35.0); MEAN CORPUSCULAR HGB CONC 25.7 g/dl (31.0-37.0); MEAN PLATELET VOLUME 9.3 fl (7.0-11.0); MONO # 0.5 (0.1-0.6); MONO % 6.6 % (1.0-6.0); RBC 4.55 10^6/uL (3.5-6.1); RED CELL DISTRIBUTION WIDTH 20.7 % (11.5-14.5); WHITE BLOOD COUNT 7.3 10^3/uL (4.5-11.0)
[2018-09-15 06:37] LABS: ALB/GLOB RATIO 0.8 (1.1-1.8); ALBUMIN 3.3 g/dL (3.0-4.8); ALT/SGPT 13 U/L (7-56); AST/SGOT 40 U/L (17-59); BILIRUBIN,DIRECT 0.2 mg/dL (0.0-0.4); BLOOD UREA NITROGEN 22 mg/dL (7-21); CALCIUM 8.4 mg/dL (8.4-10.5); GFR NON-AFRICAN AMERICAN > 60
[2018-09-15] MEDS: Silver Sulfadiazine 1% Cream (25 gm) TP SCH ×2 (10:50→18:18)
[2018-09-15] MEDS: Mupirocin 2% Ointment 15 GM TUBE TOP SCH (10:53)
--- NOTE | 2018-09-15 11:32 | CP.PCM.PN ---
<Kayla Barbozabrenda - Last Filed: 09/15/18 11:29> Subjective - Date & Time of Evaluation Date of Evaluation: 09/15/18 Time of Evaluation: 11:29 - Subjective Subjective: Podiatry consult note for Dr. Gonzalez 58 y/o male seen and evaluated in the ICU for bilateral leg wounds. Patient alert, awake, states he is feeling much better. Patient also states the swelling in his legs has decreased. Patient is resting comfortably in bed, and denies any acute overnight events. Objective - Vital Signs/Intake and Output Vital Signs (last 24 hours): Temp Pulse Resp BP Pulse Ox 98 F 91 H 20 145/55 L 96 09/14/18 16:00 09/15/18 10:49 09/14/18 16:00 09/15/18 05:30 09/15/18 06:00 Intake and Output: 09/15/18 09/15/18 06:59 18:59 Intake Total 1060 Output Total 4000 Balance -2940 - Medications Medications: Current Medications Acetaminophen (Tylenol 325mg Tab) 650 mg PO Q6 PRN PRN Reason: TEMP>=99.5F Last Admin: 09/12/18 02:33 Dose: 650 mg Acetaminophen (Tylenol 650 Mg Supp) 650 mg RC Q6H PRN PRN Reason: TEMP>=99.5F Albuterol/Ipratropium (Duoneb 3 Mg/0.5 Mg (3 Ml) Ud) 3 ml IH [id number] [facility] Last Admin: 09/15/18 07:30 Dose: 3 ml Atorvastatin Calcium (Lipitor) 40 mg PO DIN [facility] Last Admin: 09/14/18 18:02 Dose: 40 mg Docusate Sodium (Colace) 100 mg PO TID [facility] Last Admin: 09/15/18 10:51 Dose: 100 mg Doxycycline Hyclate (Doryx) 100 mg PO Q12 [facility]; Protocol Stop: 09/20/18 22:01 Ergocalciferol (Drisdol 50,000 Intl Units Cap) 1 cap PO Q7D [facility] Last Admin: 09/13/18 09:51 Dose: 1 cap Furosemide (Lasix) 40 mg IVP Q8H [facility] Last Admin: 09/15/18 05:30 Dose: 40 mg Heparin Sodium/Sodium Chloride (Heparin 34571 Units/250ml 1/2 Normal Saline) 25,000 units in 250 mls @ 20.02 mls/hr IV .[id number] PRN; Protocol PRN Reason: ADJUST RATE PER PROTOCOL Last Admin: 09/15/18 02:57 Dose: 7.25 units/kg/hr, 17.594 mls/hr Iron Sucrose 200 mg/ Sodium (Chloride) 110 mls @ 110 mls/hr IVPB DAILY [facility] Stop: 09/17/18 10:59 Last Admin: 09/15/18 11:01 Dose: 110 mls/hr Methylprednisolone (Solu-Medrol) 20 mg IVP Q8H [facility] Last Admin: 09/15/18 05:31 Dose: 20 mg Metoprolol Tartrate (Lopressor) 25 mg PO BID [facility] Last Admin: 09/15/18 10:49 Dose: 25 mg Mupirocin (Bactroban Ointment) 0 gm TOP DAILY [facility] Last Admin: 09/15/18 10:53 Dose: 1 applic Ondansetron HCl (Zofran Inj) 4 mg IVP Q4H PRN PRN Reason: Nausea/Vomiting Pantoprazole Sodium (Protonix Ec Tab) 40 mg PO 0600 [facility] Last Admin: 09/15/18 05:31 Dose: 40 mg Silver Sulfadiazine (Silvadene 1% 25 Gm) 0 gm TP BID [facility] Last Admin: 09/15/18 10:50 Dose: 25 gm - Labs Labs: 09/15/18 05:00 09/15/18 05:00 PT 18.5 SECONDS (9.4-12.5) H 09/11/18 03:10 INR 1.67 09/11/18 03:10 APTT 59.6 Seconds (26.9-38.3) H 09/15/18 05:00 - Constitutional Appears: Well, Non-toxic, No Acute Distress - Head Exam Head Exam: ATRAUMATIC, NORMOCEPHALIC - Extremities Exam Additional comments: Bilateral Lower Extremity Exam VASC: DP and PT non-palpable secondary to significant lymphedema, TG within normal limits DERM RIGHT: superficial wounds noted to the lateral aspect of the right leg and to the posterior thigh, 100% granular base, no probe to bone, no malodor, moderate drainage, no signs of infection noted LEFT: small superficial wound noted to the medial aspect of the left leg, 100% granular base, no probe to bone, no malodor, no drainage, no signs of infection noted, significant lymphedema noted bilaterally, however it is improving NEURO: grossly intact now ORTHO: pain with movement and range of motion, minimal pain on palpation to wounds - Neurological Exam Neurological Exam: Alert, Awake, Oriented x3 - Psychiatric Exam Psychiatric exam: Normal Affect, Normal Mood Assessment and Plan - Assessment and Plan (Free Text) Assessment: 58 y/o male patient seen with superficial wounds to bilateral lower extremity, non-infected Plan: Patient seen and evaluated with Dr. Gonzalez Plan discussed with attending Chart, labs and vitals were reviewed, afebrile, absent leukocytosis Wound cleansed with saline and dressed with bactroban, maxorb, optifoam, and RACHEL Patient stable from podiatry standpoint, no intervention required Podiatry will continue to follow <Ariel Gonzalez - Last Filed: 09/17/18 09:28> Objective - Vital Signs/Intake and Output Vital Signs (last 24 hours): Temp Pulse Resp BP Pulse Ox 98.5 F 98 H 22 156/75 H 96 09/17/18 06:00 09/17/18 06:00 09/17/18 06:00 09/17/18 06:00 09/17/18 06:00 Intake and Output: 09/17/18 09/17/18 06:59 18:59 Intake Total 1550 Output Total 8200 Balance -6650 - Medications Medications: Current Medications Acetaminophen (Tylenol 325mg Tab) 650 mg PO Q6 PRN PRN Reason: TEMP>=99.5F Last Admin: 09/12/18 02:33 Dose: 650 mg Acetaminophen (Tylenol 650 Mg Supp) 650 mg RC Q6H PRN PRN Reason: TEMP>=99.5F Albuterol/Ipratropium (Duoneb 3 Mg/0.5 Mg (3 Ml) Ud) 3 ml IH [id number] [facility] Last Admin: 09/17/18 07:48 Dose: 3 ml Atorvastatin Calcium (Lipitor) 40 mg PO DIN [facility] Last Admin: 09/16/18 18:38 Dose: 40 mg Betamethasone/Clotrimazole (Lotrisone) 0 gm TOP BID [facility] Last Admin: 09/16/18 18:39 Dose: 1 mg Docusate Sodium (Colace) 100 mg PO TID [facility] Last Admin: 09/16/18 18:34 Dose: Not Given Doxycycline Hyclate (Doryx) 100 mg PO Q12 [facility]; Protocol Stop: 09/20/18 22:01 Last Admin: 09/16/18 22:17 Dose: 100 mg Ergocalciferol (Drisdol 50,000 Intl Units Cap) 1 cap PO Q7D [facility] Last Admin: 09/13/18 09:51 Dose: 1 cap Furosemide (Lasix) 40 mg IVP Q8H [facility] Last Admin: 09/17/18 05:29 Dose: 40 mg Heparin Sodium/Sodium Chloride (Heparin 89558 Units/250ml 1/2 Normal Saline) 25,000 units in 250 mls @ 20.02 mls/hr IV .[id number] PRN; Protocol PRN Reason: ADJUST RATE PER PROTOCOL Last Admin: 09/17/18 00:24 Dose: 7.25 units/kg/hr, 17.594 mls/hr Iron Sucrose 200 mg/ Sodium (Chloride) 110 mls @ 110 mls/hr IVPB DAILY [facility] Stop: 09/17/18 10:59 Last Admin: 09/16/18 10:43 Dose: 110 mls/hr Methylprednisolone (Solu-Medrol) 20 mg IVP Q8H [facility] Last Admin: 09/17/18 05:09 Dose: 20 mg Metoprolol Tartrate (Lopressor) 25 mg PO BID [facility] Last Admin: 09/16/18 18:37 Dose: 25 mg Mupirocin (Bactroban Ointment) 0 gm TOP DAILY [facility] Last Admin: 09/16/18 10:54 Dose: 1 applic Ondansetron HCl (Zofran Inj) 4 mg IVP Q4H PRN PRN Reason: Nausea/Vomiting Pantoprazole Sodium (Protonix Ec Tab) 40 mg PO 0600 [facility] Last Admin: 09/16/18 06:27 Dose: 40 mg Silver Sulfadiazine (Silvadene 1%) 0 ea TOP BID [facility] Last Admin: 09/16/18 18:39 Dose: 1 gm Warfarin Sodium (Coumadin) 10 mg PO 1800 [facility]; Protocol Last Admin: 09/16/18 18:37 Dose: 10 mg - Labs Labs: 09/17/18 06:10 09/17/18 06:10 PT 17.5 SECONDS (9.4-12.5) H 09/17/18 06:10 INR 1.55 09/17/18 06:10 APTT 57.1 Seconds (26.9-38.3) H 09/17/18 06:10 Attending/Attestation - Attestation I have personally seen and examined this patient.: Yes I have fully participated in the care of the patient.: Yes I have reviewed all pertinent clinical information, including history, physical exam and plan: Yes
--- NOTE | 2018-09-15 12:07 | PN ---
DATE: 09/15/2018 SUBJECTIVE: The patient is in bed in no acute distress, nontoxic. Awake and alert. States he is doing much better overall. PHYSICAL EXAMINATION: VITAL SIGNS: Temperature is 98, blood pressure is 140/50, respiratory rate of 18. HEENT: Unremarkable. NECK: Supple. LUNGS: Have decreased breath sounds. HEART: Normal S1, S2. ABDOMEN: Soft. LABORATORY EXAMINATION: Reveals a white count of 7.3, hemoglobin of 8. Chemistries reveals a BUN of 22, creatinine 0.7. Microbiology is noted and there is MRSA screen is negative. Review of orders reveals the patient to be on doxycycline IV. The patient is also on Solu-Medrol. 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 Currently on IV doxycycline by Dr. Pineda. Maybe able to switch to p.o. We will discontinue the IV doxycycline and use p.o. doxycycline, would complete a short course. Overall prognosis is poor for this patient who has super morbid obesity. Nurse practitioner, communication report is reviewed. Dr. Gonzalez's progress note is reviewed. No evidence of infection as per Dr. Gonzalez's note, description of the legs. We will follow with you. Lukas Fuchs MD
[2018-09-15 18:54] LABS: INR 1.56; PROTHROMBIN TIME 17.3 SECONDS (9.4-12.5)
[2018-09-15] MEDS: Clotrimazole/Betamethasone Cream(15 gm) TOP SCH (19:54)
--- NOTE | 2018-09-15 20:32 | PN ---
DATE: 09/15/2018 SUBJECTIVE: The patient Is experiencing dry cough. He is in atrial fibrillation with controlled heart rate. The patient was evaluated earlier by the surgeon, Dr. Segal and recommended medical management for the patient's current leg edema and the related changes. PHYSICAL EXAMINATION: VITAL SIGNS: Blood pressure 145/55, heart rate 88, temperature 98, respiration 20. HEENT: Facial edema. CHEST: Absent breath sounds over the bases. HEART: S1 and S2, regular and distant. ABDOMEN: Soft. EXTREMITIES: 2-3+ edema. LABORATORY DATA: Today's hemoglobin and hematocrit 8.7 and 32.9, white count and platelet count are within normal limits. Today's SMA-7; sodium 138, potassium 4.2, chloride 92, CO2 of 42, glucose 120, BUN 22 and creatinine 0.7. ASSESSMENT: 1. New-onset atrial fibrillation. 2. 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 3. Morbid obesity and sleep apnea. 4. Anemia. 5. Mild pulmonary hypertension. RECOMMENDATIONS: Continue current doxycycline 100 mg p.o. twice a day, albuterol inhaler, intravenous heparin and therapeutic regimen, intravenous iron sucrose, Lasix 40 mg intravenously every 8 hours, Lopressor 25 mg twice a day, Protonix 40 mg p.o. once a day, Solu-Medrol at 20 mg intravenously every 8 hours. I would administer Coumadin 3 mg orally today. Follow up INR. Duane Tsai MD
--- NOTE | 2018-09-15 21:27 | PN ---
DATE: 09/15/2018 SUBJECTIVE: The patient is seen still in ICU. The patient is seen lying in the bed 7. The patient is reading newspaper. The patient appears to be comfortable, does not appear to be any distress. The patient states that his breathing is much better since the day he arrived. The patient is awake, responsive, alert. PHYSICAL EXAMINATION GENERAL: The patient is seen lying in the bed. VITAL SIGNS: Telemetry shows atrial fibrillation, heart rate in low 100s. T max is 98.7 in the last 24 hours. Telemetry atrial fibrillation. Blood pressure in the last 24 hours, systolic blood pressure in 150, 160s, and 180s. This morning, blood pressure 145/ 55, diastolic blood pressure 80s and 90s. Respirations 20, averaging around high 20s to low 30s. O2 sat has been averaging around low 90s and under 95%. INTAKE AND OUTPUT: On 09/14/2018, intake was 1480, output 3000. On 09/15/2018, Intake 1060, output 4000. HEENT: Head is normocephalic, atraumatic. HEENT examination shows pinkish pale conjunctivae. Anicteric sclerae. No oropharyngeal lesion. NECK: No neck rigidity. Neck is short and supple. CHEST: Symmetrical. CARDIOPULMONARY: S1, S2, irregular rhythm. Positive systolic murmur at left sternal border, right second intercostal space, left second intercostal space. LUNGS: Shows decreased breath sound at the bases. ABDOMEN: Obese. No palpable hepatosplenomegaly. GENITALIA: Male. RECTAL: Deferred. EXTREMITIES: Bilateral lower extremity massive lymphedema noted. MUSCULOSKELETAL: Shows a body mass index of 72.6, daily weight 535. NEUROLOGIC: Cranial nerves II-XII limited. Neuro examination is limited. Gait examination is not tested. The patient is bedridden and lying in the bed. DIAGNOSTICS: On 09/15/2018, WBC 7.3, hemoglobin and hematocrit 8.7, 33.9, platelet 243. Granulocytes 77% segs. PTT 59.6. Sodium 138, potassium 4.3, chloride 92, CO2 42, BUN 22, creatinine 0.7, GFR greater than 60, glucose 120, calcium 8.4, phosphorus 3.8, magnesium 1.7. LFTs are normal. MRSA cultures negative. Blood transfused 1 unit. IMPRESSION: 1. New-onset atrial fibrillation. 2. Super morbid obesity with a body weight of 535 pounds and BMI of 72. 3. Massive lymphedema of the lower extremity. 4. Severe gait dysfunction and morbid obesity. 5. Bilateral lower extremity noninfected superficial wound. 6. Moderate to severe aortic stenosis. 7. Possible sleep apnea. 8. Hypertension. 9. Microcytic anemia. 10. Severe respiratory acidosis and hypercarbia and possible CO2 narcosis. 11. Mild metabolic alkalosis. 12. Mild prerenal kidney injury. 13. Iron-deficiency microcytic anemia. 14. Hypoalbuminemia. 15. Hypovitaminosis D. 16. Possible congestive heart failure with elevated proBNP. 17. Chronic inflammatory reaction. 18. Status post packed red blood cell transfusion x1. 19. Left ventricular ejection fraction of 56%. 20. Concentric left ventricular hypertrophy. 21. Moderately dilated left atrium. 22. Derufhar-dd-hmulss aortic regurgitation. 23. Mild mitral regurgitation. 24. Mild tricuspid regurgitation. 25. Mild pulmonic regurgitation. 26. Ljbvjgrp-lq-ytbksp aortic regurgitation, not aortic stenosis. 27. Moderately dilated aortic root. 28. Moderately dilated left atrium. 29. Gait dysfunction. 30. Bilateral lower extremity chronic lymphedema. 31. Bilateral lower extremity superficial wound and venous stasis dermatitis and ulceration. PLAN: At this time, the patient has been awaiting telemetry bed. The patient has been ordered serial labs. The patient has been ordered continuation of aggressive medical management, diuretic continuation, repeat labs ordered on a regular basis on a daily basis. CURRENT CONSULTATION: Gastroenterology Surgery, Hematology/Oncology, Infectious Disease, Cardiology, Podiatry. CURRENT MEDICATIONS: Bactroban cream, Colace 100 three times a day. The patient is started on Coumadin 10 mg daily by Cardiology, doxycycline 100 mg p.o. every 12, Drisdol 50,000 weekly, DuoNeb nebulizer treatment, heparin drip is to be continued till with Coumadin bridging, Venofer 200 mg daily x5 doses, Lasix 40 mg IV every 8, Lipitor 40 mg daily, Lopressor 25 mg twice a day, Lotrisone cream, Protonix 40 daily for GI prophylaxis, Silvadene cream to the affected area, Solu-Medrol 20 mg IV every 8, Tylenol p.o. suppository every 6 p.r.n. and Zofran 4 mg IV every 4 p.r.n. The patient is awaiting for a telemetry bed. The patient's further management will be dependent upon the patient's clinical condition, hemodynamic status and as per the patient response to therapeutic intervention, as per the patient's diagnostic test results and as per recommendation by all the physician involved in the care of the patient. Overall prognosis is guarded. The patient is seen by older adult social work specialist. The patient will be referred to physical therapist. Overall prognosis guarded to poor. The patient has been updated about his condition, diagnosis, test results and all recommendation by all the physician involved in the care of the patient in layman's language. All questions concerned answered. Dictated and electronically signed, not read. Markel Michel MD
[2018-09-16] MEDS: Albuterol-Ipratrop 3 mg / 0.5 (3 ml) UD IH SCH ×4 (02:00→20:20)
[2018-09-16 05:47] LABS: EOS % 0.1 % (1.5-5.0); HEMOGLOBIN 9.5 g/dL (14.0-18.0); LYMPH # 1.7 (1.2-3.4); LYMPH % 18.1 % (22.0-35.0); MEAN CELL VOLUME 74.8 fl (80.0-105.0); MEAN CORPUSCULAR HEMOGLOBIN 19.6 pg (25.0-35.0); MEAN CORPUSCULAR HGB CONC 26.2 g/dl (31.0-37.0); MEAN PLATELET VOLUME 9.3 fl (7.0-11.0); MONO # 0.6 (0.1-0.6); MONO % 6.5 % (1.0-6.0); RBC 4.85 10^6/uL (3.5-6.1); RED CELL DISTRIBUTION WIDTH 20.7 % (11.5-14.5); WHITE BLOOD COUNT 9.5 10^3/uL (4.5-11.0)
[2018-09-16 06:06] LABS: ALB/GLOB RATIO 0.8 (1.1-1.8); ALBUMIN 3.4 g/dL (3.0-4.8); ALT/SGPT 16 U/L (7-56); AST/SGOT 38 U/L (17-59); BILIRUBIN,DIRECT 0.3 mg/dL (0.0-0.4); BLOOD UREA NITROGEN 21 mg/dL (7-21); CALCIUM 8.6 mg/dL (8.4-10.5); GFR NON-AFRICAN AMERICAN > 60
[2018-09-16 06:10] LABS: INR 1.5; PARTIAL THROMBOPLASTIN TIME 69.1 Seconds (26.9-38.3); PROTHROMBIN TIME 16.9 SECONDS (9.4-12.5)
[2018-09-16] MEDS: MethylPREDNISolone 40 mg Vial IVP SCH ×3 (06:26→22:17)
[2018-09-16] MEDS: Pantoprazole 40 mg EC Tab PO SCH (06:27)
[2018-09-16] MEDS: Heparin25000 units/250ml 1/2NS 25,000 UNITS/250 ML BAG IV PRN (10:44)
[2018-09-16] MEDS: Mupirocin 2% Ointment 15 GM TUBE TOP SCH (10:54)
[2018-09-16] MEDS: Clotrimazole/Betamethasone Cream(15 gm) TOP SCH ×2 (10:56→18:39)
--- NOTE | 2018-09-16 12:40 | PN ---
DATE: 09/16/2018 LOCATION: The patient is in the Critical Care Unit, [facility] in [place]. SUBJECTIVE: The patient is a 58-year-old male. He is admitted to hospital for chronic bronchitis with superimposed acute bronchitis, lymphedema, atrial fibrillation, sleep apnea and hypertension. The patient is seen this morning. He seems a little bit uncomfortable, lying down in bed. PHYSICAL EXAMINATION: VITAL SIGNS: His pulse is 84 and blood pressure 122/82. The patient has atrial fibrillation by history and the patient also has long history of morbid obesity. He weighs about 500 pounds. His height is 6 feet 5 inches. LUNGS: On clinical examination, the patient's breath sounds are diminished bilaterally. He has some occasional rhonchi. HEART: Atrial fibrillation with moderate ventricular response. ABDOMEN: Soft. Liver and spleen not palpable. CENTRAL NERVOUS SYSTEM: The patient has no focal deficits. EXTREMITIES: The patient has evidence severe lymphedema of both legs and some superficial cellulitis. MEDICATIONS: The patient's medications consists of Bactroban for the skin. The patient getting Coumadin 10 mg p.o. daily for the prevention of events secondary to atrial fibrillation. The patient is on doxycycline 100 mg b.i.d. for chronic lung infection. The patient has albuterol. The patient is on heparin for prophylaxis at this time. The patient will be covered with heparin until the three days and then heparin will be discontinued. The patient will be continued on Coumadin. The patient is also getting treatment for chronic iron deficiency anemia. His prognosis is guarded. Condition seems to be clinically improving and stable. LABORATORY DATA: The patient's lab work done, hemoglobin 9.5, it has improved from 8.7 and 8.3. The patient's chemistry, the renal functions are within normal limits. The patient's alkaline phosphatase is low and the patient diet is heart healthy diet. The serum iron level is 19, which is low. The patient is given supplementary iron. ASSESSMENT AND PLAN: We will followup. Shira Lake MD PAR[facility]
--- NOTE | 2018-09-16 12:49 | CP.PCM.PN ---
<Kayla Barbozabrenda - Last Filed: 09/16/18 12:47> Subjective - Date & Time of Evaluation Date of Evaluation: 09/16/18 Time of Evaluation: 12:47 - Subjective Subjective: Podiatry consult note for Dr. Gonzalez 58 y/o male seen and evaluated in the ICU for bilateral leg wounds. Patient alert, awake, states he is feeling much better. Patient also states the swelling in his legs has decreased. Patient is resting comfortably in bed, and denies any acute overnight events. Objective - Vital Signs/Intake and Output Vital Signs (last 24 hours): Temp Pulse Resp BP Pulse Ox 97.2 F L 87 20 134/81 96 09/16/18 04:00 09/16/18 10:53 09/16/18 04:00 09/16/18 10:53 09/15/18 06:00 Intake and Output: 09/16/18 09/16/18 06:59 18:59 Intake Total 194 250 Output Total 4900 Balance -4706 250 - Medications Medications: Current Medications Acetaminophen (Tylenol 325mg Tab) 650 mg PO Q6 PRN PRN Reason: TEMP>=99.5F Last Admin: 09/12/18 02:33 Dose: 650 mg Acetaminophen (Tylenol 650 Mg Supp) 650 mg RC Q6H PRN PRN Reason: TEMP>=99.5F Albuterol/Ipratropium (Duoneb 3 Mg/0.5 Mg (3 Ml) Ud) 3 ml IH [id number] [facility] [place] Last Admin: 09/16/18 07:36 Dose: 3 ml Atorvastatin Calcium (Lipitor) 40 mg PO DIN [facility] [place] Last Admin: 09/15/18 18:13 Dose: 40 mg Betamethasone/Clotrimazole (Lotrisone) 0 gm TOP BID [facility] [place] Last Admin: 09/16/18 10:56 Dose: 1 mg Docusate Sodium (Colace) 100 mg PO TID [facility] [place] Last Admin: 09/16/18 10:54 Dose: Not Given Doxycycline Hyclate (Doryx) 100 mg PO Q12 [facility] [place]; Protocol Stop: 09/20/18 22:01 Last Admin: 09/16/18 10:53 Dose: 100 mg Ergocalciferol (Drisdol 50,000 Intl Units Cap) 1 cap PO Q7D [facility] [place] Last Admin: 09/13/18 09:51 Dose: 1 cap Furosemide (Lasix) 40 mg IVP Q8H [facility] [place] Last Admin: 09/16/18 06:27 Dose: 40 mg Heparin Sodium/Sodium Chloride (Heparin 81159 Units/250ml 1/2 Normal Saline) 25,000 units in 250 mls @ 20.02 mls/hr IV .[id number] PRN; Protocol PRN Reason: ADJUST RATE PER PROTOCOL Last Admin: 09/16/18 10:44 Dose: 7.25 units/kg/hr, 17.594 mls/hr Iron Sucrose 200 mg/ Sodium (Chloride) 110 mls @ 110 mls/hr IVPB DAILY [facility] [place] Stop: 09/17/18 10:59 Last Admin: 09/16/18 10:43 Dose: 110 mls/hr Methylprednisolone (Solu-Medrol) 20 mg IVP Q8H [facility] [place] Last Admin: 09/16/18 06:26 Dose: 20 mg Metoprolol Tartrate (Lopressor) 25 mg PO BID [facility] [place] Last Admin: 09/16/18 10:53 Dose: 25 mg Mupirocin (Bactroban Ointment) 0 gm TOP DAILY [facility] [place] Last Admin: 09/16/18 10:54 Dose: 1 applic Ondansetron HCl (Zofran Inj) 4 mg IVP Q4H PRN PRN Reason: Nausea/Vomiting Pantoprazole Sodium (Protonix Ec Tab) 40 mg PO 0600 [facility] [place] Last Admin: 09/16/18 06:27 Dose: 40 mg Silver Sulfadiazine (Silvadene 1%) 0 ea TOP BID [facility] [place] Warfarin Sodium (Coumadin) 10 mg PO 1800 [facility]; Protocol Last Admin: 09/15/18 21:03 Dose: 10 mg - Labs Labs: 09/16/18 05:00 09/16/18 05:00 PT 16.9 SECONDS (9.4-12.5) H 09/16/18 05:00 INR 1.50 09/16/18 05:00 APTT 69.1 Seconds (26.9-38.3) H 09/16/18 05:00 - Constitutional Appears: Well, Non-toxic, No Acute Distress - Head Exam Head Exam: ATRAUMATIC, NORMOCEPHALIC - Extremities Exam Additional comments: Bilateral Lower Extremity Exam VASC: DP and PT non-palpable secondary to significant lymphedema, TG within normal limits DERM RIGHT: superficial wounds noted to the lateral aspect of the right leg and to the posterior thigh, 100% granular base, no probe to bone, no malodor, minimal drainage, no signs of infection noted LEFT: small superficial wound noted to the medial aspect of the left leg, 100% granular base, no probe to bone, no malodor, no drainage, no signs of infection noted, significant lymphedema noted bilaterally, however it is improving NEURO: grossly intact now ORTHO: pain with movement and range of motion, minimal pain on palpation to wounds - Neurological Exam Neurological Exam: Alert, Awake, Oriented x3 - Psychiatric Exam Psychiatric exam: Normal Affect, Normal Mood Assessment and Plan - Assessment and Plan (Free Text) Assessment: 58 y/o male patient seen with superficial wounds to bilateral lower extremity, non-infected Plan: Patient seen and evaluated with Dr. Gonzalez Plan discussed with attending Chart, labs and vitals were reviewed, afebrile, absent leukocytosis Wound cleansed with saline and dressed with bactroban, maxorb, optifoam, and RACHEL Lotrisone cream applied to bilateral feet Patient stable from podiatry standpoint, no intervention required Podiatry will continue to follow <Ariel Gonzalez - Last Filed: 09/17/18 09:26> Objective - Vital Signs/Intake and Output Vital Signs (last 24 hours): Temp Pulse Resp BP Pulse Ox 98.5 F 98 H 22 156/75 H 96 09/17/18 06:00 09/17/18 06:00 09/17/18 06:00 09/17/18 06:00 09/17/18 06:00 Intake and Output: 09/17/18 09/17/18 06:59 18:59 Intake Total 1550 Output Total 8200 Balance -6650 - Medications Medications: Current Medications Acetaminophen (Tylenol 325mg Tab) 650 mg PO Q6 PRN PRN Reason: TEMP>=99.5F Last Admin: 09/12/18 02:33 Dose: 650 mg Acetaminophen (Tylenol 650 Mg Supp) 650 mg RC Q6H PRN PRN Reason: TEMP>=99.5F Albuterol/Ipratropium (Duoneb 3 Mg/0.5 Mg (3 Ml) Ud) 3 ml IH [id number] [facility] Last Admin: 09/17/18 07:48 Dose: 3 ml Atorvastatin Calcium (Lipitor) 40 mg PO DIN [facility] [place] Last Admin: 09/16/18 18:38 Dose: 40 mg Betamethasone/Clotrimazole (Lotrisone) 0 gm TOP BID [facility] [place] Last Admin: 09/16/18 18:39 Dose: 1 mg Docusate Sodium (Colace) 100 mg PO TID [facility] [place] Last Admin: 09/16/18 18:34 Dose: Not Given Doxycycline Hyclate (Doryx) 100 mg PO Q12 [facility] [place]; Protocol Stop: 09/20/18 22:01 Last Admin: 09/16/18 22:17 Dose: 100 mg Ergocalciferol (Drisdol 50,000 Intl Units Cap) 1 cap PO Q7D [facility] [place] Last Admin: 09/13/18 09:51 Dose: 1 cap Furosemide (Lasix) 40 mg IVP Q8H [facility] [place] Last Admin: 09/17/18 05:29 Dose: 40 mg Heparin Sodium/Sodium Chloride (Heparin 12664 Units/250ml 1/2 Normal Saline) 25,000 units in 250 mls @ 20.02 mls/hr IV .[id number] PRN; Protocol PRN Reason: ADJUST RATE PER PROTOCOL Last Admin: 09/17/18 00:24 Dose: 7.25 units/kg/hr, 17.594 mls/hr Iron Sucrose 200 mg/ Sodium (Chloride) 110 mls @ 110 mls/hr IVPB DAILY [facility] [place] Stop: 09/17/18 10:59 Last Admin: 09/16/18 10:43 Dose: 110 mls/hr Methylprednisolone (Solu-Medrol) 20 mg IVP Q8H [facility] [place] Last Admin: 09/17/18 05:09 Dose: 20 mg Metoprolol Tartrate (Lopressor) 25 mg PO BID [facility] [place] Last Admin: 09/16/18 18:37 Dose: 25 mg Mupirocin (Bactroban Ointment) 0 gm TOP DAILY [facility] [place] Last Admin: 09/16/18 10:54 Dose: 1 applic Ondansetron HCl (Zofran Inj) 4 mg IVP Q4H PRN PRN Reason: Nausea/Vomiting Pantoprazole Sodium (Protonix Ec Tab) 40 mg PO 0600 [facility] [place] Last Admin: 09/16/18 06:27 Dose: 40 mg Silver Sulfadiazine (Silvadene 1%) 0 ea TOP BID [facility] [place] Last Admin: 09/16/18 18:39 Dose: 1 gm Warfarin Sodium (Coumadin) 10 mg PO 1800 [facility]; Protocol Last Admin: 09/16/18 18:37 Dose: 10 mg - Labs Labs: 09/17/18 06:10 09/17/18 06:10 PT 17.5 SECONDS (9.4-12.5) H 09/17/18 06:10 INR 1.55 09/17/18 06:10 APTT 57.1 Seconds (26.9-38.3) H 09/17/18 06:10 Attending/Attestation - Attestation I have personally seen and examined this patient.: Yes I have fully participated in the care of the patient.: Yes I have reviewed all pertinent clinical information, including history, physical exam and plan: Yes
--- NOTE | 2018-09-16 14:23 | PN ---
DATE: 09/16/2018 CARDIOLOGY FOLLOWUP SUBJECTIVE: The patient Is experiencing dry cough. He denies any chest pain and atrial fibrillation was controlled rate. PHYSICAL EXAMINATION: VITAL SIGNS: Blood pressure 164/81, heart rate 87, temperature 97.2, respirations 20. HEENT: Pale conjunctivae. CHEST: Has some breath sounds over the basis. HEART: S1 and S2 regular. ABDOMEN: Soft. EXTREMITIES: Significant inner thigh edema. LABORATORY DATA: Today's hemoglobin and hematocrit 9.5 and 26.3, white count and platelet count are within normal limits. Today's SMA-7; sodium 139, potassium 4, chloride 89, CO2 of 43, glucose 111, BUN 21 and creatinine 0.8. ASSESSMENT: 1. Atrial fibrillation. 2. Bwupzjkb-so-ctdhae aortic insufficiency. 3. Morbid obesity and sleep apnea. 4. Anemia. 5. Mild pulmonary hypertension. RECOMMENDATIONS: Continue current doxycycline 100 mg twice a day, intravenous heparin infusion for atrial fibrillation. Continue Lasix 40 mg intravenously every 8 hours, Lipitor 40 mg once a day, Lopressor 25 mg once a day, every 8 hours. The patient will receive Coumadin 10 mg today. The patient is treated on iron sucrose infusion. The patient's most recent INR of today is 1.5. Duane Tsai MD
[2018-09-16] MEDS: Silver Sulfadiazine 1% Cream (400 gm) TOP SCH ×2 (15:26→18:39)
--- NOTE | 2018-09-16 15:36 | CP.PCM.PN ---
Subjective - Date & Time of Evaluation Date of Evaluation: 09/16/18 Time of Evaluation: 08:30 - Subjective Subjective: Comfortable in bed, breathing better, no fevers, less pain and swelling of his legs. Objective - Vital Signs/Intake and Output Vital Signs (last 24 hours): Temp Pulse Resp BP Pulse Ox 97.2 F L 84 20 122/82 96 09/16/18 04:00 09/16/18 04:00 09/16/18 04:00 09/16/18 06:27 09/15/18 06:00 - Medications Medications: Current Medications Acetaminophen (Tylenol 325mg Tab) 650 mg PO Q6 PRN PRN Reason: TEMP>=99.5F Last Admin: 09/12/18 02:33 Dose: 650 mg Acetaminophen (Tylenol 650 Mg Supp) 650 mg RC Q6H PRN PRN Reason: TEMP>=99.5F Albuterol/Ipratropium (Duoneb 3 Mg/0.5 Mg (3 Ml) Ud) 3 ml IH [id number] [facility] Last Admin: 09/15/18 19:41 Dose: 3 ml Atorvastatin Calcium (Lipitor) 40 mg PO DIN [facility] Last Admin: 09/15/18 18:13 Dose: 40 mg Betamethasone/Clotrimazole (Lotrisone) 0 gm TOP BID [facility] Last Admin: 09/15/18 19:54 Dose: 1 mg Docusate Sodium (Colace) 100 mg PO TID [facility] Last Admin: 09/15/18 18:11 Dose: Not Given Doxycycline Hyclate (Doryx) 100 mg PO Q12 [facility]; Protocol Stop: 09/20/18 22:01 Last Admin: 09/15/18 21:02 Dose: 100 mg Ergocalciferol (Drisdol 50,000 Intl Units Cap) 1 cap PO Q7D [facility] Last Admin: 09/13/18 09:51 Dose: 1 cap Furosemide (Lasix) 40 mg IVP Q8H [facility] Last Admin: 09/16/18 06:27 Dose: 40 mg Heparin Sodium/Sodium Chloride (Heparin 57611 Units/250ml 1/2 Normal Saline) 25,000 units in 250 mls @ 20.02 mls/hr IV .[id number] PRN; Protocol PRN Reason: ADJUST RATE PER PROTOCOL Last Admin: 02/09/19 18:01 Dose: 7.25 units/kg/hr, 17.594 mls/hr Iron Sucrose 200 mg/ Sodium (Chloride) 110 mls @ 110 mls/hr IVPB DAILY [facility] Stop: 09/17/18 10:59 Last Admin: 09/15/18 11:01 Dose: 110 mls/hr Methylprednisolone (Solu-Medrol) 20 mg IVP Q8H [facility] Last Admin: 09/16/18 06:26 Dose: 20 mg Metoprolol Tartrate (Lopressor) 25 mg PO BID [facility] Last Admin: 09/15/18 18:16 Dose: 25 mg Mupirocin (Bactroban Ointment) 0 gm TOP DAILY [facility] Last Admin: 09/15/18 10:53 Dose: 1 applic Ondansetron HCl (Zofran Inj) 4 mg IVP Q4H PRN PRN Reason: Nausea/Vomiting Pantoprazole Sodium (Protonix Ec Tab) 40 mg PO 0600 [facility] Last Admin: 09/16/18 06:27 Dose: 40 mg Silver Sulfadiazine (Silvadene 1% 25 Gm) 0 gm TP BID [facility] Last Admin: 09/15/18 18:18 Dose: 1 gm Warfarin Sodium (Coumadin) 10 mg PO 1800 [facility]; Protocol Last Admin: 09/15/18 21:03 Dose: 10 mg - Labs Labs: 09/16/18 05:00 09/16/18 05:00 PT 16.9 SECONDS (9.4-12.5) H 09/16/18 05:00 INR 1.50 09/16/18 05:00 APTT 69.1 Seconds (26.9-38.3) H 09/16/18 05:00 - Constitutional Appears: No Acute Distress, Chronically Ill - Head Exam Head Exam: NORMAL INSPECTION - Respiratory Exam Respiratory Exam: Decreased Breath Sounds - Cardiovascular Exam Cardiovascular Exam: +S1, +S2 - GI/Abdominal Exam GI & Abdominal Exam: Soft. absent: Tenderness - Extremities Exam Additional comments: both legs with dressings and bandages in place Assessment and Plan - Assessment and Plan (Free Text) Plan: Assessment Probable acute bronchitis chronic lower extremity lymphedema chronic atrial fibrillation HTN morbid obesity with BMI 73 Plan complete total 3-5 days of PO Doxycycline follow up further recommendations of Podiatry will monitor clinically
[2018-09-17] MEDS: Heparin25000 units/250ml 1/2NS 25,000 UNITS/250 ML BAG IV PRN ×2 (00:24→17:13)
[2018-09-17] MEDS: Albuterol-Ipratrop 3 mg / 0.5 (3 ml) UD IH SCH ×4 (01:09→19:41)
[2018-09-17] MEDS: MethylPREDNISolone 40 mg Vial IVP SCH ×3 (05:09→17:26)
[2018-09-17 06:34] LABS: EOS % 0.1 % (1.5-5.0); HEMOGLOBIN 9.6 g/dL (14.0-18.0); LYMPH % 13.4 % (22.0-35.0); MEAN CELL VOLUME 75.7 fl (80.0-105.0); MEAN CORPUSCULAR HEMOGLOBIN 19.6 pg (25.0-35.0); MEAN CORPUSCULAR HGB CONC 25.9 g/dl (31.0-37.0); MEAN PLATELET VOLUME 9.6 fl (7.0-11.0); MONO # 0.3 (0.1-0.6); MONO % 3.8 % (1.0-6.0); RBC 4.89 10^6/uL (3.5-6.1); RED CELL DISTRIBUTION WIDTH 21.4 % (11.5-14.5); WHITE BLOOD COUNT 7.7 10^3/uL (4.5-11.0)
[2018-09-17 06:35] LABS: INR 1.55; PARTIAL THROMBOPLASTIN TIME 57.1 Seconds (26.9-38.3); PROTHROMBIN TIME 17.5 SECONDS (9.4-12.5)
[2018-09-17 07:38] LABS: ALB/GLOB RATIO 0.8 (1.1-1.8); ALBUMIN 3.3 g/dL (3.0-4.8); ALT/SGPT 21 U/L (7-56); AST/SGOT 42 U/L (17-59); BILIRUBIN,DIRECT 0.2 mg/dL (0.0-0.4); BLOOD UREA NITROGEN 21 mg/dL (7-21); CALCIUM 8.8 mg/dL (8.4-10.5); GFR NON-AFRICAN AMERICAN > 60
--- NOTE | 2018-09-17 07:40 | CP.PCM.PN ---
Subjective - Date & Time of Evaluation Date of Evaluation: 09/17/18 Time of Evaluation: 07:37 - Subjective Subjective: PGY-[address] Michel S: Pt is still on brower day 6. Back thigh wounds improves, pain controlled. new loose stool x 3 but on colace TID. denies cp, sob, n/v/c, dysuria, pain Objective - Vital Signs/Intake and Output Vital Signs (last 24 hours): Temp Pulse Resp BP Pulse Ox 98.5 F 98 H 22 156/75 H 96 09/17/18 06:00 09/17/18 06:00 09/17/18 06:00 09/17/18 06:00 09/17/18 06:00 Intake and Output: 09/17/18 09/17/18 06:59 18:59 Intake Total 1550 Output Total 8200 Balance -6650 - Medications Medications: Current Medications Acetaminophen (Tylenol 325mg Tab) 650 mg PO Q6 PRN PRN Reason: TEMP>=99.5F Last Admin: 09/12/18 02:33 Dose: 650 mg Acetaminophen (Tylenol 650 Mg Supp) 650 mg RC Q6H PRN PRN Reason: TEMP>=99.5F Albuterol/Ipratropium (Duoneb 3 Mg/0.5 Mg (3 Ml) Ud) 3 ml IH [id number] [facility] Last Admin: 09/17/18 01:09 Dose: 3 ml Atorvastatin Calcium (Lipitor) 40 mg PO DIN [facility] Last Admin: 09/16/18 18:38 Dose: 40 mg Betamethasone/Clotrimazole (Lotrisone) 0 gm TOP BID [facility] Last Admin: 09/16/18 18:39 Dose: 1 mg Docusate Sodium (Colace) 100 mg PO TID [facility] Last Admin: 09/16/18 18:34 Dose: Not Given Doxycycline Hyclate (Doryx) 100 mg PO Q12 [facility]; Protocol Stop: 09/20/18 22:01 Last Admin: 09/16/18 22:17 Dose: 100 mg Ergocalciferol (Drisdol 50,000 Intl Units Cap) 1 cap PO Q7D [facility] Last Admin: 09/13/18 09:51 Dose: 1 cap Furosemide (Lasix) 40 mg IVP Q8H [facility] Last Admin: 09/17/18 05:29 Dose: 40 mg Heparin Sodium/Sodium Chloride (Heparin 14264 Units/250ml 1/2 Normal Saline) 25,000 units in 250 mls @ 20.02 mls/hr IV .[id number] PRN; Protocol PRN Reason: ADJUST RATE PER PROTOCOL Last Admin: 09/17/18 00:24 Dose: 7.25 units/kg/hr, 17.594 mls/hr Iron Sucrose 200 mg/ Sodium (Chloride) 110 mls @ 110 mls/hr IVPB DAILY [facility] Stop: 09/17/18 10:59 Last Admin: 09/16/18 10:43 Dose: 110 mls/hr Methylprednisolone (Solu-Medrol) 20 mg IVP Q8H [facility] Last Admin: 09/17/18 05:09 Dose: 20 mg Metoprolol Tartrate (Lopressor) 25 mg PO BID [facility] Last Admin: 09/16/18 18:37 Dose: 25 mg Mupirocin (Bactroban Ointment) 0 gm TOP DAILY [facility] Last Admin: 09/16/18 10:54 Dose: 1 applic Ondansetron HCl (Zofran Inj) 4 mg IVP Q4H PRN PRN Reason: Nausea/Vomiting Pantoprazole Sodium (Protonix Ec Tab) 40 mg PO 0600 [facility] Last Admin: 09/16/18 06:27 Dose: 40 mg Silver Sulfadiazine (Silvadene 1%) 0 ea TOP BID [facility] Last Admin: 09/16/18 18:39 Dose: 1 gm Warfarin Sodium (Coumadin) 10 mg PO 1800 [facility]; Protocol Last Admin: 09/16/18 18:37 Dose: 10 mg - Labs Labs: 09/17/18 06:10 09/16/18 05:00 PT 17.5 SECONDS (9.4-12.5) H 09/17/18 06:10 INR 1.55 09/17/18 06:10 APTT 57.1 Seconds (26.9-38.3) H 09/17/18 06:10 - Constitutional Appears: No Acute Distress, Other (breathing comfortable 2NC) - Head Exam Head Exam: ATRAUMATIC, NORMAL INSPECTION, NORMOCEPHALIC - Eye Exam Eye Exam: EOMI, Normal appearance, PERRL. absent: Scleral icterus Pupil Exam: NORMAL ACCOMODATION - ENT Exam ENT Exam: Mucous Membranes Moist - Neck Exam Additional comments: supple. no jvd, large neck circumference - Respiratory Exam Respiratory Exam: Decreased Breath Sounds (b/l lung bases), Clear to Ausculation Bilateral. absent: Rales, Rhonchi, Wheezes - Cardiovascular Exam Cardiovascular Exam: REGULAR RHYTHM, +S1, +S2. absent: Murmur - GI/Abdominal Exam GI & Abdominal Exam: Soft, Normal Bowel Sounds. absent: Tenderness Additional comments: obese - Back Exam Back Exam: absent: CVA tenderness (L), CVA tenderness (R), paraspinal tenderness - Neurological Exam Neurological Exam: Alert, Awake, Oriented x3 - Psychiatric Exam Psychiatric exam: Normal Affect, Normal Mood - Skin Skin Exam: Dry, Warm Additional comments: posterior tight with dressing, d/c/i. wounds with granulation tissues, no pus, no cellulitis b/l leg pressure dressings on for edema Assessment and Plan - Assessment and Plan (Free Text) Plan: Mr Degroot, 58M, PMHx morbid obesity of BMI 70s, b/l thigh cellulitis, and chronic lymphedema, admitted on 09/11/18 for SOB. He had hypercapnic respiratory distress requiring BIPAP and ICU management, downgrades, now on NC and BIPAP HS. For new onset A fib, [id number] score 2, on warfarin 10, bridging heparin gtt. For cellulitis in thighs and b/l chronic venous dermatitis, Podiatry on board. He is on Doxycycline, silverdine, mupirocin, clotrimazole/betamethazone. For COPD/SOB, he is on solumedrol 20 IV q8, duoneb q6. - taper steroid to 20 IV Q12 - by discharge, may consider add LABA/ICS For CHF, he is on lasix 40 IV q8, metoprolol 25 BID, lipitor. he is on brower, recorded [id number] urine/24 hours - discontinue brower. voiding trial; strict i.o - OOB - will get PSA For symptomatic anemia, Hb 8.3 on admission with SOB/A-fib, received 1u pRBC. He is on venofar IV, 5/5 bags today on Sunday 09/17. Loose stool, hold colace. Dispo plan: pt agreed to [facility]. Pending therapeutic INR Consult: GI = Dr Bridges Surgery = Dr Pride Heme = Dr Truong ID = Dr Fuchs Card = Dr Lacy Podiatry = Dr Brothers
[2018-09-17] MEDS: Mupirocin 2% Ointment 15 GM TUBE TOP SCH (10:08)
[2018-09-17] MEDS: Clotrimazole/Betamethasone Cream(15 gm) TOP SCH ×2 (10:09→18:00)
[2018-09-17] MEDS: Silver Sulfadiazine 1% Cream (400 gm) TOP SCH ×2 (10:09→18:30)
--- NOTE | 2018-09-17 13:29 | CP.PCM.PN ---
Subjective - Date & Time of Evaluation Date of Evaluation: 09/17/18 Time of Evaluation: 10:35 - Subjective Subjective: Not short of breath at rest, no fevers, no increased pain in the legs. Objective - Vital Signs/Intake and Output Vital Signs (last 24 hours): Temp Pulse Resp BP Pulse Ox 97.2 F L 87 20 135/70 96 09/16/18 04:00 09/16/18 10:53 09/16/18 04:00 09/16/18 15:27 09/15/18 06:00 Intake and Output: 09/16/18 09/16/18 06:59 18:59 Intake Total 194 250 Output Total 4900 Balance -4706 250 - Medications Medications: Current Medications Acetaminophen (Tylenol 325mg Tab) 650 mg PO Q6 PRN PRN Reason: TEMP>=99.5F Last Admin: 09/12/18 02:33 Dose: 650 mg Acetaminophen (Tylenol 650 Mg Supp) 650 mg RC Q6H PRN PRN Reason: TEMP>=99.5F Albuterol/Ipratropium (Duoneb 3 Mg/0.5 Mg (3 Ml) Ud) 3 ml IH [id number] [facility] Last Admin: 09/16/18 13:14 Dose: 3 ml Atorvastatin Calcium (Lipitor) 40 mg PO DIN [facility] Last Admin: 09/15/18 18:13 Dose: 40 mg Betamethasone/Clotrimazole (Lotrisone) 0 gm TOP BID [facility] Last Admin: 09/16/18 10:56 Dose: 1 mg Docusate Sodium (Colace) 100 mg PO TID [facility] Last Admin: 09/16/18 15:19 Dose: Not Given Doxycycline Hyclate (Doryx) 100 mg PO Q12 [facility]; Protocol Stop: 09/20/18 22:01 Last Admin: 09/16/18 10:53 Dose: 100 mg Ergocalciferol (Drisdol 50,000 Intl Units Cap) 1 cap PO Q7D [facility] Last Admin: 09/13/18 09:51 Dose: 1 cap Furosemide (Lasix) 40 mg IVP Q8H [facility] Last Admin: 09/16/18 15:27 Dose: 40 mg Heparin Sodium/Sodium Chloride (Heparin 26446 Units/250ml 1/2 Normal Saline) 25,000 units in 250 mls @ 20.02 mls/hr IV .[id number] PRN; Protocol PRN Reason: ADJUST RATE PER PROTOCOL Last Admin: 09/16/18 10:44 Dose: 7.25 units/kg/hr, 17.594 mls/hr Iron Sucrose 200 mg/ Sodium (Chloride) 110 mls @ 110 mls/hr IVPB DAILY [facility] Stop: 09/17/18 10:59 Last Admin: 09/16/18 10:43 Dose: 110 mls/hr Methylprednisolone (Solu-Medrol) 20 mg IVP Q8H [facility] Last Admin: 09/16/18 15:25 Dose: 20 mg Metoprolol Tartrate (Lopressor) 25 mg PO BID [facility] Last Admin: 09/16/18 10:53 Dose: 25 mg Mupirocin (Bactroban Ointment) 0 gm TOP DAILY [facility] Last Admin: 09/16/18 10:54 Dose: 1 applic Ondansetron HCl (Zofran Inj) 4 mg IVP Q4H PRN PRN Reason: Nausea/Vomiting Pantoprazole Sodium (Protonix Ec Tab) 40 mg PO 0600 [facility] Last Admin: 09/16/18 06:27 Dose: 40 mg Silver Sulfadiazine (Silvadene 1%) 0 ea TOP BID [facility] Last Admin: 09/16/18 15:26 Dose: 1 gm Warfarin Sodium (Coumadin) 10 mg PO 1800 [facility]; Protocol Last Admin: 09/15/18 21:03 Dose: 10 mg - Labs Labs: 09/16/18 05:00 09/16/18 05:00 PT 16.9 SECONDS (9.4-12.5) H 09/16/18 05:00 INR 1.50 09/16/18 05:00 APTT 69.1 Seconds (26.9-38.3) H 09/16/18 05:00 - Constitutional Appears: No Acute Distress, Chronically Ill - Head Exam Head Exam: NORMAL INSPECTION - Respiratory Exam Respiratory Exam: Decreased Breath Sounds - Cardiovascular Exam Cardiovascular Exam: +S1, +S2 - GI/Abdominal Exam GI & Abdominal Exam: Soft. absent: Tenderness - Extremities Exam Additional comments: both legs with bandages in place Assessment and Plan - Assessment and Plan (Free Text) Plan: Assessment Probable acute bronchitis chronic lower extremity lymphedema chronic atrial fibrillation HTN morbid obesity with BMI 73 Plan complete total 3-5 days of PO Doxycycline - can d/c Doxycycline today follow up further recommendations of Podiatry will continue to monitor clinically
--- NOTE | 2018-09-17 15:20 | PN ---
DATE: 09/17/2018 SUBJECTIVE: The patient is comfortable on nasal O2. He still has residual significant bilateral thigh swelling. OBJECTIVE: VITAL SIGNS: Blood pressure 138/63, heart rate 88, temperature 98.5, respiration 20. HEENT: Pale conjunctivae. CHEST: Absent breath sounds over the bases. HEART: S1 and S2 irregular and distant. ABDOMEN: Soft. EXTREMITIES: Significant bilateral thigh edema. LABORATORY DATA: Hemoglobin and hematocrit 9.6 and 37.0, white count and platelet count are within normal limits. Today's SMA-7, sodium 138, potassium 4.0, chloride 89, CO2 of 43, glucose 117, BUN 21, creatinine 0.8. ASSESSMENT: 1. Chronic atrial fibrillation at 2. Sleep apnea. 3. Consider right-sided failure. 4. Chronic venous dermatitis. 5. Anemia. RECOMMENDATIONS: Continue intravenous heparin and a therapeutic regimen. For atrial fibrillation, continue Lipitor 40 mg once a day, Lopressor 25 mg twice a day, Lasix 40 mg intravenously every 8 hours. The patient will receive Coumadin 10 mg orally today. Today's INR is 1.55. Duane Tsai MD
--- NOTE | 2018-09-17 16:00 | PN ---
DATE: 09/17/2018 SUBJECTIVE: The patient is now moved to 261, bed two. The patient has been transferred out of the ICU. The patient is in specialty bed because of his body mass index and massive obesity. Overnight nurse's notes were reviewed. The patient did not have any nausea, vomiting, diarrhea. Denies any fever or chills. Denies any hemoptysis, hematemesis, melena. PHYSICAL EXAMINATION: VITAL SIGNS: T-max 98.5. Telemetry atrial fibrillation, heart rate around 80s and 90s beat per minute, blood pressure 156/75, respirations 22, O2 sat 96%. Intake 1530, output total in the last 24 hours 8200. HEENT: Head is normocephalic, atraumatic. HEENT examination shows pinkish pale conjunctivae. Anicteric sclerae. No oropharyngeal lesion. No neck rigidity. NECK: Short and supple. CHEST: Symmetrical. LUNGS: Decreased breath sound at the bases. CARDIOVASCULAR: S1, S2, irregular rhythm. ABDOMEN: Morbidly obese. Unable to appreciate any organomegaly. GENITALIA: Male. Positive Doshi catheter. EXTREMITIES: Shows positive lymphedema of the lower extremity with some New wrap noted. MUSCULOSKELETAL: Shows a body mass index of greater than 70. VASCULAR: Could not be assessed. Gait examination is not tested. DIAGNOSTIC DATA: 09/17/2018, WBC 7.7, hemoglobin/hematocrit 9.6/37, platelet 268. Granulocytes 83% segs. PT 17.5, INR 1.55. Sodium 138, potassium 4, chloride 89, CO2 43, BUN 21, creatinine 0.8, GFR greater than 60, glucose 170, calcium 8.8, magnesium 1.8. IMPRESSION AND PLAN: 1. New-onset atrial fibrillation. 2. Congestive heart failure with elevated ProBNP. 3. Super morbid obesity with body weight of greater than 530 pounds and a body mass index of greater than 72. 4. Bilateral massive lymphedema. 5. Possible obstructive sleep apnea. 6. Hypertension. 7. Atrial fibrillation. 8. Hypertensive cardiovascular disease. 9. Normocytic iron-deficiency anemia. 10. Metabolic alkalosis. 11. Status post severe respiratory acidosis and hypercarbia. 12. Hypoxemia. 13. Acute versus acute on chronic hypercapnic respiratory failure with hypercarbia, hypercapnia, and respiratory acidosis. 14. Severe gait dysfunction. 15. Severe deconditioning. 16. Elevated erythrocyte sedimentation rate. PLAN: Plan at this time, the patient has been ordered physical therapy, occupational therapy, ambulation therapy, out of bed to chair. The patient is presently on Coumadin-heparin bridging and heparin will be discontinued when INR is around 2 to 2.5 or between 2.5 to 3 for anticoagulation, for atrial fibrillation, and also due to patient's body habitus. The patient will be continued on IV diuretics. The patient will be continued on GI prophylaxis. The patient will be continued on all medications as per the MAR of today which is reviewed. The patient will continue and start with out of bed to chair, physical therapy, ambulation therapy, gait training. Consultation, Infectious Disease, Cardiology, Podiatry, Hematology, and Gastroenterology. Plan at this time as above. The patient updated about his condition, diagnosis, treatment plan, treatment options and discharge disposition. Regarding discharge disposition, I have advised the patient to contact and work in affiliation with aids social worker case management. Markel Michel MD
--- NOTE | 2018-09-17 16:36 | CP.PCM.APN ---
Subjective - Date & Time of Evaluation Date of Evaluation: 09/17/18 Time of Evaluation: 12:25 - Subjective Subjective: Pt. seen and examined, in bed. States breathing has improved, denied chest pain, palpitations, states has 6/10 pain to lower back. Objective - Vital Signs/Intake and Output Vital Signs (last 24 hours): Temp Pulse Resp BP Pulse Ox 98.5 F 82 20 148/63 96 09/17/18 12:00 09/17/18 14:00 09/17/18 12:00 09/17/18 12:00 09/17/18 06:00 Intake and Output: 09/17/18 09/17/18 06:59 18:59 Intake Total 1550 Output Total 8200 Balance -6650 - Medications Medications: Current Medications Acetaminophen (Tylenol 325mg Tab) 650 mg PO Q6 PRN PRN Reason: TEMP>=99.5F Last Admin: 09/12/18 02:33 Dose: 650 mg Acetaminophen (Tylenol 650 Mg Supp) 650 mg RC Q6H PRN PRN Reason: TEMP>=99.5F Albuterol/Ipratropium (Duoneb 3 Mg/0.5 Mg (3 Ml) Ud) 3 ml IH [id number] [facility] Last Admin: 09/17/18 14:28 Dose: 3 ml Atorvastatin Calcium (Lipitor) 40 mg PO DIN [facility] [place] Last Admin: 09/16/18 18:38 Dose: 40 mg Betamethasone/Clotrimazole (Lotrisone) 0 gm TOP BID [facility] [place] Last Admin: 09/17/18 10:09 Dose: 1 mg Docusate Sodium (Colace) 100 mg PO TID [facility] [place] Last Admin: 09/16/18 18:34 Dose: Not Given Ergocalciferol (Drisdol 50,000 Intl Units Cap) 1 cap PO Q7D [facility] Last Admin: 09/13/18 09:51 Dose: 1 cap Furosemide (Lasix) 40 mg IVP Q8H [facility] [place] Last Admin: 09/17/18 05:29 Dose: 40 mg Heparin Sodium/Sodium Chloride (Heparin 96029 Units/250ml 1/2 Normal Saline) 25,000 units in 250 mls @ 20.02 mls/hr IV .[id number] PRN; Protocol PRN Reason: ADJUST RATE PER PROTOCOL Last Admin: 09/17/18 00:24 Dose: 7.25 units/kg/hr, 17.594 mls/hr Methylprednisolone (Solu-Medrol) 20 mg IVP BID [facility] [place] Last Admin: 09/17/18 10:06 Dose: 20 mg Metoprolol Tartrate (Lopressor) 25 mg PO BID [facility] [place] Last Admin: 09/17/18 10:05 Dose: 25 mg Mupirocin (Bactroban Ointment) 0 gm TOP DAILY [facility] [place] Last Admin: 09/17/18 10:08 Dose: 1 applic Ondansetron HCl (Zofran Inj) 4 mg IVP Q4H PRN PRN Reason: Nausea/Vomiting Pantoprazole Sodium (Protonix Ec Tab) 40 mg PO 0600 [facility] [place] Last Admin: 09/16/18 06:27 Dose: 40 mg Silver Sulfadiazine (Silvadene 1%) 0 ea TOP BID [facility] [place] Last Admin: 09/17/18 10:09 Dose: 1 gm Warfarin Sodium (Coumadin) 10 mg PO 1800 [facility] [place]; Protocol Last Admin: 09/16/18 18:37 Dose: 10 mg - Labs Labs: 09/17/18 06:10 09/17/18 06:10 PT 17.5 SECONDS (9.4-12.5) H 09/17/18 06:10 INR 1.55 09/17/18 06:10 APTT 57.1 Seconds (26.9-38.3) H 09/17/18 06:10 - Constitutional Appears: Well, Non-toxic, Unkempt - Head Exam Head Exam: NORMOCEPHALIC - Eye Exam Eye Exam: Normal appearance - Neck Exam Neck Exam: Full ROM - Respiratory Exam Respiratory Exam: NORMAL BREATHING PATTERN - Cardiovascular Exam Cardiovascular Exam: Irregular Rhythm, +S1, +S2 - GI/Abdominal Exam GI & Abdominal Exam: Soft, Normal Bowel Sounds - Rectal Exam Rectal Exam: Deferred - Exam Exam: absent: Circumcision, NORMAL INSPECTION, Scrotal Swelling, Testicular Tenderness, Uretheral Discharge, Testicular Vertical Lie, Bladder Distension External exam: absent: Ecchymosis, Erythema, Lacerations, Lesions, NORMAL EXT ERNAL EXAM, Swelling Speculum exam: absent: Cervical Discharge, Erythema, Foreign Body, Laceration, NORMAL SPECULUM EXAM, Tissue, Vaginal Bleeding, Vaginal Discharge Bimanual exam: absent: Adenexal Mass, Adnexal, Cervical Motion Tendernes, NORMAL BIMANUAL EXAM, Uterine Enlargement, Uterine Tenderness - Extremities Exam Additional comments: edema to b/l leg noted , chronic lymphedema appearance - Neurological Exam Neurological Exam: Alert, Awake, Oriented x3 - Skin Skin Exam: Dry, Intact Assessment and Plan - Assessment and Plan (Free Text) Assessment: ITS Impressions Chest X-Ray 09/11/18 02:29 IMPRESSION: No active disease. Extremity Ultrasound 09/11/18 02:29 IMPRESSION: No sonographic evidence for deep venous thrombosis in the visualized segments of both lower extremities. Extremely limited study Lung Scan Nuclear Medicine 09/11/18 15:00 IMPRESSION: Lowprobability ventilation perfusion scan for pulmonary embolism. Assessment: Patient is a 58 year old male with past medical history of morbid obesity, leg c ellulitis, chronic lymphedema who presented with shortness of breath and was admitted to ICU for hypercapnic respiratory failure, admitted with CHF, and atrial fibrillation, undergoing management by cardiolgoy, and I.D. Surgery was consulted for evaluation of recurrent thigh wound. Plan: 1. Pain is improved. 2. CHF improved. 3. ATrial Fibrillation Rate controlled, heparin drip per cardiology, 4. Cellulitis Lower extremities Antibx per I.D. 5. Morbid Obesity weakness secondary to obesity, PT recs [facility]/CM for DC planning to [facility]. Will continue to monitor clinical status and follow closely.
--- NOTE | 2018-09-17 16:49 | CP.PCM.PN ---
<Kayla Barbozabrenda - Last Filed: 09/17/18 16:45> Subjective - Date & Time of Evaluation Date of Evaluation: 09/17/18 Time of Evaluation: 16:48 - Subjective Subjective: Podiatry consult note for Dr. Gonzalez 58 y/o male seen and evaluated in the ICU for bilateral leg wounds. Patient alert, awake, states he is feeling much better. Patient also states the swelling in his legs has decreased. Patient is resting comfortably in bed, and denies any acute overnight events. Objective - Vital Signs/Intake and Output Vital Signs (last 24 hours): Temp Pulse Resp BP Pulse Ox 98.5 F 82 20 148/63 96 09/17/18 12:00 09/17/18 14:00 09/17/18 12:00 09/17/18 12:00 09/17/18 06:00 Intake and Output: 09/17/18 09/17/18 06:59 18:59 Intake Total 1550 Output Total 8200 Balance -6650 - Medications Medications: Current Medications Acetaminophen (Tylenol 325mg Tab) 650 mg PO Q6 PRN PRN Reason: TEMP>=99.5F Last Admin: 09/12/18 02:33 Dose: 650 mg Acetaminophen (Tylenol 650 Mg Supp) 650 mg RC Q6H PRN PRN Reason: TEMP>=99.5F Albuterol/Ipratropium (Duoneb 3 Mg/0.5 Mg (3 Ml) Ud) 3 ml IH [id number] [facility] Last Admin: 09/17/18 14:28 Dose: 3 ml Atorvastatin Calcium (Lipitor) 40 mg PO DIN [facility] Last Admin: 09/16/18 18:38 Dose: 40 mg Betamethasone/Clotrimazole (Lotrisone) 0 gm TOP BID [facility] Last Admin: 09/17/18 10:09 Dose: 1 mg Docusate Sodium (Colace) 100 mg PO TID [facility] Last Admin: 09/16/18 18:34 Dose: Not Given Ergocalciferol (Drisdol 50,000 Intl Units Cap) 1 cap PO Q7D [facility] Last Admin: 09/13/18 09:51 Dose: 1 cap Furosemide (Lasix) 40 mg IVP Q8H [facility] Last Admin: 09/17/18 05:29 Dose: 40 mg Heparin Sodium/Sodium Chloride (Heparin 39227 Units/250ml 1/2 Normal Saline) 25,000 units in 250 mls @ 20.02 mls/hr IV .[id number] PRN; Protocol PRN Reason: ADJUST RATE PER PROTOCOL Last Admin: 09/17/18 00:24 Dose: 7.25 units/kg/hr, 17.594 mls/hr Methylprednisolone (Solu-Medrol) 20 mg IVP BID [facility] Last Admin: 09/17/18 10:06 Dose: 20 mg Metoprolol Tartrate (Lopressor) 25 mg PO BID [facility] Last Admin: 09/17/18 10:05 Dose: 25 mg Mupirocin (Bactroban Ointment) 0 gm TOP DAILY [facility] Last Admin: 09/17/18 10:08 Dose: 1 applic Ondansetron HCl (Zofran Inj) 4 mg IVP Q4H PRN PRN Reason: Nausea/Vomiting Pantoprazole Sodium (Protonix Ec Tab) 40 mg PO 0600 [facility] Last Admin: 09/16/18 06:27 Dose: 40 mg Silver Sulfadiazine (Silvadene 1%) 0 ea TOP BID [facility] Last Admin: 09/17/18 10:09 Dose: 1 gm Warfarin Sodium (Coumadin) 10 mg PO 1800 [facility]; Protocol Last Admin: 09/16/18 18:37 Dose: 10 mg - Labs Labs: 09/17/18 06:10 09/17/18 06:10 PT 17.5 SECONDS (9.4-12.5) H 09/17/18 06:10 INR 1.55 09/17/18 06:10 APTT 57.1 Seconds (26.9-38.3) H 09/17/18 06:10 - Constitutional Appears: Well, Non-toxic, No Acute Distress - Head Exam Head Exam: ATRAUMATIC, NORMOCEPHALIC - Extremities Exam Additional comments: Bilateral Lower Extremity Exam VASC: DP and PT non-palpable secondary to significant lymphedema, TG within normal limits DERM RIGHT: superficial wounds noted to the lateral aspect of the right leg and to the posterior thigh, 100% granular base, no probe to bone, no malodor, minimal drainage, no signs of infection noted LEFT: small superficial wound noted to the medial aspect of the left leg, 100% granular base, no probe to bone, no malodor, no drainage, no signs of infection noted, significant lymphedema noted bilaterally, however it is improving NEURO: grossly intact now ORTHO: pain with movement and range of motion, minimal pain on palpation to wounds - Neurological Exam Neurological Exam: Alert, Awake, Oriented x3 - Psychiatric Exam Psychiatric exam: Normal Affect, Normal Mood Assessment and Plan - Assessment and Plan (Free Text) Assessment: 58 y/o male patient seen with superficial wounds to bilateral lower extremity, non-infected Plan: Patient seen and evaluated with Dr. Gonzalez Plan discussed with attending Chart, labs and vitals were reviewed, afebrile, absent leukocytosis Wound cleansed with saline and dressed with bactroban, maxorb, optifoam, and RACHEL Lotrisone cream applied to bilateral feet Patient stable from podiatry standpoint, no intervention required Podiatry will continue to follow <Ariel Gonzalez - Last Filed: 09/18/18 10:00> Objective - Vital Signs/Intake and Output Vital Signs (last 24 hours): Temp Pulse Resp BP Pulse Ox 98.4 F 95 H 18 128/56 L 90 L 09/18/18 06:00 09/18/18 09:28 09/18/18 06:00 09/18/18 09:28 09/18/18 06:00 Intake and Output: 09/18/18 09/18/18 06:59 18:59 Intake Total 1891 250 Output Total 6700 Balance -4809 250 - Medications Medications: Current Medications Acetaminophen (Tylenol 325mg Tab) 650 mg PO Q6 PRN PRN Reason: TEMP>=99.5F Last Admin: 09/12/18 02:33 Dose: 650 mg Acetaminophen (Tylenol 650 Mg Supp) 650 mg RC Q6H PRN PRN Reason: TEMP>=99.5F Acetazolamide (Diamox 250 Mg Tab) 250 mg PO BID [facility] Stop: 09/23/18 10:01 Last Admin: 09/18/18 09:44 Dose: 250 mg Albuterol/Ipratropium (Duoneb 3 Mg/0.5 Mg (3 Ml) Ud) 3 ml IH [id number] [facility] Last Admin: 09/18/18 07:53 Dose: 3 ml Atorvastatin Calcium (Lipitor) 40 mg PO DIN [facility] Last Admin: 09/17/18 17:26 Dose: 40 mg Betamethasone/Clotrimazole (Lotrisone) 0 gm TOP BID [facility] Last Admin: 09/18/18 09:32 Dose: 1 applic Docusate Sodium (Colace) 100 mg PO TID [facility] Last Admin: 09/16/18 18:34 Dose: Not Given Ergocalciferol (Drisdol 50,000 Intl Units Cap) 1 cap PO Q7D [facility] Last Admin: 09/13/18 09:51 Dose: 1 cap Furosemide (Lasix) 40 mg IVP Q8H [facility] Last Admin: 09/18/18 05:32 Dose: 40 mg Heparin Sodium/Sodium Chloride (Heparin 86607 Units/250ml 1/2 Normal Saline) 25,000 units in 250 mls @ 20.02 mls/hr IV .[id number] PRN; Protocol PRN Reason: ADJUST RATE PER PROTOCOL Last Admin: 09/18/18 09:27 Dose: 7.25 units/kg/hr, 17.594 mls/hr Metoprolol Tartrate (Lopressor) 25 mg PO BID [facility] Last Admin: 09/18/18 09:28 Dose: 25 mg Mupirocin (Bactroban Ointment) 0 gm TOP DAILY [facility] Last Admin: 09/18/18 09:32 Dose: 1 applic Ondansetron HCl (Zofran Inj) 4 mg IVP Q4H PRN PRN Reason: Nausea/Vomiting Pantoprazole Sodium (Protonix Ec Tab) 40 mg PO 0600 [facility] Last Admin: 09/18/18 05:25 Dose: 40 mg Prednisone (Prednisone Tab) 40 mg PO DAILY [facility]; Taper Stop: 09/30/18 09:59 Last Admin: 09/18/18 09:43 Dose: 40 mg Silver Sulfadiazine (Silvadene 1%) 0 ea TOP BID [facility] Last Admin: 09/18/18 09:31 Dose: 1 gm Warfarin Sodium (Coumadin) 10 mg PO 1800 [facility]; Protocol Last Admin: 09/17/18 17:25 Dose: 10 mg - Labs Labs: 09/18/18 05:30 09/18/18 05:30 PT 20.0 SECONDS (9.4-12.5) H 09/18/18 05:30 INR 1.77 09/18/18 05:30 APTT 63.2 Seconds (26.9-38.3) H 09/18/18 05:30 Attending/Attestation - Attestation I have personally seen and examined this patient.: Yes I have fully participated in the care of the patient.: Yes I have reviewed all pertinent clinical information, including history, physical exam and plan: Yes
[2018-09-18] MEDS: Albuterol-Ipratrop 3 mg / 0.5 (3 ml) UD IH SCH ×4 (01:27→20:53)
[2018-09-18] MEDS: Pantoprazole 40 mg EC Tab PO SCH (05:25)
[2018-09-18 06:01] LABS: EOS % 0.2 % (1.5-5.0); HEMOGLOBIN 10.1 g/dL (14.0-18.0); LYMPH # 1.9 (1.2-3.4); LYMPH % 22.5 % (22.0-35.0); MEAN CELL VOLUME 76.7 fl (80.0-105.0); MEAN CORPUSCULAR HEMOGLOBIN 19.9 pg (25.0-35.0); MEAN PLATELET VOLUME 9.3 fl (7.0-11.0); MONO # 0.6 (0.1-0.6); MONO % 6.8 % (1.0-6.0); RBC 5.07 10^6/uL (3.5-6.1); RED CELL DISTRIBUTION WIDTH 22.3 % (11.5-14.5); WHITE BLOOD COUNT 8.6 10^3/uL (4.5-11.0)
[2018-09-18 06:05] LABS: INR 1.77; PARTIAL THROMBOPLASTIN TIME 63.2 Seconds (26.9-38.3)
[2018-09-18 06:39] LABS: ALB/GLOB RATIO 0.8 (1.1-1.8); ALBUMIN 3.4 g/dL (3.0-4.8); ALT/SGPT 18 U/L (7-56); AST/SGOT 56 U/L (17-59); BILIRUBIN,DIRECT 0.2 mg/dL (0.0-0.4); BLOOD UREA NITROGEN 25 mg/dL (7-21); GFR NON-AFRICAN AMERICAN > 60
[2018-09-18] MEDS: Heparin25000 units/250ml 1/2NS 25,000 UNITS/250 ML BAG IV PRN ×2 (09:27→23:53)
[2018-09-18] MEDS: Silver Sulfadiazine 1% Cream (400 gm) TOP SCH ×2 (09:31→18:15)
[2018-09-18] MEDS: Mupirocin 2% Ointment 15 GM TUBE TOP SCH (09:32)
[2018-09-18] MEDS: Clotrimazole/Betamethasone Cream(15 gm) TOP SCH ×2 (09:32→18:15)
--- NOTE | 2018-09-18 11:20 | CP.PCM.PN ---
Subjective - Date & Time of Evaluation Date of Evaluation: 09/18/18 Time of Evaluation: 11:18 - Subjective Subjective: PGY-[address] Michel No acute complaint per 12 point ros. Objective - Vital Signs/Intake and Output Vital Signs (last 24 hours): Temp Pulse Resp BP Pulse Ox 98.4 F 95 H 18 128/56 L 90 L 09/18/18 06:00 09/18/18 09:28 09/18/18 06:00 09/18/18 09:28 09/18/18 06:00 Intake and Output: 09/18/18 09/18/18 06:59 18:59 Intake Total 1891 250 Output Total 6700 Balance -4809 250 - Medications Medications: Current Medications Acetaminophen (Tylenol 325mg Tab) 650 mg PO Q6 PRN PRN Reason: TEMP>=99.5F Last Admin: 09/12/18 02:33 Dose: 650 mg Acetaminophen (Tylenol 650 Mg Supp) 650 mg RC Q6H PRN PRN Reason: TEMP>=99.5F Acetazolamide (Diamox 250 Mg Tab) 250 mg PO BID [facility] Stop: 09/23/18 10:01 Last Admin: 09/18/18 09:44 Dose: 250 mg Albuterol/Ipratropium (Duoneb 3 Mg/0.5 Mg (3 Ml) Ud) 3 ml IH [id number] [facility] Last Admin: 09/18/18 07:53 Dose: 3 ml Atorvastatin Calcium (Lipitor) 40 mg PO DIN [facility] Last Admin: 09/17/18 17:26 Dose: 40 mg Betamethasone/Clotrimazole (Lotrisone) 0 gm TOP BID [facility] Last Admin: 09/18/18 09:32 Dose: 1 applic Docusate Sodium (Colace) 100 mg PO TID [facility] Last Admin: 09/16/18 18:34 Dose: Not Given Ergocalciferol (Drisdol 50,000 Intl Units Cap) 1 cap PO Q7D [facility] Last Admin: 09/13/18 09:51 Dose: 1 cap Furosemide (Lasix) 40 mg IVP Q8H [facility] Last Admin: 09/18/18 05:32 Dose: 40 mg Heparin Sodium/Sodium Chloride (Heparin 43277 Units/250ml 1/2 Normal Saline) 25,000 units in 250 mls @ 20.02 mls/hr IV .[id number] PRN; Protocol PRN Reason: ADJUST RATE PER PROTOCOL Last Admin: 09/18/18 09:27 Dose: 7.25 units/kg/hr, 17.594 mls/hr Metoprolol Tartrate (Lopressor) 25 mg PO BID [facility] Last Admin: 09/18/18 09:28 Dose: 25 mg Mupirocin (Bactroban Ointment) 0 gm TOP DAILY [facility] Last Admin: 09/18/18 09:32 Dose: 1 applic Ondansetron HCl (Zofran Inj) 4 mg IVP Q4H PRN PRN Reason: Nausea/Vomiting Pantoprazole Sodium (Protonix Ec Tab) 40 mg PO 0600 [facility] Last Admin: 09/18/18 05:25 Dose: 40 mg Prednisone (Prednisone Tab) 40 mg PO DAILY [facility]; Taper Stop: 09/30/18 09:59 Last Admin: 09/18/18 09:43 Dose: 40 mg Silver Sulfadiazine (Silvadene 1%) 0 ea TOP BID [facility] Last Admin: 09/18/18 09:31 Dose: 1 gm Warfarin Sodium (Coumadin) 10 mg PO 1800 [facility]; Protocol Last Admin: 09/17/18 17:25 Dose: 10 mg - Labs Labs: 09/18/18 05:30 09/18/18 05:30 PT 20.0 SECONDS (9.4-12.5) H 09/18/18 05:30 INR 1.77 09/18/18 05:30 APTT 63.2 Seconds (26.9-38.3) H 09/18/18 05:30 - Constitutional Appears: No Acute Distress - Head Exam Head Exam: ATRAUMATIC, NORMAL INSPECTION, NORMOCEPHALIC - Eye Exam Eye Exam: EOMI, Normal appearance, PERRL. absent: Scleral icterus Pupil Exam: NORMAL ACCOMODATION - ENT Exam ENT Exam: Mucous Membranes Moist - Neck Exam Additional comments: supple - Respiratory Exam Respiratory Exam: Decreased Breath Sounds (b/l lung bases), NORMAL BREATHING PATTERN - Cardiovascular Exam Cardiovascular Exam: REGULAR RHYTHM, +S1, +S2 - GI/Abdominal Exam GI & Abdominal Exam: Soft, Normal Bowel Sounds. absent: Firm, Guarding, Rigid - Extremities Exam Extremities Exam: Pedal Edema. absent: Calf Tenderness Additional comments: dressing d/c/i - Neurological Exam Neurological Exam: Alert, Awake, CN II-XII Intact, Oriented x3 Neuro motor strength exam: Left Upper Extremity: 5, Right Upper Extremity: 5, Left Lower Extremity: 5, Right Lower Extremity: 5 - Psychiatric Exam Psychiatric exam: Normal Affect, Normal Mood - Skin Skin Exam: Dry, Warm Assessment and Plan - Assessment and Plan (Free Text) Plan: Mr Degroot, 58M, PMHx morbid obesity of BMI 70s, b/l thigh cellulitis, and chronic lymphedema, admitted on 09/11/18 for SOB. He had hypercapnic respiratory distress requiring BIPAP and ICU management, downgraded, now on NC and BIPAP HS. For new onset A fib, [id number] score 2, on warfarin 10, bridging heparin gtt. For cellulitis in thighs and b/l chronic venous dermatitis, Podiatry on board. Completed 5 days of Doxy. He is on silverdine, mupirocin, clotrimazole/beta methazone. - Outpatient follow up Dr Brothers [facility] For COPD/SOB - duoneb q6. - taper prednison For CHF, he is on lasix 40 IV q8, metoprolol 25 BID, lipitor. - Metabolic alkalosis due to lasix volume contraction. Add diamox x 5 days - OOB [ ] PSA For symptomatic anemia, Hb 8.3 on admission with SOB/A-fib, received 1u pRBC. He is on venofar IV, 5/5 bags today on Sunday 09/17. Loose stool, hold colace. Dispo plan: pt agreed to [facility]. Pending therapeutic INR Consult: GI = Dr Bridges Surgery = Dr Pride Heme = Dr Truong ID = Dr Fuchs Card = Dr Lacy Podiatry = Dr Brothers
--- NOTE | 2018-09-18 13:59 | PN ---
DATE: 09/18/2018 SUBJECTIVE: The patient is seen lying in the bed in room 261 bed two. The patient does not appear to be in any distress. Overnight nurse's notes were reviewed. The patient rested comfortably without any adverse events documented. The patient was noted by nurses to have a stage II right and left gluteal decubitus ulceration. The patient required BiPap overnight. The patient's Doshi catheter was removed. PHYSICAL EXAMINATION: VITAL SIGNS: T-max 98.4. Telemetry atrial fibrillation, heart rate 81, 79, blood pressure 133/72, respirations 18, O2 sat 90% to 96% on oxygen supplementation on nasal cannula. GENERAL: The patient is seen lying in the bed. HEENT: Head: Normocephalic, atraumatic. HEENT examination shows pinkish pale conjunctivae. Anicteric sclerae. NECK: Short and supple. CHEST: Kyphosis. LUNGS: Decreased breath sound at the bases. Positive upper lung field rhonchi. CARDIOVASCULAR: S1, S2, irregular rhythm. Positive systolic murmur, left sternal border, right second intercostal space, left second intercostal space. ABDOMEN: Morbidly obese. No palpable organomegaly. GENITALIA: Male. EXTREMITIES: Chronic lymphedema with New wraps of the lower legs. MUSCULOSKELETAL: Body mass index of . Gait examination not tested. NEUROLOGICAL: Without any gross deficit and limited exam. DIAGNOSTICS DATA: 09/18/2018: WBC 8.6, hemoglobin and hematocrit 10.1 and 38.9, platelet 259. Granulocytes 70% segs. PT 20, INR 1.77. Sodium 137, potassium 3.6, chloride 89, CO2 of 45, BUN 25, creatinine 0.8, glucose 112, calcium 9, phosphorus 5.1, magnesium 1.8. The patient's microbiology cultures are negative. Blood transfusion 1 unit received. No new imaging studies noted. IMPRESSION: 1. New-onset atrial fibrillation. 2. Possible acute systolic congestive heart failure. 3. Acute versus [id number]-ohihrub hypercarbic hypercapnic respiratory failure with respiratory acidosis, hypercarbia and CO2 narcosis. 4. Massive lymphedema of the lower extremity. 5. Super morbid obesity with body mass index of greater than 72. 6. Hypertension. 7. Hypoxemia. 8. Severe deconditioning, bedridden status and possible functional quadriplegia. 9. Microcytic anemia with granulocytosis. 10. Persistent refractory hypercarbia and respiratory acidosis and hypoxemia. 11. Possible contraction metabolic alkalosis secondary to diuretics. 12. Prediabetes. 13. Hyperphosphatemia. 14. Hypovitaminosis D. 15. Status post packed red blood cell transfusion x1. 16. Left ventricular ejection fraction of 56% with moderate concentric left ventricular hypertrophy. 17. Borderline reduced right ventricular systolic function. 18. Moderately dilated left atrium. 19. Rhgbypnf-pa-qmmbiq aortic regurgitation with mild mitral regurgitation and mildly thickened aortic valve. 20. Mild tricuspid regurgitation, mild pulmonary hypertension with right ventricular systolic pressure of 36 mmHg. 21. Gluteal decubitus ulceration stage II. 22. Bilateral lower extremity noninfected superficial wounds. 23. Possible obstructive sleep apnea and right-sided diastolic congestive heart failure. 24. Coumadin-requiring atrial fibrillation. PLAN: At this time, the patient have been ordered serial labs. Repeat CBC, PT/PTT. The patient's current medications are to be continued on with Bactroban cream, Colace 100 three times a day, Coumadin 10 mg daily, Diamox 250 twice a day, Drisdol 50,000 weekly, DuoNeb nebulizer every 6 hours, heparin drip to be bridged with Coumadin until INR 2.5, Lasix 40 IV every 8 hours, Lipitor 40 daily, Lopressor 25 mg twice a day, Lotrisone cream, Protonix 40 mg daily, Silvadene cream twice a day. The patient's Solu-Medrol 20 b.i.d. will be changed to prednisone 40 mg for 3 days, 30 mg for 3 days, 20 mg for 3 days and 10 mg for 3 days to stop, Tylenol 650 mg p.o. suppository p.r.n., Zofran 4 IV every 4 hours p.r.n. The patient has been ordered out of bed to chair, physical therapy, occupational therapy. The patient is awaiting for discharge and transfer to [facility] when bed available. The patient will be continued on the above therapeutic intervention as ordered. The patient has been updated about his condition, diagnosis, test results. Recommendation by all the physician was explained to the patient at length and all questions concerned answered, which he acknowledged and understood. Dictated and electronically signed, not read. Markel MD Anand [facility] # [id number]
--- NOTE | 2018-09-18 14:26 | CP.PCM.PN ---
Subjective - Date & Time of Evaluation Date of Evaluation: 09/18/18 Time of Evaluation: 09:00 - Subjective Subjective: Comfortable in bed, no shortness of breath at rest, no fevers. Objective - Vital Signs/Intake and Output Vital Signs (last 24 hours): Temp Pulse Resp BP Pulse Ox 98.5 F 88 20 148/63 96 09/17/18 12:00 09/17/18 12:00 09/17/18 12:00 09/17/18 12:00 09/17/18 06:00 Intake and Output: 09/17/18 09/17/18 06:59 18:59 Intake Total 1550 Output Total 8200 Balance -6650 - Medications Medications: Current Medications Acetaminophen (Tylenol 325mg Tab) 650 mg PO Q6 PRN PRN Reason: TEMP>=99.5F Last Admin: 09/12/18 02:33 Dose: 650 mg Acetaminophen (Tylenol 650 Mg Supp) 650 mg RC Q6H PRN PRN Reason: TEMP>=99.5F Albuterol/Ipratropium (Duoneb 3 Mg/0.5 Mg (3 Ml) Ud) 3 ml IH [id number] [facility] Last Admin: 09/17/18 07:48 Dose: 3 ml Atorvastatin Calcium (Lipitor) 40 mg PO DIN [facility] Last Admin: 09/16/18 18:38 Dose: 40 mg Betamethasone/Clotrimazole (Lotrisone) 0 gm TOP BID [facility] Last Admin: 09/17/18 10:09 Dose: 1 mg Docusate Sodium (Colace) 100 mg PO TID [facility] Last Admin: 09/16/18 18:34 Dose: Not Given Doxycycline Hyclate (Doryx) 100 mg PO Q12 [facility]; Protocol Stop: 09/20/18 22:01 Last Admin: 09/17/18 10:05 Dose: 100 mg Ergocalciferol (Drisdol 50,000 Intl Units Cap) 1 cap PO Q7D [facility] Last Admin: 09/13/18 09:51 Dose: 1 cap Furosemide (Lasix) 40 mg IVP Q8H [facility] Last Admin: 09/17/18 05:29 Dose: 40 mg Heparin Sodium/Sodium Chloride (Heparin 64931 Units/250ml 1/2 Normal Saline) 25,000 units in 250 mls @ 20.02 mls/hr IV .[id number] PRN; Protocol PRN Reason: ADJUST RATE PER PROTOCOL Last Admin: 09/17/18 00:24 Dose: 7.25 units/kg/hr, 17.594 mls/hr Methylprednisolone (Solu-Medrol) 20 mg IVP BID [facility] Last Admin: 09/17/18 10:06 Dose: 20 mg Metoprolol Tartrate (Lopressor) 25 mg PO BID [facility] Last Admin: 09/17/18 10:05 Dose: 25 mg Mupirocin (Bactroban Ointment) 0 gm TOP DAILY [facility] Last Admin: 09/17/18 10:08 Dose: 1 applic Ondansetron HCl (Zofran Inj) 4 mg IVP Q4H PRN PRN Reason: Nausea/Vomiting Pantoprazole Sodium (Protonix Ec Tab) 40 mg PO 0600 [facility] Last Admin: 09/16/18 06:27 Dose: 40 mg Silver Sulfadiazine (Silvadene 1%) 0 ea TOP BID [facility] Last Admin: 09/17/18 10:09 Dose: 1 gm Warfarin Sodium (Coumadin) 10 mg PO 1800 [facility]; Protocol Last Admin: 09/16/18 18:37 Dose: 10 mg - Labs Labs: 09/17/18 06:10 09/17/18 06:10 PT 17.5 SECONDS (9.4-12.5) H 09/17/18 06:10 INR 1.55 09/17/18 06:10 APTT 57.1 Seconds (26.9-38.3) H 09/17/18 06:10 - Constitutional Appears: Chronically Ill - Head Exam Head Exam: NORMAL INSPECTION - ENT Exam ENT Exam: Mucous Membranes Moist - Neck Exam Neck Exam: absent: Meningismus - Respiratory Exam Respiratory Exam: Decreased Breath Sounds - Cardiovascular Exam Cardiovascular Exam: +S1, +S2 - GI/Abdominal Exam GI & Abdominal Exam: Soft. absent: Tenderness Assessment and Plan - Assessment and Plan (Free Text) Plan: Assessment Probable acute bronchitis chronic lower extremity lymphedema chronic atrial fibrillation HTN morbid obesity with BMI 73 Plan completed course of PO Doxycycline follow up further recommendations of Podiatry will continue to monitor clinically
--- NOTE | 2018-09-18 14:59 | CP.PCM.PCO ---
Physician Communication Note - Physician Communication Note Physician Communication Note: awaiting card clearance,reg Heparin IV,inr subtherapeutic,prior to DC LTACH
--- NOTE | 2018-09-18 15:13 | PN ---
DATE: 09/18/2018 CARDIOLOGY FOLLOWUP SUBJECTIVE: The patient's breathing is stable at rest. PHYSICAL EXAMINATION VITAL SIGNS: Blood pressure 128/56, heart rates in the 90s, atrial fibrillation. NECK: Negative JVD. LUNGS: Decreased breath sounds bilaterally. HEART: Reveal S1 and S2. EXTREMITIES: Marked edema in the lower extremities. LABORATORY DATA: INR is 1.77. Chemistries; BUN and creatinine and BUN and creatinine 25 and 0.8. Hemoglobin is 10.1. IMPRESSION: 1. Right-sided congestive heart failure. 2. Acute diastolic congestive heart failure. 3. Aortic insufficiency on echocardiogram. 4. Marked pedal edema. 5. Morbid obesity. 6. Normal left ventricular function on echocardiogram with aortic insufficiency and mild pulmonary retention. 7. Atrial fibrillation. Given these findings, I have discussed with the patient about his need for anticoagulation given the risk of thromboembolic phenomenon. The patient understands, the INR is being adjusted. Currently the patient is on Lasix three times a day. I have discussed with the patient about the need to lose weight. Jean Claude Lacy MD
[2018-09-18 17:33] LABS: TOTAL PSA 0.2 ng/mL (< or = 4.0)
[2018-09-19] MEDS: Albuterol-Ipratrop 3 mg / 0.5 (3 ml) UD IH SCH ×3 (02:45→13:20)
[2018-09-19] MEDS: Pantoprazole 40 mg EC Tab PO SCH (05:48)
[2018-09-19 06:16] VITALS: O2SAT 97
[2018-09-19 06:18] LABS: EOS % 0.2 % (1.5-5.0); HEMOGLOBIN 10.3 g/dL (14.0-18.0); LYMPH # 1.8 (1.2-3.4); LYMPH % 21.9 % (22.0-35.0); MEAN CELL VOLUME 77.6 fl (80.0-105.0); MEAN CORPUSCULAR HGB CONC 25.8 g/dl (31.0-37.0); MEAN PLATELET VOLUME 9.6 fl (7.0-11.0); MONO # 0.6 (0.1-0.6); MONO % 7.6 % (1.0-6.0); RBC 5.14 10^6/uL (3.5-6.1); RED CELL DISTRIBUTION WIDTH 22.9 % (11.5-14.5); WHITE BLOOD COUNT 8.4 10^3/uL (4.5-11.0)
[2018-09-19 06:28] LABS: INR 2.09; PARTIAL THROMBOPLASTIN TIME 66.3 Seconds (26.9-38.3); PROTHROMBIN TIME 23.6 SECONDS (9.4-12.5)
[2018-09-19 07:34] LABS: ALB/GLOB RATIO 0.9 (1.1-1.8); ALBUMIN 3.5 g/dL (3.0-4.8); ALT/SGPT 22 U/L (7-56); AST/SGOT 60 U/L (17-59); BILIRUBIN,DIRECT 0.1 mg/dL (0.0-0.4); BLOOD UREA NITROGEN 23 mg/dL (7-21); CALCIUM 9.3 mg/dL (8.4-10.5); GFR NON-AFRICAN AMERICAN > 60
--- NOTE | 2018-09-19 07:52 | CP.PCM.PN ---
Subjective - Date & Time of Evaluation Date of Evaluation: 09/19/18 Time of Evaluation: 07:49 - Subjective Subjective: PGY-[address] Michel Pt has 7L U/O. Pt did not use Bipap last night because he wanted to wait for a couple of hours but forgot to notify the resp therapist to come back and he dozed off. No acute complaint per 12 pt ROS Objective - Vital Signs/Intake and Output Vital Signs (last 24 hours): Temp Pulse Resp BP Pulse Ox 97.6 F 82 20 131/72 97 09/19/18 06:00 09/19/18 06:00 09/19/18 06:00 09/19/18 06:00 09/19/18 06:00 Intake and Output: 09/19/18 09/19/18 06:59 18:59 Intake Total 970 Output Total 3500 Balance -2530 - Medications Medications: Current Medications Acetaminophen (Tylenol 325mg Tab) 650 mg PO Q6 PRN PRN Reason: TEMP>=99.5F Last Admin: 09/12/18 02:33 Dose: 650 mg Acetaminophen (Tylenol 650 Mg Supp) 650 mg RC Q6H PRN PRN Reason: TEMP>=99.5F Acetazolamide (Diamox 250 Mg Tab) 250 mg PO BID [facility] Stop: 09/23/18 10:01 Last Admin: 09/18/18 18:13 Dose: 250 mg Albuterol/Ipratropium (Duoneb 3 Mg/0.5 Mg (3 Ml) Ud) 3 ml IH [id number] [facility] Last Admin: 09/19/18 02:45 Dose: Not Given Atorvastatin Calcium (Lipitor) 40 mg PO DIN [facility] Last Admin: 09/18/18 18:12 Dose: 40 mg Betamethasone/Clotrimazole (Lotrisone) 0 gm TOP BID [facility] Last Admin: 09/18/18 18:15 Dose: 1 applic Docusate Sodium (Colace) 100 mg PO TID [facility] Last Admin: 09/16/18 18:34 Dose: Not Given Ergocalciferol (Drisdol 50,000 Intl Units Cap) 1 cap PO Q7D [facility] Last Admin: 09/13/18 09:51 Dose: 1 cap Furosemide (Lasix) 40 mg IVP Q8H [facility] Last Admin: 09/19/18 05:48 Dose: 40 mg Heparin Sodium/Sodium Chloride (Heparin 20572 Units/250ml 1/2 Normal Saline) 25,000 units in 250 mls @ 20.02 mls/hr IV .[id number] PRN; Protocol PRN Reason: ADJUST RATE PER PROTOCOL Last Admin: 09/18/18 23:53 Dose: 7.25 units/kg/hr, 17.594 mls/hr Metoprolol Tartrate (Lopressor) 25 mg PO BID [facility] Last Admin: 09/18/18 18:12 Dose: 25 mg Mupirocin (Bactroban Ointment) 0 gm TOP DAILY [facility] Last Admin: 09/18/18 09:32 Dose: 1 applic Ondansetron HCl (Zofran Inj) 4 mg IVP Q4H PRN PRN Reason: Nausea/Vomiting Pantoprazole Sodium (Protonix Ec Tab) 40 mg PO 0600 [facility] Last Admin: 09/19/18 05:48 Dose: 40 mg Prednisone (Prednisone Tab) 40 mg PO DAILY [facility]; Taper Stop: 09/30/18 09:59 Last Admin: 09/18/18 09:43 Dose: 40 mg Silver Sulfadiazine (Silvadene 1%) 0 ea TOP BID [facility] Last Admin: 09/18/18 18:15 Dose: Not Given Warfarin Sodium (Coumadin) 10 mg PO 1800 [facility]; Protocol Last Admin: 09/17/18 17:25 Dose: 10 mg - Labs Labs: 09/19/18 05:30 09/19/18 05:30 PT 23.6 SECONDS (9.4-12.5) H 09/19/18 05:30 INR 2.09 09/19/18 05:30 APTT 66.3 Seconds (26.9-38.3) H 09/19/18 05:30 - Constitutional Appears: Non-toxic - Head Exam Head Exam: ATRAUMATIC, NORMAL INSPECTION, NORMOCEPHALIC - Eye Exam Eye Exam: EOMI, Normal appearance, PERRL. absent: Scleral icterus Pupil Exam: NORMAL ACCOMODATION - ENT Exam ENT Exam: Mucous Membranes Moist - Neck Exam Additional comments: supple - Respiratory Exam Respiratory Exam: Decreased Breath Sounds (b/l lung bases), Clear to Ausculation Bilateral. absent: Rales, Rhonchi, Wheezes - Cardiovascular Exam Cardiovascular Exam: REGULAR RHYTHM, +S1, +S2, Murmur - GI/Abdominal Exam GI & Abdominal Exam: Soft, Normal Bowel Sounds. absent: Guarding, Rigid, Tenderness Additional comments: obese - Extremities Exam Extremities Exam: Pedal Edema (on compression dressings. ). absent: Calf Tenderness - Neurological Exam Neurological Exam: Alert, Awake, CN II-XII Intact, Oriented x3 - Psychiatric Exam Psychiatric exam: Normal Affect, Normal Mood - Skin Skin Exam: Dry, Warm Assessment and Plan - Assessment and Plan (Free Text) Plan: Mr Degroot, 58M, PMHx morbid obesity of BMI 70s, b/l thigh cellulitis, and chronic lymphedema, admitted on 09/11/18 for SOB. He had hypercapnic respiratory distress requiring BIPAP and ICU management, downgraded, now on NC and BIPAP HS. For new onset A fib, [id number] score 2, on warfarin 10, bridging heparin gtt. For cellulitis in thighs and b/l chronic venous dermatitis, Podiatry on board. Completed 5 days of Doxy. He is on silverdine, mupirocin, clotrimazole/betamethazone. - Outpatient follow up Dr Brothers [facility] For COPD/SOB - duoneb q6. NC 4L day; Bipap HS - taper prednison For CHF, he is on lasix 40 IV q8, metoprolol 25 BID, lipitor. - Metabolic alkalosis due to lasix volume contraction. Add diamox x 5 days (day 2) - OOB with assist - PSA normal For symptomatic anemia, Hb 8.3 on admission with SOB/A-fib, received 1u pRBC. He is on venofar IV, 5/5 bags today on Sunday 09/17. Obese class 3, BMI 72.6 - counseling services director for weight loss and appropriate diet Dispo plan: pt agreed to [facility]. Pending therapeutic INR Consult: GI = Dr Bridges Surgery = Dr Pride Heme = Dr Truong ID = Dr Fuchs Card = Dr Lacy Podiatry = Dr Brothers
--- NOTE | 2018-09-19 09:32 | PN ---
DATE: 09/19/2018 SUBJECTIVE: The patient is comfortable in bed. No shortness of breath. OBJECTIVE: VITAL SIGNS: Blood pressure 131/72, the heart rates in the 70s. NECK: Negative JVD. LUNGS: Without rales. HEART: S1, S2. EXTREMITIES: Bandage noted. LABORATORY DATA: Hemoglobin is 13.3. Chemistries; BUN and creatinine are unremarkable. Potassium is 3.8. INR is 2.09. IMPRESSION: 1. Morbid obesity. 2. Recurrent pedal edema. 3. Acute diastolic congestive heart failure. 4. Aortic insufficiency. 5. Atrial fibrillation. Given these findings, the patient is scheduled for transfer to either a group home facility or an LTAC. We will continue the Coumadin. We will discontinue the IV heparin now. Jean Claude Lacy MD
[2018-09-19] MEDS: Mupirocin 2% Ointment 15 GM TUBE TOP SCH (09:56)
[2018-09-19] MEDS: Clotrimazole/Betamethasone Cream(15 gm) TOP SCH (09:56)
[2018-09-19] MEDS: Silver Sulfadiazine 1% Cream (400 gm) TOP SCH (09:56)
--- NOTE | 2018-09-19 10:43 | CP.PCM.DIS ---
Provider - Provider Date of Admission: 09/11/18 05:38 Attending physician: Markel Michel MD Primary care physician: Anand Consults: 09/11/18 06:18 Physician Consult Routine Comment: CHF/AFIB Consulting Provider: Jean Claude Lacy Consulting Physician: Jean Claude Lacy Reason for Consult: CHF/AFIB 09/11/18 06:24 Podiatry Consult Routine Comment: Consulting Provider: Ana Brothers Consulting Physician: Ana Brothers Reason for Consult: LYMPHEDEMA 09/11/18 06:32 Wound Care [Nursing Referral for Wound Care] Routine Comment: Physician Instructions: Reason For Exam: morbid obesity, chronic wounds in lower extremitie 09/11/18 06:51 Infectious Disease Consult Routine Comment: Consulting Provider: Lukas Fuchs Consulting Physician: Lukas Fuchs Reason for Consult: wound ulcers 09/12/18 06:00 Gastroenterology Consult Routine Comment: Consulting Provider: Shashi Bridges Consulting Physician: Shashi Bridges Reason for Consult: ANEMIA 09/12/18 07:39 Hematology Oncology Consult Routine Comment: Consulting Provider: Joanne Truong Consulting Physician: Joanne Truong Reason for Consult: ANEMIA 09/13/18 08:33 General Surgery Consult Routine Comment: Consulting Provider: Gene Pride Consulting Physician: Gene Pride Reason for Consult: patient had appt with Dr. Pride for wounds 09/17/18 02:07 Nursing Referral for Wound Care Routine Comment: Physician Instructions: Reason For Exam: wound mgt. Time Spent in preparation of Discharge (in minutes): 40 Diagnosis - Discharge Diagnosis (1) Anemia Status: Acute (2) Atrial fibrillation Status: Acute (3) CHF (congestive heart failure) Status: Acute (4) Lymphedema Status: Acute (5) Cellulitis and abscess of leg Status: Acute Hospital Course - Lab Results Lab Results: Micro Results 09/11/18 11:10 Naris MRSA Culture (Admit) - Final MRSA NOT DETECTED Most Recent Lab Values WBC 8.4 10^3/uL (4.5-11.0) 09/19/18 05:30 RBC 5.14 10^6/uL (3.5-6.1) 09/19/18 05:30 Hgb 10.3 g/dL (14.0-18.0) L 09/19/18 05:30 Hct 39.9 % (42.0-52.0) L 09/19/18 05:30 MCV 77.6 fl (80.0-105.0) L 09/19/18 05:30 MCH 20.0 pg (25.0-35.0) L 09/19/18 05:30 MCHC 25.8 g/dl (31.0-37.0) L 09/19/18 05:30 RDW 22.9 % (11.5-14.5) H 09/19/18 05:30 Plt Count 254 10^3/uL (120.0-450.0) 09/19/18 05:30 MPV 9.6 fl (7.0-11.0) 09/19/18 05:30 Neut % (Auto) 70.3 % (50.0-68.0) H 09/19/18 05:30 Lymph % (Auto) 21.9 % (22.0-35.0) L 09/19/18 05:30 [place] % (Auto) 7.6 % (1.0-6.0) H 09/19/18 05:30 Eos % (Auto) 0.2 % (1.5-5.0) L 09/19/18 05:30 Baso % (Auto) 0.0 % (0.0-3.0) 09/19/18 05:30 Lymph # (Auto) 1.8 (1.2-3.4) 09/19/18 05:30 [place] # (Auto) 0.6 (0.1-0.6) 09/19/18 05:30 Eos # (Auto) 0.0 (0.0-0.7) 09/19/18 05:30 Baso # (Auto) 0.00 K/mm3 (0.0-2.0) 09/19/18 05:30 Absolute Neuts (auto) 5.91 (1.4-6.5) 09/19/18 05:30 Retic Count 0.74 % (0.5-1.5) 09/13/18 07:00 PT 23.6 SECONDS (9.4-12.5) H 09/19/18 05:30 INR 2.09 09/19/18 05:30 APTT 66.3 Seconds (26.9-38.3) H 09/19/18 05:30 pCO2 68 mm/Hg (35-45) H 09/13/18 05:00 pO2 72.0 mm/Hg (80-100) L 09/13/18 05:00 HCO3 36.7 mmol/L (21-28) H 09/13/18 05:00 ABG pH 7.34 (7.35-7.45) L 09/13/18 05:00 ABG Total CO2 38.8 mmol.L (22-28) H 09/13/18 05:00 ABG O2 Saturation 96.4 % (95-98) 09/13/18 05:00 ABG O2 Content 10.7 ML/dl (15-23) L 09/13/18 05:00 ABG Base Excess 9.5 mmol/L (-2.0-3.0) H 09/13/18 05:00 ABG Hemoglobin 8.1 g/dL (11.7-17.4) L 09/13/18 05:00 ABG Carboxyhemoglobin 2.3 % (0.5-1.5) H 09/13/18 05:00 POC ABG HHb (Measured) 3.5 % (0-5) 09/13/18 05:00 ABG Methemoglobin 1.1 % (0.0-3.0) 09/13/18 05:00 ABG O2 Capacity 11.1 mL/dl (16-24) L 09/13/18 05:00 ABG Potassium 4.2 mmol/L (3.6-5.2) 09/11/18 15:10 Hgb O2 Saturation 93.1 % (95.0-98.0) L 09/13/18 05:00 Sodium 137.0 mmol/L (132-148) 09/11/18 15:10 Chloride 103.0 mmol/L (98-107) 09/11/18 15:10 Glucose 90 mg/dl (75-110) 09/11/18 15:10 Lactate 0.6 mmol/L (0.7-2.1) L 09/11/18 15:10 FiO2 36.0 % 09/13/18 05:00 Inspiratory BiPAP 09/11/18 15:10 Blood Gas Comments Ms enrique mac(video intern) will bring abg results to ed 09/11/18 05:35 Crit Value Called To Dr jordana baxter 09/13/18 05:00 Crit Value Called By Gene marcos 09/13/18 05:00 Blood Gas Notified Time 524 09/13/18 05:00 Sodium 140 mmol/L (132-148) 09/19/18 05:30 Potassium 3.8 mmol/L (3.6-5.0) 09/19/18 05:30 Chloride 92 mmol/L (98-107) L 09/19/18 05:30 Carbon Dioxide 43 mmol/L (21-33) H 09/19/18 05:30 Anion Gap 9 (10-20) L 09/19/18 05:30 BUN 23 mg/dL (7-21) H 09/19/18 05:30 Creatinine 0.9 mg/dl (0.8-1.5) 09/19/18 05:30 Est GFR ( Amer) > 60 09/19/18 05:30 Est GFR (Non-Af Amer) > 60 09/19/18 05:30 Random Glucose 92 mg/dL (70-110) 09/19/18 05:30 Hemoglobin A1c 6.2 % (4.2-6.5) 09/11/18 06:00 Lactic Acid 0.8 mmol/L (0.7-2.1) 09/11/18 06:45 Calcium 9.3 mg/dL (8.4-10.5) 09/19/18 05:30 Phosphorus 5.7 mg/dL (2.5-4.5) H 09/19/18 05:30 Magnesium 2.0 mg/dL (1.7-2.2) 09/19/18 05:30 Iron 19 ug/dL (45-180) L 09/13/18 14:00 TIBC 296 ug/dL (261-462) 09/13/18 14:00 % Saturation 6 % (20-55) L 09/13/18 14:00 [place] Transferrin Receptr 10.60 mg/L (0.76-1.76) H 09/11/18 10:10 Erythropoietin 303.6 mIU/mL (2.6-18.5) H 09/11/18 10:10 Ferritin 21.9 ng/mL 09/13/18 14:00 Total Bilirubin 0.8 mg/dL (0.2-1.3) 09/19/18 05:30 Direct Bilirubin 0.1 mg/dL (0.0-0.4) 09/19/18 05:30 AST 60 U/L (17-59) H 09/19/18 05:30 ALT 22 U/L (7-56) 09/19/18 05:30 Alkaline Phosphatase 30 U/L (38-126) L 09/19/18 05:30 Lactate Dehydrogenase 598 U/L (333-699) 09/11/18 03:10 Total Creatine Kinase 67 U/L (35-230) 09/11/18 17:30 Troponin I 0.02 ng/mL 09/11/18 17:30 NT-Pro-B Natriuret Pep 2910 pg/mL (0-450) H 09/11/18 03:10 Total Protein 7.6 g/dL (5.8-8.3) 09/19/18 05:30 Total Protein (PEP) 7.1 g/dL (6.1-8.1) 09/13/18 14:00 Albumin 3.5 g/dL (3.0-4.8) 09/19/18 05:30 Albumin (PEP) 2.9 g/dL (3.8-4.8) L 09/13/18 14:00 Globulin 4.1 gm/dL 09/19/18 05:30 Albumin/Globulin Ratio 0.9 (1.1-1.8) L 09/19/18 05:30 Qcbbc-5-Dpyhezcmi 0.4 g/dL (0.2-0.3) H 09/13/18 14:00 Sxifd-6-Otohmzeic 0.7 g/dL (0.5-0.9) 09/13/18 14:00 Hfcc-2-Aftsklnj 0.5 g/dL (0.4-0.6) 09/13/18 14:00 Xopm-9-Rxtqkqeb 0.5 g/dL (0.2-0.5) 09/13/18 14:00 Gamma Globulins 2.1 g/dL (0.8-1.7) H 09/13/18 14:00 Abnorm Protein Band 1 TEST NOT PERFORMED 09/13/18 14:00 Abnorm Protein Band 2 TEST NOT PERFORMED 09/13/18 14:00 Abnorm Protein Band 3 TEST NOT PERFORMED 09/13/18 14:00 Triglycerides 103 mg/dL (35-160) 09/11/18 06:00 Cholesterol 103 mg/dL (130-200) L 09/11/18 06:00 LDL Cholesterol Direct 67 mg/dL (0-129) 09/11/18 06:00 HDL Cholesterol 12 mg/dL (29-60) L 09/11/18 06:00 Free PSA <0.1 ng/mL 09/17/18 12:30 % Free PSA Unable to calculate % (calc) (>25) 09/17/18 12:30 Total PSA 0.2 ng/mL (< or = 4.0) 09/17/18 12:30 Vitamin B12 737 pg/mL (239-931) 09/13/18 14:00 25-OH Vitamin D Total 5 ng/mL (30-100) L 09/11/18 11:00 Folate 6.2 ng/mL 09/13/18 14:00 Free T4 1.08 ng/dL (0.78-2.19) 09/11/18 10:10 Thyroxine (T4) 3.9 ug/dL (5.5-11.0) L 09/11/18 10:10 TSH 3rd Generation 2.60 mIU/mL (0.46-4.68) 09/11/18 10:10 Arterial Blood Potassium 4.2 mmol/L (3.6-5.2) 09/11/18 15:10 VEDA & SPEP Interp See note 09/13/18 14:00 Blood Type A POSITIVE 09/11/18 06:00 Antibody Screen Negative 09/11/18 06:00 Crossmatch See Detail 09/11/18 06:00 BBK History Checked Patient has bt 09/11/18 06:00 - Hospital Course Hospital Course: Mr Degroot, 58M, PMHx morbid obesity of BMI 70s, b/l thigh cellulitis, and chronic lymphedema, admitted on 09/11/18 for SOB. SOB is likely due to diastolic CHF exacerbation possibly caused by aortic regurgitation. Echocardiogram shows EF 56, RVSP 36, with moderate to severe aortic regurgitation, moderated enlarged aortic root, and moderate concentric left ventricular hypertrophy. During the hospital stay, he had hypercapnic respiratory distress requiring BIPAP and ICU management, downgraded, now on NC 4L and BIPAP HS with 90% FiO2. He was found to have a new onset A fib, [id number] score 2, on warfarin 10, bridging heparin gtt. For cellulitis in thighs and b/l chronic venous dermatitis, Podiatry on board. Completed 5 days of Doxy. He is on silverdine, mupirocin, clotrimazole/betamethazone. He show follow up Dr Brothers @ [facility] For COPD/SOB, he is on duoneb q6. NC 4L day; Bipap HS. He is on tapering dose of prednison For CHF, he is on lasix 40 IV q8, metoprolol 25 BID, lipitor. He has a Metabolic alkalosis due to lasix volume contraction. Add diamox x 5 days (day 2) For symptomatic anemia, Hb 8.3 on admission with SOB/A-fib, received 1u pRBC. He is on venofar IV, 5/5 bags on Sunday 09/17. He is Obese class 3, BMI 72.6. We conducted alcoholic counselor for weight loss and appropriate diet Discharge Exam - Head Exam Head Exam: ATRAUMATIC, NORMAL INSPECTION, NORMOCEPHALIC - Eye Exam Eye Exam: EOMI, Normal appearance, PERRL. absent: Scleral icterus Pupil Exam: NORMAL ACCOMODATION - ENT Exam ENT Exam: Mucous Membranes Moist - Neck Exam Additional comments: supple - Respiratory Exam Respiratory Exam: Decreased Breath Sounds (b/l lung bases), NORMAL BREATHING PATTERN (4L NC). absent: Rales, Rhonchi, Wheezes - Cardiovascular Exam Cardiovascular Exam: REGULAR RHYTHM, +S1, +S2. absent: Systolic Murmur - GI/Abdominal Exam GI & Abdominal Exam: Soft - Extremities Exam Extremities exam: pedal edema Additional comments: on compression dressings - Back Exam Back exam: absent: CVA tenderness (L), CVA tenderness (R) - Neurological Exam Neurological exam: Alert, CN II-XII Intact, Oriented x3 - Psychiatric Exam Psychiatric exam: Normal Affect, Normal Mood - Skin Skin Exam: Dry, Warm Discharge Plan - Follow Up Plan Condition: GUARDED Disposition: HOME/ ROUTINE Additional Instructions: MAY DISCHARGE TO [facility] DISCHARGE MEDS PER UPDATED AMBULATORY ORDERS FOLLOW UP WITHIN 1 WEEK UPON DISCHARGE FROM [facility] diastolic CHF exacerbation possibly caused by aortic regurgitation. Pt needs to follow up with cardiology within 1 week of discharge from [facility] Referrals: Markel Michel MD [Staff Provider] - 1 Week (MAY DISCHARGE TO [facility] DISCHARGE MEDS PER UPDATED AMBULATORY ORDERS FOLLOW UP WITHIN 1 WEEK UPON DISCHARGE FROM [facility] ) Jean Claude Lacy MD [Staff Provider] - Ana Brothers DPM [Staff Provider] - Shashi Bridges MD [Staff Provider] -
--- NOTE | 2018-09-19 11:21 | DS ---
HISTORY OF PRESENT ILLNESS: The patient is in room 261, bed 2. The patient still seen lying in the bariatric bed. Overnight nurse's notes were reviewed. The patient refused BiPAP overnight as per the nurse's notes. There was no respiratory compromise noted, notified or documented. PHYSICAL EXAMINATION: GENERAL: The patient is seen lying in the bed. VITAL SIGNS: T-max 97.6. Telemetry shows atrial fibrillation, heart rate 74 to 89, blood pressure 131/72, respirations 20, O2 sat 97%. HEENT: Head is normocephalic, atraumatic. HEENT examination shows pinkish pale conjunctivae. Anicteric sclerae. No oropharyngeal lesion. NECK: Short and supple. CHEST: Morbidly obese. Decreased breath sound at the bases. No audible crackle, rales or wheezing at this time. CARDIOVASCULAR: S1, S2, irregular rhythm. Positive systolic murmur at left sternal border, right second intercostal space, left second intercostal space. ABDOMEN: Morbidly obese. Unable to palpate any hepatosplenomegaly or organomegaly. GENITALIA: Male. Doshi catheter removed. EXTREMITIES: Still shows massive lymphedema of the lower extremity which has decreased, but not completely resolved. NEUROLOGIC: The patient is alert, awake, oriented x3. Cranial nerves II-XII limited. Gait examination is limited. MUSCULOSKELETAL: Shows a body mass index of greater than 72. PSYCHIATRIC: Not applicable. MEDICATIONS: Text, text, text. DIAGNOSTICS: On 09/19/2018, 13, WBC 8.4, hemoglobin/hematocrit 10.3, 39.9, platelet 254. PT is now up to 23.6. INR 2.09. Sodium 140, potassium 3.8, chloride 92, CO2 43, BUN 23, creatinine 0.9, glucose 92, calcium 9.3, phosphorus 5.7 and magnesium 2.0, AST 60. FINAL IMPRESSION AND DISCHARGE DIAGNOSES: 1. New-onset atrial fibrillation. 2. Acute systolic congestive heart failure versus acute diastolic congestive heart failure. 3. Pulmonary hypertension with right pulmonary hypertension with tricuspid regurgitation. 4. Obstructive sleep apnea. 5. Super morbid obesity with body weight of more than 535 pounds and BMI of greater than 72. 6. Massive bilateral lower extremity lymphedema. 7. Bilateral lower extremity venous stasis superficial ulceration and dermatitis. 8. Hypoxic hypercarbic respiratory failure with respiratory acidosis. 9. Severe gait dysfunction and deconditioning and possible functional quadriplegia. 10. Normocytic anemia. 11. Possible diuretic-induced metabolic alkalosis. 12. Possible transaminitis. 13. Mild hyperphosphatemia. 14. Hypertension. 15. History of super morbid obesity. 16. Anemia. 17. Gait dysfunction. PLAN: At this time, the patient is almost achieved therapeutic INR with Coumadin. Heparin drip will be discontinued and the patient will be considered for discharge to long-term acute [facility] hospitalization wherever the patient is approved and accepted. The patient at present is to be to be discharged to [facility] for further care and management. The patient's discharge medications are as per updated, revised and updated ambulatory orders which has been updated. Please refer to the updated ambulatory orders for discharge medications. DISCHARGE FOLLOWUP: The patient has been advised to follow up immediately upon discharge from [facility] hospitalization. During this hospitalization, the patient was extensively daily explained about his medical condition, diagnosis, diagnostic test results and recommendation by all the physician involved the care of the patient and all the details were explained to the patient in layman's language. All questions concerned answered. Time spent in the discharge process 45 minutes. Dictated and electronically signed, not read. Markel Michel MD
--- NOTE | 2018-09-19 12:33 | CP.PCM.PN ---
Subjective - Date & Time of Evaluation Date of Evaluation: 09/19/18 Time of Evaluation: 09:50 - Subjective Subjective: Afebrile, comfortable. Objective - Vital Signs/Intake and Output Vital Signs (last 24 hours): Temp Pulse Resp BP Pulse Ox 98.4 F 90 18 128/56 L 90 L 09/18/18 06:00 09/18/18 10:00 09/18/18 06:00 09/18/18 09:28 09/18/18 06:00 Intake and Output: 09/18/18 09/18/18 06:59 18:59 Intake Total 1891 250 Output Total 6700 Balance -4809 250 - Medications Medications: Current Medications Acetaminophen (Tylenol 325mg Tab) 650 mg PO Q6 PRN PRN Reason: TEMP>=99.5F Last Admin: 09/12/18 02:33 Dose: 650 mg Acetaminophen (Tylenol 650 Mg Supp) 650 mg RC Q6H PRN PRN Reason: TEMP>=99.5F Acetazolamide (Diamox 250 Mg Tab) 250 mg PO BID [facility] Stop: 09/23/18 10:01 Last Admin: 09/18/18 09:44 Dose: 250 mg Albuterol/Ipratropium (Duoneb 3 Mg/0.5 Mg (3 Ml) Ud) 3 ml IH [id number] [facility] Last Admin: 09/18/18 13:51 Dose: 3 ml Atorvastatin Calcium (Lipitor) 40 mg PO DIN [facility] Last Admin: 09/17/18 17:26 Dose: 40 mg Betamethasone/Clotrimazole (Lotrisone) 0 gm TOP BID [facility] Last Admin: 09/18/18 09:32 Dose: 1 applic Docusate Sodium (Colace) 100 mg PO TID [facility] Last Admin: 09/16/18 18:34 Dose: Not Given Ergocalciferol (Drisdol 50,000 Intl Units Cap) 1 cap PO Q7D [facility] Last Admin: 09/13/18 09:51 Dose: 1 cap Furosemide (Lasix) 40 mg IVP Q8H [facility] Last Admin: 09/18/18 05:32 Dose: 40 mg Heparin Sodium/Sodium Chloride (Heparin 90459 Units/250ml 1/2 Normal Saline) 25,000 units in 250 mls @ 20.02 mls/hr IV .[id number] PRN; Protocol PRN Reason: ADJUST RATE PER PROTOCOL Last Admin: 09/18/18 09:27 Dose: 7.25 units/kg/hr, 17.594 mls/hr Metoprolol Tartrate (Lopressor) 25 mg PO BID [facility] Last Admin: 09/18/18 09:28 Dose: 25 mg Mupirocin (Bactroban Ointment) 0 gm TOP DAILY [facility] Last Admin: 09/18/18 09:32 Dose: 1 applic Ondansetron HCl (Zofran Inj) 4 mg IVP Q4H PRN PRN Reason: Nausea/Vomiting Pantoprazole Sodium (Protonix Ec Tab) 40 mg PO 0600 [facility] Last Admin: 09/18/18 05:25 Dose: 40 mg Prednisone (Prednisone Tab) 40 mg PO DAILY [facility]; Taper Stop: 09/30/18 09:59 Last Admin: 09/18/18 09:43 Dose: 40 mg Silver Sulfadiazine (Silvadene 1%) 0 ea TOP BID [facility] Last Admin: 09/18/18 09:31 Dose: 1 gm Warfarin Sodium (Coumadin) 10 mg PO 1800 [facility]; Protocol Last Admin: 09/17/18 17:25 Dose: 10 mg - Labs Labs: 09/18/18 05:30 09/18/18 05:30 PT 20.0 SECONDS (9.4-12.5) H 09/18/18 05:30 INR 1.77 09/18/18 05:30 APTT 63.2 Seconds (26.9-38.3) H 09/18/18 05:30 - Constitutional Appears: Chronically Ill - Head Exam Head Exam: NORMAL INSPECTION - Respiratory Exam Respiratory Exam: Decreased Breath Sounds - Cardiovascular Exam Cardiovascular Exam: +S1, +S2 - GI/Abdominal Exam GI & Abdominal Exam: Soft. absent: Tenderness Assessment and Plan - Assessment and Plan (Free Text) Plan: Assessment Probable acute bronchitis, clinically improved and S/P treatment chronic lower extremity lymphedema chronic atrial fibrillation HTN morbid obesity with BMI 73 Plan completed course of PO Doxycycline follow up further recommendations of Podiatry and should follow up with them as an outpatient
[2018-09-19 12:39] VITALS: BP 128/62; PULSE 72; RESP 18; TEMP 97.9
--- NOTE | 2018-09-19 13:04 | CP.PCM.PN ---
<Kayla Barbozabrenda - Last Filed: 09/19/18 13:02> Subjective - Date & Time of Evaluation Date of Evaluation: 09/19/18 Time of Evaluation: 13:02 - Subjective Subjective: Podiatry consult note for Dr. Gonzalez 58 y/o male seen and evaluated in the ICU for bilateral leg wounds. Patient alert, awake, states he is feeling much better. Patient also states the swelling in his legs has decreased. Patient is resting comfortably in bed, and denies any acute overnight events. Patient to be transferred to [facility] for further rehab, patient aware he has to follow up with Podiatry as outpatient Objective - Vital Signs/Intake and Output Vital Signs (last 24 hours): Temp Pulse Resp BP Pulse Ox 97.9 F 72 18 128/62 97 09/19/18 12:00 09/19/18 12:00 09/19/18 12:00 09/19/18 12:00 09/19/18 06:00 Intake and Output: 09/19/18 09/19/18 06:59 18:59 Intake Total 970 Output Total 3500 Balance -2530 - Medications Medications: Current Medications Acetaminophen (Tylenol 325mg Tab) 650 mg PO Q6 PRN PRN Reason: TEMP>=99.5F Last Admin: 09/12/18 02:33 Dose: 650 mg Acetaminophen (Tylenol 650 Mg Supp) 650 mg RC Q6H PRN PRN Reason: TEMP>=99.5F Acetazolamide (Diamox 250 Mg Tab) 250 mg PO BID [facility] Stop: 09/23/18 10:01 Last Admin: 09/19/18 09:57 Dose: 250 mg Albuterol/Ipratropium (Duoneb 3 Mg/0.5 Mg (3 Ml) Ud) 3 ml IH [id number] [facility] Last Admin: 09/19/18 08:02 Dose: 3 ml Atorvastatin Calcium (Lipitor) 40 mg PO DIN [facility] Last Admin: 09/18/18 18:12 Dose: 40 mg Betamethasone/Clotrimazole (Lotrisone) 0 gm TOP BID [facility] Last Admin: 09/19/18 09:56 Dose: 1 applic Docusate Sodium (Colace) 100 mg PO TID [facility] Last Admin: 09/16/18 18:34 Dose: Not Given Ergocalciferol (Drisdol 50,000 Intl Units Cap) 1 cap PO Q7D [facility] Last Admin: 09/13/18 09:51 Dose: 1 cap Furosemide (Lasix) 40 mg IVP Q8H [facility] Last Admin: 09/19/18 05:48 Dose: 40 mg Metoprolol Tartrate (Lopressor) 25 mg PO BID [facility] Last Admin: 09/19/18 09:57 Dose: 25 mg Mupirocin (Bactroban Ointment) 0 gm TOP DAILY [facility] Last Admin: 09/19/18 09:56 Dose: 1 applic Ondansetron HCl (Zofran Inj) 4 mg IVP Q4H PRN PRN Reason: Nausea/Vomiting Pantoprazole Sodium (Protonix Ec Tab) 40 mg PO 0600 [facility] Last Admin: 09/19/18 05:48 Dose: 40 mg Prednisone (Prednisone Tab) 40 mg PO DAILY [facility]; Taper Stop: 09/30/18 09:59 Last Admin: 09/19/18 09:56 Dose: 40 mg Silver Sulfadiazine (Silvadene 1%) 0 ea TOP BID [facility] Last Admin: 09/19/18 09:56 Dose: 1 gm - Labs Labs: 09/19/18 05:30 09/19/18 05:30 PT 23.6 SECONDS (9.4-12.5) H 09/19/18 05:30 INR 2.09 09/19/18 05:30 APTT 66.3 Seconds (26.9-38.3) H 09/19/18 05:30 - Constitutional Appears: Well, Non-toxic, No Acute Distress - Head Exam Head Exam: ATRAUMATIC, NORMOCEPHALIC - Extremities Exam Additional comments: Bilateral Lower Extremity Exam VASC: DP and PT non-palpable secondary to swelling, however, seen to be improving due to compression, TG within normal limits DERM RIGHT: superficial wounds noted to the lateral aspect of the right leg and to the posterior thigh, 100% granular base, no probe to bone, no malodor, minimal drainage, no signs of infection noted LEFT: small superficial wound noted to the medial aspect of the left leg, 100% granular base, no probe to bone, no malodor, no drainage, no signs of infection noted, significant lymphedema noted bilaterally, however it is improving NEURO: grossly intact now ORTHO: pain with movement and range of motion, minimal pain on palpation to wounds - Neurological Exam Neurological Exam: Alert, Awake, Oriented x3 - Psychiatric Exam Psychiatric exam: Normal Affect, Normal Mood Assessment and Plan - Assessment and Plan (Free Text) Assessment: 58 y/o male patient seen with superficial wounds to bilateral lower extremity, non-infected Plan: Patient seen and evaluated with Dr. Gonzalez Plan discussed with attending Chart, labs and vitals were reviewed, afebrile, absent leukocytosis Wound care: clean with saline and dress with bactroban, maxorb, optifoam, and RACHEL bilaterally Lotrisone cream applied to bilateral feet for itching Patient to follow up with Podiatry as outpatient Patient stable from podiatry standpoint, no intervention required Podiatry will continue to follow <Ariel Gonzalez - Last Filed: 09/19/18 17:54> Objective - Vital Signs/Intake and Output Vital Signs (last 24 hours): Temp Pulse Resp BP Pulse Ox 97.9 F 72 18 128/62 97 09/19/18 12:00 09/19/18 12:00 09/19/18 12:00 09/19/18 14:10 09/19/18 06:00 Intake and Output: 09/19/18 09/19/18 06:59 18:59 Intake Total 970 Output Total 3500 Balance -2530 - Medications Medications: Current Medications Acetaminophen (Tylenol 325mg Tab) 650 mg PO Q6 PRN PRN Reason: TEMP>=99.5F Last Admin: 09/12/18 02:33 Dose: 650 mg Acetaminophen (Tylenol 650 Mg Supp) 650 mg RC Q6H PRN PRN Reason: TEMP>=99.5F Acetazolamide (Diamox 250 Mg Tab) 250 mg PO BID [facility] Stop: 09/23/18 10:01 Last Admin: 09/19/18 09:57 Dose: 250 mg Albuterol/Ipratropium (Duoneb 3 Mg/0.5 Mg (3 Ml) Ud) 3 ml IH [id number] [facility] Last Admin: 09/19/18 13:20 Dose: 3 ml Atorvastatin Calcium (Lipitor) 40 mg PO DIN [facility] Last Admin: 09/18/18 18:12 Dose: 40 mg Betamethasone/Clotrimazole (Lotrisone) 0 gm TOP BID [facility] Last Admin: 09/19/18 09:56 Dose: 1 applic Docusate Sodium (Colace) 100 mg PO TID [facility] Last Admin: 09/16/18 18:34 Dose: Not Given Ergocalciferol (Drisdol 50,000 Intl Units Cap) 1 cap PO Q7D [facility] Last Admin: 09/13/18 09:51 Dose: 1 cap Furosemide (Lasix) 40 mg IVP Q8H [facility] Last Admin: 09/19/18 14:10 Dose: 40 mg Metoprolol Tartrate (Lopressor) 25 mg PO BID [facility] Last Admin: 09/19/18 09:57 Dose: 25 mg Mupirocin (Bactroban Ointment) 0 gm TOP DAILY [facility] Last Admin: 09/19/18 09:56 Dose: 1 applic Ondansetron HCl (Zofran Inj) 4 mg IVP Q4H PRN PRN Reason: Nausea/Vomiting Pantoprazole Sodium (Protonix Ec Tab) 40 mg PO 0600 [facility] Last Admin: 09/19/18 05:48 Dose: 40 mg Prednisone (Prednisone Tab) 40 mg PO DAILY [facility]; Taper Stop: 09/30/18 09:59 Last Admin: 09/19/18 09:56 Dose: 40 mg Silver Sulfadiazine (Silvadene 1%) 0 ea TOP BID [facility] Last Admin: 09/19/18 09:56 Dose: 1 gm - Labs Labs: 09/19/18 05:30 09/19/18 05:30 PT 23.6 SECONDS (9.4-12.5) H 09/19/18 05:30 INR 2.09 09/19/18 05:30 APTT 66.3 Seconds (26.9-38.3) H 09/19/18 05:30 Attending/Attestation - Attestation I have personally seen and examined this patient.: Yes I have fully participated in the care of the patient.: Yes I have reviewed all pertinent clinical information, including history, physical exam and plan: Yes
--- NOTE | 2018-09-19 15:16 | CP.PCM.APN ---
Objective - Vital Signs/Intake and Output Vital Signs (last 24 hours): Temp Pulse Resp BP Pulse Ox 97.9 F 72 18 128/62 97 09/19/18 12:00 09/19/18 12:00 09/19/18 12:00 09/19/18 14:10 09/19/18 06:00 Intake and Output: 09/19/18 09/19/18 06:59 18:59 Intake Total 970 Output Total 3500 Balance -2530 - Medications Medications: Current Medications Acetaminophen (Tylenol 325mg Tab) 650 mg PO Q6 PRN PRN Reason: TEMP>=99.5F Last Admin: 09/12/18 02:33 Dose: 650 mg Acetaminophen (Tylenol 650 Mg Supp) 650 mg RC Q6H PRN PRN Reason: TEMP>=99.5F Acetazolamide (Diamox 250 Mg Tab) 250 mg PO BID [facility] Stop: 09/23/18 10:01 Last Admin: 09/19/18 09:57 Dose: 250 mg Albuterol/Ipratropium (Duoneb 3 Mg/0.5 Mg (3 Ml) Ud) 3 ml IH [id number] [facility] Last Admin: 09/19/18 13:20 Dose: 3 ml Atorvastatin Calcium (Lipitor) 40 mg PO DIN [facility] Last Admin: 09/18/18 18:12 Dose: 40 mg Betamethasone/Clotrimazole (Lotrisone) 0 gm TOP BID [facility] Last Admin: 09/19/18 09:56 Dose: 1 applic Docusate Sodium (Colace) 100 mg PO TID [facility] Last Admin: 09/16/18 18:34 Dose: Not Given Ergocalciferol (Drisdol 50,000 Intl Units Cap) 1 cap PO Q7D [facility] Last Admin: 09/13/18 09:51 Dose: 1 cap Furosemide (Lasix) 40 mg IVP Q8H [facility] Last Admin: 09/19/18 14:10 Dose: 40 mg Metoprolol Tartrate (Lopressor) 25 mg PO BID [facility] Last Admin: 09/19/18 09:57 Dose: 25 mg Mupirocin (Bactroban Ointment) 0 gm TOP DAILY [facility] Last Admin: 09/19/18 09:56 Dose: 1 applic Ondansetron HCl (Zofran Inj) 4 mg IVP Q4H PRN PRN Reason: Nausea/Vomiting Pantoprazole Sodium (Protonix Ec Tab) 40 mg PO 0600 [facility] Last Admin: 09/19/18 05:48 Dose: 40 mg Prednisone (Prednisone Tab) 40 mg PO DAILY [facility]; Taper Stop: 09/30/18 09:59 Last Admin: 09/19/18 09:56 Dose: 40 mg Silver Sulfadiazine (Silvadene 1%) 0 ea TOP BID [facility] Last Admin: 09/19/18 09:56 Dose: 1 gm - Labs Labs: 09/19/18 05:30 09/19/18 05:30 PT 23.6 SECONDS (9.4-12.5) H 09/19/18 05:30 INR 2.09 09/19/18 05:30 APTT 66.3 Seconds (26.9-38.3) H 09/19/18 05:30 BPCI/TIC - BPCIA/TIC Educated pt/family on BPCIA/CIR/Med to Bed Programs: Yes Flyers given, including CMS Beneficiary letter: Yes Pt/family verbalized understanding & agreed to program: Yes
--- NOTE | 2018-09-19 15:52 | IP.NPCORE ---
Heart Failure Core Measure - Heart Failure Ejection Fraction: 40 % or Greater Left Ventricular Function to be assessed after discharge: No RACHEL Inhibitor Prescribed: No Contraindication/Reason for not providing: diastolic chf Beta-Zaid Prescribed: Metoprolol Succinate Angiotensin II Receptor Zaid Prescribed: No Contraindication/Reason for not providing: diastolic chf AnticoagulationTherapy for Atrial Fibrillation/Atrialflutter: Yes Aldosterone Antagonist Prescribed: No Contraindication/Reason for not providing: dialstolic chf Hydralazine Nitrate Prescribed: No Contraindication/Reason for not providing: diastolic chf Implantable Cardioverter Defibrillator Therapy: No Contraindication/Reason for not providing: diastolic chf Cardiac Resynchronization Therapy Prescribed: No Contraindication/Reason for not providing: diastolic chf - Follow up [facility] be [facility]
== END 2018-09-19 18:48 | DRG 308 ==
LOC: ED 01:12 → ERH 05:38 → ICU 07:31 → 2RNO 09-16 21:14
PROVIDERS: ADMIT Internal Medicine; ATTEND Internal Medicine
PROC: 3E033GC Introduction of Other Therapeutic Substance into Peripheral Vein, Percutaneous Approach (ICD-10-PCS; principal; 2018-09-11)
PROC: 30233N1 Transfusion of Nonautologous Red Blood Cells into Peripheral Vein, Percutaneous Approach (ICD-10-PCS; 2018-09-11)
PROC: 5A09457 Assistance with Respiratory Ventilation, 24-96 Consecutive Hours, Continuous Positive Airway Pressure (ICD-10-PCS; 2018-09-11)
PROC: 3E0F7GC Introduction of Other Therapeutic Substance into Respiratory Tract, Via Natural or Artificial Opening (ICD-10-PCS; 2018-09-11)
PROC: 5A09457 Assistance with Respiratory Ventilation, 24-96 Consecutive Hours, Continuous Positive Airway Pressure (ICD-10-PCS; 2018-09-16)
DX: I48.91 Unspecified atrial fibrillation (principal); J96.22 Acute and chronic respiratory failure with hypercapnia; I50.43 Acute on chronic combined systolic (congestive) and diastolic (congestive) heart failure; R53.2 Functional quadriplegia; Z68.45 Body mass index [BMI] 70 or greater, adult; L97.919 Non-pressure chronic ulcer of unspecified part of right lower leg with unspecified severity; L97.929 Non-pressure chronic ulcer of unspecified part of left lower leg with unspecified severity; E66.2 Morbid (severe) obesity with alveolar hypoventilation; L03.115 Cellulitis of right lower limb; L03.116 Cellulitis of left lower limb; J44.1 Chronic obstructive pulmonary disease with (acute) exacerbation; E87.4 Mixed disorder of acid-base balance; J44.0 Chronic obstructive pulmonary disease with (acute) lower respiratory infection; D50.9 Iron deficiency anemia, unspecified; I27.20 Pulmonary hypertension, unspecified; J20.9 Acute bronchitis, unspecified; L89.322 Pressure ulcer of left buttock, stage 2; L89.312 Pressure ulcer of right buttock, stage 2; E55.9 Vitamin D deficiency, unspecified; E78.5 Hyperlipidemia, unspecified; I87.2 Venous insufficiency (chronic) (peripheral); E87.5 Hyperkalemia; I11.0 Hypertensive heart disease with heart failure; I08.2 Rheumatic disorders of both aortic and tricuspid valves; T50.1X5A Adverse effect of loop [high-ceiling] diuretics, initial encounter; R26.9 Unspecified abnormalities of gait and mobility; Z74.01 Bed confinement status; Z91.19 Patient's noncompliance with other medical treatment and regimen; Z87.81 Personal history of (healed) traumatic fracture